=== PATIENT | female | born 1955 | race Caucasian/White ===

== ENCOUNTER 2022-12-28 11:30 | Outpatient (OUT) | payer MEDICARE, SELFPAY ==
[2022-12-28 12:00] LABS: Estimated GFR (African America 57 (>=60); Estimated GFR (Non-African Ame 47 (>=60)
--- NOTE | 2022-12-28 12:45 | MR_ITS ---
The [place] [id number] Patient Name: DIAN HILL MRN: [id number] date: 1955 Sex: F Assigned Patient Location: LAB Current Patient Location: LAB Accession/Order Number: [id number] Exam Date: 12/28/2022 12:45 Report Date: 12/28/2022 22:08 At the request of: RAJIV [place] APLCORNELL Procedure: MR hip RT wo/w con EXAM: MR hip RT wo/w con HISTORY: Right hip pain COMPARISON: None. TECHNIQUE: Multiplanar, multi sequential MRI sequences were performed with and without the administration of intravenous contrast. FINDINGS: No fracture, dislocation, subluxation or osseous lesion. The pubic symphysis and sacroiliac joints are normal for patient's age. No visualized discrete pelvic abnormality. No visualized hip joint effusions. The bilateral acetabular labrum and bilateral femoral head and acetabular cartilage exhibit no visualized irregularity Thickening and interstitial edema of the origin of the right common hamstring complex (coronal small [id number] 18 and axial 32). Questionable mild thickening and interstitial edema of the bilateral gluteus medius tendons with no tear. The remainder of the visualized tendons exhibit no discrete additional thickening, tear or edema. No abnormal bursal fluid collections. No muscle edema, hematoma, atrophy or fatty infiltration. The subcutaneous soft tissues are free of edema, hematoma, mass or cyst. Postcontrast sequences exhibit no abnormal enhancement. IMPRESSION: Moderate right common hamstring origin tendinopathy. Questionable mild bilateral gluteus medius tendinopathy. Electronically authenticated by: LUCINA BERTRAND Date: 12/28/2022 22:08
== END 2022-12-28 11:31 | disposition home or self-care (01) ==
LOC: LAB 11:55
PROVIDERS: PCP Family Medicine; Visit Provider Nurse Practitioner Family
DX: M25.451 Effusion, right hip (principal); M79.89 Other specified soft tissue disorders; M67.853 Other specified disorders of tendon, right hip
CPT/HCPCS: 36415; 73723; 82565; A9575

== ENCOUNTER 2023-02-14 10:55 | Emergency (ER) | payer MEDICARE, SELFPAY ==
[2023-02-14 11:01] VITALS: BP 135/103; PULSE 105; RESP 24; TEMP 36.9; O2SAT 99; BMI 25.8
--- NOTE | 2023-02-14 11:22 | ECG_ITS ---
The [facility] Test Date: 2023-02-14 Pat Name: DIAN HILL Department: Room: - Gender: Female Prescription Clerk Lenses: : 1955 Requested By: SHALINI HARGROVE Order Number: [id number] Reading MD: CHERYL COLORADO Measurements Intervals [place] Rate: 77 P: 81 VT: 118 QRS: 63 QRSD: 68 T: 82 QT: 384 QTc: 415 Interpretive Statements 1100 Sinus rhythm 2210 Short VT interval 9150 abnormal ECG Compared to ECG 02/14/2023 11:07:40 Short VT interval now present Electronically Signed On 02-15-2023 6:59:58 EDT by CHERYL COLORADO
--- NOTE | 2023-02-14 11:24 | ECG_ITS ---
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
--- NOTE | 2023-02-14 11:25 | XR_ITS ---
[address] [address] Patient Name: DIAN HILL MRN: [id number] date: 1955 Sex: F Assigned Patient Location: ER Current Patient Location: ER Accession/Order Number: [id number] Exam Date: 02/14/2023 11:00 Report Date: 02/14/2023 12:25 At the request of: KENNY KATZ Procedure: XR chest 1V XR chest 1V 02/14/2023 11:00 AM EDT INDICATION: Dyspnea COMPARISON: Radiograph of the chest 07/15/2022 FINDINGS: Cardiomediastinal silhouette within normal limits. No focal consolidation or pleural effusion. No pneumothorax. No acute fracture or dislocation. XR/XR chest 1V IMPRESSION: No acute cardiopulmonary process. Electronically authenticated by: PRASANNA PRITCHETT Date: 02/14/2023 12:25
[2023-02-14 11:51] LABS: Basophils Percent Auto 0.7 % (0.2-2.0); Eosinophils Absolute Auto 0.1 10^3/uL (0.0-0.7); Eosinophils Percent Auto 1.3 % (0.9-7.0); Hematocrit 42.6 % (36.0-48.0); Hemoglobin 14.6 g/dL (12.0-16.0); Immature Granulocytes Abs Auto 0.01 10^3/uL (0.00-0.03); Immature Granulocytes Pct Auto 0.2 % (0.0-0.5); Lymphocytes Absolute Auto 1.5 10^3/uL (1.2-3.8); Lymphocytes Percent Auto 32.4 % (20.5-60.0); Mean Corpuscular HGB Conc 34.3 g/dL (29.9-35.2); Mean Corpuscular Hemoglobin 31.4 pg (26.7-34.0); Mean Corpuscular Volume 91.6 fL (81.0-99.0); Mean Platelet Volume 9.8 fL (9.5-13.5); Monocytes Absolute Auto 0.3 10^3/uL (0.3-0.8); Monocytes Percent Auto 7.4 % (1.7-12.0); Neutrophils Absolute Auto 2.6 10^3/uL (1.4-6.5); Platelet Count 304 10^3/uL (150-450); Red Blood Count 4.65 10^6/uL (4.20-5.40); Red Cell Distribution Width 13.5 % (11.0-15.0); White Blood Count 4.5 10^3/uL (4.0-11.0)
[2023-02-14] MEDS: 0.9 % SODIUM CHLORIDE 1,000 ML 1000 ML IV (11:51)
[2023-02-14] MEDS: PROMETHAZINE HCL 25 MG/ML VIAL 12.5 MG IV (11:52)
[2023-02-14] MEDS: MORPHINE SULFATE 2 MG/ML SYRINGE IV (11:53)
[2023-02-14] MEDS: KETOROLAC TROMETHAMINE 30 MG/ML VIAL 15 MG IVP (11:54)
[2023-02-14 12:03] LABS: Anion Gap 17.8; BUN Creatinine Ratio 10.7; Calcium 9.8 mg/dL (8.5-10.1); Carbon Dioxide 22.9 mmol/L (21.0-32.0); Chloride 105 mmol/L (98-107); Estimated GFR (African America 53 (>=60); Estimated GFR (Non-African Ame 44 (>=60); Glucose 110 mg/dL (74-106); Potassium 4.7 mmol/L (3.5-5.1); Sodium 141 mmol/L (136-145)
[2023-02-14 12:11] LABS: Troponin I High Sensitivity 5.7 pg/mL (4.0-51.3)
--- NOTE | 2023-02-14 13:31 | ED_ITS ---
HPI - General Adult General Chief complaint: Back Pain/Injury Stated complaint: SPINAL STENOSIS/PAIN Time Seen by Provider: 02/14/23 11:18 Source: patient Mode of arrival: Wheelchair Limitations: no limitations History of Present Illness HPI narrative: 67-year-old female to the emergency department with multiple medical complaints. Patient reports that for the last year she has had back pain, nausea. She reports been seen by multiple doctors at multiple hospitals and multiple Emergency Rooms for this complaint: Patellar was wrong. She reports that she had an MRI which showed spinal stenosis. She was referred by her PCP pain management however they would not see her she was discharged from the previous pain management clinic. Patient has no new complaints today. She reports she is just tired of living like this . She reports it hurts to walk, hurts to lay down, hurts to move around. She reports that she has had constant nausea every single day for several months. She reports she takes Zofran around the clock for this. She reports that she hasn't been eating or drinking well because of this. She denies any recent falls or injuries. She denies any chest pain. She denies any fever, sweats, chills. She denies any numbness, focal weakness, tingling. Related Data Home Medications Medication Instructions Recorded Confirmed duloxetine 60 mg capsule,delayed 60 mg PO DAILY 02/14/23 02/14/23 release levothyroxine 75 mcg tablet 75 mcg PO DAILY 02/14/23 02/14/23 ondansetron 4 mg disintegrating 4 mg translingual Q8H PRN nausea 02/14/23 02/14/23 tablet and vomiting Previous Rx's Medication Instructions Recorded promethazine 25 mg tablet 25 mg PO TID PRN nausea and 02/14/23 vomiting #20 tabs Allergies Allergy/AdvReac Type Severity Reaction Status Date / Time No Known Drug Allergies Allergy Verified 02/14/23 11:00 Review of Systems ROS Status of ROS 10 or more systems reviewed and unremarkable except as noted in history and below [facility] Social History Smoking status: Never smoker Exam Narrative Exam Narrative: VITALS: I have reviewed the triage vital signs. GENERAL: Adult female in the position in no apparent distress. Son-in-law at the bedside. NEURO: Alert and oriented. Moves all extremities. Face is symmetric and expressive. EYES: PERRL. No scleral icterus or conjunctival injection. No discharge. HENT: Normocephalic, atraumatic. Hearing is grossly intact. Nares grossly patent and without discharge. Mucous membranes moist. NECK: No JVD. Patient moves neck without restriction. CARDIO: Rhythm regular. Normal rate. No murmur, rub, or gallop. Pulses equal bilaterally in the upper and lower extremity. No lower extremity edema. PULM: Lungs clear to auscultation in all baker. No wheezes, rales, or rhonchi. No conversational dyspnea. No splinting, stridor, or accessory muscle use. GI/: Abdomen is soft and non-tender. Normoactive bowel sounds. EXTREMITIES: Symmetric muscle bulk. No joint swelling. No clubbing, cyanosis, or deformity. SKIN: Warm and dry. Normal turgor. No rash or lesions appreciated. PSYCH: Strange affect Constitutional Vital Signs, click to edit/add: Last Vital Signs Temp 98.4 F 02/14/23 11:01 Pulse 105 H 02/14/23 11:01 Resp 24 02/14/23 11:01 BP 135/103 H 02/14/23 11:01 Pulse Ox 99 02/14/23 11:01 O2 Del Method Room Air 02/14/23 11:01 Course Vital Signs Vital signs: Vital Signs Temperature 98.4 F 02/14/23 11:01 Pulse Rate 105 H 02/14/23 11:01 Respiratory Rate 24 02/14/23 11:01 Blood Pressure 135/103 H 02/14/23 11:01 Pulse Oximetry 99 02/14/23 11:01 Oxygen Delivery Method Room Air 02/14/23 11:01 Temperature 98.4 F 02/14/23 11:01 Pulse Rate 105 H 02/14/23 11:01 Respiratory Rate 24 02/14/23 11:01 Blood Pressure 135/103 H 02/14/23 11:01 Pulse Oximetry 99 02/14/23 11:01 Oxygen Delivery Method Room Air 02/14/23 11:01 Medical Decision Making MDM Narrative Medical decision making narrative: 67-year-old female to the emergency department with chief complaint of Chronic back pain and chronic nausea. Vital stable, patient is afebrile. Symptoms have been ongoing for several months, she reports she has been evaluated for this several times and no answers. When asked what her goal for this Emergency Department visit was she said it would be nice to be able to eat and to walk . There are no new complaints today. Patient reports that when she sees her PCP she gets nowhere . Patient reports when she seen specialists for this she gets nowhere . Basic labs ordered. Toradol, morphine, Phenergan for symptoms. Lab work reviewed and noted. She has some renal insufficiency which appears chronic in nature. Patient reports nausea but she has not had any vomiting during her Emergency Department stay. No major electrolyte abnormalities. She is able to ambulate. I discussed with patient that she really needs to follow up with her PCP and specialist for her chronic issues. I do not believe there is any other treatment I can offer her in the acute setting that would be of value to her at this point. She has conversation with her daughter on the phone who tells her to leave this Emergency Room or go to the [facility] where she can get some answers. She would like to be discharged home so she may go to the [facility]. Phenergan prescription was given for the patient initially this helped her nausea. Return precautions discussed. All questions were answered. Patient was discharged home. Lab Data Lab results reviewed: Yes I reviewed the patient's lab results Labs: Lab Results 02/14/23 Range/Units 11:38 WBC 4.5 (4.0-11.0) 10^3/uL RBC 4.65 (4.20-5.40) 10^6/uL Hgb 14.6 (12.0-16.0) g/dL Hct 42.6 (36.0-48.0) % MCV 91.6 (81.0-99.0) fL MCH 31.4 (26.7-34.0) pg MCHC 34.3 (29.9-35.2) g/dL RDW 13.5 (11.0-15.0) % Plt Count 304 (150-450) 10^3/uL MPV 9.8 (9.5-13.5) fL Neut % (Auto) 58.0 (43.0-75.0) % Lymph % (Auto) 32.4 (20.5-60.0) % [place] % (Auto) 7.4 (1.7-12.0) % Eos % (Auto) 1.3 (0.9-7.0) % Baso % (Auto) 0.7 (0.2-2.0) % Neut # (Auto) 2.6 (1.4-6.5) 10^3/uL Lymph # (Auto) 1.5 (1.2-3.8) 10^3/uL [place] # (Auto) 0.3 (0.3-0.8) 10^3/uL Eos # (Auto) 0.1 (0.0-0.7) 10^3/uL Baso # (Auto) 0.0 (0.0-0.1) 10^3/uL Abs Immat Gran (auto) 0.01 (0.00-0.03) 10^3/uL Imm/Tot Granulo (auto) 0.2 (0.0-0.5) % Sodium 141 (136-145) mmol/L Potassium 4.7 (3.5-5.1) mmol/L Chloride 105 (98-107) mmol/L Carbon Dioxide 22.9 (21.0-32.0) mmol/L Anion Gap 17.8 BUN 13.0 (7.0-18.0) mg/dL Creatinine 1.21 H (0.55-1.02) mg/dL Est GFR ( Amer) 53 L (>=60) Est GFR (Non-Af Amer) 44 L (>=60) BUN/Creatinine Ratio 10.7 Glucose 110 H (74-106) mg/dL Calcium 9.8 (8.5-10.1) mg/dL Troponin I High Sens 5.7 (4.0-51.3) pg/mL ECG Data Attestation: I personally reviewed and interpreted this ECG as follows: (NSR @77. Normal QTc. No STEMI. ) Discharge Plan Discharge Chief Complaint: Back Pain/Injury Clinical Impression: Chronic nausea, Chronic pain Patient Disposition: Home, Self-Care Time of Disposition Decision: 13:24 Prescriptions / Home Meds: New promethazine 25 mg tablet 25 mg PO TID PRN (Reason: nausea and vomiting) Qty: 20 0RF No Action levothyroxine 75 mcg tablet 75 mcg PO DAILY ondansetron 4 mg tablet,disintegrating 4 mg translingual Q8H PRN (Reason: nausea and vomiting) duloxetine 60 mg capsule,delayed release(DR/EC) 60 mg PO DAILY Print Language: Korean Instructions: Chronic Pain (ED), Acute Nausea and Vomiting (ED) Stand Alone Forms: Portal Instructions Referrals: ABDI RUBIO [Physician] - 1 week (Call to establish care for chronic nausea) Yesi Rajput MD [Primary Care Provider] - 1 week
== END 2023-02-14 13:42 | disposition home or self-care (01) ==
PROVIDERS: Emergency Provider Student in an Organized Health Care Education/Training Program; PCP Family Medicine
DX: R11.0 Nausea (principal); G89.29 Other chronic pain; M54.9 Dorsalgia, unspecified; Z79.899 Other long term (current) drug therapy; Z79.890 Hormone replacement therapy
CPT/HCPCS: 36415; 71045; 80048; 81003; 84484; 85025; 93005; 96374; 96375; 99285

== ENCOUNTER 2023-03-29 10:31 | Outpatient (RCR) | payer MEDICARE, SELFPAY | END 2023-03-30 13:44 | disposition home or self-care (01) | LOC: PT 10:31 | PROVIDERS: PCP Family Medicine | DX: M48.062 Spinal stenosis, lumbar region with neurogenic claudication (principal); M54.16 Radiculopathy, lumbar region; M54.50 Low back pain, unspecified; R29.3 Abnormal posture; R26.9 Unspecified abnormalities of gait and mobility; R26.89 Other abnormalities of gait and mobility | CPT/HCPCS: 97110; 97116; 97161 ==

== ENCOUNTER 2023-04-21 09:22 | Outpatient (OUT) | payer MEDICARE, SELFPAY ==
--- NOTE | 2023-04-21 09:26 | US_ITS ---
The [address] [address] Patient Name: DIAN HILL MRN: [id number] date: 1955 Sex: F Assigned Patient Location: US Current Patient Location: Accession/Order Number: [id number] Exam Date: 04/21/2023 09:30 Report Date: 04/21/2023 10:19 At the request of: NON-STAFF PHYSICIAN Procedure: US right upper quadrant EXAM: US right upper quadrant HISTORY: Epigastric Pain R10.13 COMPARISON: None. TECHNIQUE: Grayscale, color and Doppler FINDINGS: The visualized pancreas is normal The liver is normal in size and contour measuring 14.9 cm in length. Identified in the right hepatic lobe is a 3.7 cm area of anechoic echogenicity. Identified in the left hepatic lobe is a 2.6 cm area of anechoic echogenicity. Both lesions demonstrate increased through transmission and likely represent simple cysts. Hepatopedal flow in the main portal vein with velocity 24 cm/s The gallbladder is normal in size and contour. The wall measures 2 mm, normal. The common bile duct measures 5.4 mm, normal. The right kidney is normal measuring 8.5 x 4.9 x 5.3 cm. The cortex measures 1.2 cm thick. US/US right upper quadrant IMPRESSION: Hepatic cysts measuring up to 3.7 cm Electronically authenticated by: LUCINA ALVARADO Date: 04/21/2023 10:19
== END 2023-04-21 09:23 | disposition home or self-care (01) ==
LOC: US 09:22
PROVIDERS: PCP Family Medicine
DX: R10.13 Epigastric pain (principal); K76.89 Other specified diseases of liver
CPT/HCPCS: 76705

== ENCOUNTER 2023-10-23 10:01 | Outpatient (OUT) | payer MEDICARE, SELFPAY ==
--- NOTE | 2023-10-23 10:04 | US_ITS ---
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 Multiple areas of anechoic echogenicity measuring up to 4 cm in the right hepatic lobe, simple cysts are favored. No focal solid mass. Hepatopedal flow in the main portal vein velocity of 20 cm/s. The gallbladder is normal in size. The wall measures 2.3 mm, normal. Negative sonographic Fernandez sign. The common bile duct measures 4.5 mm. No cholelithiasis. The visualized pancreas demonstrates a. 5 mm area of anechoic echogenicity in the pancreatic tail, a cyst/pseudocyst is favored. The right kidney measures 11.3 x 4.2 x 4.8 cm. No solid mass or hydronephrosis. 2 cm area of anechoic echogenicity lower pole, simple cortical cyst is favored No ascites US/US right upper quadrant IMPRESSION: Multiple hepatic cysts 5 mm pancreatic cyst 2 cm right renal cortical cyst Electronically authenticated by: LUCINA ALVARADO Date: 10/23/2023 11:05
--- NOTE | 2023-10-23 10:49 | XR_ITS ---
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 PLEURA: No pneumothorax, effusion, or pleural thickening. MEDIASTINUM: No visible mass or adenopathy. CARDIAC: No cardiomegaly or cardiac silhouette abnormality. RIBS: Callus formation along the right lateral eighth and ninth ribs seen best on image 4 OTHER: Negative. XR/XR ribs RT min 3V w CXR1V IMPRESSION: Clear lungs Subacute/chronic fractures right lateral eighth and ninth ribs Electronically authenticated by: LUCINA ALVARADO Date: 10/23/2023 14:18
[2023-10-23 12:04] LABS: Alanine Aminotransferase 14 U/L (14-59); Albumin Globulin Ratio 1.1; Albumin Level 3.6 g/dL (3.4-5.0); Alkaline Phosphatase 82 U/L (46-116); Anion Gap 14.2; Aspartate Amino Transferase 13 U/L (15-37); BUN Creatinine Ratio 14.6; Bilirubin Total 0.4 mg/dL (0.2-1.0); Calcium 9.1 mg/dL (8.5-10.1); Carbon Dioxide 30.2 mmol/L (21.0-32.0); Chloride 105 mmol/L (98-107); Estimated GFR (African America >60 (>=60); Estimated GFR (Non-African Ame >60 (>=60); Free T3 2.32 pg/mL (2.18-3.98); Globulin 3.4 g/dL; Glucose 96 mg/dL (74-106); Potassium 4.4 mmol/L (3.5-5.1); Sodium 145 mmol/L (136-145); Thyroid Stimulating Hormone 0.782 uIU/mL (0.358-3.740)
[2023-10-23 12:09] LABS: Free T4 0.96 ng/dL (0.76-1.46)
== END 2023-10-23 10:02 | disposition home or self-care (01) ==
LOC: US 10:01
PROVIDERS: PCP Family Medicine; Visit Provider Family Medicine
DX: E89.0 Postprocedural hypothyroidism (principal); R10.11 Right upper quadrant pain; K76.89 Other specified diseases of liver; K86.2 Cyst of pancreas; N28.1 Cyst of kidney, acquired; S22.41XS Multiple fractures of ribs, right side, sequela
CPT/HCPCS: 36415; 71101; 76705; 80053; 84439; 84443; 84481

== ENCOUNTER 2024-02-05 13:01 | Outpatient (OUT) | payer MEDICARE, SELFPAY ==
--- NOTE | 2024-02-05 13:05 | VEIN_ITS ---
The [address] [address] Patient Name: DIAN HILL MRN: [id number] date: 1955 Sex: F Assigned Patient Location: Current Patient Location: Accession/Order Number: [id number] Exam Date: 02/05/2024 13:06 Report Date: 02/05/2024 19:30 At the request of: CODY MILLAN Procedure: VC SEGMENTAL PRESSURES EXAM: VC SEGMENTAL PRESSURES HISTORY: I73.9 Right leg pain. COMPARISON: None. TECHNIQUE: Resting ABIs and segmental limb pressures. FINDINGS: Right resting TERENCE normal at 1.17. Left resting TERENCE normal at 1.2. No pressure gradients were noted. Waveforms are multiphasic. Toe brachial indices were normal. VEIN/VC SEGMENTAL PRESSURES IMPRESSION: Normal resting ABIs. No pressure gradients noted. Multiphasic waveforms. Normal toe brachial indices. Electronically authenticated by: Freddy REYEZ Date: 02/05/2024 19:30
--- NOTE | 2024-02-05 13:05 | VEIN_ITS ---
Patient Name: DIAN HILL MR#: [id number] : 1955 Exam Date: 02/05/2024 Ordering Doctor: CODY MILLAN M.D. RADIOLOGY REPORT PROCEDURE: VC EXT VENOUS REFLUX CHAIM LMTD COMPARISON: None. INDICATIONS: Varicose veins of right lower extremity with complications I83.891 TECHNIQUE: Duplex imaging of the lower extremity to assess the deep and superficial venous system for the presence of deep or superficial venous incompetence and to document the location and severity of disease. The study includes evaluation of the great saphenous vein (GSV), anterior accessory saphenous vein (AASV) and small saphenous vein (SSV). Patient scanned in reverse Trendelenburg and standing. FINDINGS: RIGHT LOWER EXTREMITY: Saphenofemoral Junction Reflux: Yes 10.9mm 3.8 sec GSV: Diam (mm) Reflux/ Time (sec) Proximal Thigh 7.8 Yes 4.3 Mid Thigh 6.9 Yes 4.2 Distal Thigh 3.7 Yes 4.7 Prox Calf 6.6 Yes 4.2 Mid Calf 3.0 Yes 4.0 Saphenopopliteal Junction Reflux: 1.6mm No SSV: Proximal Calf 1.2 Yes 0.3 Mid Calf 3.3 Yes 0.3 AASV: Proximal Thigh 3.2 Yes 0.7 Mid Thigh 1.5 Yes 0.3 Distal Thigh Thrombi: No acute or chronic thrombus. Compressibility: Normal. Flow: Moderate deep venous reflux. Preforator: Distal medial lower leg 4.1 mm with 0.6s reflux. Proximal medial lower leg 4.8 mm with 1.7s reflux. Tech Note: Fluid collection medial right popliteal fossa measures 5.3 x 3.4 x 2.6 cm. Thigh extension of SSV. Incompetent varicose vein mid medial thigh that decompresses GSV measures 12.1 mm with 2.9s reflux. Varicose vein distal medial lower leg measures 8.1 mm with 1.9s reflux. Variocse vein anterior knee measures 4.3 mm with 1.8s reflux. LEFT LOWER EXTREMITY: Saphenofemoral Junction Reflux: Yes 11.4 mm 2.0 sec GSV: Diam (mm) Reflux/Time (sec) Proximal Thigh 7.7 Yes 1.4 Mid Thigh 4.3 Yes 1.6 Distal Thigh 5.1 Yes 3.8 Prox Calf 6.5 Yes 1.5 Mid Calf 2.9 Yes 4.3 Saphenopopliteal Junction Relux: 3.6 mm Yes 0.3 SSV: Proximal Calf 2.9 Yes 0.3 Mid Calf 2.8 Yes 0.4 AASV: Proximal Thigh 3.7 Yes 0.5 Mid Thigh 3.4 Yes 1.7 Distal Thigh Thrombi: No acute or chronic thrombus. Compressibility: Normal. Flow: Severe deep venous reflux in popliteal vein. Submersible Pilot: Distal medial lower leg measures 3.3 mm with 2.1s reflux. Tech Note: Incompetent varicose vein proximal medial lower leg measures 4.8s reflux. CONCLUSION: 1. Severe bilateral great saphenous vein venous insufficiency with saphenofemoral junction reflux and dilatation 2. Mild right and moderate left anterior accessory saphenous vein venous insufficiency without dilatation 3. Moderate right and severe left leg deep vein rib reflex 4. Bilateral incompetent varicose veins Dictated by: Ty Miranda MD on 02/08/2024 at 10:22 Approved by: Ty Miranda MD on 02/08/2024 at 11:35
--- OUTSIDE RECORDS SUMMARY | 2024-02-05 13:25 | XMS_ITS | CCD ---
Author Organization [facility] Care Team Providers Care Internet Researcher Name Role Phone NO FAMILY, PHYSICIAN Primary Care Provider Unava MD Lenny Judd Attending Provider Shalini Hargrove Unavailable BEENA, DR SHALINI Osborne Primary Care Unavailable HARGROVE, DR SHALINI Osborne Admitting Unavailable HARGROVE, DR SHALINI Osborne Attending Unavailable HARGROVE, DR SHALINI Osborne Consulting Unavailable BEENA, DR SHALINI Osborne Primary Care Unavailable HALADASaima, DR TOMLIN Admitting Unavailable KYLEADASaima, DR TOMLIN Attending Unavailable HARGROVE, DR SHALINI Osborne Consulting Unavailable HARGROVE, DR SHALINI Osborne Primary Care Unavailable HARGROVE, DR SHALINI Osborne Admitting Unavailable HARGROVE, DR SHALINI Osborne Attending Unavailable HARGROVE, DR SHALINI Osborne Primary Care Unavailable ZIEBAD, DR DANIELITO Day Consulting Unavailable HARGROVE, DR SHALINI Osborne Admitting Unavailable HARGROVE, DR SHALINI Osborne Attending Unavailable HARGROVE, DR SHALINI Osborne Consulting Unavailable HARGROVE, DR SHALINI Osborne Consulting Unavailable HARGROVE, DR SHALINI Osborne Primary Care Unavailable HARGROVE, DR SHALINI Osborne Admitting Unavailable HARGROVE, DR SHALINI Osborne Attending Unavailable Niko Talley MD Unavailable Puzio DO, Mary Primary Care Provider [phone] Puzio DO, Mary Primary Care Provider [phone] KAI NASCIMENTO Attending Unavailable FLORINDA GLOVER Referring Unavailable PUZIO, MARY Primary Care Unavailable FLORINDA GLOVER Referring Unavailable PUZIO, MARY Primary Care Unavailable SELF Referring Unavailable FLORINDA GLOVER Attending Unavailable PUZIO, MARY Primary Care Unavailable NIKO TALLEY Attending Unavailable JAVON VELÁSQUEZ Referring Unavailable NIKO TALLEY Attending Unavailable FLORINDA GLOVER Referring Unavailable FLORINDA GLOVER Attending Unavailable PUO, MARY Primary Care Unavailable MARISELA CLAUDIO Attending Unavailable KAI NASCIMENTO Referring Unavailable RODY JUAREZ Referring Unavailable PUZIO, MARY Primary Care Unavailable GILBERT LITTLE Attending Jeniffer CHARLA Valdivia Admitting Unavailable PUZIO, MARY Primary Care Unavailable KAI NASCIMENTO Referring Unavailable Allergies Allergy Classification Reported Allergen(s) Allergy Type Date of Onset Reaction(s) Facility (20 sources) Non-steroidal anti-inflammato ry agent Drug allergy 4 GI Upset [facility] (12 sources) Allergies Reconciled Propensity to adverse reactions Unknown [employer] Other (1 source) NSAIDs; Translations: [NSAIDS (NON-STEROIDAL ANTI-INFLAMMATO RY DRUG)] Propensity to adverse reactions to drug (disorder) 4 [facility] Repository Medications Current Medications Medication Drug Class(es) Dates Sig (Normalized) Sig (Original) acetaminophen 500 mg oral tablet (4 sources) Start: 05-21-2023 End: 06-20-2023 take 2 tablets enteral route every six hours acetaminophen (TYLENOL) 500 mg tablet 2 tablets by ORAL/FEEDING TUBE route every 6 hours. 240 tablet 0 05/21/2023 06/20/2023 Active Start: 05-19-2023 End: 08-17-2023 take 1 tablet by mouth every six hours as needed acetaminophen (TYLENOL EXTRA STRENGTH) 500 mg tablet Take 1 tablet by mouth every 6 hours as needed for pain. 120 tablet 2 05/19/2023 05/21/2023 Discontinued Comment on above: Take 1 tablet by harvey every 6 hours as needed for pain. 2 tablets by ORAL/FE EDING TUBE route every 6 hours. DULoxetine 60 mg delayed release oral capsule (20 sources) Serotonin and Norepinephrine Reuptake Inhibitor Start: 023 take 1 capsule by mouth once DULoxetine (CYMBALTA) 60 mg capsule Take 1 capsule by mouth every afternoon. 0 01/31/2023 Active Comment on above: Take 1 capsule by mo ut every afternoon. ergocalciferol 1.25 mg oral capsule (15 sources) Provitamin D2 Compound Start: take 1 capsule by mouth every week ergocalciferol 50,000 unit capsule (VITAMIN D2, DRISDOL) Indications: Vitamin D deficiency Take 1 capsule by mouth one time a week. 12 capsule 0 04/23/2023 Active Comment on above: Take 1 capsule by mo ut one time a week. gabapentin 300 mg oral capsule (13 sources) Anti-epileptic Agent Start: End: take 1 capsule by mouth three times daily gabapentin (NEURONTIN) 300 mg capsule Take 1 capsule by mouth three times a day for 320 days. 240 capsule 3 06/16/2023 05/01/2024 Active Comment on above: Take 1 capsule by mo uth three times a day for 30 days. Take 1 capsule by mo uth three times a day for 320 days. hydrOXYzine hydrochloride 25 mg oral tablet (20 sources) Antihistamine hydrOXYzine HCl (ATARAX) 25 mg tablet Take by mouth. 0 Active Comment on above: Take by mouth. iv contrast (will be provided with radiology test) (3 sources) Start: End: iv contrast (will be provided with radiology test) MRI PANC/CHAIM Inject, intravenously, once for 1 dose. No IV access, insert saline lock prior to the beginning of sedation, infusion, injection of imaging exam. Discontinue saline lock post exam. If Pt. has a central line or IVAD, may access for administration according to line specific nursing protocol. Once exam is complete flush line and de-access according to line specific nursing protocol in the MR contrast administration guidelines link. 1 Each 0 10/12/2023 10/13/2023 Active Start: 09-14-2023 End: 09-15-2023 inject 1 dose intravenously once iv contrast (will be provided with radiology test) MRI Brain Inject, intravenously, once for 1 dose.No IV access, insert saline lock prior to beginning of sedation, infusion, injection of imaging exam.Discontinue saline lock post exam. If Pt. has a central line or IVAD, may access for administration according to line specific nursing protocol.Once exam is complete flush line and de-access according to line specific nursing protocol in the MR contrast administration guidelines link 1 Each 0 09/14/2023 09/15/2023 Active Start: 08-29-2023 End: 08-30-2023 iv contrast (will be provide d with radiology test) MRI PANC/CHAIM Inject, intravenously, once for 1 dose. No IV access, insert saline lock prior to the beginning of sedation, infusion, injection of imaging exam. Discontinue saline lock post exam. If Pt. has a central line or IVAD, may access for administration according to line specific nursing protocol. Once exam is complete flush line and de-access according to line specific nursing protocol in the MR contrast administration guidelines link. 1 Each 0 08/29/2023 08/30/2023 Comment on above: MRI PANC/CHAIM Inject, intravenously, once for 1 dose. No IV access, insert saline lock prior to the beginning of sedation, infusion, injection of imaging exam. Discontinue saline lock post exam. If Pt. has a central line or IVAD, may access for administration according to line specific nursing protocol. Once exam is complete flush line and de-access according to line specific nursing protocol in the MR contrast administration guidelines link. MRI Brain Inject, in travenously, once for 1 dose.No IV access, insert saline lock prior to beginning of sedation, infusion, injection of imaging exam.Discontinue saline lock post exam. If Pt. has a central line or IVAD, may access for administration according to line specific nursing protocol.Once exam is complete flush line and de-access according to line specific nursing protocol in the MR contrast administration guidelines link levothyroxine sodium 0.075 mg oral tablet (20 sources) l-Thyroxine Start: 12-07-19 23 take 1 tablet by mouth once daily in the morning levothyroxine (SYNTHROID) 75 mcg tablet Take 75 mcg by mouth every morning. Take on an empty stomach. 0 12/06/2022 Active Start: 01-07-2003 SYNTHROID 100M CG TABLET Take one(1) tablet daily. 0 01/07/2003 Active Levothyroxine So dium 75 MCG 1 tablet every morning on an empty stomach Orally Once a day for 30 days Active Comment on above: Take one(1) tablet d aily. Take 75 mcg by mouth every morning. Take on an empty stomach. medical supply, miscellaneous (COMPRESSION STOCKINGS MISC) (5 sources) Start: 07-23-19 15 medical supply, miscellaneous (COMPRESSION STOCKINGS MISC) ondansetron 4 mg disintegrating oral tablet (18 sources) Serotonin-3 Receptor Antagonist take 1 tablet by mouth three times daily as needed Ondansetron 4 MG 1 tablet on the tongue and allow to dissolve Orally tid prn for 10 days Active take 1 tablet by harvey th every twenty-four hours Ondansetron 4 MG 1 tablet on the tongue and allow to dissolve Orally Once a day Active predniSONE 10 mg oral tablet (16 sources) Start: 10-27-2022 predniSONE 10 MG 4 tabs po daily x 2 days, 3 tabs daily x 2 days, 2 tabs daily x 2 days, 1 tab daily x 2 days Orally Once a day for Oct, Active promethazine hydrochloride 25 mg oral tablet (20 sources) Phenothiazine Start: 02-14-2023 take 1 tablet by mouth every eight hours as needed promethazine (PHENERGAN) 25 mg tablet Take 25 mg by mouth every 8 hours as needed for nausea/vomiting. 0 02/14/2023 Active Start: 02-14-2023 promethazine ( PHENERGAN) 25 mg tablet Comment on above: Take 25 mg by mouth every 8 hours as needed for nausea/vomiting. Completed/Discontinued Medications Medication Drug Class(es) Dates Sig (Normalized) Sig (Original) acetaminophen 750 mg / HYDROcodone bitartrate 7.5 mg oral tablet (7 sources) Opioid Agonist Start: 09-18-2003 End: 05-19-2023 VICODIN ES TABLET as necessary 0 09/18/2003 05/19/2023 Discontinued (Course of therapy completed) Comment on above: as necessary acetaminophen 325 mg / oxyCODONE hydrochloride 5 mg oral tablet (7 sources) Opioid Agonist Start: 07-05-2004 End: 05-19-2023 PERCOCET 5/325 MG TABLET Take one(1) tablet four(4) times daily as needed for pain. 120 0 07/05/2004 05/19/2023 Discontinued (Course of therapy completed) Comment on above: Take one(1) tablet f our(4) times daily as needed for pain. sertraline 100 mg oral tablet (7 sources) Serotonin Reuptake Inhibitor Start: 01-07-2003 End: 05-19-2023 ZOLOFT 100MG TABLET Take one(1) tablet daily. 0 01/07/2003 05/19/2023 Discontinued (Course of therapy completed) Comment on above: Take one(1) tablet d aily. sulfamethoxazole 800 mg / trimethoprim 160 mg oral tablet (18 sources) Dihydrofolate Reductase Inhibitor Antibacterial, Sulfonamide Antimicrobial take 1 tablet by mouth every twelve hours Sulfamethoxazole- Trimethoprim 800-160 MG 1 tablet Orally Twice a day Not-Taking/PRN Problems Active Problems Problem Classification Problem Date Documented Date Episodic/Chronic Essential hypertension (20 sources) Hypertensive disorder; Translations: [Essential (primary) hypertension] Onset: 02-11-2022 Chronic Fever of unknown origin (12 sources) Fever; Translations: [Fever, unspecified] Episodic Genitourinary symptoms and ill-defined conditions (1 source) Mixed urinary incontinence; Translations: [Mixed incontinence] 05-24-2023 Chronic Genitourinary symptoms and ill-defined conditions (12 sources) Genitourinary symptoms; Translations: [Unspecified symptoms and signs involving the genitourinary system] Episodic Malaise and fatigue (17 sources) Fatigue; Translations: [Chronic fatigue, unspecified] Chronic Nutritional deficiencies (1 source) Vitamin D deficiency; Translations: [Vitamin D deficiency, unspecified] 04-23-2023 Chronic Osteoarthritis (20 sources) Arthritis; Translations: [Unspecified osteoarthritis, unspecified site] Chronic Other circulatory disease (2 sources) Isolated angiitis of central nervous system; 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, unspecified] 09-14-2023 Chronic Other connective tissue disease (1 source) Fibromyalgia Episodic Other connective tissue disease (1 source) Muscle pain; Translations: [Myalgia, unspecified site] 11-08-2023 Episodic Other hereditary and degenerative nervous system conditions (1 source) Impaired cognition; Translations: [Mild cognitive impairment, so stated] 11-08-2023 Chronic Other inflammatory condition of skin (18 sources) Pruritus of skin; Translations: [Pruritus, unspecified] Episodic Other inflammatory condition of skin (1 source) Prurigo nodularis Episodic Other inflammatory condition of skin (11 sources) Itching of skin; Translations: [Pruritus, unspecified] Episodic Other inflammatory condition of skin (1 source) Pruritus, unspecified; Translations: [Pruritus, unspecified] Episodic Other lower respiratory disease (3 sources) Other forms of dyspnea; Translations: [OTHER FORMS OF DYSPNEA] Onset: 07-22-2022 Episodic Other lower respiratory disease (2 sources) Dyspnea on exertion; Translations: [Other forms of dyspnea] 09-14-2023 Episodic Other nervous system disorders (16 sources) Chronic pain; Translations: [Other chronic pain] Chronic Other nervous system disorders (1 source) Other chronic pain Chronic Other nervous system disorders (14 sources) Chronic pain syndrome; Translations: [Chronic pain syndrome] Onset: 05-19-2023 05-19-2023 Chronic Other non-traumatic joint disorders (5 sources) Pain in right hip; Translations: [PAIN IN RIGHT HIP] Onset: 11-02-2022 Episodic Other non-traumatic joint disorders (1 source) Pain in right knee Episodic Other non-traumatic joint disorders (1 source) Pain in left knee Episodic Other non-traumatic joint disorders (1 source) Pain in right hip joint; Translations: [Pain in right hip] 11-08-2023 Episodic Other nutritional; endocrine; and metabolic disorders (18 sources) History of Graves' disease; Translations: [Personal history of other endocrine, nutritional and metabolic disease] Episodic Other nutritional; endocrine; and metabolic disorders (2 sources) Personal history of other endocrine, nutritional and metabolic disease; Translations: [Personal history of other endocrine, nutritional and metabolic disease] Episodic Other nutritional; endocrine; and metabolic disorders (11 sources) H/O: endocrine disorder; Translations: [Personal history of other endocrine, nutritional and metabolic disease] Episodic Other nutritional; endocrine; and metabolic disorders (20 sources) Body mass index 25-29 - overweight; Translations: [Body mass index (BMI) 25.0-25.9, adult] Episodic Other nutritional; endocrine; and metabolic disorders (1 source) Body mass index (BMI) 25.0-25.9, adult; Translations: [Body mass index (BMI) 25.0-25.9, adult] Episodic Other nutritional; endocrine; and metabolic disorders (1 source) Body mass index (BMI) 28.0-28.9, adult; Translations: [Body mass index (BMI) 28.0-28.9, adult] Episodic Other screening for suspected conditions (not mental disorders or infectious disease) (2 sources) Imaging result abnormal; Translations: [Abnormal findings on diagnostic imaging of other specified body structures] 08-18-2023 Chronic Other screening for suspected conditions (not mental disorders or infectious disease) (13 sources) Abnormal findings on diagnostic imaging of breast; Translations: [Other abnormal and inconclusive findings on diagnostic imaging of breast] 05-31-2023 Episodic Other skin disorders (2 sources) Generalized hyperhidrosis; Translations: [GENERALIZED HYPERHIDROSIS] Onset: 11-09-2022 Episodic Pancreatic disorders (not diabetes) (4 sources) Cyst of pancreas; Translations: [Cyst of pancreas] Onset: 10-05-2023 08-29-2023 Episodic Spondylosis; intervertebral disc disorders; other back problems (3 sources) Degeneration of thoracic intervertebral disc; Translations: [Other intervertebral disc degeneration, thoracic region] Onset: 09-07-2023 08-29-2023 Chronic Spondylosis; intervertebral disc disorders; other back problems (20 sources) Lumbosacral stenosis; Translations: [Spinal stenosis, lumbosacral region] Onset: 05-19-2023 Resolved: 05-21-2023 02-16-2023 Episodic Systemic lupus erythematosus and connective tissue disorders (1 source) Thrombotic thrombocytopenic purpura; Translations: [TTP (thrombotic thrombocytopenic purpura) (HCC)] Onset: 05-19-2023 Chronic Thyroid disorders (20 sources) Hypothyroidism; Translations: [Hypothyroidism, unspecified] Onset: 02-09-2022 Chronic Past or Other Problems Problem Classification Problem Date Documented Date Episodic/Chronic Abdominal pain (16 sources) Unspecified abdominal pain; Translations: [Abdominal pain] Onset: 02-11-2022 04-11-2023 Episodic Malaise and fatigue (3 sources) Fatigue; Translations: [Other fatigue] Onset: 04-11-2023 02-16-2023 Episodic Nausea and vomiting (19 sources) Nausea with vomiting, unspecified; Translations: [Nausea] Onset: 11-09-2022 Episodic Other connective tissue disease (20 sources) Fibromyalgia; Translations: [Fibromyalgia] Onset: 05-19-2023 05-19-2023 Episodic Other nervous system disorders (2 sources) Abnormal gait; Translations: [Unspecified abnormalities of gait and mobility] Onset: 05-19-2023 Resolved: 05-21-2023 05-19-2023 Episodic Other nervous system disorders (1 source) Unspecified abnormalities of gait and mobility; Translations: [Gait difficulty] Onset: 05-19-2023 Episodic Results Test Name Value Interpretation Reference Range Facility [facility] 11-08-2023 CNOV Office Visit ([facility] ) DIAN HILL ([id number]) 1955 F Date Time Provider Department 11/08/23 12:00 PM MARISELA CLAUDIOCC During your visit today, we recorded the following information about you: Pulse Blood pressure Weight Height 86/minute 144/94 76.3 kg 1.651 m Marisela Claudio APRN.[employer] 11/08/2023 12:30 PM Signed Get blood work (crp, sed rate) We also need results of thyroid If you are fracturing we need a bone density scan ask your pcp so we can see how thin your bones are Recommend getting xray of your right hip Also recommend seeing neurologist for mild cognitive impairment Marisela Claudio APRN.[employer] 11/09/2023 8:58 AM Signed SUBJECTIVE: The patient presents to [facility] Pain Management Department for a follow-up appointment for pain in the right hip Her right hip pain has been persistent. She is also having multiple joint pain. She completed thyroid blood work at outside hospital (will send us results). MRI brain was ordered at last visit as well. She is having memory difficulty. She has not seen neurology. She wants to know what is causing hip pain. She feels it is swollen. Current pain intensity is 8 on a scale of 0 -10. Pain character: aching and severe Exacerbating factors: unable to pinpoint exacerbating factors/positions Alleviating factors: unable to pinpoint positions/factors that are mitigating Medications For Pain: - Opioids: n/a - NSAIDs: allergic - Anti-Depressants: cymbalta 60 mg daily - Anti-Convulsants: gabapentin 300 mg tid - Others: n/a Opioid agreement: No OARRS report reviewed by the physician --- Is the patient receiving analgesia/pain relief from the current medications? (YES) Has the current medication improved activities such as walking or standing? (YES) Have the current medications been associated with any adverse events? (NO) Illicit drug use? (NO) --- Physical Therapy in the last 6 months?: No FH: patient denies any family history of the chief complaint for this visit SH: denies illicit drug use Last took opioid medication (DATE, TIME): n/a Questionnaires: Patient Entered Questionnaires PROMIS Score Percentiles Percentiles provide an indication of how the patient's score ranks in relation to the general population. Higher percentile rankings indicate better function/quality of life. 50th percentile is the average of the general population and indicates half of respondents had a worse score. > 31st percentile is within normal limits or better * < 31st percentile is at least ? SD worse than population, which may be clinically relevant < 16th percentile is at least 1 SD worse than population and warrants attention Depression Screening: PHQ-9 Self-Harm (Item 9) response options: 0 Not at all 1 Several days 2 More than half the days 3 Nearly every day PHQ-9 Levels: 0-4 Minimal depression 5-9 Mild depression 10-14 Moderate depression 15-19 Moderately severe depression 20-27 Severe depression No data to display (0-4) minimal depression, (5-9) mild depression, (10-14) moderate depression, (15-19) moderately severe depression, (20-27) severe depression No data to display No data to display REVIEW OF SYSTEMS: GENERAL: (-) weight loss, (+)malaise, (-)fevers. HEENT:(-)headaches. NECK: (-) for lumps, goiter, (-)pain and (-)significant neck swelling. RESPIRATORY: (-) for cough, wheezing or shortness of breath. CARDIOVASCULAR: (-) for chest pain, leg swelling or palpitations. GI: (-) abdominal discomfort, (-)blood in stools or black stools or change in bowel habits. MUSCULOSKELETAL: (+)joint pain , (-)swelling, (+)back pain, (+)muscle pain. SKIN: (-) for lesions, rash, and itching. PSYCH: (-)sleep disturbance, (-)mood disorder, (-)recent psychosocial stressors. HEMATOLOGY/LYMPHOLOGY: (-) for prolonged bleeding, bruising easily or swollen nodes. NEURO: (-)syncope, paralysis, seizures or tremors.(+) memory issues All other reviewed and negative other than HPI. OBJECTIVE: BP 144/94 Pulse 86 Ht 165.1 cm (5' 5 ) Wt 76.3 kg (168 lb 3.4 oz) BMI 27.99 kg/m? GENERAL: Well appearing. No acute distress PSYCH: Mood and affect is appropriate. Awake, alert, and oriented x 3 SKIN: Skin color, texture, turgor normal, no rashes or lesions Otolaryng/HEENT: Normocephalic, atraumatic. EOM intact RESP: Respirations are unlabored CARD: Regular rate. Cap refill <2s. Extremities pink and well perfused at nailbed. MSK: Bilateral upper and lower extremity strength is normal and symmetric. No atrophy or tone abnormalities are noted. Tenderness to right greater trochanter. Right knee swelling. Lumbar: (more content not included)... Normal [facility] MRI 3D POST PROCESSINGon MRI 3D POST PROCESSING * * *Final Report* * * DATE OF EXAM: Oct 05 2023 11:43AM [facility] [id number] - MRI 3D POST PROCESSING / PROCEDURE REASON: Pancreatic cyst * * * * Physician Interpretation * * * * MRI ABDOMEN WITHOUT AND WITH IV CONTRAST , 3D REFORMATTED IMAGES CLINICAL HISTORY: Incidental pancreatic cystic lesion previously found on CT abdomen/pelvis, further characterization. TECHNIQUE: Magnet: Siemens Espree 1.5T scanner. Multiplanar MRI of the abdomen with multiple sequences, including both pre- and post-contrast imaging. Additional MR cholangiopancreatography sequences were performed. Image post-processing {Maximum intensity Projection (MIP)} images were created at an off-line workstation by the interpreting physician or with concurrent physician supervision, with images created, reviewed and archived. Contrast: Intravenous: 15 ml of Dotarem COMPARISON: CT abdomen/pelvis 09/16/2022. RESULT: Liver: Normal morphology. No hepatic steatosis. Innumerable T2 hyperintense nonenhancing bilobar hepatic lesions, compatible with cysts. No suspicious enhancing mass. Biliary: Minimal central intrahepatic biliary duct dilation. No biliary filling defect. Gallbladder is normal. Spleen: No mass. No splenomegaly. Pancreas: Non-enhancing T2 hyperintense cystic pancreatic body lesion measuring 0.6 cm with apparent communication to the main pancreatic duct, compatible with side branch IPMN. No main pancreatic duct dilation. Adrenals: No mass. Kidneys: Benign cysts. No solid mass. No hydronephrosis. GI: No dilated bowel or wall thickening along imaged segments. Lymph nodes: No abdominal lymphadenopathy. Mesentery / Peritoneum / Retroperitoneum: No ascites or mass. Vasculature: The celiac axis and SMA are patent. The portal vein and branches, splenic vein, SMV, and hepatic veins are patent. No aortic artery aneurysm. Bones/Soft Tissues: Degenerative changes. Lower chest: Unremarkable. IMPRESSION: 0.6 cm cystic pancreatic body lesion, likely side branch IPMN. No worrisome features or main duct dilation. [employer]: CHAD Transcribe Date/Time: Oct 05 2023 12:41P Dictated by : MARIELA ROBLERO DO This examination was interpreted and the report reviewed and electronically signed by: RICK WHITEHEAD MD on Oct 05 2023 1:25PM EST [id number] Normal [facility] [place] MRI BRAIN WO/W IVCONon 10-04 MRI BRAIN WO/W IVCON * * *Final Report* * * DATE OF EXAM: Oct 05 2023 11:43AM [facility] [id number] - MRI BRAIN WO/W IVCON / PROCEDURE REASON: Vasculitis, TAX SERVICES INTERN (HCC) * * * * Physician Interpretation * * * * EXAMINATION: MRI BRAIN WO/W IVCON CLINICAL HISTORY: Concern for possible vasculitis versus sequela of prior demyelination discussed on an outside MRI brain report from 2016. TECHNIQUE: Routine brain MRI protocol without and with contrast including diffusion images. MQ: [id number]_2 Contrast: 15 mL Dotarem IV COMPARISON: Report from outside exam reviewed. RESULT: Acute Change: There is no restricted diffusion on this examination to suggest focal acute ischemia or pathologic brain parenchymal cellularity. Hemorrhage: No evidence of prior parenchymal hemorrhage on the susceptibility weighted images. Mass Lesion/ Mass Effect: No evidence of an intracranial mass or extra-axial fluid collection. No abnormal parenchymal or leptomeningeal enhancement is noted following contrast administration. No significant mass effect. There are fairly numerous perivascular spaces throughout the brain parenchyma including the subcortical and deep white matter. No surrounding gliosis and no abnormal enhancement. This is a nonspecific finding. Chronic Change: There are a few punctate scattered foci of increased T2 and FLAIR signal in the white matter of both hemispheres, nonspecific, but likely minimal background chronic microvascular change. This is well within expected limits for the patient's age. Parenchyma: No significant volume loss for age. No other specific structural abnormalities. Ventricles: Normal caliber and morphology. Skull Base: Hypothalamic and pituitary region normal. Craniovertebral junction normal. No evidence for a marrow replacement process at the skull base or upper cervical spine. Cerebellar tonsils are normally positioned relative to the foramen magnum. Vasculature: Major intracranial arterial structures, and dural venous sinuses show typical flow void, suggesting patency by spin echo criteria. Other: The visualized paranasal sinuses and mastoid air cells are clear. The orbits and extracranial soft tissues are unremarkable. IMPRESSION: No acute brain findings. Negligible background chronic microvascular change. There is no evidence for sequela of prior demyelination or vasculitis on this exam. There are numerous benign-appearing perivascular spaces in the subcortical and deep white matter of both hemispheres. No corresponding enhancement or other concerning findings. Based on the axial T2 flow void pattern, proximal intracranial arterial vasculature, major cortical draining veins, and dural venous sinuses are patent. Concordant appearance after gadolinium. COMMUNICATION: Communicated with Physician: KAI NASCIMENTO on 10/05/2023 via verbal communication. Medical [employer] Officer: PSCBurt Transcribe Date/Time: Oct 05 2023 12:46P Dictated by : MARYANN NAPIER MD This examination was interpreted and the report reviewed and electronically signed by: MARYANN NAPIER MD on Oct 05 2023 1:41PM EST [id number] Normal [facility] MRI PANC/CHAIM WO/W IVCONon MRI PANC/CHAIM WO/W IVCON * * *Final Report* * * DATE OF EXAM: Oct 05 2023 11:43AM M 0730 - MRI PANC/CHAIM WO/W IVCON / PROCEDURE REASON: Pancreatic cyst * * * * Physician Interpretation * * * * MRI ABDOMEN WITHOUT AND WITH IV CONTRAST , 3D REFORMATTED IMAGES CLINICAL HISTORY: Incidental pancreatic cystic lesion previously found on CT abdomen/pelvis, further characterization. TECHNIQUE: Magnet: Siemens Espree 1.5T scanner. Multiplanar MRI of the abdomen with multiple sequences, including both pre- and post-contrast imaging. Additional MR cholangiopancreatography sequences were performed. Image post-processing {Maximum intensity Projection (MIP)} images were created at an off-line workstation by the interpreting physician or with concurrent physician supervision, with images created, reviewed and archived. Contrast: Intravenous: 15 ml of Dotarem COMPARISON: CT abdomen/pelvis 09/16/2022. RESULT: Liver: Normal morphology. No hepatic steatosis. Innumerable T2 hyperintense nonenhancing bilobar hepatic lesions, compatible with cysts. No suspicious enhancing mass. Biliary: Minimal central intrahepatic biliary duct dilation. No biliary filling defect. Gallbladder is normal. Spleen: No mass. No splenomegaly. Pancreas: Non-enhancing T2 hyperintense cystic pancreatic body lesion measuring 0.6 cm with apparent communication to the main pancreatic duct, compatible with side branch IPMN. No main pancreatic duct dilation. Adrenals: No mass. Kidneys: Benign cysts. No solid mass. No hydronephrosis. GI: No dilated bowel or wall thickening along imaged segments. Lymph nodes: No abdominal lymphadenopathy. Mesentery / Peritoneum / Retroperitoneum: No ascites or mass. Vasculature: The celiac axis and SMA are patent. The portal vein and branches, splenic vein, SMV, and hepatic veins are patent. No aortic artery aneurysm. Bones/Soft Tissues: Degenerative changes. Lower chest: Unremarkable. IMPRESSION: 0.6 cm cystic pancreatic body lesion, likely side branch IPMN. No worrisome features or main duct dilation. Medical [employer] Officer: CHAD Transcribe Date/Time: Oct 05 2023 12:41P Dictated by : MARIELA ROBLERO, DO This examination was interpreted and the report reviewed and electronically signed by: RICK WHITEHEAD MD on Oct 05 2023 1:25PM EST [id number] Normal [facility] No Panel Informationon 10-04 [facility] CNOVon 09-14-2023 CNOV Office Visit (PAINCC ) DIAN HILL ([id number]) 1955 F Date Time Provider Department 09/14/23 3:00 PM KAI NASCIMENTO PAINCC During your visit today, we recorded the following information about you: Pulse Weight 85/minute 77.5 kg Kai Nascimento MD 09/14/2023 3:43 PM Signed Referring Or Consulting Physician: Florinda Glover [address] [facility] [id number] CHIEF COMPLAINT: pain in my low back HPI: This is a 67 year old female here for evaluation of pain that began 6 months ago following a bump on her right hip traveling to right buttocks. At this point, the pain is located in the areas detailed above (see cc). The patient describes the pain as dull and cramping and is a 5/10 in severity. It is constant. The pain is exacerbated by sitting and standing. The pain is mitigated by lying down. The patient is currently taking the following medications for pain: gabapentin and duloxetine. The patient previously has taken the following medications for pain: nothing Symptoms interfere with walking, sitting, cooking, and household cleaning. The patient denies trauma, major or minor In the last 6 months, Physical Therapy/Home Exercise Completed?: No Relevant [place] records were reviewed. Opioid Agreement: No Receiving Disability Income: No Last Date/Time Patient had Opioid Medication: NA Previous Xrays?: YES 01/10/23 lumbar Imaging Studies: IMPRESSION: New (since the MRI lumbar spine dated 01/24/2023) right paracentral disc extrusion at L1-L2 causes mild canal stenosis. Small central protrusion at T7-T8 causing mild canal stenosis. Normal appearance of the thoracic cord. Anatomic Thoracic/Lumbar Variant: None. L4-5 is considered the level of the iliac crest and assume there are 5 lumbar-type vertebrae. Medical [employer] Officer: CHAD Transcribe Date/Time: Sep 07 2023 4:05P Dictated by : RAMESH DAVIS MD This examination was interpreted and the report reviewed and electronically signed by: RAMESH DAVIS MD on Sep 07 2023 4:15PM EST Results-Findings * * *Final Report* * * DATE OF EXAM: Sep 07 2023 3:50PM [facility] 0325 - MRI THORACIC SPINE WO IVCON / PROCEDURE REASON: DDD (degenerative disc disease), thoracic * * * * Physician Interpretation * * * * EXAMINATION: MRI THORACIC SPINE WO IVCON CLINICAL HISTORY: DDD (degenerative disc disease), thoracic TECHNIQUE: Routine thoracic spine MR protocol. MQ: MTSWO_3 COMPARISON: Outside MRI lumbar spine dated 01/24/2023. RESULT: Counting reference: Craniocervical and lumbosacral junctions. For the purposes of this report, Assume the first normal thoracic rib is at the T1 level. Localizer images: Extensive cystic changes throughout the liver and kidneys bilaterally. Alignment: There is accentuation of normal thoracic kyphosis. Cord: The visualized cord is within normal limits of signal intensity and morphology. Bone marrow signal/fracture: No evidence of pathologic marrow infiltration. Small Schmorl's nodes associated with the superior endplates of T11 and T7. Thoracic paraspinal soft tissues: There are multiple perineural cyst in the neural foramina of the thoracic spine. These are more prominent in the been upper thoracic spine in the lower thoracic spine. The paraspinal soft tissues are within normal limits. Canal and foramina: Small central protrusion at T7-T8 (series 8 image 18) causes mild canal stenosis. Canal and foramina are otherwise patent in the thoracic spine. There is a right paracentral disc extrusion at L1-L2 (series 4 image 8) causing mild canal stenosis.. MRI LUMBAR SPINE WO IVCON Order: [id number] Impression 1. Moderate left neuroforaminal narrowing at L2-3 and L3-4. 2. Mild spinal canal narrowing at L3-4 and L4-5. 3. No abnormality of the visualized sacroiliac joints. 4. Incidental hepatic and bilateral renal cysts. ELECTRONICALLY SIGNED BY: Jose Kwok MD Narrative EXAM: MR LUMBAR SPINE WO CONTRAST [id number] CLINICAL INDICATION: Low back pain and right SI pain. COMPARISON: Lumbar radiographs 01/10/2023 TECHNIQUE: At 1.5 Anna, these lumbar spine sequences were obtained: 1. Sagittal T1, T2 and STIR. 2. Axial PD and T2. FINDINGS: There are multiple simple appearing cysts in the liver and both kidneys. There is a mild lumbar levocurvature. There is no acute fracture or malalignment. Vertebral body heights are maintained. The bone marrow is normal except for a few scattered small hemangiomas. The terminal spinal cord is normal in caliber and signal intensity; the tip of the conus medullaris is at the L1 level. The discs all show evidence of desiccation, and there is mild narrowing at L2-3, L3-4, and L4-5. There are small perineural/Tarlov cysts at S2 and S3. Visualized portions of the sacroiliac joints are normal. T12/L1: No significant disc bulge. No significant spinal c (more content not included)... Normal [facility] CNPNon 09-11-2023 CNPN Telephone (SPNMMN) DIAN HILL ([id number]) 1955 F Date Time Provider Department 09/11/23 FLORINDA GLOVER [facility] During your visit today, we recorded the following information about you: Florinda Glover MD 09/11/2023 1:10 PM Signed Please call patient with results as does not check my chart. Please advise thoracic MRI reviewed-has degenerative changes as expected, some mild stenosis (narrowing) as expected. There is a new disc herniation to the R L1-2 that may be contributing to symptoms. Recommend maintain pain management consult. MD Zander Simons Jessica, JACINTO 09/11/2023 2:38 PM Signed Neuro SPINE CARE COORDINATION QUICK NOTE Spoke with patient to discuss thoracic MRI results. Recommended she maintain her pain management appointment on 09/13. She verbalized understanding and will reach out with questions. Allergies As of Date: 09/11/2023 Noted Allergy Reaction NSAIDS (NON-STEROIDAL ANTI-INFLAM*02/24/2014 8 - GI Upset Comments: Kidney failure Date Reviewed: 08/29/2023 Reviewed by: Mini Ambrocio OCCA - Fully Assessed Reason for Visit: Results [95] Prescriptions as of 09/11/2023 - gabapentin (NEURONTIN) 300 mg capsule Take 1 capsule by mouth three times a day for 320 days. - ergocalciferol 50,000 unit capsule (VITAMIN D2, DRISDOL) Take 1 capsule by mouth one time a week. - DULoxetine (CYMBALTA) 60 mg capsule Take 1 capsule by mouth every afternoon. - promethazine (PHENERGAN) 25 mg tablet - levothyroxine (SYNTHROID) 75 mcg tablet Take 75 mcg by mouth every morning. Take on an empty stomach. - SYNTHROID 100MCG TABLET Take one(1) tablet daily. Problem List As Of Date 09/11/2023 Noted Resolved Chronic bilateral low back pain with bilateral *05/19/2023 05/21/2023 Acute exacerbation of chronic low back pain [M5*05/19/2023 05/21/2023 Gait abnormality [R26.9] 05/19/2023 05/21/2023 Fibromyalgia [M79.7] 05/19/2023 Chronic pain disorder [G89.4] 05/19/2023 Acute left-sided low back pain with sciatica [M*05/24/2023 Spinal stenosis of lumbar region without neurog*05/24/2023 Unspecified hypothyroidism [E03.9] 05/24/2023 Encounter Status:Closed by FLORINDA GLOVER on 09/11/23 Normal [facility] MR Thoracic spine WO contras ton 09-07-2023 [facility] MRI THORACIC SPINE WO IVCONo n 09-07-2023 MRI THORACIC SPINE WO IVCON * * *Final Report* * * DATE OF EXAM: Sep 07 2023 3:50PM [facility] 0325 - MRI THORACIC SPINE WO IVCON / PROCEDURE REASON: DDD (degenerative disc disease), thoracic * * * * Physician Interpretation * * * * EXAMINATION: MRI THORACIC SPINE WO IVCON CLINICAL HISTORY: DDD (degenerative disc disease), thoracic TECHNIQUE: Routine thoracic spine MR protocol. MQ: MTSWO_3 COMPARISON: Outside MRI lumbar spine dated 01/24/2023. RESULT: Counting reference: Craniocervical and lumbosacral junctions. For the purposes of this report, Assume the first normal thoracic rib is at the T1 level. Localizer images: Extensive cystic changes throughout the liver and kidneys bilaterally. Alignment: There is accentuation of normal thoracic kyphosis. Cord: The visualized cord is within normal limits of signal intensity and morphology. Bone marrow signal/fracture: No evidence of pathologic marrow infiltration. Small Schmorl's nodes associated with the superior endplates of T11 and T7. Thoracic paraspinal soft tissues: There are multiple perineural cyst in the neural foramina of the thoracic spine. These are more prominent in the been upper thoracic spine in the lower thoracic spine. The paraspinal soft tissues are within normal limits. Canal and foramina: Small central protrusion at T7-T8 (series 8 image 18) causes mild canal stenosis. Canal and foramina are otherwise patent in the thoracic spine. There is a right paracentral disc extrusion at L1-L2 (series 4 image 8) causing mild canal stenosis.. IMPRESSION: New (since the MRI lumbar spine dated 01/24/2023) right paracentral disc extrusion at L1-L2 causes mild canal stenosis. Small central protrusion at T7-T8 causing mild canal stenosis. Normal appearance of the thoracic cord. Anatomic Thoracic/Lumbar Variant: None. L4-5 is considered the level of the iliac crest and assume there are 5 lumbar-type vertebrae. Medical Corps Officer: [facility] Transcribe Date/Time: Sep 07 2023 4:05P Dictated by : RAMESH DAVIS MD This examination was interpreted and the report reviewed and electronically signed by: RAMESH DAVIS MD on Sep 07 2023 4:15PM EST [id number] Normal [facility] CNOVon 08-29-2023 CNOV Office Visit (SPNMMN ) DIAN HILL ([id number]) 1955 F Date Time Provider Department 08/29/23 10:40 AM FLORINDA GLOVER SPNMMN During your visit today, we recorded the following information about you: Pulse Blood pressure Weight Height 104/minute 132/98 74.1 kg 1.651 m Florinda Glover MD 08/29/2023 11:11 AM Signed [facility] Established Visit Last Seen:02/16/2023 CC: low back pain and lower extremity pain. Mid back pain HPI: Ms. Hill is a pleasant 67 year old female seen in follow-up. Patient was last seen on 02/16/2023. Please refer to that note for additional details. Many unrelated symptoms-ongoing epigastric pain, sweating whole body, nausea. Denies weight loss. Seen internal medicine and admitted 05/19. EPIC reviewed. Notes did not see GI as was told not needed by the inpatient team per patient. Patient did not review the recently my chart message 08/18/2023 from the diagnostic radiology team--the message was shared and a copy was provided. Dian Hill My name is Rody Juarez APRN.MALATHI, and I am a provider at the [facility]. As you are likely aware, you had a CT Abdomen done on 05/19/23 showing a possible abnormality. 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 Follow-up elective MRI is suggested for further characterization. On further review, I don't see this has been followed up on but I can follow-up with you regarding this if you'd like. I am available and can see you virtually to discuss and/or order testing. (MRI Pancreas/Biliary) You are always able to decline follow-up if you'd rather not discuss. However, if you're following up with somebody else in/outside the [facility], let us know. I look forward to hearing from you. Rody Juarez APRN.CNP Actionable Findings Diagnostic [place] . Patient notes the epigastric pain is the most bothersome. Notes the last 10 days had some mid back pain and pain under the R breast/flank, some improvement. Denies trauma Ongoing chronic low back pain LE pain and tingling. LE pain is Buttock and Lateral thigh to the mid calf Worse with activity. Tried PT and only went once. Notes could not tolerate due to overall health issues and fatigue. Given a HEP. Today is a good day. Taking gabapentin and cymbalta. Does not feel helping. Feels depression is good . Denies SI/plan. Denies bowel/bladder issues Was having some bladder issues. Allergies: ALLERGIES Allergen Reactions Nsaids (Non-Steroid* GI Upset Kidney failure Current Outpatient Medications Medication Sig gabapentin (NEURONTIN) 300 mg capsule Take 1 capsule by mouth three times a day for 320 days. ergocalciferol 50,000 unit capsule (VITAMIN D2, DRISDOL) Take 1 capsule by mouth one time a week. DULoxetine (CYMBALTA) 60 mg capsule Take 1 capsule by mouth every afternoon. promethazine (PHENERGAN) 25 mg tablet levothyroxine (SYNTHROID) 75 mcg tablet Take 75 mcg by mouth every morning. Take on an empty stomach. SYNTHROID 100MCG TABLET Take one(1) tablet daily. No current facility-administered medications for this visit. Physical Examination: BP 132/98 Pulse 104 Ht 5' 5 (1.65m) Wt 163 lb 5.8 oz (74.1kg) BMI 27.18 kg/(m2). General: NAD, pleasant Lungs: Symmetric chest expansion Gait: normal at times and at times is slow Palpation: some tenderness over the R breast. No focal thoracic midline tenderness Strength: Bilateral upper and LE strength is normal Reflexes: Bilateral upper and LE reflexes are 1+ Neuro: Plantar response is downgoing. Hoffmans is negative Peripheral Vascular: Pedal pulses are intact. No obvious extremity swelling in all 4 extremities. Appearance of Skin: Skin inspection of the trunk, bilateral upper and lower extremities is unremarkable. Unremarkable hip ROM w/o pain Radiological Review: Spine portions CT abd-05/2023-report and images-degenerative changes, T1- schmorl noted, slight anterolisthesis L4/5 Bones/Soft Tissues: Multilevel degenerative changes. No destructive bone lesion. Lumbar MRI 12/2022-images reviewed with patient as well as finding-no high grade central stenosis 1. Moderate left neuroforaminal narrowing at L2-3 and L3-4. 2. Mild spinal canal narrowing at L3-4 and L4-5. 3. No abnormality of the visualized sacroiliac joints. 4. Incidental hepatic and bilateral renal cysts. Thoracic portions CXR 05/19/2023-no fracture Bones and soft tissues: No acute osseous abnormality is identified Impression/Plan: #1. Main complaint is nausea, epigastric pain with generalized fatigue that is chronic. GI consult continues to be recommended to better determine potential etiology. Will assist. Also reviewed the [employer] message with patient from the diagnostic radiology team, eliz (more content not included)... Normal [facility] CNPNon 08-29-2023 CNPN Telephone (ANGMNQ) DIAN HILL ([id number]) 1955 F Date Time Provider Department 08/29/23 RODY JUAREZ ANGKYSlick During your visit today, we recorded the following information about you: Allergies As of Date: 08/29/2023 Noted Allergy Reaction NSAIDS (NON-STEROIDAL ANTI-INFLAM*02/24/2014 8 - GI Upset Comments: Kidney failure Date Reviewed: 08/29/2023 Reviewed by: Mini Ambrocio OCCA - Fully Assessed Reason for Visit: Radiology Review [4972] Primary Visit Diagnosis:Pancreatic cyst [K86.2] Order(s):MRI PANC/CHAIM WO/W IVCON [[id number]] Order #: [id number] FUTURE MRI 3D POST PROCESSING [[id number]] Order #: [id number] FUTURE iv contrast (will be provided with radiology test)MRI PANC/CHAIM Inject, intravenously, once for 1 dose. No IV access, insert saline lock prior to the beginning of sedation, infusion, injection of imaging exam. Discontinue saline lock post exam. If Pt. has a central line or IVAD, may access for administration according to line specific nursing protocol. Once exam is complete flush line and de-access according to line specific nursing protocol in the MR contrast administration guidelines link.Disp: 1 EachRfl: 0 Prescriptions as of 08/30/2023 - iv contrast (will be provided with radiology test) MRI PANC/CHAIM Inject, intravenously, once for 1 dose. No IV access, insert saline lock prior to the beginning of sedation, infusion, injection of imaging exam. Discontinue saline lock post exam. If Pt. has a central line or IVAD, may access for administration according to line specific nursing protocol. Once exam is complete flush line and de-access according to line specific nursing protocol in the MR contrast administration guidelines link. - gabapentin (NEURONTIN) 300 mg capsule Take 1 capsule by mouth three times a day for 320 days. - ergocalciferol 50,000 unit capsule (VITAMIN D2, DRISDOL) Take 1 capsule by mouth one time a week. - DULoxetine (CYMBALTA) 60 mg capsule Take 1 capsule by mouth every afternoon. - promethazine (PHENERGAN) 25 mg tablet - levothyroxine (SYNTHROID) 75 mcg tablet Take 75 mcg by mouth every morning. Take on an empty stomach. - SYNTHROID 100MCG TABLET Take one(1) tablet daily. Problem List As Of Date 08/29/2023 Noted Resolved Chronic bilateral low back pain with bilateral *05/19/2023 05/21/2023 Acute exacerbation of chronic low back pain [M5*05/19/2023 05/21/2023 Gait abnormality [R26.9] 05/19/2023 05/21/2023 Fibromyalgia [M79.7] 05/19/2023 Chronic pain disorder [G89.4] 05/19/2023 Acute left-sided low back pain with sciatica [M*05/24/2023 Spinal stenosis of lumbar region without neurog*05/24/2023 Unspecified hypothyroidism [E03.9] 05/24/2023 Prescriptions ordered this encounter Disp Refills Start End IV CONTRAST (RADIOLOGY PROCEDURE) 1 Ea* 0 08/29/2023 08/30/2023 Class: In Office Sig: MRI PANC/CHAIM Inject, intravenously, once for 1 dose. No IV access, insert saline lock prior to the beginning of sedation, infusion, injection of imaging exam. Discontinue saline lock post exam. If Pt. has a central line or IVAD, may access for administration according to line specific nursing protocol. Once exam is complete flush line and de-access according to line specific nursing protocol in the MR contrast administration guidelines link. Encounter Status:Closed by GEOVANY SHAIKH on 08/30/23 Normal [facility] Basic metabolic 2000 panelon 05-21-2023 Anion gap [Moles/Vol] 11 mmol/L Normal 9-18 [facility] Comment on above: Order Comment: Speci men Type: BLOOD SPECIMENOrdering Facility: [facility] Address: [address] [place] [address] Performed By: #### 2 4321-2 ####[facility] LABCLIA [id number] [place] [address] [place] Calcium [Mass/Vol] 8.8 mg/dL Normal 8.5-10.2 [facility] Comment on above: Order Comment: Speci men Type: BLOOD SPECIMENOrdering Facility: [facility] Address: [address] [place] [address] Performed By: #### 2 4321-2 ####[facility] LABCLIA [id number] [place] [address] [place] Chloride [Moles/Vol] 106 mmol/L High 97-105 [facility] Comment on above: Order Comment: Speci men Type: BLOOD SPECIMENOrdering Facility: [facility] Address: [address] [place] [address] Performed By: #### 2 4321-2 ####[facility] LABCLIA [id number] [place] [address] [place] CO2 [Moles/Vol] 24 mmol/L Normal 22-30 [facility] Comment on above: Order Comment: Speci men Type: BLOOD SPECIMENOrdering Facility: [facility] Address: [address] [place] [address] Performed By: #### 2 4321-2 ####[facility] LABCLIA [id number] [place] [address] [place] Creatinine [Mass/Vol] 0.89 mg/dL Normal 0.58-0.96 [facility] Comment on above: Order Comment: Eddy fowler Type: BLOOD SPECIMENOrdering Facility: [facility] Address: [address] [place] [address] Performed By: #### 2 4321-2 ####[facility] LABIA [id number] [place] [address] [place] Creatinine and Glomerular filtration rate.predicted panel (S/P/Bld) 70 mL/min/1.73m??? Normal >=60 [facility] Comment on above: Order Comment: Eddy fowler Type: BLOOD SPECIMENOrdering Facility: [facility] Address: [address] [place] [address] Result Comment: Patrica mated Glomerular Filtration Rate (eGFR) is calculated using the 2020 CKD-EPI creatinine equation. This equation utilizes serum creatinine, sex, and age as parameters. The creatinine assay has traceable calibration to isotope dilution-mass spectrometry. Refer to KDIGO guidelines for clinical interpretation. In patients with unstable renal function, e.g. those with acute kidney injury, the eGFR may not accurately reflect actual GFR. Performed By: #### 2 4321-2 ####[facility] LABIA [id number] [place] [address] [place] Glucose [Mass/Vol] 84 mg/dL Normal 74-99 [facility] Comment on above: Order Comment: Eddy fowler Type: BLOOD SPECIMENOrdering Facility: [facility] Address: [address] [place] [address] Result Comment: The [place] [employer] (ADA) provides guidance for cutoff values for fasting glucose and random glucose. The ADA defines fasting as no caloric intake for at least 8 hours. Fasting plasma glucose results between 100 to 125 mg/dL indicate increased risk for diabetes (prediabetes). Fasting plasma glucose results greater than or equal to 126 mg/dL meet the criteria for diagnosis of diabetes. In the absence of unequivocal hyperglycemia, results should be confirmed by repeat testing. In a patient with classic symptoms of hyperglycemia or hyperglycemic crisis, random plasma glucose results greater than or equal to 200 mg/dL meet the criteria for diagnosis of diabetes. Reference: Standards of Medical Care in Diabetes 2016, [place] [employer]. Diabetes Care. 2016.39(Suppl 1). Performed By: #### 2 4321-2 ####[facility] LABCLIA [id number] [place] [address] [place] Potassium [Moles/Vol] 4.5 mmol/L Normal 3.7-5.1 [facility] [place] Comment on above: Order Comment: Speci men Type: BLOOD SPECIMENOrdering Facility: [facility] Address: [address] [place] [address] Performed By: #### 2 4321-2 ####[facility] LABCLIA [id number] [place] [address] [place] Sodium [Moles/Vol] 141 mmol/L Normal 136-144 [facility] Comment on above: Order Comment: Speci men Type: BLOOD SPECIMENOrdering Facility: [facility] Address: [address] [place] [address] Performed By: #### 2 4321-2 ####[facility] LABIA [id number] [place] [address] [place] Urea nitrogen [Mass/Vol] 17 mg/dL Normal 7-21 [facility] Comment on above: Order Comment: Speci men Type: BLOOD SPECIMENOrdering Facility: [facility] Address: [address] [place] [address] Performed By: #### 2 4321-2 ####[facility] LABIA [id number] [place] [address] [place] CBC panel Auto (Bld)on 05-21 Erythrocyte distribution width (RBC) [Ratio] 13.3 % Normal 11.5-15.0 [facility] Comment on above: Order Comment: Speci men Type: BLOOD SPECIMENOrdering Facility: [facility] Address: [address] [place] [address] Performed By: #### 5 8410-2 ####[facility] LABIA [id number] [place] [address] [place] Hematocrit (Bld) [Volume fraction] 39.4 % Normal 36.0-46.0 [facility] Comment on above: Order Comment: Speci men Type: BLOOD SPECIMENOrdering Facility: [facility] Address: [address] [place] [address] Performed By: #### 5 8410-2 ####[facility] LABCLIA [id number] [place] [address] [place] Hemoglobin (Bld) [Mass/Vol] 13.0 g/dL Normal 11.5-15.5 [facility] [place] Comment on above: Order Comment: Speci men Type: BLOOD SPECIMENOrdering Facility: [facility] Address: [address] [place] [address] Performed By: #### 5 8410-2 ####[facility] LABCLIA [id number] [place] [address] [place] MCH (RBC) [Entitic mass] 31.3 pg Normal 26.0-34.0 [facility] [place] Comment on above: Order Comment: Speci men Type: BLOOD SPECIMENOrdering Facility: [facility] Address: [address] [place] [address] Performed By: #### 5 8410-2 ####[facility] LABIA [id number] [place] [address] [place] MCHC (RBC) [Mass/Vol] 33.0 g/dL Normal 30.5-36.0 [facility] Comment on above: Order Comment: Speci men Type: BLOOD SPECIMENOrdering Facility: [facility] Address: [address] [place] [address] Performed By: #### 5 8410-2 ####[facility] LABCLIA [id number] [place] [address] [place] MCV (RBC) [Entitic vol] 94.7 fL Normal 80.0-100.0 [facility] Comment on above: Order Comment: Speci men Type: BLOOD SPECIMENOrdering Facility: [facility] Address: [address] [place] [address] Performed By: #### 5 8410-2 ####[facility] LABCLIA [id number] [place] [address] [place] Nucleated RBC (Bld) [#/Vol] 10*3/uL Normal <0.01 [facility] Comment on above: Order Comment: Speci men Type: BLOOD SPECIMENOrdering Facility: [facility] Address: [address] [place] [address] Performed By: #### 5 8410-2 ####[facility] LABCLIA [id number] [place] [address] [place] Platelet mean volume (Bld) [Entitic vol] 10.3 fL Normal 9.0-12.7 [facility] Comment on above: Order Comment: Speci men Type: BLOOD SPECIMENOrdering Facility: [facility] Address: [address] [place] [address] Performed By: #### 5 8410-2 ####[facility] LABCLIA [id number] [place] [address] [place] Platelets (Bld) [#/Vol] 237 10*3/uL Normal 150-400 [facility] Comment on above: Order Comment: Speci men Type: BLOOD SPECIMENOrdering Facility: [facility] Address: [address] [place] [address] Performed By: #### 5 8410-2 ####[facility] LABCLIA [id number] [place] [address] [place] RBC (Bld) [#/Vol] 4.16 10*6/uL Normal 3.90-5.20 [facility] Comment on above: Order Comment: Speci men Type: BLOOD SPECIMENOrdering Facility: [facility] Address: [address] [place] [address] Performed By: #### 5 8410-2 ####[facility] LABCLIA [id number] [place] [id number] [place] WBC (Bld) [#/Vol] 4.79 10*3/uL Normal 3.70-11.00 [facility] Comment on above: Order Comment: Speci men Type: BLOOD SPECIMENOrdering Facility: [facility] Address: [address] [place] [address] Performed By: #### 5 8410-2 ####[facility] LABCLIA [id number] [place] [id number] [place] CNDSon 05-21-2023 CNDS HNO ID: [id number] Author: Gilbert Little MD Service: Hospital Medicine Author Type: Physician Type: Discharge Summary Filed: 05/26/2023 5:57 AM Note Text: DISCHARGE SUMMARY PATIENT NAME: Dian Hill ADMISSION DATE: 05/19/2023 DISCHARGE DATE: 05/21/2023 ATTENDING PHYSICIAN: Gilbert Little MD Code Status: Prior Highest Readmission Risk Score: 10 The 30 day readmissions risk score is derived from an internally validated risk model which evaluates patient level characteristics, utilization history, medication orders and lab results up until the day of discharge. Patients with a score of 40 or above are considered highest risk for readmission. Specific patient level drivers will be listed at the bottom of the summary. CONSULTING TEAMS DURING HOSPITALIZATION: None Treatment Team: Primary Service: 4, Gi REASON FOR HOSPITALIZATION: acute left flank pain acute on chronic abdominal/back pain DIAGNOSIS: Principal Problem: Chronic pain disorder (POA: Yes) Active Problems: Fibromyalgia (POA: Yes) Acute left-sided low back pain with sciatica (POA: Unknown) Spinal stenosis of lumbar region without neurogenic claudication (POA: Unknown) Unspecified hypothyroidism (POA: Unknown) Resolved Problems: Chronic bilateral low back pain with bilateral sciatica (POA: Yes) Acute exacerbation of chronic low back pain (POA: Yes) Gait abnormality (POA: Yes) OPERATIONS DURING HOSPITALIZATION: None PROCEDURES DURING HOSPITALIZATION: ct abdomen(05/19): IMPRESSION: No urinary tract calculus. No hydronephrosis. No acute process in the abdomen or pelvis. 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 Follow-up elective MRI is suggested for further characterization in 1 year. mri lumbar spine(01/24/23): 1. Moderate left neuroforaminal narrowing at L2-3 and L3-4. 2. Mild spinal canal narrowing at L3-4 and L4-5. 3. No abnormality of the visualized sacroiliac joints. 4. Incidental hepatic and bilateral renal cysts. HOSPITAL COURSE: You were admitted with acute left-sided flank pain and epigastric pain on top of your chronic lower back/abdominal pain from the internal medicine clinic. In the ED you were vitally stable and laboratory testing was unremarkable including EKGs and blood test for heart attack. A CT of the abdomen was unremarkable without any suggestion of pancreatitis or any other abdominal process which can cause pain, including the blood supply to the abdominal organs. There was an incidental finding of a possible mass of the sidebranch of the pancreas (called ipmn). Incidentally the lumbar spine MRI done on 01/24/2023 indicated that significant left-sided vertebral foraminal narrowing at L2-3 and L3-4 levels without involvement of the spinal cord. You were started on pain medication including Tylenol and gabapentin with improvement in your pain; it appears that the pain could be related to the pinching of the nerves as seen in the MRI pictures done in December 2022. Will be discharged when doing better with an advised to follow-up with your primary care physician in 1 to 2 weeks time and also with the medical spine team here in [facility] in 2 to 4 weeks time and gi doctor also in 2-4 weeks re: incidental finding in the ct abdomen. As mentioned above, you are advised to take Tylenol 1 g up to 4 times a day as a first-line of medication. You can use gabapentin which is prescribed 300 mg up to 3 times a day for optimization of the pain control. In case of persisting pain or inadequate control of pain medications like Flexeril/Robaxin could be considered after discussion with your primary care physician. of note: there was an incidental finding in the ct abdomen which would need you to see a GI doctor and /or get an MRI again in 1 year time --in case of any recurrence of pain /recurrence of abdominal /flank symptoms, you are asked to contact your pcp or if unable to tolerate, you are advised to go to nearest ED for further advice Transitions of Care Critical Issues: =advised to follow-up with pcp in 1 to 2 weeks time and also with the medical spine team here in [facility]/gi doctor also in 2-4 weeks re: incidental finding in the ct abdomen. =advised to take Tylenol 1 g up to 4 times a day as a first-line of medication. =gabapentin 300 mg up to 3 times a day for optimization of the pain control. In case of persisting pain or inadequate control of pain medications like Flexeril/Robaxin could be considered after discussion with your primary care physician. of note: there was an incidental finding in the ct abdomen which would need you to see a GI doctor and /or get an MRI again in 1 year time --in case of any recurrence of pain /recurrence of abdominal /flank symptoms, you are asked to contact your pcp or if unable to tolerate, you are advised to go to nearest E (more content not included)... Normal [facility] THERAPY NTon 05-21-2023 THERAPY NT HNO ID: [id number] Author: Estella Garrett, OT/L Service: Occupational Therapy Author Type: Occupational Therapist Type: Therapy (PT/OT/Speech/Resp) Filed: 05/21/2023 10:56 AM Note Text: Occupational Therapy Evaluation SERVICE DATE: 05/21/2023 SERVICE TIME: 1024 to 1048 ROOM: [place] [address] Recommended Discharge Disposition: Home Recommended Discharge Disposition Comments: With PRN assistance for IADLs Anticipated Discharge Needs: Physical Assist at Home Physical Assist at Home for: Shopping, Transportation, Laundry, Cleaning, Meals Recommended Discharge Equipment: Wheeled Walker OT 6 Clicks Score: 22 Precautions/Activity Restrictions: None Current Hospital Course: Admitted for further management Reason for Hospital Admission: Chronic pain syndrome, fibromyalgia Relevant Past Medical History: Fibromyalgia, lumbar spinal stenosis, hypothyroidism, TTP Response to Therapy Interventions: Good Participation in Activities Assessment Comments: Pt seen for OT evaluation. Pt currently presenting near functional baseline with mobility and ADL completion. Provided education and handouts on energy conservation, arthritis, and chronic pain management. Pt appreciative. Anticipate pt will be safe to return home with no further therapy needs. No further acute OT needs, OT will sign off. Please re-consult if new needs arise. Continued Skilled Needs Due to: (No skilled needs) Occupational Therapy Problem List: Pain, Decreased Activity Tolerance Cognition/Communication Deficits Responsiveness: Alert, Awake Follows Commands: 2-step Commands Cognitive Clinical Tests and Screens: 4AT Screening, Cog 6 Cog 6 Cog 6 Start of Session Arousal: 4 Cog 6 Start of Session Behavior: 4 Cog 6 Start of Session Orientation: 4 Cog 6 Start of Session Attention to Activity: 4 Cog 6 Start of Session Command Followin Cog 6 Start of Session Functional/Automatic Task Participation: 4 Cog 6 Start of Session Total Points (Max Score = 24): 24 Cog 6 End of Session Arousal: 4 Cog 6 End of Session Behavior: 4 Cog 6 End of Session Orientation: 4 Cog 6 End of Session Attention to Activity: 4 Cog 6 End of Session Command Followin Cog 6 End of Session Functional/Automatic Task Participation: 4 Cog 6 End of Session Total Points (Max Score = 24): 24 4AT Screening Assess Alertness: Your observation to asses for excessive drowsiness or agitation. If asleep, attempt to wake with speech or gentle touch on shoulder. You may ask the patient to state their name and address to assist rating.: Normal (fully alert, but not agitated, throughout assessment) Assess orientation: Ask patient age, date of , current year, and current location: No mistakes Asess Attention: Ask patient to tell me the months of the year backwards order, starting with June : Able to state 7+ months correctly Evidence of acute changes or fluctuating mental status (changes in memory, alertness) or behavior (paranoia, hallucinations) in last 2 weeks: No 4AT Score: 0 Delirium Positive/Negative: Negative Treatment Interventions: Education, Self Care/Home Management, Energy Conservation Training, Pain Management Home Environment Patient Lives With: Self/Alone Assistance Available: PRN Entry To Home: Elevator Number Of Stairs To Bed/Bath: 0 Tub/Shower Type: tub shower Laundry: completes herself Equipment Owned: Grab Bars- Shower, Elevated Toilet Seat Prior Functional Level: Within Functional Limits Prior Functional Level Comments: Pt reports being indep with functional mobility, ADLs/IADLs without the use of an AD. Pt denies any falls. Dtr lives closeby. 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 Life Roles: Retired, Family Member, Friend, Parent Identified Strengths: Good Support System, Involvement in Hobbies/Leisure Activities, Access to Healthcare Identified Barriers: Managing Pain Subjective: I've found ways to manage CURRENT FUNCTIONAL STATUS: Most recent performance Current Activities of Daily Living Assist Level Additional Information Feeding Independent Grooming Independent Bathing Upper Body Stand By Assistance Bathing Lower Body Contact Guard Assistance Dressing Upper Body Stand By Assistance Dressing Lower Body Contact Guard Assistance Toileting Supervision Instrumental Activities of Daily Living Assist Level Additional Information Meal/Beverage Prep Cleaning Laundry Medication Management with Strategies Functional Mobility Assist Level Additional Information Rolling Supine to Sit Sit to Supine Scooting Sit to Stand Stand to Sit Bed to Chair Toilet/Commode Shower Functional Mobility Blank baker indicate activity not attempted Learning/Educational Needs: Discharge Plan, Functional Activities/Mobility Goals for Plan of Care: Patient/ (more content not included)... Normal [facility] Basic metabolic 2000 panelon 05-20-2023 Anion gap [Moles/Vol] 11 mmol/L Normal - [facility] Comment on above: Order Comment: Speci men Type: BLOOD SPECIMENOrdering Facility: [facility] Address: [address] [place] [address] Performed By: #### 2 4321-2 ####[facility] LABIA [id number] [place] [address] [place] Calcium [Mass/Vol] 9.0 mg/dL Normal 8.5-10.2 [facility] Comment on above: Order Comment: Speci men Type: BLOOD SPECIMENOrdering Facility: [facility] Address: [address] [place] [address] Performed By: #### 2 4321-2 ####[facility] LABCLIA [id number] [place] [address] [place] Chloride [Moles/Vol] 107 mmol/L High 97-105 [facility] Comment on above: Order Comment: Speci men Type: BLOOD SPECIMENOrdering Facility: [facility] Address: [address] [place] [address] Performed By: #### 2 4321-2 ####[facility] LABCLIA [id number] [place] [address] [place] CO2 [Moles/Vol] 23 mmol/L Normal 22-30 [facility] Comment on above: Order Comment: Speci men Type: BLOOD SPECIMENOrdering Facility: [facility] Address: [address] [place] [address] Performed By: #### 2 4321-2 ####[facility] LABCLIA [id number] [place] [address] [place] Creatinine [Mass/Vol] 0.97 mg/dL High 0.58-0.96 [facility] Comment on above: Order Comment: Speci men Type: BLOOD SPECIMENOrdering Facility: [facility] Address: [address] [place] [address] Performed By: #### 2 4321-2 ####[facility] LABCLIA [id number] [place] [address] [place] [facility] Creatinine and Glomerular filtration rate.predicted panel (S/P/Bld) 63 mL/min/1.73m??? Normal >=60 [facility] Comment on above: Order Comment: Speci men Type: BLOOD SPECIMENOrdering Facility: [facility] Address: [address] [place] [address] Result Comment: Patrica mated Glomerular Filtration Rate (eGFR) is calculated using the 2020 CKD-EPI creatinine equation. This equation utilizes serum creatinine, sex, and age as parameters. The creatinine assay has traceable calibration to isotope dilution-mass spectrometry. Refer to KDIGO guidelines for clinical interpretation. In patients with unstable renal function, e.g. those with acute kidney injury, the eGFR may not accurately reflect actual GFR. Performed By: #### 2 4321-2 ####[facility] LABCLIA [id number] [place] [address] [place] Glucose [Mass/Vol] 80 mg/dL Normal 74-99 [facility] Comment on above: Order Comment: Speci men Type: BLOOD SPECIMENOrdering Facility: [facility] Address: [address] [place] [address] Result Comment: The [place] [employer] (ADA) provides guidance for cutoff values for fasting glucose and random glucose. The ADA defines fasting as no caloric intake for at least 8 hours. Fasting plasma glucose results between 100 to 125 mg/dL indicate increased risk for diabetes (prediabetes). Fasting plasma glucose results greater than or equal to 126 mg/dL meet the criteria for diagnosis of diabetes. In the absence of unequivocal hyperglycemia, results should be confirmed by repeat testing. In a patient with classic symptoms of hyperglycemia or hyperglycemic crisis, random plasma glucose results greater than or equal to 200 mg/dL meet the criteria for diagnosis of diabetes. Reference: Standards of Medical Care in Diabetes 2016, [place] [employer]. Diabetes Care. 2016.39(Suppl 1). Performed By: #### 2 4321-2 ####[facility] LABCLIA [id number] [place] [address] [place] Potassium [Moles/Vol] 4.3 mmol/L Normal 3.7-5.1 [facility] Comment on above: Order Comment: Speci men Type: BLOOD SPECIMENOrdering Facility: [facility] Address: [address] [place] [address] Performed By: #### 2 4321-2 ####[facility] LABCLIA [id number] [place] [address] [place] Sodium [Moles/Vol] 141 mmol/L Normal 136-144 [facility] Comment on above: Order Comment: Speci men Type: BLOOD SPECIMENOrdering Facility: [facility] Address: [address] [place] [address] Performed By: #### 2 1-2 ####[facility] LABCLIA [id number] [place] [address] [place] Urea nitrogen [Mass/Vol] 11 mg/dL Normal 7-21 [facility] Comment on above: Order Comment: Speci men Type: BLOOD SPECIMENOrdering Facility: [facility] Address: [address] [place] [address] Performed By: #### 2 4321-2 ####[facility] LABCLIA [id number] [place] [address] [place] CBC panel Auto (Bld)on 05-20 Erythrocyte distribution width (RBC) [Ratio] 13.4 % Normal 11.5-15.0 [facility] Comment on above: Order Comment: Speci men Type: BLOOD SPECIMENOrdering Facility: [facility] Address: [address] [place] [address] Performed By: #### 5 8410-2 ####[facility] LABIA [id number] [place] [address] [place] Hematocrit (Bld) [Volume fraction] 38.2 % Normal 36.0-46.0 [facility] Comment on above: Order Comment: Speci men Type: BLOOD SPECIMENOrdering Facility: [facility] Address: [address] [place] [address] Performed By: #### 5 8410-2 ####[facility] LABCLIA [id number] [address] [place] Hemoglobin (Bld) [Mass/Vol] 12.8 g/dL Normal 11.5-15.5 [facility] Comment on above: Order Comment: Speci men Type: BLOOD SPECIMENOrdering Facility: [facility] Address: [address] [place] [address] Performed By: #### 5 8410-2 ####[facility] LABIA [id number] [place] [address] [place] MCH (RBC) [Entitic mass] 31.1 pg Normal 26.0-34.0 [facility] Comment on above: Order Comment: Speci men Type: BLOOD SPECIMENOrdering Facility: [facility] [facility] Address: [address] [place] [address] Performed By: #### 5 8410-2 ####[facility] LABCLIA [id number] [place] [address] [place] MCHC (RBC) [Mass/Vol] 33.5 g/dL Normal 30.5-36.0 [facility] Comment on above: Order Comment: Speci men Type: BLOOD SPECIMENOrdering Facility: [facility] Address: [address] [place] [address] Performed By: #### 5 8410-2 ####[facility] LABIA [id number] [place] [address] [place] MCV (RBC) [Entitic vol] 92.9 fL Normal 80.0-100.0 [facility] Comment on above: Order Comment: Speci men Type: BLOOD SPECIMENOrdering Facility: [facility] Address: [address] [place] [address] Performed By: #### 5 8410-2 ####[facility] LABIA [id number] [place] [address] [place] Nucleated RBC (Bld) [#/Vol] 10*3/uL Normal <0.01 [facility] Comment on above: Order Comment: Speci men Type: BLOOD SPECIMENOrdering Facility: [facility] Address: [address] [place] [address] Performed By: #### 5 8410-2 ####[facility] LABIA [id number] [place] [address] [place] Platelet mean volume (Bld) [Entitic vol] 9.9 fL Normal 9.0-12.7 [facility] Comment on above: Order Comment: Speci men Type: BLOOD SPECIMENOrdering Facility: [facility] Address: [address] [place] [address] Performed By: #### 5 8410-2 ####[facility] LABIA [id number] [place] [address] [place] Platelets (Bld) [#/Vol] 249 10*3/uL Normal 150-400 [facility] Comment on above: Order Comment: Speci men Type: BLOOD SPECIMENOrdering Facility: [facility] Address: [address] [place] [address] Performed By: #### 5 8410-2 ####[facility] LABCLIA [id number] [place] [id number] [place] RBC (Bld) [#/Vol] 4.11 10*6/uL Normal 3.90-5.20 [facility] Comment on above: Order Comment: Speci men Type: BLOOD SPECIMENOrdering Facility: [facility] Address: [address] [place] [address] Performed By: #### 5 8410-2 ####[facility] LABCLIA [id number] [place] [id number] [place] WBC (Bld) [#/Vol] 3.96 10*3/uL Normal 3.70-11.00 [facility] Comment on above: Order Comment: Speci men Type: BLOOD SPECIMENOrdering Facility: [facility] Address: [address] [place] [address] Performed By: #### 5 8410-2 ####[facility] LABCLIA [id number] [place] [id number] [place] THERAPY NTon 05-20-2023 THERAPY NT HNO ID: [id number] Author: Tr Zelaya, PT Service: ? Author Type: Physical Therapist Type: Therapy (PT/OT/Speech/Resp) Filed: 05/20/2023 12:32 PM Note Text: Physical Therapy Evaluation SERVICE DATE: 05/20/2023 SERVICE TIME: 1047 to 1127 ROOM: [place] [address] Recommended Discharge Disposition: Home Anticipated Discharge Needs: Physical Assist at Home Physical Assist at Home for: Shopping, Transportation, Cleaning, Meals, Laundry Recommended Discharge Equipment: Wheeled Walker PT 6 Clicks Score: 20 Current Hospital Course: Admitted for further management Reason for Hospital Admission: Chronic pain syndrome, fibromyalgia Relevant Past Medical History: Fibromyalgia, lumbar spinal stenosis, hypothyroidism, TTP Response to Therapy Interventions: Good Participation in Activities, Pain, Low Activity Tolerance Continued Skilled Needs Due to: Continued Monitoring of Vital Signs During Mobility Required, Functional Mobility/Skill Impairments, Safety Concerns Physical Therapy Problem List: Pain, Impaired Self Care, Safety Deficits, Decreased Activity Tolerance, Decreased Range Of Motion, Decreased Strength, Functional Mobility Impairment, Balance Impaired Treatment Interventions: Education, Self Care / Home Management, Energy Conservation Training, Joint Mobility, Strengthening, Functional Mobility Training, Balance Training, Neuromuscular Re-education Plan for Next Visit: Gait Training, Exercise Instruction/Handout, Standing Balance, Standing Tolerance Home Environment Patient Lives With: Self/Alone Assistance Available: PRN Entry To Home: Elevator Number Of Stairs To Bed/Bath: 0 Tub/Shower Type: tub shower Laundry: completes herself Equipment Owned: (none) Prior Functional Level: Within Functional Limits Prior Functional Level Comments: Pt reports being indep with functional mobility, ADLs/IADLs without the use of an AD. Pt denies any falls. Dtr lives closeby. Subjective: Pt agreeable to PT CURRENT FUNCTIONAL STATUS: Most recent performance Current Functional Mobility Assist Level Additional Information Rolling Supervision Supine to Sit Supervision Sit to Supine Supervision Scooting Stand By Assistance Sit to Stand Stand By Assistance Stand to Sit Stand By Assistance Bed to Chair Toilet/Commode Gait Contact Guard Assistance Gait Device: Wheeled Walker Gait Distance (feet): 35' Stairs Curb Step Car Transfer Blank baker indicate activity not attempted General Deviations/Observations: Zulma decreased, Step length decreased, Narrow Base of Support Balance: Static Sitting, Dynamic Sitting, Dynamic Standing, Static Standing Static Sitting Balance: Normal Patient able to maintain steady balance without handhold support Dynamic Sitting Balance: Normal Patient accepts maximal challenge and can shift weight easily within full range in all directions Static Standing Balance: Good Patient able to maintain balance without handhold support, limited postural sway Dynamic Standing Balance: Fair Patient accepts minimal challenge, able to maintain balance while turning head/trunk JH-HLM: 7: Walk 25 feet or more Learning/Educational Needs: Discharge Plan, Functional Activities/Mobility, Pain Management, Changes in Plan of Care, Rehabilitation Techniques and Procedures, Safety Goals for Plan of Care: Patient/Caregiver Goals: Go Home Goals: Patient will demonstrate progress with functional mobility to allow safe discharge to home with available support and/or physical assistance. Rehab Potential: Good Patient will be discontinued from Physical Therapy when no further skilled needs are identified in this setting. PLAN: PT Frequency: 3 Times Per Week (1) Plan of Care developed with: Patient TREATMENT INTERVENTIONS: Therapy Diagnosis: Reduced mobility-other, Muscle Weakness (generalized) Interventions Provided: Evaluation, Therapeutic Activity (58354), Gait Training (51113) $ Evaluation-Low (27618) Billed Units: 1 unit Therapeutic Activity (96839) Treatment Minutes: 12 $ Therapeutic Activity (38605) Billed Units: 1 unit Gait Training (78964) Treatment Minutes: 13 $ Gait Training (04525) Billed Units: 1 unit Training AND Education Provided in: Assistive Device Use, Bed Mobility, Benefits of In-Hospital Mobility, Discharge Planning, Disease Specific Education, Energy Conservation, Exercise Program, Expected Functional Level, Falls Prevention, Gait Pattern, Reduction of Deviations, Home Safety, Home Set-up/Modifications, Pain Neuroscience, Patient Exercise/Therapy Program Support Needs, Positioning, Role of Physical Therapy, Sitting Balance, Standing Balance, Transfers, Treatment Protocol The Following Therapeutic Skills Were Used: Activity Dosing, Assessment of Tolerance Including Vitals Response to Activity, Cues for Sequencing/Proper Technique for Activity, Cuing Tactile, Cuing Verbal, Cuing Visual Timed Code Treatment (minut (more content not included)... Normal [facility] CBC W Auto Differential pane l (Bld)on 05-19-2023 Basophils (Bld) [#/Vol] 0.04 10*3/uL Normal <0.11 [facility] Comment on above: Order Comment: Speci men Type: BLOOD SPECIMENOrdering Facility: [facility] Address: [address] [place] [address] Performed By: #### 5 7021-8 ####[facility] LABCLIA [id number] [place] [address] [place] Basophils/100 WBC (Bld) 0.7 % Normal [facility] Comment on above: Order Comment: Speci men Type: BLOOD SPECIMENOrdering Facility: [facility] Address: [address] [place] [address] Performed By: #### 5 7021-8 ####[facility] LABCLIA [id number] [place] [address] [place] Differential cell count method Nom (Bld) Auto Normal [facility] Comment on above: Order Comment: Speci men Type: BLOOD SPECIMENOrdering Facility: [facility] Address: [address] [place] [address] Performed By: #### 5 7021-8 ####[facility] LABCLIA [id number] [place] [address] [place] Eosinophils (Bld) [#/Vol] 0.06 10*3/uL Normal <0.46 [facility] Comment on above: Order Comment: Speci men Type: BLOOD SPECIMENOrdering Facility: [facility] Address: [address] [place] [address] Performed By: #### 5 7021-8 ####[facility] LABCLIA [id number] [place] [address] [place] Eosinophils/100 WBC (Bld) 1.0 % Normal [facility] Comment on above: Order Comment: Speci men Type: BLOOD SPECIMENOrdering Facility: [facility] Address: [address] [place] [address] Performed By: #### 5 7021-8 ####[facility] LABCLIA [id number] [place] [address] [place] Erythrocyte distribution width (RBC) [Ratio] 13.3 % Normal 11.5-15.0 [facility] Comment on above: Order Comment: Speci men Type: BLOOD SPECIMENOrdering Facility: [facility] Address: [address] [place] [address] Performed By: #### 5 7021-8 ####[facility] LABCLIA [id number] [place] [address] [place] Hematocrit (Bld) [Volume fraction] 40.8 % Normal 36.0-46.0 [facility] Comment on above: Order Comment: Speci men Type: BLOOD SPECIMENOrdering Facility: [facility] Address: [address] [place] [address] Performed By: #### 5 7021-8 ####[facility] LABCLIA [id number] [place] [address] [place] Hemoglobin (Bld) [Mass/Vol] 13.8 g/dL Normal 11.5-15.5 [facility] Comment on above: Order Comment: Speci men Type: BLOOD SPECIMENOrdering Facility: [facility] Address: [address] [place] [address] Performed By: #### 5 7021-8 ####[facility] LABCLIA [id number] [place] [address] [place] Immature granulocytes (Bld) [#/Vol] 10*3/uL Normal <0.10 [facility] Comment on above: Order Comment: Speci men Type: BLOOD SPECIMENOrdering Facility: [facility] Address: [address] [place] [address] Performed By: #### 5 7021-8 ####[facility] LABCLIA [id number] [place] [address] [place] Immature granulocytes/100 WBC (Bld) 0.2 % Normal [facility] Comment on above: Order Comment: Speci men Type: BLOOD SPECIMENOrdering Facility: [facility] Address: [address] [place] [address] Performed By: #### 5 7021-8 ####[facility] LABCLIA [id number] [place] [address] [place] Lymphocytes (Bld) [#/Vol] 1.77 10*3/uL Normal 1.00-4.00 [facility] Comment on above: Order Comment: Speci men Type: BLOOD SPECIMENOrdering Facility: [facility] Address: [address] [place] [address] Performed By: #### 5 7021-8 ####[facility] LABCLIA [id number] [place] [address] [place] Lymphocytes/100 WBC (Bld) 30.1 % Normal [facility] Comment on above: Order Comment: Speci men Type: BLOOD SPECIMENOrdering Facility: [facility] Address: [address] [place] [address] Performed By: #### 5 7021-8 ####[facility] LABIA [id number] [place] [address] [place] MCH (RBC) [Entitic mass] 31.1 pg Normal 26.0-34.0 [facility] Comment on above: Order Comment: Speci men Type: BLOOD SPECIMENOrdering Facility: [facility] Address: [address] [place] [address] Performed By: #### 5 7021-8 ####[facility] LABIA [id number] [place] [address] [place] MCHC (RBC) [Mass/Vol] 33.8 g/dL Normal 30.5-36.0 [facility] Comment on above: Order Comment: Speci men Type: BLOOD SPECIMENOrdering Facility: [facility] Address: [address] [place] [address] Performed By: #### 5 7021-8 ####[facility] LABIA [id number] [place] [address] [place] MCV (RBC) [Entitic vol] 91.9 fL Normal 80.0-100.0 [facility] Comment on above: Order Comment: Speci men Type: BLOOD SPECIMENOrdering Facility: [facility] Address: [address] [place] [address] Performed By: #### 5 7021-8 ####[facility] LABIA [id number] [place] [address] [place] Monocytes (Bld) [#/Vol] 0.44 10*3/uL Normal <0.87 [facility] Comment on above: Order Comment: Speci men Type: BLOOD SPECIMENOrdering Facility: [facility] Address: [address] [place] [address] Performed By: #### 5 7021-8 ####[facility] LABIA [id number] [place] [address] [place] Monocytes/100 WBC (Bld) 7.5 % Normal [facility] Comment on above: Order Comment: Speci men Type: BLOOD SPECIMENOrdering Facility: [facility] Address: [address] [place] [address] Performed By: #### 5 7021-8 ####[facility] LABCLIA [id number] [place] [address] [place] Neutrophils (Bld) [#/Vol] 3.57 10*3/uL Normal 1.45-7.50 [facility] Comment on above: Order Comment: Speci men Type: BLOOD SPECIMENOrdering Facility: [facility] Address: [address] [place] [address] Performed By: #### 5 7021-8 ####[facility] LABCLIA [id number] [place] [address] [place] Neutrophils/100 WBC (Bld) 60.5 % Normal [facility] Comment on above: Order Comment: Speci men Type: BLOOD SPECIMENOrdering Facility: [facility] Address: [address] [place] [address] Performed By: #### 5 7021-8 ####[facility] LABCLIA [id number] [place] [address] [place] Nucleated RBC (Bld) [#/Vol] 10*3/uL Normal <0.01 [facility] Comment on above: Order Comment: Speci men Type: BLOOD SPECIMENOrdering Facility: [facility] Address: [address] [place] [address] Performed By: #### 5 7021-8 ####[facility] LABCLIA [id number] [place] [address] [place] Nucleated RBC/100 WBC (Bld) [Ratio] 0.0 /100 WBC Normal [facility] Comment on above: Order Comment: Speci men Type: BLOOD SPECIMENOrdering Facility: [facility] Address: [address] [place] [address] Performed By: #### 5 7021-8 ####[facility] LABCLIA [id number] [place] [id number] [place] Platelet mean volume (Bld) [Entitic vol] 9.7 fL Normal 9.0-12.7 [facility] Comment on above: Order Comment: Speci men Type: BLOOD SPECIMENOrdering Facility: [facility] Address: [address] [place] [address] Performed By: #### 5 7021-8 ####[facility] LABCLIA [id number] [place] [address] [place] Platelets (Bld) [#/Vol] 269 10*3/uL Normal 150-400 [facility] Comment on above: Order Comment: Speci men Type: BLOOD SPECIMENOrdering Facility: [facility] Address: [address] [place] [address] Performed By: #### 5 7021-8 ####[facility] LABCLIA [id number] [place] [address] [place] RBC (Bld) [#/Vol] 4.44 10*6/uL Normal 3.90-5.20 [facility] Comment on above: Order Comment: Speci men Type: BLOOD SPECIMENOrdering Facility: [facility] Address: [address] [place] [address] Performed By: #### 5 7021-8 ####[facility] LABCLIA [id number] [place] [id number] [place] WBC (Bld) [#/Vol] 5.89 10*3/uL Normal 3.70-11.00 [facility] Comment on above: Order Comment: Speci men Type: BLOOD SPECIMENOrdering Facility: [facility] Address: [address] [place] [address] Performed By: #### 5 7021-8 ####[facility] LABCLIA [id number] [address] [address] [place] CNOVon 05-19-2023 CNOV Office Visit (INTMMN ) DIAN HILL ([id number]) 1955 F Date Time Provider Department 05/19/23 9:15 AM NIKO TALLEY During your visit today, we recorded the following information about you: Pulse Blood pressure Weight 93/minute 127/87 75 kg Conchita Glass Ma 05/19/2023 9:40 AM Signed Limited rooming intake due to patient late arrival. Mary Hall Ma, DO 05/24/2023 12:22 PM Signed Internal Medicine Outpatient Visit May 19, 2023 Preceptor: Dr. Appiah HPI: 67 year old female patient here today for nausea and epigastric pain PMH: - Fibromyalgia - Pancreatitis - LSS - TTP in 2002 requiring plasmapheresis - Prurigo nodularis Since January patient has been having severe episodes of epigastric abdominal pain, cramping in nature, 8/10, without any radiation, unrelated to eating, accompanied by nausea and loss of appetite (without vomiting, diarrhea or constipation). She says when she gets them she start sweating and having increased salivation. Episodes last 2hours. Pain becomes so severe that patient has to get to bed until the pain goes away. Also reports increased belching. No unintentional weight loss. Does not report heartburn, no regurgitation. Normal ECG. No history of NSAIDs use. No alcohol use disorder. No recent EGD. Patient mentions she had a colonoscopy around 6 years ago which was normal. TRAY we ordered a RUQ US and EGD. Patient says she did the RUQ ultrasound however we do not have the report on file. Asked patient to send it. Patient says the pain is relieved with phenergan. Today the patient also reports left flank pain and chills 10 days ago. Patient says she is urinating normally, no LUTS. Patient endorses urinary incontinence that started in January (says she cannot hold it in). In the past year, patient has been having lower back pain that radiates to the legs, underwent imaging for LSS with orthopedics, and was diagnosed with LSS. Prescribed PT, but patient has not been doing it because the pain is very severe. Incidental finding of hepatic and bilateral renal cysts were seen, and she was referred to see a PCP. She has a PCP in [place], however came to [facility] for a second opinion. Allergies: ALLERGIES Allergen Reactions Nsaids (Non-Steroid* GI Upset Kidney failure Active Medications: ergocalciferol 50,000 unit capsule (VITAMIN D2, DRISDOL), Take 1 capsule by mouth one time a week., Disp: 12 capsule, Rfl: 0 DULoxetine (CYMBALTA) 60 mg capsule, Take 1 capsule by mouth every afternoon., Disp: , Rfl: promethazine (PHENERGAN) 25 mg tablet, , Disp: , Rfl: levothyroxine (SYNTHROID) 75 mcg tablet, Take 75 mcg by mouth every morning. Take on an empty stomach., Disp: , Rfl: Past Medical History: PAST MEDICAL HISTORY Diagnosis Date Acute pancreatitis Thrombocytopenia, unspecified (HCC) Social History: Social History Tobacco Use Smoking status: Never Passive exposure: Never Smokeless tobacco: Never Substance Use Topics Alcohol use: No Drug use: Never Vitals: BP: 127/87 Pulse: 93 Physical Exam: Physical Exam Constitutional: Appearance: Normal appearance. She is normal weight. Cardiovascular: Rate and Rhythm: Normal rate and regular rhythm. Pulses: Normal pulses. Heart sounds: Normal heart sounds. Pulmonary: Effort: Pulmonary effort is normal. Breath sounds: Normal breath sounds. Abdominal: General: Abdomen is flat. Bowel sounds are normal. Palpations: Abdomen is soft. Tenderness: There is abdominal tenderness. Skin: General: Skin is warm. Neurological: General: No focal deficit present. Mental Status: She is alert and oriented to person, place, and time. Mental status is at baseline. Psychiatric: Thought Content: Thought content normal. Judgment: Judgment normal. RUQ abdominal tenderness. Left CVA tenderness. Labs: Reviewed the following: Hemoglobin (g/dL) Date Value 04/11/2023 14.5 09/18/2003 12.7 Hematocrit (%) Date Value 04/11/2023 43.8 09/18/2003 37.1 WBC (k/uL) Date Value 04/11/2023 6.36 09/18/2003 5.16 Glucose (mg/dL) Date Value 04/11/2023 93 09/18/2003 74 Potassium (mmol/L) Date Value 04/11/2023 4.6 09/18/2003 4.3 Sodium (mmol/L) Date Value 04/11/2023 140 09/18/2003 138 Chloride (mmol/L) Date Value 04/11/2023 104 09/18/2003 102 CO2 (mmol/L) Date Value 04/11/2023 24 09/18/2003 26 Creatinine (mg/dL) Date Value 04/11/2023 0.90 09/18/2003 0.8 BUN (mg/dL) Date Value 04/11/2023 10 09/18/2003 13 Anion Gap (mmol/L) Date Value 04/11/2023 12 09/18/2003 10 Calcium (mg/dL) Date Value 09/18/2003 9.1 Calcium, Total (mg/dL) Date Value 04/11/2023 9.4 Protein, Total (g/dL) Date Value 04/11/2023 6.8 09/18/2003 6.9 Albumin (g/dL) Date Value 04/11/2023 4.4 09/18/2003 4.4 Bilirubin, Total (mg/d (more content not included)... Normal [facility] ([id number]) 1955 F Date Time Provider Department 05/19/23 YISEL BLEDSOE INTFRANCISCO During your visit today, we recorded the following information about you: Mellisa Jean 05/19/2023 1:49 PM Addendum Paged Consult to Dr. Bledsoe and Chadwick for [place] Bed # E15-07 Allergies As of Date: 05/19/2023 Noted Allergy Reaction NSAIDS (NON-STEROIDAL ANTI-INFLAM*02/24/2014 8 - GI Upset Comments: Kidney failure Date Reviewed: 05/19/2023 Reviewed by: Francine Carlos RN - Fully Assessed Reason for Visit: Consult [502] Cmt: Best Practice Prescriptions as of 05/19/2023 - acetaminophen (TYLENOL EXTRA STRENGTH) 500 mg tablet Take 1 tablet by mouth every 6 hours as needed for pain. - ergocalciferol 50,000 unit capsule (VITAMIN D2, DRISDOL) Take 1 capsule by mouth one time a week. - DULoxetine (CYMBALTA) 60 mg capsule Take 1 capsule by mouth every afternoon. - promethazine (PHENERGAN) 25 mg tablet - levothyroxine (SYNTHROID) 75 mcg tablet Take 75 mcg by mouth every morning. Take on an empty stomach. - PERCOCET 5/325 MG TABLET Take one(1) tablet four(4) times daily as needed for pain. - VICODIN ES TABLET as necessary - ZOLOFT 100MG TABLET Take one(1) tablet daily. - SYNTHROID 100MCG TABLET Take one(1) tablet daily. Facility-Administered Medications as of 05/19/2023 - iv contrast (radiology procedure) - NaCl 0.9% 1,000 mL iv bolus Problem List As Of Date: 05/19/2023 (None) Encounter Status:Closed by MELLISA JEAN on 05/19/23 Normal [facility] CONSULTon 05-19-2023 CONSULT HNO ID: [id number] Author: Yisel Bledsoe MD Service: Geriatrics Author Type: Physician Type: Consults Filed: 05/19/2023 5:20 PM Note Text: Geriatric Medicine Service: Emergency Department Evaluation Consultation requested by the Emergency Department, who will receive Geriatric Medicine recommendations by way of the electronic medical record HISTORY OF PRESENT ILLNESS - 67 yo female with PMHx significant for fibromyalgia on duloxetine 60mg, lumbar spinal stenosis w/neurogenic claudication, hypothyroidism. Patient initially presented to the ED after visiting internal medicine clinic for CC of 710 acute lower back / R flank pain and abdominal pain. Pt states that the pain has been ongoing for the past several weeks to months, however it has worsened today when she went to visit her PCP. States that she has a known diagnosis of fibromyalgia, but her Cymbalta has not been helping her. She does not take anything over the counter for further pain control. ED course includes fluids, pain control and pt is awaiting further imaging (CT abd/pelvis) to evaluate for nephrolithiasis. UA and labs unremarkable. Pt states that she lives in a senior citizen apartment, does not have regular assistance. Also mentions that her appetite has been reduced and she often foes not feel like eating. Does not have help at home but states her daughter lives close by. Social History/ Social Support: What is your living situation?: Senior citizen apartment Insurance/ACO - Insurance: Payor: [employer] MEDICARE / Plan: [employer] MEDICARE PPO / Product Type: PPO / Previous Admissions: Any admissions or ED visits in the last six months?: No Number of admissions or ED visits in the last six months: 0 Mobility: Number of falls in the past 12 months: 0 Amount of physical activity: none, is not able to ambulate due to the severe pain in her lower back Medications: Number of medications: less than 5 medications Patient is compliant with medications?: Yes Functional Evaluation: (I= independent, A= assistance, D= dependent) ? B-ADLs: Bathing: A Dressing: A, Toileting: I, Transferring: A Continence: I, Feeding: I I-ADLs: Ability to use phone: I, Shopping: D Cooking:D Housekeeping: I, Laundry: A Transportation: I, Medications: I, Handle Finances: D Cognitive Status: Patient is able to state date, month, and year?: Yes Depression: No flowsheet data found. GDS- 0/15 Weight Loss: Weight loss is present?: No Current appetite: Fair The patient's allergies, current medications, past medical history, past surgical history, social history, and family history have been reviewed with the patient and have been updated as appropriate. Please see the relevant sections in Epic EHR for appropriate details. ALLERGIES Allergen Reactions Nsaids (Non-Steroid* GI Upset Kidney failure Current Facility-Administered Medications Medication Dose Route Frequency iv contrast (radiology procedure) INTRAVENOUS DIRECTED PRN NaCl 0.9% 1,000 mL iv bolus 1,000 mL INTRAVENOUS ONCE Current Outpatient Medications Medication Sig acetaminophen (TYLENOL EXTRA STRENGTH) 500 mg tablet Take 1 tablet by mouth every 6 hours as needed for pain. ergocalciferol 50,000 unit capsule (VITAMIN D2, DRISDOL) Take 1 capsule by mouth one time a week. DULoxetine (CYMBALTA) 60 mg capsule Take 1 capsule by mouth every afternoon. promethazine (PHENERGAN) 25 mg tablet levothyroxine (SYNTHROID) 75 mcg tablet Take 75 mcg by mouth every morning. Take on an empty stomach. SYNTHROID 100MCG TABLET Take one(1) tablet daily. PAST MEDICAL HISTORY Diagnosis Date Acute pancreatitis Thrombocytopenia, unspecified (HCC) In addition please see HPI No past surgical history on file. In addition please see HPI Social History Tobacco Use Smoking status: Never Passive exposure: Never Smokeless tobacco: Never Substance Use Topics Alcohol use: No Drug use: Never Smoking - Denies Alcohol - Denies FAMILY HISTORY Problem Relation Age of Onset Hypertension Father Dementia - Denies Review of Systems: Constipation, diarrhea, or change in bowel habits: Denies Incontinence: Denies Sleep difficulties: Denies Dizziness/ headache: Denies Weakness: Reports Vision difficulties: Denies Hearing difficulties: Denies Chewing or swallowing difficulties: Denies Dyspnea: Denies Edema: Denies Chest pain: Denies Abdominal pain: Denies Back pain: Reports The remainder of the review of systems as above is negative. Diagnostic Evaluation: Glucose (mg/dL) Date Value 05/19/2023 97 09/18/2003 74 Potassium (mmol/L) Date Value 05/19/2023 4.1 09/18/2003 4.3 Sodium (mmol/L) Date Value 05/19/2023 140 09/18/2003 138 Chloride (mmol/L) Date Value 05/19/2023 106 09/18/2003 102 CO2 (mmol/L) Date Value 05/19/2023 22 09/18/2003 26 Creatinine (mg/dL) Date Value 05/19/2023 0.87 09/18/2003 0.8 BUN (m (more content not included)... Normal [facility] CT ABD/PEL W IVCONon 023 CT ABD/PEL W IVCON * * *Final Report* * * DATE OF EXAM: May 19 2023 3:47PM [facility] 0530 - CT ABD/PEL W IVCON / PROCEDURE REASON: Abdominal abscess/infection suspected * * * * Physician Interpretation * * * * EXAMINATION: CT ABDOMEN AND PELVIS WITH IV CONTRAST CLINICAL HISTORY: Left flank pain TECHNIQUE: CT of the abdomen and pelvis was performed using standard technique, scanning from just above the dome of the diaphragm to the symphysis pubis. MQ: CTAP_3 Contrast: IV: 100 ml of Omnipaque 350 CT Radiation dose: Integrated Dose-length product (DLP) for this visit = 591 mGy*cm. CT Dose Reduction Employed: Automated exposure control (AEC) COMPARISON: Outside MRI lumbar spine 01/24/2023 RESULT: Liver: Bilobar hepatic cysts including a 3.7 cm cyst in segment VIII (3:31) and a 2.4 cm cyst in segment III (3:40). No suspicious hepatic mass. Biliary: No bile duct dilation. Gallbladder is unremarkable. Spleen: No mass. No splenomegaly. Pancreas: 0.5 cm cystic lesion within the distal pancreatic body (3:48). No solid mass. No ductal dilation. Adrenals: No mass. Kidneys: No calculus or hydronephrosis. Bilateral renal cortical scarring/atrophy, greater on the left. Bilateral renal cysts including a partially exophytic 1.7 cm right lower pole cyst (3:61). GI tract: No dilation or wall thickening. Normal appendix. Minimal colonic diverticulosis. Lymph nodes: No abdominal or pelvic lymphadenopathy. Mesentery/Peritoneum: No ascites or mass. Retroperitoneum: No mass. Vasculature: - Abdominal aorta and iliac arteries: No aneurysm. - Celiac and SMA: Patent without stenosis. - Portal venous system (SMV, splenic vein, portal vein and branches): Patent. - Hepatic veins: Patent. Pelvis: No mass, ascites or fluid collection. Bones/Soft Tissues: Multilevel degenerative changes. No destructive bone lesion. Lower thorax: No focal consolidation. Bibasilar atelectasis/scarring. Personal Care Attendant (topogram) images: No additional findings. IMPRESSION: No urinary tract calculus. No hydronephrosis. No acute process in the abdomen or pelvis. 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 Follow-up elective MRI is suggested for further characterization. ACTIONABLE RESULT: FOLLOW-UP Acuity: Actionable Findings: Pancreas/Biliary Routing Code: PB_1 Recommendation: MRI PANCREAS/BILIARY WO/W IV CONTRAST Time Frame: In one year. COMMUNICATION: Results will be communicated with the ordering provider via [employer] staff message or phone message by [facility] within 2 business days of report finalization. --END OF FINDING-- Medical [employer] Officer: CHAD Transcribe Date/Time: May 19 2023 3:52P Dictated by : HARRY BARTH MD This examination was interpreted and the report reviewed and electronically signed by: BRSYON HERNANDEZ MD on May 19 2023 4:15PM EST [id number] ACTIONABLE Invalid Interpretation Code [facility] Comprehensive metabolic 2000 panelon 05-19-2023 Albumin [Mass/Vol] 4.3 g/dL Normal 3.9-4.9 [facility] Comment on above: Order Comment: Speci men Type: BLOOD SPECIMENOrdering Facility: [facility] Address: [address] [place] [address] Performed By: #### L [id number], 3040-3, 30688-0 ####[facility] LABCLIA [id number] [place] [address] [place] ALP [Catalytic activity/Vol] 75 U/L Normal 34-123 [facility] [place] Comment on above: Order Comment: Speci men Type: BLOOD SPECIMENOrdering Facility: [facility] Address: [address] [place] [address] Performed By: #### L [id number], 3040-3, 98987-0 ####[facility] LABCLIA [id number] [place] [address] [place] ALT [Catalytic activity/Vol] 12 U/L Normal 7-38 [facility] Comment on above: Order Comment: Speci men Type: BLOOD SPECIMENOrdering Facility: [facility] Address: [address] [place] [address] Performed By: #### L [id number], 3040-3, 54686-8 ####[facility] LABCLIA [id number] [place] [address] [place] Anion gap [Moles/Vol] 12 mmol/L Normal 9-18 [facility] Comment on above: Order Comment: Speci men Type: BLOOD SPECIMENOrdering Facility: [facility] Address: [address] [place] [address] Performed By: #### L [id number], 3, ####[facility] LABCLIA [id number] [place] [address] [place] AST [Catalytic activity/Vol] 14 U/L Normal 13-35 [facility] [place] Comment on above: Order Comment: Speci men Type: BLOOD SPECIMENOrdering Facility: [facility] Address: [address] [place] [address] Performed By: #### L [id number], 3039-09, ####[facility] LABCLIA [id number] [place] [address] [place] Bilirubin [Mass/Vol] 0.3 mg/dL Normal 0.2-1.3 [facility] Comment on above: Order Comment: Speci men Type: BLOOD SPECIMENOrdering Facility: [facility] Address: [address] [place] [address] Performed By: #### L [id number], 3039-09, ####[facility] LABCLIA [id number] [place] [address] [place] Calcium [Mass/Vol] 9.3 mg/dL Normal 8.5-10.2 [facility] Comment on above: Order Comment: Speci men Type: BLOOD SPECIMENOrdering Facility: [facility] Address: [address] [place] [address] Performed By: #### L [id number], 3, ####[facility] LABCLIA [id number] [place] [address] [place] Chloride [Moles/Vol] 106 mmol/L High 97-105 [facility] [place] Comment on above: Order Comment: Speci men Type: BLOOD SPECIMENOrdering Facility: [facility] Address: [address] [place] [address] Performed By: #### L [id number], 3040-3, 70338-3 ####[facility] LABCLIA [id number] [place] [address] [place] CO2 [Moles/Vol] 22 mmol/L Normal 22-30 [facility] Comment on above: Order Comment: Speci men Type: BLOOD SPECIMENOrdering Facility: [facility] Address: [address] [place] [address] Performed By: #### L [id number], 3040-3, 30120-7 ####[facility] LABCLIA [id number] [place] [address] [place] Creatinine [Mass/Vol] 0.87 mg/dL Normal 0.58-0.96 [facility] Comment on above: Order Comment: Speci men Type: BLOOD SPECIMENOrdering Facility: [facility] Address: [address] [place] [address] Performed By: #### L [id number], 0-3, 14982-4 ####[facility] LABCLIA [id number] [address] [facility] Creatinine and Glomerular filtration rate.predicted panel (S/P/Bld) 72 mL/min/1.73m??? Normal >=60 [facility] Comment on above: Order Comment: Speci men Type: BLOOD SPECIMENOrdering Facility: [facility] Address: [address] [place] [address] Result Comment: Patrica mated Glomerular Filtration Rate (eGFR) is calculated using the 2020 CKD-EPI creatinine equation. This equation utilizes serum creatinine, sex, and age as parameters. The creatinine assay has traceable calibration to isotope dilution-mass spectrometry. Refer to KDIGO guidelines for clinical interpretation. In patients with unstable renal function, e.g. those with acute kidney injury, the eGFR may not accurately reflect actual GFR. Performed By: #### L [id number], 3040-3, 12863-3 ####[facility] LABCLIA [id number] [place] [address] [place] Glucose [Mass/Vol] 97 mg/dL Normal 74-99 [facility] Comment on above: Order Comment: Speci men Type: BLOOD SPECIMENOrdering Facility: [facility] Address: [address] [place] [address] Result Comment: The [place] [employer] (ADA) provides guidance for cutoff values for fasting glucose and random glucose. The ADA defines fasting as no caloric intake for at least 8 hours. Fasting plasma glucose results between 100 to 125 mg/dL indicate increased risk for diabetes (prediabetes). Fasting plasma glucose results greater than or equal to 126 mg/dL meet the criteria for diagnosis of diabetes. In the absence of unequivocal hyperglycemia, results should be confirmed by repeat testing. In a patient with classic symptoms of hyperglycemia or hyperglycemic crisis, random plasma glucose results greater than or equal to 200 mg/dL meet the criteria for diagnosis of diabetes. Reference: Standards of Medical Care in Diabetes 2016, [place] [employer]. Diabetes Care. 2016.39(Suppl 1). Performed By: #### L [id number], 3040-3, 92596-3 ####[facility] LABCLIA [id number] [place] [address] [place] Potassium [Moles/Vol] 4.1 mmol/L Normal 3.7-5.1 [facility] Comment on above: Order Comment: Speci men Type: BLOOD SPECIMENOrdering Facility: [facility] Address: [address] [place] [address] Performed By: #### L [id number], 3040-3, 67565-3 ####[facility] LABCLIA [id number] [place] [id number] [place] Protein [Mass/Vol] 6.4 g/dL Normal 6.3-8.0 [facility] Comment on above: Order Comment: Speci men Type: BLOOD SPECIMENOrdering Facility: [facility] Address: [address] [place] [address] Performed By: #### L [id number], 3040-3, 21555-7 ####[facility] LABCLIA [id number] [place] [address] [place] Sodium [Moles/Vol] 140 mmol/L Normal 136-144 [facility] Comment on above: Order Comment: Speci men Type: BLOOD SPECIMENOrdering Facility: [facility] Address: [address] [place] [address] Performed By: #### L [id number], 3040-3, 92181-3 ####[facility] LABIA [id number] [place] [address] [place] Urea nitrogen [Mass/Vol] 12 mg/dL Normal 7-21 [facility] Comment on above: Order Comment: Speci men Type: BLOOD SPECIMENOrdering Facility: [facility] Address: [address] [place] [address] Performed By: #### L [id number], 3040-3, 36309-1 ####[facility] LABIA [id number] [address] [place] ED NOTEon 05-19-2023 ED NOTE HNO ID: [id number] Author: Lynda Daly RN Service: Emergency Medicine Author Type: Registered Nurse Type: ED Notes Filed: 05/19/2023 8:35 PM Note Text: Patient transferred to . Report given to JACINTO Ramirez. [id number] Patient left in stable condition. VS stable WNL of patient baseline. Patient allergies and hx reviewed. No current needs at this time. Normal [facility] ED NOTE HNO ID: [id number] Author: Lynda Daly RN Service: Emergency Medicine Author Type: Registered Nurse Type: ED Notes Filed: 05/19/2023 7:50 PM Note Text: Attempted to give report x1, nurse will call ed back. 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 The patient states that she normally has chronic arthritis and pains in her right side of her lower back that radiated down towards her right leg. She has had intermittent pain for the past year. She does not take anything for pain. However last night she developed severe left flank and left lower back pain radiating towards her left leg which is new for her. Pain is sharp, coming and going with associated episodes of some diaphoresis and nausea. She denies vomiting or abdominal pain. Denies acute chest pain or shortness of breath. She was being seen by her primary care provider today but referred to the ED due to the different pain than usual. She has chronic numbness to her bilateral lower extremities that is unchanged. Pain is somewhat worse ambulation and it is more difficult for her to ambulate. Denies any falls or trauma. PAST MEDICAL HISTORY Diagnosis Date Acute pancreatitis Thrombocytopenia, unspecified (HCC) PSH: thyroidectomy, hernia repair FAMILY HISTORY Problem Relation Age of Onset Hypertension Father Social History Tobacco Use Smoking status: Never Passive exposure: Never Smokeless tobacco: Never Substance and Sexual Activity Alcohol use: No Drug use: Never Sexual activity: Not on file ALLERGIES Allergen Reactions Nsaids (Non-Steroid* GI Upset Kidney failure Review of Systems Constitutional: Positive for diaphoresis. Negative for fever. HENT: Negative for congestion and sore throat. Eyes: Negative for visual disturbance. Respiratory: Negative for cough and shortness of breath. Cardiovascular: Negative for chest pain. Gastrointestinal: Positive for nausea. Negative for abdominal pain, diarrhea and vomiting. Genitourinary: Negative for dysuria. Musculoskeletal: Positive for back pain and gait problem. Negative for myalgias and neck pain. Skin: Negative for rash. Neurological: Positive for weakness (to both legs due to pain) and numbness (to legs, chronic). Negative for headaches. Psychiatric/Behavioral: Negative for agitation and confusion. Physical Exam Vitals [05/19/23 1126] BP Pulse Temp Temp src Resp SpO2 Weight Height 120/86 83 36.6 ?C (97.9 ?F) -- 16 97 % -- -- Physical Exam Vitals and nursing note reviewed. Constitutional: General: She is not in acute distress. Appearance: She is well-developed. She is not diaphoretic. HENT: Head: Normocephalic and atraumatic. Eyes: General: No scleral icterus. Right eye: No discharge. Left eye: No discharge. Conjunctiva/sclera: Conjunctivae normal. Pupils: Pupils are equal, round, and reactive to light. Neck: Trachea: No tracheal deviation. Cardiovascular: Rate and Rhythm: Normal rate and regular rhythm. Heart sounds: Normal heart sounds. No murmur heard. No friction rub. No gallop. Pulmonary: Effort: Pulmonary effort is normal. No respiratory distress. Breath sounds: Normal breath sounds. Abdominal: General: There is no distension. Palpations: Abdomen is soft. Tenderness: There is abdominal tenderness (mild LLQ). There is left CVA tenderness. There is no guarding or rebound. Musculoskeletal: Cervical back: Normal range of motion. Comments: Tender to palpation of left lower paraspinous area greater than midline spine, mild tenderness in right lower paraspinal area. Patient is able to move both extremities at the knees, ankles and hips but lifting at the hips causes pain in both sides of her lower back. Skin: General: Skin is warm and dry. Neurological: Mental Status: She is alert and oriented to person, place, and time. Comments: Chronic bilateral leg numbness from the shins down. Normal strength of foot plantar dorsiflexion, knee flexion extension and limited strength bilaterally with hip flexion. Normal strength with squeeze of her hands and elbow flexion tension to bilateral upper extremities. Psychiatric: Mood and Affect: Mood normal. Behavior: Behavior normal. Diagnostic Testing ED Labs Ordered and Reviewed URINALYSIS, WITH MICROSCOPIC - Abnormal; Notable for the following components: Result Value Ref Range Clarity Cloudy (*) Clear Ketones, Urine Trace (*) Negative Protein, Urine Trace (*) Negative All other components within normal limits Narrative: This test was developed and its performance characteristics determined by [facility] (more content not included)... Normal [facility] HIGH SENSITIVITY TROPONIN T (INITIAL)on 05-19-2023 Troponin T.cardiac High sensitivity method [Mass/Vol] 13 ng/L High <12 [facility] Comment on above: Order Comment: Eddy fowler Type: BLOOD SPECIMENOrdering Facility: [facility] Address: [address] [place] [address] Result Comment: When assessing risk for acute coronary syndromes: In patients undergoing blood draw greater than or equal to 2 hours from symptom onset, with history of very low to moderate risk and non-ischemic ECG, an initial hs-Troponin T less than 12 ng/L AND a 1 hour delta hs-Troponin T less than 3 ng/L should be considered very low risk for 30 day MACE. Performed By: #### L [id number], 3040-3, 86868-8 ####[facility] LABCLIA [id number] [place] [address] [place] HIGH SENSITIVITY TROPONIN T (SECOND)on 05-19-2023 Troponin T.cardiac High sensitivity method [Mass/Vol] 13 ng/L High <12 [facility] Comment on above: Order Comment: Eddy fowler Type: BLOOD SPECIMENOrdering Facility: [facility] Address: [address] [place] [address] Result Comment: When assessing risk for acute coronary syndromes: In patients undergoing blood draw greater than or equal to 2 hours from symptom onset, with history of very low to moderate risk and non-ischemic ECG, an initial hs-Troponin T less than 12 ng/L AND a 1 hour delta hs-Troponin T less than 3 ng/L should be considered very low risk for 30 day MACE. Performed By: #### L [id number] ####[facility] LABCLIA [id number] [place] [address] [place] HIGH SENSITIVITY TROPONIN T (THIRD) 3 HRS AFTER INITIALon 05-19-2023 Troponin T.cardiac High sensitivity method [Mass/Vol] 15 ng/L High <12 [facility] Comment on above: Order Comment: Eddy fowler Type: BLOOD SPECIMENOrdering Facility: [facility] Address: [address] [place] [address] Result Comment: When assessing risk for acute coronary syndromes: In patients undergoing blood draw greater than or equal to 2 hours from symptom onset, with history of very low to moderate risk and non-ischemic ECG, an initial hs-Troponin T less than 12 ng/L AND a 1 hour delta hs-Troponin T less than 3 ng/L should be considered very low risk for 30 day MACE. Performed By: #### 3 016-3, [id number] ####[facility] LABCLIA [id number] [place] [address] [place] Lipase SerPl-cCncon 05-19-20 Lipase [Catalytic activity/Vol] 32 U/L Normal 16-61 [facility] Comment on above: Order Comment: Eddy janeth Type: BLOOD SPECIMENOrdering Facility: [facility] Address: [address] [place] [address] Performed By: #### L [id number], 3040-3, 30078-2 ####[facility] LABCLIA [id number] [address] [place] PT panel Coag (PPP)on 2022 INR Coag (PPP) [Relative time] 0.9 {INR} Normal 0.9-1.3 [facility] Comment on above: Order Comment: Eddy fowler Type: BLOOD SPECIMENOrdering Facility: [facility] Address: [address] [place] [address] Result Comment: Jenny min K Antagonist (VKA) Therapeutic Range: INR 2 to 3 (Target INR of 2.5) Note: For patients treated with VKA drugs, such as warfarin, the [place] [employer] 2012 Guideline recommends a therapeutic INR range of 2 to 3 (target INR of 2.5). This recommendation includes high-risk patients with antiphospholipid syndrome with previous arterial or venous thromboembolism, current-generation mechanical or bioprosthetic aortic heart valve replacement. Note: Patients with mechanical aortic valve replacement and additional risk factors for thromboembolic events (atrial fibrillation, previous thromboembolism, LV dysfunction, hypercoagulable conditions) or an older generation mechanical AVR (i.e., ball in-Cage) or any mechanical MVR should have a INR therapeutic range of 2.5 to 3.5 (target INR of 3). Mike GH, et al. Chest 2012, 141:7S-47S Tyra RA, et al. JACC 2017, 70: 252-289 Performed By: #### 3 4528-0, 72619-7 ####[facility] LABCLIA [id number] [place] [address] [place] PT Coag (PPP) [Time] 10.1 s Normal 9.7-13.0 [facility] Comment on above: Order Comment: Speci men Type: BLOOD SPECIMENOrdering Facility: [facility] [facility] Address: [address] [place] [address] Performed By: #### 3 4528-0, 74440-4 ####[facility] LABCLIA [id number] [place] [address] [place] TSH SerPl-aCncon 05-19-2023 TSH Qn 5.400 m[IU]/L High 0.270-4.200 [facility] Comment on above: Order Comment: Speci men Type: BLOOD SPECIMENOrdering Facility: [facility] Address: [address] [place] [address] Performed By: #### 3 016-3, [id number] ####[facility] LABIA [id number] [place] [address] [place] Urinalysis complete panel (U )on 05-19-2023 Bacteria LM.HPF (Urine sed) [#/Area] Negative Normal Negative [facility] Comment on above: Order Comment: Speci men Type: URINE SPECIMENOrdering Facility: [facility] Address: [address] [place] [address] Performed By: #### 2 4356-8 ####[facility] LABCLIA [id number] [place] [address] [place] Bilirubin Ql (U) Negative Normal Negative [facility] Comment on above: Order Comment: Speci men Type: URINE SPECIMENOrdering Facility: [facility] Address: [address] [place] [address] Performed By: #### 2 4356-8 ####[facility] LABCLIA [id number] [place] [address] [place] Clarity (Unsp spec) Cloudy Abnormal Clear [facility] Comment on above: Order Comment: Speci men Type: URINE SPECIMENOrdering Facility: [facility] Address: [address] [place] [address] Performed By: #### 2 4356-8 ####[facility] LABCLIA [id number] [place] [address] [place] Color (U) Yellow Normal Yellow [facility] Comment on above: Order Comment: Speci men Type: URINE SPECIMENOrdering Facility: [facility] Address: [address] [place] [address] Performed By: #### 2 4356-8 ####[facility] LABIA [id number] [place] [address] [place] Epithelial cells LM.HPF (Urine sed) [#/Area] Few Normal [facility] Comment on above: Order Comment: Speci men Type: URINE SPECIMENOrdering Facility: [facility] Address: [address] [place] [address] Performed By: #### 2 4356-8 ####[facility] LABIA [id number] [place] [address] [place] Glucose Test strip (U) [Mass/Vol] Negative Normal Negative [facility] Comment on above: Order Comment: Speci men Type: URINE SPECIMENOrdering Facility: [facility] Address: [address] [place] [address] Performed By: #### 2 4356-8 ####[facility] LABIA [id number] [place] [address] [place] Hemoglobin Ql (U) Negative Normal Negative [facility] Comment on above: Order Comment: Speci men Type: URINE SPECIMENOrdering Facility: [facility] Address: [address] [place] [address] Performed By: #### 2 4356-8 ####[facility] LABCLIA [id number] [place] [address] [place] Hyaline casts (Urine sed) [#/Area] 0 /[LPF] Normal 0 /LPF [facility] Comment on above: Order Comment: Speci men Type: URINE SPECIMENOrdering Facility: [facility] Address: [address] [place] [address] Performed By: #### 2 4356-8 ####[facility] LABCLIA [id number] [place] [address] [place] Ketones Ql (U) Trace Abnormal Negative [facility] Comment on above: Order Comment: Speci men Type: URINE SPECIMENOrdering Facility: [facility] Address: [address] [place] [address] Performed By: #### 2 4356-8 ####[facility] LABCLIA [id number] [place] [address] [place] Leukocyte esterase Test strip Ql (U) Negative Normal Negative [facility] Comment on above: Order Comment: Speci men Type: URINE SPECIMENOrdering Facility: [facility] Address: [address] [place] [address] Performed By: #### 2 4356-8 ####[facility] LABCLIA [id number] [place] [address] [place] Nitrite Ql (U) Negative Normal Negative [facility] Comment on above: Order Comment: Speci men Type: URINE SPECIMENOrdering Facility: [facility] Address: [address] [place] [address] Performed By: #### 2 4356-8 ####[facility] LABCLIA [id number] [place] [address] [place] pH (U) 8.0 [pH] Normal <8.5 [facility] Comment on above: Order Comment: Speci men Type: URINE SPECIMENOrdering Facility: [facility] Address: [address] [place] [address] Performed By: #### 2 4356-8 ####[facility] LABIA [id number] [place] [address] [place] Protein (U) [Mass/Vol] Trace Abnormal Negative [facility] Comment on above: Order Comment: Speci men Type: URINE SPECIMENOrdering Facility: [facility] Address: [address] [place] [address] Performed By: #### 2 4356-8 ####[facility] LABIA [id number] [place] [address] [place] RBC LM.HPF (Urine sed) [#/Area] 0-2 /HPF Normal 0-2 /HPF [facility] Comment on above: Order Comment: Speci men Type: URINE SPECIMENOrdering Facility: [facility] Address: [address] [place] [address] Performed By: #### 2 4356-8 ####[facility] LABIA [id number] [place] [address] [place] Specific gravity (U) [Rel density] 1.018 Normal 1.005-1.030 [facility] Comment on above: Order Comment: Speci men Type: URINE SPECIMENOrdering Facility: [facility] Address: [address] [place] [address] Performed By: #### 2 4356-8 ####[facility] LABIA [id number] [place] [address] [place] Urobilinogen Ql (U) 1.0 EU/dL Normal 0.2-1.0 EU/dL [facility] Comment on above: Order Comment: Speci men Type: URINE SPECIMENOrdering Facility: [facility] Address: [address] [place] [address] Performed By: #### 2 4356-8 ####[facility] LABIA [id number] [place] [address] [place] WBC LM.HPF (Urine sed) [#/Area] 0-5 /HPF Normal 0-5 /HPF [facility] Comment on above: Order Comment: Speci men Type: URINE SPECIMENOrdering Facility: [facility] Address: [address] [place] [address] Performed By: #### 2 4356-8 ####[facility] LABCLIA [id number] [place] [address] [place] XR CHEST 2V FRONTAL/LATon XR CHEST 2V FRONTAL/LAT * * *Final Report* * * DATE OF EXAM: May 19 2023 12:58PM EGX [id number] - XR CHEST 2V FRONTAL/LAT / PROCEDURE REASON: Chest Pain * * * * Physician Interpretation * * * * EXAMINATION: CHEST RADIOGRAPH (2 VIEW FRONTAL and LATERAL) CLINICAL HISTORY: Chest Pain MQ: [id number]_6 EXAM DATE/TIME: 05/19/2023 12:58 PM COMPARISON: None. RESULT: Lines, tubes, and devices: None. Lungs and pleura: There is no focal consolidation, pleural effusion, or pneumothorax. Cardiomediastinal silhouette: Within normal limits. Bones and soft tissues: No acute osseous abnormality is identified. The imaged upper abdomen is within normal limits. IMPRESSION: No acute cardiopulmonary process. Medical [employer] Officer: CHAD Transcribe Date/Time: May 19 2023 1:05P Dictated by : JOSSE VEGA MD This examination was interpreted and the report reviewed and electronically signed by: JOSSE VEGA MD on May 19 2023 1:05PM EST [id number] Normal [facility] aPTT PPPon 05-19-2023 aPTT Coag (PPP) [Time] 25.1 s Normal 23.0-32.4 [facility] Comment on above: Order Comment: Speci men Type: BLOOD SPECIMENOrdering Facility: [facility] Address: [address] [place] [address] Performed By: #### 3 4528-0, 20287-0 ####[facility] LABIA [id number] [place] [address] [place] 25(OH)D3 [facility] 25-hydroxyvitamin D3 [Mass/Vol] 20.9 ng/mL Low 31.0-80.0 [facility] Comment on above: Order Comment: Speci men Type: BLOOD SPECIMENOrdering Facility: [facility] Address: [address] [place] [address] Result Comment: Clas sification of 25 [place] Vitamin D status: Deficiency/Insufficiency: < or = 30 ng/ml. Sufficiency/Optimal Levels: 31-80 ng/mL Toxicity: > 100 ng/mL. Test performed by chemiluminescent immunoassay. Performed By: #### 1 989-3 ####[facility] LABCLIA [id number] [place] [address] [place] AMYLASE BLDon 04-11-2023 Amylase [Catalytic activity/Vol] 74 U/L 30 - 104 U/L [facility]23 Amylase [Catalytic activity/Vol] 74 U/L Normal 30-104 [facility] Comment on above: Order Comment: Speci men Type: BLOOD SPECIMENOrdering Facility: [facility] Address: [address] [place] [address] Performed By: #### 3 016-3, 56357-9, 1798-8, 3040-3 ####[facility] LABCLIA [id number] [place] [address] [place] CBC panel Auto (Bld)on 04-11 Erythrocyte distribution width (RBC) [Ratio] 13.9 % Normal 11.5-15.0 [facility] Comment on above: Order Comment: Speci men Type: BLOOD SPECIMENOrdering Facility: [facility] Address: [address] [place] [address] Performed By: #### 5 8410-2, 4537-7 ####[facility] LABCLIA [id number] [place] [address] [place] Hematocrit (Bld) [Volume fraction] 43.8 % Normal 36.0-46.0 [facility] Comment on above: Order Comment: Speci men Type: BLOOD SPECIMENOrdering Facility: [facility] Address: [address] [place] [address] Performed By: #### 5 8410-2, 4537-7 ####[facility] LABCLIA [id number] [place] [address] [place] Hemoglobin (Bld) [Mass/Vol] 14.5 g/dL Normal 11.5-15.5 [facility] Comment on above: Order Comment: Speci men Type: BLOOD SPECIMENOrdering Facility: [facility] Address: [address] [place] [address] Performed By: #### 5 8410-2, 4537-7 ####[facility] LABCLIA [id number] [place] [address] [place] MCH (RBC) [Entitic mass] 31.3 pg Normal 26.0-34.0 [facility] Comment on above: Order Comment: Speci men Type: BLOOD SPECIMENOrdering Facility: [facility] Address: [address] [place] [address] Performed By: #### 5 8410-2, 4536-7 ####[facility] LABIA [id number] [place] [address] [place] MCHC (RBC) [Mass/Vol] 33.1 g/dL Normal 30.5-36.0 [facility] Comment on above: Order Comment: Speci men Type: BLOOD SPECIMENOrdering Facility: [facility] Address: [address] [place] [address] Performed By: #### 5 8410-2, 4537-7 ####[facility] LABCLIA [id number] [place] [address] [place] MCV (RBC) [Entitic vol] 94.4 fL Normal 80.0-100.0 [facility] Comment on above: Order Comment: Speci men Type: BLOOD SPECIMENOrdering Facility: [facility] Address: [address] [place] [address] Performed By: #### 5 8410-2, 4536-7 ####[facility] LABCLIA [id number] [place] [address] [place] Nucleated RBC (Bld) [#/Vol] 10*3/uL Normal <0.01 [facility] Comment on above: Order Comment: Speci men Type: BLOOD SPECIMENOrdering Facility: [facility] Address: [address] [place] [address] Performed By: #### 5 8410-2, 4536-7 ####[facility] LABIA [id number] [place] [address] [place] Platelet mean volume (Bld) [Entitic vol] 9.8 fL Normal 9.0-12.7 [facility] Comment on above: Order Comment: Speci men Type: BLOOD SPECIMENOrdering Facility: [facility] Address: [address] [place] [address] Performed By: #### 5 8410-2, 4536-7 ####[facility] LABIA [id number] [place] [address] [place] Platelets (Bld) [#/Vol] 337 10*3/uL Normal 150-400 [facility] Comment on above: Order Comment: Speci men Type: BLOOD SPECIMENOrdering Facility: [facility] Address: [address] [place] [address] Performed By: #### 5 8410-2, 4536-7 ####[facility] LABIA [id number] [place] [address] [place] RBC (Bld) [#/Vol] 4.64 10*6/uL Normal 3.90-5.20 [facility] Comment on above: Order Comment: Speci men Type: BLOOD SPECIMENOrdering Facility: [facility] Address: [address] [place] [address] Performed By: #### 5 8410-2, 4537-7 ####[facility] LABCLIA [id number] [address] [place] WBC (Bld) [#/Vol] 6.36 10*3/uL Normal 3.70-11.00 [facility] Comment on above: Order Comment: Speci men Type: BLOOD SPECIMENOrdering Facility: [facility] Address: [address] [place] [address] Performed By: #### 5 8410-2, 4537-7 ####[facility] LABCLIA [id number] [address] [place] Erythrocyte distribution width (RBC) [Ratio] 13.9 % 11.5 - 15.0 % [facility] Hematocrit (Bld) [Volume fraction] 43.8 % 36.0 - 46.0 % [facility] Hemoglobin (Bld) [Mass/Vol] 14.5 g/dL 11.5 - 15.5 g/dL [facility] MCH (RBC) [Entitic mass] 31.3 pg 26.0 - 34.0 pg [facility] MCHC (RBC) [Mass/Vol] 33.1 g/dL 30.5 - 36.0 g/dL [facility] MCV (RBC) [Entitic vol] 94.4 fL 80.0 - 100.0 fL [facility] Nucleated RBC (Bld) [#/Vol] <0.01 k/uL [facility] Platelet mean volume (Bld) [Entitic vol] 9.8 fL 9.0 - 12.7 fL [facility] Platelets (Bld) [#/Vol] 337 10*3/uL 150 - 400 k/uL [facility] RBC (Bld) [#/Vol] 4.64 10*6/uL 3.90 - 5.2 0 m/uL [facility] WBC (Bld) [#/Vol] 6.36 10*3/uL 3.70 - 11. 00 k/uL [facility] CNOVon 04-11-2023 CNOV Office Visit (INTMMN ) DIAN HILL ([id number]) 1955 F Date Time Provider Department 04/11/23 8:00 AM NIKO TALLEY During your visit today, we recorded the following information about you: Pulse Blood pressure Weight 76/minute 125/87 74 kg Javon Velásquez MD 04/11/2023 10:23 AM Signed Internal Medicine Preceptor: Dr. Velásquez CC: Intermittent abdominal pain HPI: 67 year old female patient here today for nausea and epigastric pain PMH: - Fibromyalgia - Pancreatitis - LSS - TTP in 2002 requiring plasmapheresis - Prurigo nodularis Since January patient has had 6 episodes of severe epigastric abdominal pain, cramping in nature, 02/09, without any radiation, unrelated to eating, accompanied by nausea and loss of appetite (without vomiting, diarrhea or vomiting). No unintentional weight loss. Does not report heartburn, no regurgitation. Normal ECG. No history of NSAIDs use. No alcohol use disorder. No recent EGD. Patient mentions she had a colonoscopy around 6 years ago which was normal. Patient says the pain is relieved with phenergan. In the past year, patient has been having lower back pain that radiates to the legs, underwent imaging for LSS with orthopedics, and was diagnosed with LSS. Incidental finding of hepatic and bilateral renal cysts were seen, and she was referred to see a PCP. She has a PCP in [place], however came to [facility] for a second opinion. Review of Systems Constitutional: Positive for chills. HENT: Negative. Eyes: Negative. Respiratory: Negative. Cardiovascular: Negative. Gastrointestinal: Positive for abdominal pain and nausea. Genitourinary: Negative. Skin: Negative. Neurological: Negative. Endo/Heme/Allergies: Negative. Psychiatric/Behavioral: Negative. Health maintenance: Mammogram Screening Never done Colorectal Cancer Screening Never done Diabetes Screening due on 09/17/2006 Lipid Screening due on 09/17/2008 Bone Density Screening Never done Advance Directive Discussion Never done Depression Assessment Never done Allergies: ALLERGIES Allergen Reactions - Nsaids (Non-Steroid* GI Upset Kidney failure Active Medications: DULoxetine (CYMBALTA) 60 mg capsule, Take 1 capsule by mouth every afternoon., Disp: , Rfl: promethazine (PHENERGAN) 25 mg tablet, , Disp: , Rfl: levothyroxine (SYNTHROID) 75 mcg tablet, Take 75 mcg by mouth every morning. Take on an empty stomach., Disp: , Rfl: Past Medical History: PAST MEDICAL HISTORY Diagnosis Date - Acute pancreatitis - Thrombocytopenia, unspecified (HCC) Past Surgical History: No past surgical history on file. Family History: Family History Problem Relation Age of Onset - Hypertension Father Social History: Social History Tobacco Use - Smoking status: Never Passive exposure: Never - Smokeless tobacco: Never Substance Use Topics - Alcohol use: No - Drug use: Never Vitals: Last 3 Encounter BP Readings: Date: BP: 04/11/2023 125/87[ashley bp[ 02/16/2023 129/90 07/05/2004 96/52 Physical Exam Constitutional: Appearance: Normal appearance. She is normal weight. Cardiovascular: Rate and Rhythm: Normal rate and regular rhythm. Pulses: Normal pulses. Heart sounds: Normal heart sounds. Pulmonary: Effort: Pulmonary effort is normal. Breath sounds: Normal breath sounds. Abdominal: General: Abdomen is flat. Bowel sounds are normal. Tenderness: There is abdominal tenderness. Musculoskeletal: General: Tenderness present. Skin: General: Skin is warm. Neurological: General: No focal deficit present. Mental Status: She is alert and oriented to person, place, and time. Mental status is at baseline. Psychiatric: Mood and Affect: Mood normal. Behavior: Behavior normal. Thought Content: Thought content normal. Judgment: Judgment normal. Fernandez sign negative. Imaging Reviewed the following: Lumbar MRI-01/24/2023 1. Moderate left neuroforaminal narrowing at L2-3 and L3-4. 2. Mild spinal canal narrowing at L3-4 and L4-5. 3. No abnormality of the visualized sacroiliac joints. 4. Incidental hepatic and bilateral renal cysts. Assessment/Plan: Ms. Dian Hill is a 67 year old coming in with intermittent abdominal pain. Differential diagnosis includes gastric ulcer, gallbladder stones, pancreatic disease. #Epigastric pain and Nausea Plan: - ECG COMPLETE - CBC - COMP METABOLIC PANEL - LIPASE BLD - AMYLASE BLD - EGD DIAGNOSTIC - H PYLORI AG BY EIA,STOOL - US ABD RIGHT UPPER QUADRANT #Fatigue Plan: - CBC - COMP METABOLIC PANEL - VITAMIN D 25 HYDROXY - TSH BLD Is there an advance care directive on file? Y/N: No Follow Up Plan: Discussed with patient the importance of continuity of care. I encouraged patient to schedule next appointment within [facility] Time: 5 weeks with MD. Eliz Silva (more content not included)... Normal [facility] Comprehensive metabolic 2000 panelon 04-11-2023 Albumin [Mass/Vol] 4.4 g/dL 3.9 - 4.9 g/dL [facility] ALP [Catalytic activity/Vol] 70 U/L 34 - 123 U/L [facility] ALT [Catalytic activity/Vol] 13 U/L 7 - 38 U/L [facility] Anion gap [Moles/Vol] 12 mmol/L 9 - 18 mmol/L [facility] AST [Catalytic activity/Vol] 18 U/L 13 - 35 U/L [facility] Bilirubin [Mass/Vol] 0.3 mg/dL 0.2 - 1.3 mg/dL [facility] Calcium [Mass/Vol] 9.4 mg/dL 8.5 - 10.2 mg/dL [facility] Chloride [Moles/Vol] 104 mmol/L 97 - 105 mmol/L [facility] CO2 [Moles/Vol] 24 mmol/L 22 - 30 mmol/L [facility] Creatinine [Mass/Vol] 0.90 mg/dL 0.58 - 0.96 mg/dL [facility] Estimated Glomerular Filtration Rate 69 mL/min/1.73m >=60 mL/min/1.73m [facility] Glucose [Mass/Vol] 93 mg/dL 74 - 99 mg/dL [facility] Potassium [Moles/Vol] 4.6 mmol/L 3.7 - 5.1 mmol/L [facility] Protein [Mass/Vol] 6.8 g/dL 6.3 - 8.0 g/dL [facility] Sodium [Moles/Vol] 140 mmol/L 136 - 144 mmol/L [facility] Urea nitrogen [Mass/Vol] 10 mg/dL 7 - 21 mg/dL [facility] Albumin [Mass/Vol] 4.4 g/dL Normal 3.9-4.9 [facility] Comment on above: Order Comment: Speci men Type: BLOOD SPECIMENOrdering Facility: [facility] Address: [address] [place] [address] Performed By: #### 3 016-3, 98896-8, 1798-01, 3 ####[facility] LABCLIA [id number] [place] [address] [place] ALP [Catalytic activity/Vol] 70 U/L Normal 34-123 [facility] Comment on above: Order Comment: Speci men Type: BLOOD SPECIMENOrdering Facility: [facility] Address: [address] [place] [address] Performed By: #### 3 016-3, 85462-4, 1798-01, 3039-09 ####[facility] LABCLIA [id number] [place] [address] [place] ALT [Catalytic activity/Vol] 13 U/L Normal 7-38 [facility] Comment on above: Order Comment: Speci men Type: BLOOD SPECIMENOrdering Facility: [facility] Address: [address] [place] [address] Performed By: #### 3 016-3, 21123-7, 1798-01, 3039-09 ####[facility] LABCLIA [id number] [place] [address] [place] Anion gap [Moles/Vol] 12 mmol/L Normal 9-18 [facility] Comment on above: Order Comment: Speci men Type: BLOOD SPECIMENOrdering Facility: [facility] Address: [address] [place] [address] Performed By: #### 3 016-3, 91769-9, 1798-01, 3039-09 ####[facility] LABCLIA [id number] [place] [address] [place] AST [Catalytic activity/Vol] 18 U/L Normal 13-35 [facility] Comment on above: Order Comment: Speci men Type: BLOOD SPECIMENOrdering Facility: [facility] Address: [address] [place] [address] Performed By: #### 3 016-3, 67206-6, 8, 3039-3 ####[facility] LABCLIA [id number] [place] [address] [place] Bilirubin [Mass/Vol] 0.3 mg/dL Normal 0.2-1.3 [facility] Comment on above: Order Comment: Speci men Type: BLOOD SPECIMENOrdering Facility: [facility] Address: [address] [place] [address] Performed By: #### 3 016-3, 09854-2, 8, 3039-3 ####[facility] LABCLIA [id number] [place] [address] [place] Calcium [Mass/Vol] 9.4 mg/dL Normal 8.5-10.2 [facility] Comment on above: Order Comment: Speci men Type: BLOOD SPECIMENOrdering Facility: [facility] Address: [address] [place] [address] Performed By: #### 3 016-3, 15057-1, 1798-01, 3 ####[facility] LABCLIA [id number] [place] [address] [place] Chloride [Moles/Vol] 104 mmol/L Normal 97-105 [facility] Comment on above: Order Comment: Speci men Type: BLOOD SPECIMENOrdering Facility: [facility] Address: [address] [place] [address] Performed By: #### 3 016-3, 83987-4, 8, 3039-3 ####[facility] LABCLIA [id number] [place] [address] [place] CO2 [Moles/Vol] 24 mmol/L Normal 22-30 [facility] Comment on above: Order Comment: Speci men Type: BLOOD SPECIMENOrdering Facility: [facility] Address: [address] [id number] Performed By: #### 3 016-3, 71719-1, 1797-8, 0-3 ####[facility] LABIA [id number] [place] [address] [place] Creatinine [Mass/Vol] 0.90 mg/dL Normal 0.58-0.96 [facility] Comment on above: Order Comment: Eddy men Type: BLOOD SPECIMENOrdering Facility: [facility] Address: [address] [place] [address] Performed By: #### 3 016-3, 74152-2, 1797-8, 0-3 ####[facility] [id number] [place] [address] [place] Creatinine and Glomerular filtration rate.predicted panel (S/P/Bld) 69 mL/min/1.73m??? Normal >=60 [facility] Comment on above: Order Comment: Eddy fowler Type: BLOOD SPECIMENOrdering Facility: [facility] Address: [address] [place] [address] Result Comment: Patrica mated Glomerular Filtration Rate (eGFR) is calculated using the 2020 CKD-EPI creatinine equation. This equation utilizes serum creatinine, sex, and age as parameters. The creatinine assay has traceable calibration to isotope dilution-mass spectrometry. Refer to KDIGO guidelines for clinical interpretation. In patients with unstable renal function, e.g. those with acute kidney injury, the eGFR may not accurately reflect actual GFR. Performed By: #### 3 016-3, 24488-8, 1797-8, 3039-3 ####[facility] LABIA [id number] [address] [place] [id number] [place] Glucose [Mass/Vol] 93 mg/dL Normal 74-99 [facility] Comment on above: Order Comment: Eddy men Type: BLOOD SPECIMENOrdering Facility: [facility] Address: [address] [place] [address] Result Comment: The [place] Diabetes Association (ADA) provides guidance for cutoff values for fasting glucose and random glucose. The ADA defines fasting as no caloric intake for at least 8 hours. Fasting plasma glucose results between 100 to 125 mg/dL indicate increased risk for diabetes (prediabetes). Fasting plasma glucose results greater than or equal to 126 mg/dL meet the criteria for diagnosis of diabetes. In the absence of unequivocal hyperglycemia, results should be confirmed by repeat testing. In a patient with classic symptoms of hyperglycemia or hyperglycemic crisis, random plasma glucose results greater than or equal to 200 mg/dL meet the criteria for diagnosis of diabetes. Reference: Standards of Medical Care in Diabetes 2016, [place] [employer]. Diabetes Care. 2016.39(Suppl 1). Performed By: #### 3 016-3, 16034-1, 1797-8, 0-3 ####[facility] LABCLIA [id number] [place] [address] [place] Potassium [Moles/Vol] 4.6 mmol/L Normal 3.7-5.1 [facility] Comment on above: Order Comment: Speci men Type: BLOOD SPECIMENOrdering Facility: [facility] Address: [address] [place] [address] Performed By: #### 3 016-3, 14519-3, 8, 0-3 ####[facility] LABIA [id number] [place] [address] [place] Protein [Mass/Vol] 6.8 g/dL Normal 6.3-8.0 [facility] Comment on above: Order Comment: Speci men Type: BLOOD SPECIMENOrdering Facility: [facility] Address: [address] [place] [address] Performed By: #### 3 016-3, 98083-3, 1798, 0-3 ####[facility] LABIA [id number] [place] [address] [place] Sodium [Moles/Vol] 140 mmol/L Normal 136-144 [facility] Comment on above: Order Comment: Speci men Type: BLOOD SPECIMENOrdering Facility: [facility] Address: [address] [place] [address] Performed By: #### 3 016-3, 10444-3, 1798-8, 3040-3 ####[facility] [id number] [address] [address] [place] Urea nitrogen [Mass/Vol] 10 mg/dL Normal 7-21 [facility] Comment on above: Order Comment: Speci men Type: BLOOD SPECIMENOrdering Facility: [facility] Address: [address] [place] [address] Performed By: #### 3 016-3, 47225-9, 1798-8, 3040-3 ####[facility] [id number] [address] [address] [place] [id number] 04-11-2023 ECG01 Ventricular Rate : 6 7 BPM Atrial Rate : 67 BPM P-R Interval : 116 ms QRS Duration : 68 ms Q-T Interval : 422 ms QTC Calculation(Bazett) : 445 ms Calculated P [place] : 63 degrees Calculated R [place] : 0 degrees Calculated T [place] : 55 degrees NORMAL SINUS RHYTHM NORMAL ECG Confirmed by GRAY OBRIEN MD ([id number]) on 04/13/2023 7:04:50 AM NAME : DIAN HILL PID : [id number] : 1955 Gender : Female Race : ORD : Procedure Date : Apr 11 2023 12:24:05 Edit Date : Apr 13 2023 07:04:51 Diagnosis: NORMAL SINUS RHYTHM NORMAL ECG Confirmed by GRAY OBRIEN MD ([id number]) on 04/13/2023 7:04:50 AM Test Reason : Location : 210 : 0 Overread By : GRAY OBRIEN MD Edited By : GRAY OBRIEN MD Referred By : FLORINDA GLOVER Acquired by : LB, Normal [facility] ESR Westergren method (Bld) [Velocity]on 04-11-2023 ESR (Bld) [Velocity] 11 mm/h Normal 0-20 [facility] Comment on above: Order Comment: Speci men Type: BLOOD SPECIMENOrdering Facility: [facility] Address: [address] [place], [place] [id number] Performed By: #### 5 8410-2, 4537-7 ####[facility] LABIA [id number] [place] [address] [place] ESR (Bld) [Velocity] 11 mm/h 0 - 20 mm/hr [facility] LIPASE BLDon 04-11-2023 Lipase [Catalytic activity/Vol] 46 U/L 16 - 61 U/L [facility] Lipase SerPl-cCncon 04-11-20 23 Lipase [Catalytic activity/Vol] 46 U/L Normal 16-61 [facility] Comment on above: Order Comment: Speci men Type: BLOOD SPECIMENOrdering Facility: [facility] Address: [address] [place] [address] Performed By: #### 3 016-3, 58109-8, 1797-8, 3039-3 ####[facility] LABIA [id number] [place] [address] [place] TSH BLDon 04-11-2023 TSH Qn 3.340 m[IU]/L 0.270 - 4.200 mIU/L [facility] TSH SerPl-aCncon 04-11-2023 TSH Qn 3.340 m[IU]/L Normal 0.270-4.200 [facility] Comment on above: Order Comment: Speci men Type: BLOOD SPECIMENOrdering Facility: [facility] Address: [address] [place] [address] Performed By: #### 3 016-3, 71221-6, 1797-8, 3039-3 ####[facility] LABIA [id number] [place] [address] [place] VITAMIN D 25 HYDROXYon 04-11 25-hydroxyvitamin D3 [Mass/Vol] 20.9 ng/mL Low 31.0 - 80.0 ng/mL [facility] CNPKassi 03-29-2023 KATRINA Telephone (NI) LIZDIAN Willow ([id number]) 1955 F Date Time Provider Department 03/29/23 FLORINDA GLOVER During your visit today, we recorded the following information about you: Sujata Moralez 03/29/2023 1:04 PM Signed Received the following record(s) via fax. -PT Notes Date 03/29/23 Record(s) scanned into pt's chart. Lindsey Barillas, RN 03/30/2023 4:20 PM Signed Spoke to patient states it took everything to get herself to that PT appointment. She had the assessment. She can only do one thing per day (ie like taking a shower) so the therapist thought it would be to hard for her to keep continuing to come. She gave her HEP. She was in bed when I called. Having problems with her stomach and nausea. Had to take Phenergan. This the 4 th episode this month. She just does not have the energy, having the pain in abdomen and was sweating. She is seeing Internal Medicine on 04/11 (new consult) and GI 08/2023. Florinda Glover MD 03/31/2023 8:12 AM Signed May want to consider sooner GI consult if possible. MD Flory Simons Tracy, RN 03/31/2023 11:48 AM Signed Spoke to [facility] [place] and that is the soonest they have as of now Allergies As of Date: 03/29/2023 Noted Allergy Reaction NSAIDS (NON-STEROIDAL ANTI-INFLAM*02/24/2014 8 - GI Upset Comments: Kidney failure Date Reviewed: 02/16/2023 Reviewed by: Yessenia Doyle OCCA - Fully Assessed Reason for Visit: Received Outside Medical Records [3576] Primary Visit Diagnosis:Vitamin D deficiency [E55.9] Order(s):ergocalciferol 50,000 unit capsule (VITAMIN D2, DRISDOL)Take 1 capsule by mouth one time a week.Disp: 12 capsuleRfl: 0 Prescriptions as of 04/23/2023 - ergocalciferol 50,000 unit capsule (VITAMIN D2, DRISDOL) Take 1 capsule by mouth one time a week. - DULoxetine (CYMBALTA) 60 mg capsule Take 1 capsule by mouth every afternoon. - promethazine (PHENERGAN) 25 mg tablet - levothyroxine (SYNTHROID) 75 mcg tablet Take 75 mcg by mouth every morning. Take on an empty stomach. - PERCOCET 5/325 MG TABLET Take one(1) tablet four(4) times daily as needed for pain. - VICODIN ES TABLET as necessary - ZOLOFT 100MG TABLET Take one(1) tablet daily. - SYNTHROID 100MCG TABLET Take one(1) tablet daily. Problem List As Of Date: 03/29/2023 (None) Prescriptions ordered this encounter Disp Refills Start End ERGOCALCIFEROL (VITAMIN D2) 1,250 MC* 12 c* 0 04/23/2023 Route: ORAL Sig: Take 1 capsule by mouth one time a week. Encounter Status:Closed by NIKO TALLEY on 04/23/23 [facility] 03-13-2023 [facility] Telephone (NIQ) DIAN HILL ([id number]) 1955 F Date Time Provider Department 03/13/23 FLORINDA GLOVER During your visit today, we recorded the following information about you: Sujata Moralez 03/13/2023 11:18 AM Signed Patient is calling In stating patient uploaded images through the link Ph. [phone] Lindsey Ruth RN 03/15/2023 8:54 AM Signed In looking in [facility] no images yet. Lindsey Ruth RN 03/16/2023 10:09 AM Signed Imaging in [facility]. Per note on 02/16. Advised to forward images for review. Florinda Glover MD 03/16/2023 1:57 PM Signed Reviewed lumbar MRI-multilevel degenerative (wear and tear) changes with multilevel stenosis-likely contributing to the low back and R LE pain. Does have alignment changes-recommend lumbar flexion/extension [id number] placed-not completed prior-can get locally and mail images for review. PT trial spine specific ordered as tolerated. Recommend F/U 8-10 weeks after PT, sooner with worsening or changes. MD Flory Simons Tracy, RN 03/16/2023 3:49 PM Signed Notified patient of results and MD's instructions. She verbalized understanding. Patient is going to call me back (phone was dying). Will call back with locations/fax number where I can send information too. Teresa Daniel 03/17/2023 1:32 PM Signed Send PT and Xray orders to [facility] fax no [phone]. Lindsey Mckinley, JACINTO 03/17/2023 4:25 PM Signed Faxed to [facility] . Allergies As of Date: 03/13/2023 Noted Allergy Reaction NSAIDS (NON-STEROIDAL ANTI-INFLAM*02/24/2014 8 - GI Upset Comments: Kidney failure Date Reviewed: 02/16/2023 Reviewed by: Yessenia Doyle OCCA - Fully Assessed Reason for Visit: Information [1328] Primary Visit Diagnosis:Spinal stenosis, lumbar region with neurogenic claudication [M48.062] Order(s):XR LUMBAR LIMITED 2V FLEX/EXT [[id number]] Order #: [id number] FUTURE CONSULT TO PHYSICAL THERAPY [9032] Order #: [id number]: 1 FUTURE Prescriptions as of 03/17/2023 - DULoxetine (CYMBALTA) 60 mg capsule Take 1 capsule by mouth every afternoon. - promethazine (PHENERGAN) 25 mg tablet - levothyroxine (SYNTHROID) 75 mcg tablet Take 75 mcg by mouth every morning. Take on an empty stomach. - PERCOCET 5/325 MG TABLET Take one(1) tablet four(4) times daily as needed for pain. - VICODIN ES TABLET as necessary - ZOLOFT 100MG TABLET Take one(1) tablet daily. - SYNTHROID 100MCG TABLET Take one(1) tablet daily. Problem List As Of Date: 03/13/2023 (None) Encounter Status:Closed by LINDSEY RUTH on 03/17/23 [facility] CNOVon 02-16-2023 CNOV Office Visit (SPNMMN ) DIAN HILL ([id number]) 1955 F Date Time Provider Department 02/16/23 8:40 AM [facility] During your visit today, we recorded the following information about you: Pulse Respiration Blood pressure Weight 81/minute 16/minute 129/90 75.9 kg Height 1.676 m Florinda Glover MD 02/16/2023 9:22 AM Signed [facility] Low Back Pain - Chronic (> 12 weeks) Initial Exam SUBJECTIVE HISTORY OF PRESENT ILLNESS: Dian Hill is a 67 year old female who presents with a chief complaint of low back and leg pain and is seen at her request. Locally felt was getting passed around Decided to schedule here. Future son in law present. H/o fibromyalgia, pancreatitis. Notes a year ago noted a lump of the R thigh. Had work-up saw ortho and as part of the work-up underwent a lumbar MRI and told has LSS. Pain across the low back that is more constant than not, better with lying down, standing>walking. Notes cannot walk as much due to generalized body fatigue-not as much due to LE pain/heaviness. Not much LE pain-may be some of the R lateral thigh-denies into the groin and denies below the knees. Some R LE tinging-lateral and into the scales. Most bothered by the fatigue of body. Also has nausea. Notes this is chronic for the last year. PAIN EVALUATION 02/16/2023 0836 Pain Level: 4 Pain Location: Back-Lower Description: Dull;Aching Duration Amount of Time: 1 Duration Units: Years Frequency: Continuous Intervention/Comfort measure: Medication Injection Prior Therapy: Told has stenosis and referred to pain management. Denies PT and injections. Off of vicodin Cymbalta for fibromyalgia There is no problem list on file for this patient. PAST MEDICAL HISTORY Diagnosis Date Acute pancreatitis Thrombocytopenia, unspecified (HCC) No past surgical history on file. Social History Tobacco Use Smoking status: Never Passive exposure: Never Smokeless tobacco: Never Substance Use Topics Alcohol use: No Drug use: Never FAMILY HISTORY Problem Relation Age of Onset Hypertension Father ALLERGIES Allergen Reactions Nsaids (Non-Steroid* GI Upset Kidney failure CURRENT MEDICATIONS: DULoxetine (CYMBALTA) 60 mg capsule Take 1 capsule by mouth every afternoon. promethazine (PHENERGAN) 25 mg tablet levothyroxine (SYNTHROID) 75 mcg tablet Take 75 mcg by mouth every morning. Take on an empty stomach. PERCOCET 5/325 MG TABLET Take one(1) tablet four(4) times daily as needed for pain. VICODIN ES TABLET as necessary ZOLOFT 100MG TABLET Take one(1) tablet daily. SYNTHROID 100MCG TABLET Take one(1) tablet daily. REVIEW OF SYSTEMS: See above Fatigue and nausea Body sweats Denies unintentional weight loss, (notes weight gain). Denies fevers, cancer, and bowel/bladder incontinence. A month ago had loss of bladder twice and non since. OBJECTIVE: PHYSICAL EXAM BP 129/90 Pulse 81 Resp 16 Ht 167.6 cm (5' 6 ) Wt 75.9 kg (167 lb 4.8 oz) SpO2 98% BMI 27.00 kg/m? General: Pleasant individual in NAD Mental Status: Oriented to person place and time. Displays appropriate mood and affect. GAIT: Gait is forward and slow Gross Motor: Toe walking, heel walking not attempted given gait. Strength Testing: Bilateral upper and lower extremity strength appears normal and symmetric there is some giveway. Neuro: Bilateral upper and lower extremity coordination and muscle stretch reflexes are physiologic and symmetric. Plantar response are downgoing. Negative johnson's Spine Range of Motion:improved with flexion, limited extension Peripheral Joint ROM: hip ROM w/o pain and intact bilaterally Provocative Maneuvers: hip, sacroiliac provocative maneuvers are negative. Straight Leg Raising: Straight leg raising in the sitting and supine positions is negative to radicular pain. Palpation: Inspection and palpatory examination of the spine upper/lower extremities is unremarkable. Peripheral Vascular: No obvious extremity swelling in all 4 extremities. Appearance of Skin: Skin inspection of the trunk, bilateral upper and lower extremities is unremarkable. Data Review: Lumbar MRI-01/24/2023 1. Moderate left neuroforaminal narrowing at L2-3 and L3-4. 2. Mild spinal canal narrowing at L3-4 and L4-5. 3. No abnormality of the visualized sacroiliac joints. 4. Incidental hepatic and bilateral renal cysts. ASSESSMENT/PLAN LSS-may be contributing to the low back and R LE symptoms. Management options were reviewed. Education provided. Advised to forward images for review. Pending review consider PT trial spine specific. Also on cymbalta. Would like to avoid injections at this time. Multiple other complaints noted unrelated to the lumbar spine-recommend GI and primary care consults to best address. Also f/u with PCP recommended re inciden (more content not included)... Normal [facility] DI[facility] ([id number]) 1955 F Date Time Provider Department 02/15/23 FLORINDA GLOVER NIQ During your visit today, we recorded the following information about you: Sujata Moralez 02/15/2023 11:27 AM Signed Received the following record(s) via fxa. -REFERRAL Date Record(s) scanned into pt's chart. Sujata Moralez Allergies As of Date: 02/15/2023 (Not on File) Date Reviewed: 01/07/2003 Reviewed by: Reason for Visit: Received Outside Medical Records [[id number]] Prescriptions as of 02/17/2023 - DULoxetine (CYMBALTA) 60 mg capsule Take 1 capsule by mouth every afternoon. - promethazine (PHENERGAN) 25 mg tablet - levothyroxine (SYNTHROID) 75 mcg tablet Take 75 mcg by mouth every morning. Take on an empty stomach. - PERCOCET 5/325 MG TABLET Take one(1) tablet four(4) times daily as needed for pain. - VICODIN ES TABLET as necessary - ZOLOFT 100MG TABLET Take one(1) tablet daily. - SYNTHROID 100MCG TABLET Take one(1) tablet daily. Problem List As Of Date: 02/15/2023 (None) Encounter Status:Closed by LINDSEY RUTH on 02/17/23 Normal [facility] CBC AUTO DIFFon 11-02-2022 BASO # 0.0 103/ul Normal 0.0-0.1 [facility] Comment on above: Performed By: #### C BC #### [facility] [address] [place] [address] Dr. Gladys Larsen Basophils/100 WBC (Bld) 0.5 % Normal 0.2-2.0 [facility] Comment on above: Performed By: #### C BC #### [facility] [address] [place] [address] Dr. Gladys Larsen EO # 0.1 103/ul Normal 0.0-0.7 [facility] Comment on above: Performed By: #### C BC #### [facility] [address] [place] [address] Dr. Gladys Larsen Eosinophils/100 WBC (Bld) 1.5 % Normal 0.9-7.0 [facility] Comment on above: Performed By: #### C BC #### [facility] [address] [place] [address] Dr. Gladys Larsen Erythrocyte distribution width (RBC) [Ratio] 13.0 % Normal 11.0-15.0 [facility] Comment on above: Performed By: #### C BC #### [facility] [address] [place] [address] Dr. Gladys Larsen Hematocrit (Bld) [Volume fraction] 45.7 % Normal 36.0-48.0 [facility] Comment on above: Performed By: #### C BC #### [facility] [address] [place] [address] Dr. Gladys Larsen Hemoglobin (Bld) [Mass/Vol] 15.3 g/dL Normal 12.0-16.0 [facility] Comment on above: Performed By: #### C BC #### [facility] [address] [place] [address] Dr. Gladys Larsen IG # 0.02 10e3/ul Normal 0.00-0.03 [facility] Comment on above: Performed By: #### C BC #### [facility] [address] [place] [address] Dr. Gladys Larsen IG % 0.3 % Normal 0.0-0.5 [facility] Comment on above: Performed By: #### C BC #### [facility] [address] [place] [address] Dr. Gladys Larsen LYMPH # 1.9 103/ul Normal 1.2-3.8 [facility] Comment on above: Performed By: #### C BC #### [facility] [address] [place] [address] Dr. Gladys Larsen Lymphocytes/100 WBC (Bld) 28.9 % Normal 20.5-60.0 [facility] Comment on above: Performed By: #### C BC #### [facility] [address] [place] [address] Dr. Gladys Larsen MANUAL DIFF REQ NO Normal [facility] Comment on above: Performed By: #### C BC #### [facility] [address] [place] [address] Dr. Gladys Larsen MCH (RBC) [Entitic mass] 30.9 pg Normal 26.7-34.0 [facility] Comment on above: Performed By: #### C BC #### [facility] [address] [place] [address] Dr. Gladys Larsen MCHC (RBC) [Mass/Vol] 33.5 g/dL Normal 29.9-35.2 [facility] Comment on above: Performed By: #### C BC #### [facility] [address] [place] [address] Dr. Gladys Larsen MCV (RBC) [Entitic vol] 92.3 fL Normal 81.0-99.0 [facility] Comment on above: Performed By: #### C BC #### [facility] [address] [address] [address] Gladys Larsen MONO # 0.5 103/ul Normal 0.3-0.8 [facility] Comment on above: Performed By: #### C BC #### [facility] [address] [address] [address] Gladys Larsen Monocytes/100 WBC (Bld) 8.0 % Normal 1.7-12.0 [facility] Comment on above: Performed By: #### C BC #### [facility] [address] [address] [address] Gladys Larsen NEUT # 3.9 103/ul Normal 1.4-6.5 [facility] Comment on above: Performed By: #### C BC #### [facility] [address] [address] [address] Gladys Larsen Neutrophils/100 WBC (Bld) 60.8 % Normal 43.0-75.0 [facility] Comment on above: Performed By: #### C BC #### [facility] [address] [address] [address] Gladys Larsen Platelet mean volume (Bld) [Entitic vol] 9.3 fL Critically low 9.5-13.5 [facility] Comment on above: Performed By: #### C BC #### [facility] [address] [address] [address] Gladys Larsen PLT 321 103/ul Normal 150-450 [facility] Comment on above: Performed By: #### C BC #### [facility] [address] [address] [address] Gladys Larsen RBC 4.95 106/ul Normal 4.20-5.40 [facility] Comment on above: Performed By: #### C BC #### [facility] [address] [address] [address] Gladys Larsen WBC 6.5 103/ul Normal 4.0-11.0 [facility] Comment on above: Performed By: #### C BC #### [facility] [address] [place] [address] Dr. Gladys Larsen FREE T4on 11-02-2022 Free T4 [Mass/Vol] 1.01 ng/dL Normal 0.76-1.46 [facility] Comment on above: Performed By: #### C BC #### [facility] [address] [place] [address] Dr. Gladys Larsen PROF 14(COMP METB)on 023 Albumin [Mass/Vol] 4.1 g/dL Normal 3.4-5.0 [facility] Comment on above: Performed By: #### C MP, TSH #### [facility] [address] [place] [address] Dr. Gladys Larsen Albumin/Globulin [Mass ratio] 1.1 {ratio} Normal [facility] Comment on above: Performed By: #### C MP, TSH #### [facility] [address] [place] [address] Dr. Gladys Larsen ALP [Catalytic activity/Vol] 62 U/L Normal 46-116 [facility] Comment on above: Performed By: #### C MP, TSH #### [facility] [address] [place] [address] Dr. Gladys Larsen ALT [Catalytic activity/Vol] 30 U/L Normal 14-59 [facility] Comment on above: Performed By: #### C MP, TSH #### [facility] [address] [place] [address] Dr. Gladys Larsen Anion gap [Moles/Vol] 12.0 mmol/L Normal [facility] Comment on above: Performed By: #### C MP, TSH #### [facility] [address] [place] [address] Dr. Gladys Larsen AST [Catalytic activity/Vol] 18 U/L Normal 15-37 [facility] Comment on above: Performed By: #### C MP, TSH #### [facility] [address] [place] [address] Dr. Gladys Larsen Bilirubin [Mass/Vol] 0.4 mg/dL Normal 0.2-1.0 [facility] Comment on above: Performed By: #### C MP, TSH #### [facility] [address] [address] [address] Gladys Larsen Calcium [Mass/Vol] 8.9 mg/dL Normal 8.5-10.1 [facility] Comment on above: Performed By: #### C MP, TSH #### [facility] [address] [address] [address] Gladys Larsen Chloride [Moles/Vol] 97 mmol/L Critically low 98-107 [facility] Comment on above: Performed By: #### C MP, TSH #### [facility] [address] [address] [address] Gladys Larsen CO2 [Moles/Vol] 30.5 mmol/L Normal 21.0-32.0 [facility] Comment on above: Performed By: #### C MP, TSH #### [facility] [address] [address] [address] Gladys Larsen Creatinine [Mass/Vol] 1.01 mg/dL Normal 0.55-1.02 [facility] Comment on above: Performed By: #### C MP, TSH #### [facility] [address] [address] [address] Gladys Larsen EGFR-AF [place] >60 Normal >=60 [facility] Comment on above: Performed By: #### C MP, TSH #### [facility] [address] [address] [address] Gladys Larsen EGFR-NON AF [place] 54 mL/min/1.73m2 Critically low >=60 [facility] Comment on above: Performed By: #### C MP, TSH #### [facility] [address] [address] [address] Gladys Larsen Globulin (S) [Mass/Vol] 3.8 g/dL Normal [facility] Comment on above: Performed By: #### C MP, TSH #### [facility] [address] [address] [address] Gladys Larsen Glucose [Mass/Vol] 106 mg/dL Normal 74-106 [facility] Comment on above: Performed By: #### C MP, TSH #### [facility] [address] [address] [address] Gladys Larsen Potassium [Moles/Vol] 4.5 mmol/L Normal 3.5-5.1 [facility] Comment on above: Performed By: #### C MP, TSH #### [facility] [address] [place] [address] Dr. Gladys Larsen Protein [Mass/Vol] 7.9 g/dL Normal 6.4-8.2 [facility] Comment on above: Performed By: #### C MP, TSH #### [facility] [address] [place] [address] Dr. Gladys Larsen Sodium [Moles/Vol] 135 mmol/L Critically low 136-145 [facility] Comment on above: Performed By: #### C MP, TSH #### [facility] [address] [place] [address] Dr. Gladys Larsen Urea nitrogen [Mass/Vol] 17.0 mg/dL Normal 7.0-18.0 [facility] Comment on above: Performed By: #### C MP, TSH #### [facility] [address] [place] [address] Dr. Gladys Larsen Urea nitrogen/Creatini ne [Mass ratio] 16.8 mg/mg Normal [facility] Comment on above: Performed By: #### C MP, TSH #### [facility] [address] [place] [address] Dr. Gladys Larsen TSHon 11-02-2022 TSH 0.954 uIU/mL Normal 0.358-3.740 [facility] Comment on above: Performed By: #### C MP, TSH #### [facility] [address] [place] [address] Dr. Gladys Larsen UA RANDOMon 11-02-2022 Bilirubin Ql (U) Negative Normal NEGATIVE [facility] Comment on above: Performed By: #### U A #### [facility] [address] [place] [address] Dr. Gladys Larsen Clarity (U) CLEAR Normal CLEAR [facility] Comment on above: Performed By: #### U A #### [facility] [address] [place] [address] Dr. Gladys Larsen Color (U) YELLOW Normal YELLOW [facility] Comment on above: Performed By: #### U A #### [facility] [address] [place] [address] Dr. Gladys Larsen Glucose Ql (U) Negative Normal NEGATIVE [facility] Comment on above: Performed By: #### U A #### [facility] [address] [place] [address] Dr. Gladys Larsen Hemoglobin Ql (U) Negative Normal NEGATIVE [facility] Comment on above: Performed By: #### U A #### [facility] [address] [place] [address] Dr. Gladys Larsen Ketones Ql (U) Negative Normal NEGATIVE [facility] Comment on above: Performed By: #### U A #### [facility] [address] [place] [address] Dr. Gladys Larsen LEUKOCYTES Negative Normal NEGATIVE [facility] Comment on above: Performed By: #### U A #### [facility] [address] [place] [address] Dr. Gladys Larsen Nitrite Ql (U) Negative Normal NEGATIVE [facility] Comment on above: Performed By: #### U A #### [facility] [address] [place] [address] Dr. Gladys Larsen pH (U) 7.5 [pH] Normal 5-9 [facility] Comment on above: Performed By: #### U A #### [facility] [address] [place] [address] Dr. Gladys Larsen SPEC GRAVITY 1.010 Normal 1.005-<=1.02 5 [facility] Comment on above: Performed By: #### U A #### [facility] [address] [place] [address] Dr. Gladys Larsen UA PROTEIN Negative Normal NEGATIVE/ TRACE [facility] Comment on above: Performed By: #### U A #### [facility] [address] [place] [address] Dr. Gladys Larsen Urobilinogen Qn (U) 0.2 {Chel'U}/dL Normal 0.2 - 1.0 [facility] Comment on above: Performed By: #### U A #### [facility] [address] [address] [address] Gladys Larsen ECHOCARDIO M/2D COMPLETEon 0 07-15-2022 ECHOCARDIO M/2D COMPLETE Patient: DIAN HILL Exam Date: 07/15/2022 : 1955 Gender:F Ordering : DR SHALINI HARGROVE M.D. Admission #: [id number] Family : Order #: [id number] CLICK HERE TO VIEW EXAM ECHOCARDIOGRAM REPORT PROCEDURE: CARDIO PULMONARY ECHOCARDIO M/2D COMP INDICATIONS: Dyspnea on exertion COMPARISON: None. DESCRIPTION: COMPLETE ECHOCARDIOGRAM Real-time transthoracic echocardiography with 2D, M-mode, spectral and color flow Doppler performed. QUALITY: Technical quality was adequate. 66 160# BP 118/70 LEFT VENTRICLE: Normal chamber size. Normal left ventricular wall thickness. LV EF: Global left ventricular systolic function is difficult to assess but appears preserved; visually estimated ejection fraction is 60 to 65%. Cannot comment on regional wall motion abnormalities. DIASTOLIC: Normal diastolic function. ATRIAL SEPTUM: Visually appears intact. LEFT ATRIUM: Normal chamber size. RIGHT ATRIUM: Normal chamber size. RIGHT VENTRICLE: Normal chamber size. Normal systolic function. TRICUSPID VALVE: Normal mobility and thickness. No regurgitation. Unable to assess right-sided pressures due to lack of measurable tricuspid regurgitation. MITRAL VALVE: Normal mobility and thickness. No evidence of mitral valve stenosis. There is no mitral annular calcification. No mitral regurgitation. AORTIC VALVE: Normal trileaflet appearance. No visible sclerosis. Normal leaflet mobility. No evidence of aortic valve stenosis. No aortic regurgitation. AORTIC ROOT: Normal diameter and appearance. PULMONIC VALVE: Not well visualized. No stenosis. No regurgitation. PERICARDIUM: Anterior free space; trivial effusion versus fat pad. IVC: Collapses with inspirations. IVC is normal in size. CONCLUSION: Global left ventricular systolic function appears preserved; visually estimated ejection fraction is 60 to 65%. Normal diastolic function. Right ventricle is normal in size and systolic function. No significant valvular abnormalities. Anterior free space; trivial effusion versus fat pad. Adult Echocardiography Procedure Report Left Ventricle LVEDD (3.7 - 5.6 cm): 4.12 cm LVESD (2.2 - 4.0 cm): 2.77 cm LVIVS thickness (0.6 - 1.2 cm): 0.89 cm LVPW thickness (0.5 - 1.0 cm): 0.99 cm e': 0.11 m/s E - e': 3.92 LVOT Max Gradient: 1.94 mm[Hg] Peak Velocity (LVOT): 0.70 m/s LVOT Diameter 2.33 cm Left Ventricular Ejection Fraction: 61.56 %, 61.56 % Left Atrium LA Volume Index (2D A2C): 33.83 ml, 33.83 ml Left Atrium Systolic Dimension: 3.42 cm Mitral Valve MV E to A Ratio: 0.91 Mitral Valve A-Wave Peak Velocity: 0.46 m/s Mitral Valve E-Wave Peak Velocity: 0.42 m/s Right Ventricle Aorta AO Root Diam: 3.38 cm Aortic Valve AoV Area (Peak Caesar): 3.35 cm2, 3.35 cm2 Peak Velocity(Antegrade Flow): 0.89 m/s Peak Gradient(Antegrade Flow): 3.14 mm[Hg] Tricuspid Valve Peak Velocity: 0.28 m/s Pulmonic Valve Peak Velocity: 0.62 m/s, 0.55 m/s Peak Gradient: 1.52 mm[Hg], 1.19 mm[Hg] Right Atrium Right Atrium Systolic Pressure: 34.53 ml, 34.53 ml Dictated by: Vern Estes M.D. on 07/15/2022 at 14:18 Approved by: Vern Estes M.D. on 07/15/2022 at 14:21 Normal [facility] XR CHEST 2 Von 07-15-2022 XR CHEST 2 V EXAMINATION: XR CHES T 2 V HISTORY: Essential hypertension , shortness of breath COMPARISON: No relevant comparison available. FINDINGS: LUNGS: No significant pulmonary parenchymal abnormalities. VASCULATURE: No increased pulmonary vasculature. PLEURA: No pneumothorax, effusion, or pleural thickening. CARDIAC: No cardiomegaly or cardiac silhouette abnormality. MEDIASTINUM: No visible mass or adenopathy. BONES: No fracture or visible bone lesion. OTHER: Negative. IMPRESSION: 1. No acute cardiopulmonary process or significant chronic changes. Electronically authenticated by: DANIELITO IRAHETAER Date: 2022-07-15 08:41 Normal [facility] CBC AUTO DIFFon 02-09-2022 BASO # 0.0 103/ul Normal 0.0-0.1 [facility] Comment on above: Performed By: #### C BC #### [facility] [address] [place] [address] Dr. Gladys Larsen Basophils/100 WBC (Bld) 0.6 % Normal 0.2-2.0 [facility] Comment on above: Performed By: #### C BC #### [facility] [address] [place] [address] Dr. Gladys Larsen EO # 0.1 103/ul Normal 0.0-0.7 [facility] Comment on above: Performed By: #### C BC #### [facility] [address] [place] [address] Dr. Gladys Larsen Eosinophils/100 WBC (Bld) 0.9 % Normal 0.9-7.0 [facility] Comment on above: Performed By: #### C BC #### [facility] [address] [place] [address] Dr. Gladys Larsen Erythrocyte distribution width (RBC) [Ratio] 13.1 % Normal 11.0-15.0 [facility] Comment on above: Performed By: #### C BC #### [facility] [address] [place] [address] Dr. Gladys Larsen Hematocrit (Bld) [Volume fraction] 37.1 % Normal 36.0-48.0 [facility] Comment on above: Performed By: #### C BC #### [facility] [address] [place] [address] Dr. Gladys Larsen Hemoglobin (Bld) [Mass/Vol] 12.4 g/dL Normal 12.0-16.0 [facility] Comment on above: Performed By: #### C BC #### [facility] [address] [place] [address] Dr. Gladys Larsen IG # 0.01 10e3/ul Normal 0.00-0.03 [facility] Comment on above: Performed By: #### C BC #### [facility] [address] [place] [address] Dr. Gladys Larsen IG % 0.2 % Normal 0.0-0.5 [facility] Comment on above: Performed By: #### C BC #### [facility] [address] [place] [address] Dr. Gladys Larsen LYMPH # 1.6 103/ul Normal 1.2-3.8 [facility] Comment on above: Performed By: #### C BC #### [facility] [address] [place] [address] Dr. Gladys Larsen Lymphocytes/100 WBC (Bld) 30.1 % Normal 20.5-60.0 [facility] Comment on above: Performed By: #### C BC #### [facility] [address] [place] [address] Dr. Gladys Larsen MANUAL DIFF REQ NO Normal [facility] Comment on above: Performed By: #### C BC #### [facility] [address] [place] [address] Dr. Gladys Larsen MCH (RBC) [Entitic mass] 30.1 pg Normal 26.7-34.0 [facility] Comment on above: Performed By: #### C BC #### [facility] [address] [place] [address] Dr. Gladys Larsen MCHC (RBC) [Mass/Vol] 33.4 g/dL Normal 29.9-35.2 [facility] Comment on above: Performed By: #### C BC #### [facility] [address] [place] [address] Dr. Gladys Larsen MCV (RBC) [Entitic vol] 90.0 fL Normal 81.0-99.0 [facility] Comment on above: Performed By: #### C BC #### [facility] [address] [place] [address] Dr. Gladys Larsen MONO # 0.4 103/ul Normal 0.3-0.8 [facility] Comment on above: Performed By: #### C BC #### [facility] [address] [place] [address] Dr. Gladys Larsen Monocytes/100 WBC (Bld) 7.5 % Normal 1.7-12.0 [facility] Comment on above: Performed By: #### C BC #### [facility] [address] [place] [address] Dr. Gladys Larsen NEUT # 3.3 103/ul Normal 1.4-6.5 [facility] Comment on above: Performed By: #### C BC #### [facility] [address] [place] [address] Dr. Gladys Larsen Neutrophils/100 WBC (Bld) 60.7 % Normal 43.0-75.0 [facility] Comment on above: Performed By: #### C BC #### [facility] [address] [place] [address] Dr. Gladys Larsen Platelet mean volume (Bld) [Entitic vol] 9.8 fL Normal 9.5-13.5 [facility] Comment on above: Performed By: #### C BC #### [facility] [address] [place] [address] Dr. Gladys Larsen PLT 269 103/ul Normal 150-450 [facility] Comment on above: Performed By: #### C BC #### [facility] [address] [place] [address] Dr. Gladys Larsen RBC 4.12 106/ul Critically low 4.20-5.40 [facility] Comment on above: Performed By: #### C BC #### [facility] [address] [place] [address] Dr. Gladys Larsen WBC 5.4 103/ul Normal 4.0-11.0 [facility] Comment on above: Performed By: #### C BC #### [facility] [address] [place] [address] Dr. Gladys Larsen FREE T4on 02-09-2022 Free T4 [Mass/Vol] 1.31 ng/dL Normal 0.76-1.46 [facility] Comment on above: Performed By: #### F T4 #### [facility] [address] [place] [address] Dr. Gladys Larsen LIPASEon 02-09-2022 Lipase [Catalytic activity/Vol] 118.0 U/L Normal 73.0-393.0 [facility] Comment on above: Performed By: #### C BC #### [facility] [address] [place] [address] Dr. Gladys Larsen PROF 14(COMP METB)on 022 Albumin [Mass/Vol] 3.8 g/dL Normal 3.4-5.0 [facility] Comment on above: Performed By: #### C BC #### [facility] [address] [place] [address] Dr. Gladys Larsen Albumin/Globulin [Mass ratio] 1.2 {ratio} Normal [facility] Comment on above: Performed By: #### C BC #### [facility] [address] [place] [address] Dr. Gladys Larsen ALP [Catalytic activity/Vol] 51 U/L Normal 46-116 [facility] Comment on above: Performed By: #### C BC #### [facility] [address] [place] [address] Dr. Gladys Larsen ALT [Catalytic activity/Vol] 13 U/L Critically low 14-59 [facility] Comment on above: Performed By: #### C BC #### [facility] [address] [place] [address] Dr. Gladys Larsen Anion gap [Moles/Vol] 12.2 mmol/L Normal [facility] Comment on above: Performed By: #### C BC #### [facility] [address] [place] [address] Dr. Gladys Larsen AST [Catalytic activity/Vol] 15 U/L Normal 15-37 [facility] Comment on above: Performed By: #### C BC #### [facility] [address] [place] [address] Dr. Gladys Larsen Bilirubin [Mass/Vol] 0.6 mg/dL Normal 0.2-1.0 [facility] Comment on above: Performed By: #### C BC #### [facility] [address] [place] [address] Dr. Gladys Larsen Calcium [Mass/Vol] 8.5 mg/dL Normal 8.5-10.1 [facility] Comment on above: Performed By: #### C BC #### [facility] [address] [place] [address] Dr. Gladys Larsen Chloride [Moles/Vol] 105 mmol/L Normal 98-107 [facility] Comment on above: Performed By: #### C BC #### [facility] [address] [place] [address] Dr. Gladys Larsen CO2 [Moles/Vol] 27.1 mmol/L Normal 21.0-32.0 [facility] Comment on above: Performed By: #### C BC #### [facility] [address] [place] [address] Dr. Gladys Larsen Creatinine [Mass/Vol] 0.95 mg/dL Normal 0.55-1.02 [facility] Comment on above: Performed By: #### C BC #### [facility] [address] [place] [address] Dr. Gladys Larsen EGFR-AF [place] >60 Normal >=60 [facility] Comment on above: Performed By: #### C BC #### [facility] [address] [place] [address] Dr. Gladys Larsen EGFR-NON AF [place] 58 mL/min/1.73m2 Critically low >=60 [facility] Comment on above: Performed By: #### C BC #### [facility] [address] [place] [address] Dr. Gladys Larsen Globulin (S) [Mass/Vol] 3.1 g/dL Normal [facility] Comment on above: Performed By: #### C BC #### [facility] [address] [place] [address] Dr. Gladys Larsen Glucose [Mass/Vol] 108 mg/dL Critically high 74-106 [facility] Comment on above: Performed By: #### C BC #### [facility] [address] [place] [address] Dr. Gladys Larsen Potassium [Moles/Vol] 3.3 mmol/L Critically low 3.5-5.1 [facility] Comment on above: Performed By: #### C BC #### [facility] [address] [place] [address] Dr. Gladys Larsen Protein [Mass/Vol] 6.9 g/dL Normal 6.4-8.2 [facility] Comment on above: Performed By: #### C BC #### [facility] [address] [place] [address] Dr. Gladys Larsen Sodium [Moles/Vol] 141 mmol/L Normal 136-145 [facility] Comment on above: Performed By: #### C BC #### [facility] [address] [place] [address] Dr. Gladys Larsen Urea nitrogen [Mass/Vol] 15.0 mg/dL Normal 7.0-18.0 [facility] Comment on above: Performed By: #### C BC #### [facility] [address] [place] [address] Dr. Gladys Larsen Urea nitrogen/Creatini ne [Mass ratio] 15.8 mg/mg Normal [facility] Comment on above: Performed By: #### C BC #### [facility] [address] [place] [address] Dr. Gladys Larsen TSHon 02-09-2022 TSH 1.344 uIU/mL Normal 0.358-3.740 [facility] Comment on above: Performed By: #### C BC #### [facility] [address] [place] [address] Dr. Gladys Larsen CBC AUTO DIFFon 12-29-2021 BASO # 0.0 103/ul Normal 0.0-0.1 [facility] Comment on above: Performed By: #### C BC #### [facility] [address] [place] [address] Dr. Gladys Larsen Basophils/100 WBC (Bld) 0.7 % Normal 0.2-2.0 [facility] Comment on above: Performed By: #### C BC #### [facility] [address] [place] [address] Dr. Gladys Larsen EO # 0.1 103/ul Normal 0.0-0.7 [facility] Comment on above: Performed By: #### C BC #### [facility] [address] [place] [address] Dr. Gladys Larsen Eosinophils/100 WBC (Bld) 1.8 % Normal 0.9-7.0 [facility] Comment on above: Performed By: #### C BC #### [facility] [address] [place] [address] Dr. Galdys Larsen Erythrocyte distribution width (RBC) [Ratio] 13.2 % Normal 11.0-15.0 [facility] Comment on above: Performed By: #### C BC #### [facility] [address] [place] [address] Dr. Gladys Larsen Hematocrit (Bld) [Volume fraction] 41.8 % Normal 36.0-48.0 [facility] Comment on above: Performed By: #### C BC #### [facility] [address] [place] [address] Dr. Gladys Larsen Hemoglobin (Bld) [Mass/Vol] 13.9 g/dL Normal 12.0-16.0 [facility] Comment on above: Performed By: #### C BC #### [facility] [address] [place] [address] Dr. Gladys Larsen IG # 0.01 10e3/ul Normal 0.00-0.03 [facility] Comment on above: Performed By: #### C BC #### [facility] [address] [place] [address] Dr. Gladys Larsen IG % 0.2 % Normal 0.0-0.5 [facility] Comment on above: Performed By: #### C BC #### [facility] [address] [place] [address] Dr. Gladys Larsen LYMPH # 1.6 103/ul Normal 1.2-3.8 [facility] Comment on above: Performed By: #### C BC #### [facility] [address] [place] [address] Dr. Gladys Larsen Lymphocytes/100 WBC (Bld) 28.8 % Normal 20.5-60.0 [facility] Comment on above: Performed By: #### C BC #### [facility] [address] [place] [address] Dr. Gladys Larsen MANUAL DIFF REQ NO Normal [facility] Comment on above: Performed By: #### C BC #### [facility] [address] [place] [address] Dr. Gladys Larsen MCH (RBC) [Entitic mass] 30.4 pg Normal 26.7-34.0 [facility] Comment on above: Performed By: #### C BC #### [facility] [address] [place] [address] Dr. Gladys Larsen MCHC (RBC) [Mass/Vol] 33.3 g/dL Normal 29.9-35.2 [facility] Comment on above: Performed By: #### C BC #### [facility] [address] [place] [address] Dr. Gladys Larsen MCV (RBC) [Entitic vol] 91.5 fL Normal 81.0-99.0 [facility] Comment on above: Performed By: #### C BC #### [facility] [address] [place] [address] Dr. Gladys Larsen MONO # 0.5 103/ul Normal 0.3-0.8 [facility] Comment on above: Performed By: #### C BC #### [facility] [address] [place] [address] Dr. Gladys Larsen Monocytes/100 WBC (Bld) 8.5 % Normal 1.7-12.0 [facility] Comment on above: Performed By: #### C BC #### [facility] [address] [place] [address] Dr. Gladys Larsen NEUT # 3.3 103/ul Normal 1.4-6.5 [facility] Comment on above: Performed By: #### C BC #### [facility] [address] [place] [address] Dr. Gladys Larsen Neutrophils/100 WBC (Bld) 60.0 % Normal 43.0-75.0 [facility] Comment on above: Performed By: #### C BC #### [facility] [address] [place] [address] Dr. Gladys Larsen Platelet mean volume (Bld) [Entitic vol] 9.6 fL Normal 9.5-13.5 [facility] Comment on above: Performed By: #### C BC #### [facility] [address] [place] [address] Dr. Gladys Larsen PLT 234 103/ul Normal 150-450 [facility] Comment on above: Performed By: #### C BC #### [facility] [address] [place] [address] Dr. Gladys Larsen RBC 4.57 106/ul Normal 4.20-5.40 [facility] Comment on above: Performed By: #### C BC #### [facility] [address] [place] [address] Dr. Gladys Larsen WBC 5.4 103/ul Normal 4.0-11.0 [facility] Comment on above: Performed By: #### C BC #### [facility] [address] [place] [address] Dr. Gladys Larsen FREE T4on 12-29-2021 Free T4 [Mass/Vol] 1.29 ng/dL Normal 0.76-1.46 [facility] Comment on above: Performed By: #### F T4 #### [facility] [address] [place] [address] Dr. Gladys Larsen LIPASEon 12-29-2021 Lipase [Catalytic activity/Vol] 119.0 U/L Normal 73.0-393.0 [facility] Comment on above: Performed By: #### C BC #### [facility] [address] [place] [address] Dr. Gladys Larsen PROF 14(COMP METB)on 022 Albumin [Mass/Vol] 4.2 g/dL Normal 3.4-5.0 [facility] Comment on above: Performed By: #### C BC #### [facility] [address] [place] [address] Dr. Gladys Larsen Albumin/Globulin [Mass ratio] 1.4 {ratio} Normal [facility] Comment on above: Performed By: #### C BC #### [facility] [address] [place] [address] Dr. Gladys Larsen ALP [Catalytic activity/Vol] 49 U/L Normal 46-116 [facility] Comment on above: Performed By: #### C BC #### [facility] [address] [place] [address] Dr. Gladys Larsen ALT [Catalytic activity/Vol] 23 U/L Normal 14-59 [facility] Comment on above: Performed By: #### C BC #### [facility] [address] [place] [address] Dr. Gladys Larsen Anion gap [Moles/Vol] 11.5 mmol/L Normal [facility] Comment on above: Performed By: #### C BC #### [facility] [address] [place] [address] Dr. Gladys Larsen AST [Catalytic activity/Vol] 16 U/L Normal 15-37 [facility] Comment on above: Performed By: #### C BC #### [facility] [address] [place] [address] Dr. Gladys Larsen Bilirubin [Mass/Vol] 0.6 mg/dL Normal 0.2-1.0 [facility] Comment on above: Performed By: #### C BC #### [facility] [address] [place] [address] Dr. Gladys Larsen Calcium [Mass/Vol] 8.8 mg/dL Normal 8.5-10.1 [facility] Comment on above: Performed By: #### C BC #### [facility] [address] [place] [address] Dr. Gladys Larsen Chloride [Moles/Vol] 106 mmol/L Normal 98-107 [facility] Comment on above: Performed By: #### C BC #### [facility] [address] [place] [address] Dr. Gladys Larsen CO2 [Moles/Vol] 24.4 mmol/L Normal 21.0-32.0 [facility] Comment on above: Performed By: #### C BC #### [facility] [address] [address] [address] Gladys Larsen Creatinine [Mass/Vol] 0.95 mg/dL Normal 0.55-1.02 [facility] Comment on above: Performed By: #### C BC #### [facility] [address] [address] [address] Gladys Larsen EGFR-AF [place]ORE[place] >60 Normal >=60 [facility] Comment on above: Performed By: #### C BC #### [facility] [address] [address] [address] Gladys Larsen EGFR-NON AF [place] 58 mL/min/1.73m2 Critically low >=60 [facility] Comment on above: Performed By: #### C BC #### [facility] [address] [place] [address] Dr. Gladys Larsen Globulin (S) [Mass/Vol] 3.1 g/dL Normal [facility] Comment on above: Performed By: #### C BC #### [facility] [address] [address] [address] Gladys Larsen Glucose [Mass/Vol] 108 mg/dL Critically high 74-106 [facility] Comment on above: Performed By: #### C BC #### [facility] [address] [place] [address] Dr. Gladys Larsen Potassium [Moles/Vol] 3.9 mmol/L Normal 3.5-5.1 [facility] Comment on above: Performed By: #### C BC #### [facility] [address] [address] [address] Gladys Larsen Protein [Mass/Vol] 7.3 g/dL Normal 6.4-8.2 [facility] Comment on above: Performed By: #### C BC #### [facility] [address] [address] [address] Gladys Larsen Sodium [Moles/Vol] 138 mmol/L Normal 136-145 [facility] Comment on above: Performed By: #### C BC #### [facility] [address] [place], [place] [address] Dr. Gladys Larsen Urea nitrogen [Mass/Vol] 14.0 mg/dL Normal 7.0-18.0 [facility] Comment on above: Performed By: #### C BC #### [facility] [address] [address] [address] Gladys Larsen Urea nitrogen/Creatini ne [Mass ratio] 14.7 mg/mg Normal [facility] Comment on above: Performed By: #### C BC #### [facility] [address] [address] [address] Gladys Larsen TSHon 12-29-2021 TSH 3.238 uIU/mL Normal 0.358-3.740 [facility] Comment on above: Performed By: #### C BC #### [facility] [address] [address] [address] Gladys Larsen MATI Antinuclear Antibodieson 12-21-2021 Antinuclear Abs, IFA Negative Normal . [facility] Comment on above: Result Comment: Nega tive <1:80 Borderline 1:80 Positive >1:80 ICAP nomenclature: AC-0 For more information about Hep-2 cell patterns use ANApatterns.org, the official website for the International Consensus on Antinuclear Antibody (MATI) Patterns (ICAP). Performed at: - [facility] [id number] [employer]r: Dayday Christina PhD, Phone: [phone] PERFORMED BY: [place] [address] PATHOLOGIST CASTING FINISHER NAY FRENCH M.D. Performed By: #### A NA #### [facility] , #### ESR, CRP #### [place] [address] [place] C-Reactive Proteinon 022 C-Reactive Protein 0.6 mg/dL Normal 0.0-1.0 [facility] Comment on above: Result Comment: PERF ORMED BY: [place] [address] PATHOLOGIST CASTING FINISHER NYA FRENCH M.D. Performed By: #### A NA #### [facility] , #### ESR, CRP #### [place] [id number] [facility] Erythrocyte Sedimentation Ra yobani 12-21-2021 ESR (Bld) [Velocity] 6 mm/h Normal 0-29 [facility] Comment on above: Result Comment: PERF ORMED BY: [place] [address] PATHOLOGIST CASTING FINISHER NAY FRENCH M.D. Performed By: #### A NA #### [facility] , #### ESR, CRP #### [address] Erythrocyte sedimentation ra te by Photometric methodOrdered By: Lenny Zhao on 12-21-2021 ESR Photometric method (Bld) [Velocity] 6 mm/hr 0-29 [facility] Serum or plasma C reactive p rotein measurement (mass/volume)Ordered By: Lenny Zhao on 12-21-2021 CRP [Mass/Vol] 0.6 mg/dL 0.0-1.0 [facility] XR knee BI 2Von 12-21-2021 XR knee BI 2V [facility] [place] [address] XRay Report Signed Patient: Dian Hill MR#: [id number] 2 : 1955 Acct:[id number] Age/Sex: 66 / F ADM Date: 12/21/21 Loc: ICXD Room: Type: [facility] Attending Dr: Lenny Zhao MD Copies to: Lenny Zhao MD Ordering Provider: Lenny Zhao MD Date of Service: 12/21/21 XR/XR knee BI 2V: KNEE PAIN 2 views both knee plain film COMPARISON:None HISTORY:Bilateral knee pain Bone on bone contact of the medial compartments of both knees identified. Moderate patellofemoral and lateral compartment degeneration present. No significant joint effusion. Degenerative subluxation of both knees.Small bilateral joint effusions. No acute bony findings. XR/XR knee BI 2V IMPRESSION:Extensive bilateral knee degeneration. Impression dictated by: Oskar Evans M.D.12/21/2021 2:30 PM Dictation Location: [place] [address] Transcribed By: [facility] 12/21/21 1430 Dictated By: Oskar Evans DO 12/21/21 1425 Signed By: 12/21/21 1430 [facility] Vital Signs Date Time Vital Sign Value Performing Clinician Facility 11-08-2023 11:57-0400 Body height 165.1 cm Marisela Shanon MERCHANDISE SUPERVISOR.SUPERVISOR ELECTRONICS [employer]SEMBLY Work Phone: [facility] 11-08-2023 11:57-0400 Body mass index (BMI) [Ratio] 27.99 kg/m2 Marisela Shanon MERCHANDISE SUPERVISOR.SUPERVISOR [employer]LECT[employer]BLY Work Phone: [facility] 11-08-2023 11:57-0400 Body weight 76.3 kg Marisela Shanon MERCHANDISE SUPERVISOR.SUPERVISOR [employer]LECT[employer]BLY Work Phone: [facility] 11-08-2023 11:57-0400 Diastolic blood pressure 94 mm[Hg] Marisela Shanon MERCHANDISE SUPERVISOR.SUPERVISOR [employer]LECTRON[employer]SEMBLY Work Phone: [facility] 11-08-2023 11:57-0400 Heart rate 86 /min Marisela Shanon MERCHANDISE SUPERVISOR.SUPERVISOR [employer]LECT[employer]SEMBLY Work Phone: [facility] 11-08-2023 11:57-0400 Systolic blood pressure 144 mm[Hg] Marisela Shanon MERCHANDISE SUPERVISOR.SUPERVISOR [employer]LECTRON[employer]SEMBLY Work Phone: [facility] 09-20-2023 14:00-0400 Body height 166.4 cm Bela Frost Work Phone: [facility] 09-20-2023 14:00-0400 Body weight 75.5 kg Pulm Vicky Work Phone: [facility] 09-14-2023 14:45-0400 Body weight 77.5 kg Kai Nascimento MD Work Phone: [facility] 09-14-2023 14:45-0400 Heart rate 85 /min Kai Nascimento MD Work Phone: [facility] 09-14-2023 14:45-0400 SaO2% (BldA) [Mass fraction] 95 % Kai Nascimento MD Work Phone: [facility] 08-29-2023 10:16-0500 Body height 165.1 cm Florinda Glover MD Work Phone: [facility] 08-29-2023 10:16-0500 Body weight 74.1 kg Florinda Glover MD Work Phone: [facility] 08-29-2023 10:16-0500 Diastolic blood pressure 98 mm[Hg] Florinda Glover MD Work Phone: [facility] 08-29-2023 10:16-0500 Heart rate 104 /min Florinda Glover MD Work Phone: [facility] 08-29-2023 10:16-0500 Systolic blood pressure 132 mm[Hg] Florinda Glover MD Work Phone: [facility] 05-19-2023 09:38-0500 Body weight 74.98 kg Niko Talley MD Work Phone: [facility] 05-19-2023 09:38-0500 Diastolic blood pressure 87 mm[Hg] Niko Talley MD Work Phone: [facility] 05-19-2023 09:38-0500 Heart rate 93 /min Niko Talley MD Work Phone: [facility] 05-19-2023 09:38-0500 Systolic blood pressure 127 mm[Hg] Niko Talley MD Work Phone: [facility] 04-11-2023 08:09-0400 Diastolic blood pressure 87 mm[Hg] Niko Talley MD Work Phone: [facility] 04-11-2023 08:09-0400 Heart rate 76 /min Niko Talley MD Work Phone: [facility] 04-11-2023 08:09-0400 Systolic blood pressure 125 mm[Hg] Niko Talley MD Work Phone: [facility] 04-11-2023 08:05-0400 Body weight 74.03 kg Niko Talley MD Work Phone: [facility] 02-16-2023 08:38-0400 Body height 167.6 cm Florinda Glover MD Work Phone: [facility] 02-16-2023 08:38-0400 Body weight 75.89 kg Florinda Glover MD Work Phone: [facility] 02-16-2023 08:38-0400 Diastolic blood pressure 90 mm[Hg] Florinda Glover MD Work Phone: [facility] 02-16-2023 08:38-0400 Heart rate 81 /min Florinda Glover MD Work Phone: [facility] 02-16-2023 08:38-0400 Respiratory rate 16 /min Florinda Glover MD Work Phone: [facility] 02-16-2023 08:38-0400 SaO2% (BldA) [Mass fraction] 98 % Florinda Glover MD Work Phone: [facility] 02-16-2023 08:38-0400 Systolic blood pressure 129 mm[Hg] Florinda Glover MD Work Phone: [facility] 10-27-2022 14:30-0400 Body height 167.64 cm Shalini Hargrove Other [employer] Other 10-27-2022 14:30-0400 Body mass index (BMI) [Ratio] 26.79 kg/m2 Shalini Hargrove Other [employer] Other 10-27-2022 14:30-0400 Body weight 75.3 kg Shalini Hargrove Other [employer] Other 10-27-2022 14:30-0400 Diastolic blood pressure 72 mm[Hg] Shalini Hargrove Other [employer] Other 10-27-2022 14:30-0400 SaO2% (BldA) [Mass fraction] 97 % Shalini Hargrove Other [employer] Other 10-27-2022 14:30-0400 Systolic blood pressure 108 mm[Hg] Shalini Hargrove Other [employer] Other 07-05-2022 11:30-0500 Body height 167.64 cm Shalini Hargrove Other [employer] Other 07-05-2022 11:30-0500 Body mass index (BMI) [Ratio] 26.79 kg/m2 Shalini Hargrove Other [employer] Other 07-05-2022 11:30-0500 Body weight 75.3 kg Shalini Hargrove Other [employer] Other 07-05-2022 11:30-0500 Diastolic blood pressure 60 mm[Hg] Shalini Hargrove Other [employer] Other 07-05-2022 11:30-0500 SaO2% (BldA) [Mass fraction] 97 % Shalini Hargrove Other [employer] Other 07-05-2022 11:30-0500 Systolic blood pressure 100 mm[Hg] Shalini Hargrove Other [employer] Other Encounters Encounter Date Encounter Type Care Provider Facility Start: 11-08-2023 End: 11-08-2023 ambulatory [facility] Facility:[facility] Start: 11-08-2023 End: 11-08-2023 Patient encounter procedure Marisela Claudio MERCHANDISE SUPERVISOR.SUPERVISOR [employer]SEMBLY Work Phone: Pain Management Comment on above: Pain in right hip (P rimary Dx); Myalgia; Mild cognitive impairment Start: 10-12-2023 End: 10-12-2023 Follow-up encounter [facility] Work Phone: Radiology Comment on above: [facility] Follow Up Start: 10-12-2023 End: 10-12-2023 Patient encounter procedure [facility] Work Phone: [facility] Start: 10-05-2023 End: 10-05-2023 ambulatory RODY JUAREZ Facility:[facility] Start: 10-05-2023 End: 10-05-2023 Subsequent hospital visit by physician Mri [facility] (Lg Bore/1.5t) Radiology MRI Comment on above: Pancreatic cyst [K86 .2] Start: 09-20-2023 End: 09-20-2023 ambulatory MARY PUZIO Facility:[facility] Start: 09-20-2023 End: 09-20-2023 ambulatory Pulm Brooke Work Phone: Pulmonary Lab Comment on above: Spirometry Start: 09-20-2023 End: 09-20-2023 Patient encounter procedure Pulm Lab Brooke Work Phone: [facility] Start: 09-14-2023 End: 09-14-2023 ambulatory KAI NASCIMENTO Facility:[facility] Start: 09-14-2023 End: 09-14-2023 Patient encounter procedure Kai Nascimento MD Work Phone: Pain Management Comment on above: NORTH (dyspnea on exer tion) (Primary Dx); Lumbosacral stenosis; Vasculitis, [employer] INTERN (HCC) Start: 09-11-2023 Telephone encounter Florinda Glover MD Work Phone: [facility] [place] Comment on above: Results Start: 09-07-2023 End: 09-07-2023 ambulatory FLORINDA GLOVER Facility:[facility] Start: 09-07-2023 End: 09-07-2023 Subsequent hospital visit by physician Mri [facility] (Lg Bore/1.5t) Radiology MRI Comment on above: DDD (degenerative di sc disease), thoracic [M51.34] Start: 08-29-2023 Telephone encounter Rody Juarez APRN.CNP Work Phone: Radiology Comment on above: Radiology Review Start: 08-29-2023 End: 08-29-2023 ambulatory SELF Facility:[facility] Start: 08-29-2023 End: 08-29-2023 Patient encounter procedure Florinda Glover MD Work Phone: [facility] [place] Comment on above: Lumbosacral stenosis (Primary Dx); DDD (degenerative disc disease), thoracic Start: 08-18-2023 E-mail encounter lee platt caregiver Rody Juarez APRN.CNP Work Phone: [facility] Start: 08-18-2023 Follow-up encounter Rody Juarez APRN.CNP Work Phone: Radiology Comment on above: Actionable Finding F ollow up Start: 08-02-2023 End: 08-02-2023 ambulatory Shalini Hargrove Other [employer] Other Start: 08-02-2023 Telephone encounter Shalini Hargrove [facility] Start: 06-16-2023 Refill Niko osborne MD Work Phone: Internal [facility] Comment on above: Refill Request Start: 06-12-2023 End: 06-12-2023 ambulatory Shalini Hargrove Other [employer] Other Start: 06-12-2023 Telephone encounter Shalini Hargrove [facility] Start: 05-31-2023 ambulatory Mary Doll Work Phone: Internal [facility] [place] Start: 05-19-2023 Telephone encounter Yisel talbert MD Work Phone: Internal [facility] Comment on above: Consult (Best Practi ce) Start: 05-19-2023 End: 05-21-2023 Evaluation and management of inpatient GILBERT LITTLE Facility:[facility] Start: 05-19-2023 End: 05-19-2023 ambulatory NIKO TALLEY Facility:[facility] Start: 05-19-2023 End: 05-19-2023 Patient encounter procedure Niko Talley MD Work Phone: Internal Medicine [facility] [place] Comment on above: Acute left flank susan n (Primary Dx); Intractable back pain; Urinary incontinence, mixed; Spinal stenosis of lumbar region without neurogenic claudication Start: 04-11-2023 End: 04-12-2023 ambulatory JAVON FAJARDOJOANNADYLLAN Facility:[facility] Start: 04-11-2023 End: 04-11-2023 Patient encounter procedure Niko Talley MD Work Phone: Internal Medicine [facility] [place] Comment on above: Epigastric pain (Estefani mariela Dx); Nausea; Other fatigue Start: 03-29-2023 Telephone encounter Florinda Glover MD Work Phone: Neurology Comment on above: Received Outside Med [facility] Records Start: 03-24-2023 End: 03-24-2023 ambulatory Shalini Hargrove Other [employer] Other Start: 03-24-2023 Telephone encounter Shalini Hargrove [facility] Start: 03-13-2023 Telephone encounter Florinda Glover MD Work Phone: Neurology Comment on above: Information Start: 02-27-2023 End: 02-27-2023 ambulatory Shalini Hargrove Other [employer] Other Start: 02-27-2023 Telephone encounter Shalini Hargrove [facility] Start: 02-16-2023 End: 02-17-2023 ambulatory FLORINDA GLOVER Facility:[facility] Start: 02-16-2023 End: 02-16-2023 Patient encounter procedure Florinda Glover MD Work Phone: [facility] [place] Comment on above: Lumbosacral stenosis (Primary Dx); Nausea; Other fatigue Start: 02-15-2023 End: 02-15-2023 ambulatory Shalini Hargrove Other [employer] Other Start: 02-15-2023 Telephone encounter Shalini Beena [facility] Comment on above: Received Outside Med ical Records Start: 02-03-2023 End: 02-03-2023 ambulatory Shalini Beena Other [employer] Other Start: 02-03-2023 Telephone encounter Shalini Beena [facility] Start: 01-30-2023 End: 01-30-2023 ambulatory Shalini Hargrove Other [employer] Other Start: 01-30-2023 Telephone encounter Shalini Beena [facility] Start: 01-12-2023 End: 01-12-2023 ambulatory Shalini Hargrove Other [employer] Other Start: 01-12-2023 Telephone encounter Shalini Hargrove [facility] Start: 11-08-2022 End: 11-08-2022 ambulatory Shalini Hargrove Other [employer] Other Start: 11-08-2022 Telephone encounter Shalini Beena [facility] Start: 11-04-2022 End: 11-04-2022 ambulatory Shalini Hargrove Other [employer] Other Start: 11-04-2022 Telephone encounter Shalini Hargrove [facility] Start: 11-02-2022 End: 11-03-[address] SHALINI HARGROVE Facility: Start: 10-27-2022 End: 10-27-2022 ambulatory Shalini Hargrove Other [employer] Other Start: 10-27-2022 Office outpatient vi sit 25 minutes Shalini Hargrove [facility] Start: 09-07-2022 End: 09-07-2022 ambulatory Shalini Hargrove Other [employer] Other Start: 09-07-2022 Telephone encounter Shalini Hargrove [facility] Start: 07-15-2022 End: 07-16-[address] SHALINI HARGROVE Facility:[facility] Start: 07-05-2022 End: 07-05-2022 ambulatory Shalini Hargrove Other [employer] Other Start: 07-05-2022 Office outpatient vi sit 25 minutes Shalini Hargrove [facility] Start: 03-14-2022 Adult health examination Shalini Hargrove Other [employer] Other Start: 03-14-2022 Encounter for genera l adult medical examination without abnormal findings Shalini Hargrove Other [employer] Other Start: 02-09-2022 End: 02-10-[address] SHALINI HARGROVE Facility:[facility] Start: 12-29-2021 End: 12-30-[address] SHALINI HARGROVE Facility:[facility] Start: 12-28-[address] SHALINI HARGROVE Facil ity:[facility] Start: 12-21-2021 End: 12-21-2021 Patient encounter procedure PHYSICIAN NO FAMILY [facility] [address] Procedures Date Procedure Procedure Detail Performing Clinician Start: 10-05-2023 3d rendering w/interp&postproc diff work station Rody Juarez APRN.CNP Work Phone: Start: 10-05-2023 Mri abdomen w/o & w/contrast material Rody Juarez APRN.SUPERVISOR [employer] Work Phone: Start: 09-20-2023 Pulmonary stress testing Kai Nascimento MD Work Phone: Start: 09-07-2023 Mri spinal canal tho racic w/o contrast ermelindal Florinda Glover MD Work Phone: Start: 04-11-2023 Ecg routine ecg w/le ast 12 lds i&r only [facility] Provider Start: 12-21-2021 X-ray of both knees PHY SICIAN NO FAMILY Start: 09-18-2003 Lipid 1996 panel - S beto or Plasma Florinda Glover MD Work Phone: Plan of Treatment Date Care Activity Detail Author Start: 05-21-2026 Diabetes Screening Diabetes Screenin g [facility] Start: 05-19-2026 Diabetes Screening Diabetes Screenin g [facility] Start: 04-11-2026 Diabetes Screening Diabetes Screenin g [facility] Start: 10-07-2024 End: 10-07-2024 Patient encounter procedure 10/07/2024 1:00 PM EDT [facility] [address] [address] [facility] Radiology Comment on above: [facility] Start: 09-30-2024 End: 09-30-2024 Patient encounter procedure 09/30/2024 1:20 PM EDT Appointment Radiology MRI [address] [place], [place] [id number] ACTIONABLE CLINIC - FOLLOW UP Radiology MRI Comment on above: ACTIONABLE CLINIC - FOLLOW UP Start: 06-02-2024 Screening for malign ant neoplasm of colon [facility] Start: 05-19-2024 Annual PCP Team Pmp cady Disease Visit Annual PCP Team Chronic Disease Visit [facility] Start: 04-11-2024 Covid-19 Vaccine (#1) Covid-19 Vacci ne (#1) [facility] Comment on above: Postponed from 04/04 (Declined at this time) Start: 04-11-2024 Covid-19 Vaccine () Covid-19 Vaccine () [facility] Comment on above: Postponed from 03/03 (Declined at this time) Start: 04-11-2024 Pneumococcal Vaccine : 65+ (2 - PCV) Pneumococcal Vaccine: 65+ (2 - PCV) [facility] Comment on above: Postponed from 10/03 (Declined at this time) Start: 04-11-2024 Pneumococcal Vaccine : 65+ (2 of 2 - PCV) Pneumococcal Vaccine: 65+ (2 of 2 - PCV) [facility] Comment on above: Postponed from 10/03 (Declined at this time) Start: 04-11-2024 Shingrix Vaccine (1 of 2) Scales grix Vaccine (1 of 2) [facility] Comment on above: Postponed from 10/03 (Declined at this time) Start: 04-11-2024 Urine microalbumin profile DTa P,Tdap,Td Vaccine (1 - Tdap) [facility] Comment on above: Postponed from 10/03 (Declined at this time) Start: 03-03-2024 Influenza vaccination Influenz a Vaccine (Season Ended) [facility] Start: 12-31-2023 Influenza vaccination Influenza Vacc ine (#1) [facility] Comment on above: Postponed from 03/03 (Declined at this time) Start: 11-08-2023 End: 02-07-2024 C reactive protein [Mass/volume] in Serum or Plasma C-REACTIVE PROTEIN Lab Routine Myalgia Expected: 11/08/2023, Expires: 02/07/2024 [facility] Comment on above: Expected: 11/08/2023 , Expires: 02/07/2024 Start: 11-08-2023 End: 02-07-2024 Erythrocyte sedimentation rate SEDIMENTATION RATE, WESTERGREN Lab Routine Myalgia Expected: 11/08/2023, Expires: 02/07/2024 [facility] Comment on above: Expected: 11/08/2023 , Expires: 02/07/2024 Start: 11-08-2023 End: 02-07-2024 Urate [Mass/volume] in Serum or Plasma URIC ACID Lab Routine Myalgia Expected: 11/08/2023, Expires: 02/07/2024 [facility] Comment on above: Expected: 11/08/2023 , Expires: 02/07/2024 Start: 09-14-2023 End: 12-14-2023 Thyrotropin [Units/volume] in Serum or Plasma TSH BLD Lab Routine Lumbosacral stenosis NORTH (dyspnea on exertion) Vasculitis, TAX SERVICES INTERN (HCC) Expected: 09/14/2023, Expires: 12/14/2023 [facility] Work Phone: Comment on above: Expected: 09/14/2023 , Expires: 12/14/2023 Start: 09-14-2023 End: 12-14-2023 Thyroxine (T4) free [Mass/volume] in Serum or Plasma T4 FREE/FREE THYROX Lab Routine Lumbosacral stenosis NORTH (dyspnea on exertion) Vasculitis, TAX SERVICES INTERN (HCC) Expected: 09/14/2023, Expires: 12/14/2023 [facility] Work Phone: Comment on above: Expected: 09/14/2023 , Expires: 12/14/2023 Start: 09-14-2023 End: 12-14-2023 Triiodothyronine (T3) Free [Mass/volume] in Serum or Plasma T3 FREE BLD Lab Routine Lumbosacral stenosis NORTH (dyspnea on exertion) Vasculitis, TAX SERVICES INTERN (HCC) Expected: 09/14/2023, Expires: 12/14/2023 [facility] Work Phone: Comment on above: Expected: 09/14/2023 , Expires: 12/14/2023 Start: 07-03-2023 Advance Directive Discussion Advance Directive Discussion [facility] Start: 07-03-2023 Behavioral Health Screening Behavioral Health Screening [facility] Start: 07-03-2023 Depression Assessment Depression Ass [facility] Start: 05-19-2023 End: 08-18-2023 Urinalysis complete panel - Urine URINALYSIS WITH MICROSCOPIC, REFLEX CULTURE Lab Routine Acute left flank pain Expected: 05/19/2023, Expires: 08/18/2023 [facility] Work Phone: Comment on above: Expected: 05/19/2023 , Expires: 08/18/2023 Start: 04-11-2023 End: 06-11-2023 Helicobacter pylori Ag [Presence] in Stool by Immunoassay H PYLORI AG BY EIA,STOOL Microbiology Routine Epigastric pain Expected: 04/11/2023, Expires: 06/11/2023 [facility] Work Phone: Comment on above: Expected: 04/11/2023 , Expires: 06/11/2023 Start: 03-03-2023 Influenza vaccination [facility] Start: 07-03-2022 ADVANCE DIRECTIVE DISCUSSION ADVANCE DIRECTIVE DISCUSSION [facility] Start: 07-03-2022 DEPRESSION ASSESSMENT DEPRESSION ASS ESSMENT [facility] Start: 2018 BONE DENSITY BONE DENSITY [facility] Start: 2018 Bone Density Screening Bone Density Screening [facility] Start: 2018 Pneumococcal Vaccine : 65+ (1 - PCV) Pneumococcal Vaccine: 65+ (1 - PCV) [facility] Start: 2018 PNEUMOCOCCAL: 65+ (1 - PCV) PNEUMOCOCCAL: 65+ (1 - PCV) [facility] Start: 2018 Screening for osteoporosis Bone Dens ity Screening [facility] Start: 2013 RSV Vaccine (1 - 1-d ose 60+ series) RSV Vaccine (1 - 1-dose 60+ series) [facility] Start: 09-17-2008 Lipid 1996 panel - S beto or Plasma Lipid Screening [facility] Start: 09-17-2008 Lipid panel Lipid Screening [facility] Start: 09-17-2008 LIPID SCREEN LIPID SCREEN [facility] Start: 09-17-2006 DIABETES SCREEN DIABETES SCREEN [facility] Start: 09-17-2006 Diabetes Screening Diabetes Screenin g [facility] Start: 10-04-2003 SHINGRIX VACCINE (1 of 2) SCALES GRIX VACCINE (1 of 2) [facility] Start: 1998 COLOGUARD (FIT-DNA) COLOGUARD (FIT-D NA) [facility] Start: 1998 Colonoscopy COLONOSCOPY [facility] Start: 1998 COLORECTAL CANCER SCREENING COLORECTAL CANCER SCREENING [facility] Start: [address] COLONOGRAPHY [facility] Start: 1998 FECAL OCCULT BLOOD FECAL OCCULT BLOO D [facility] Start: 1998 Screening for malign ant neoplasm of colon [facility] Start: 1998 SIGMOIDOSCOPY SIGMOIDOSCOPY [facility] Start: 1993 Mammography [facility] Start: 1993 Screening for malign ant neoplasm of breast Mammogram Screening [facility] Start: 1972 Urine microalbumin profile [facility] Start: 04-04-1956 COVID-19 VACCINE (#1) COVID-19 VACCI NE (#1) [facility] End: 06-17-2024 Ct abdomen & pelvis w/o contrast material CT ABD/PEL WO IVCON Radiology Routine Acute left flank pain 1 Occurrences starting 05/19/2023 until 06/17/2024 [facility] Work Phone: Comment on above: 1 Occurrences starti ng 05/19/2023 until 06/17/2024 End: 04-11-2024 ECG COMPLETE ECG COMPLETE ECG Routine Epigastric pain 1 Occurrences starting 04/11/2023 until 04/11/2024 [facility] Work Phone: Comment on above: 1 Occurrences starti ng 04/11/2023 until 04/11/2024 ECG COMPLETE ECG COMPLETE ECG 04/11/2023 12:24 PM EDT [facility] End: 04-11-2024 EGD DIAGNOSTIC EGD DIAGNOSTIC Endoscopy Routine Epigastric pain 1 Occurrences starting 04/11/2023 until 04/11/2024 [facility] Work Phone: Comment on above: 1 Occurrences starti ng 04/11/2023 until 04/11/2024 Homogenous nuclear A b pattern [Titer] in [facility] Work Phone: End: 06-29-2024 PRINCESS SCREENING PRINCESS SCREENING Radiology Routine Encounter for screening mammogram for breast cancer 1 Occurrences starting 05/31/2023 until 06/29/2024 [facility] Work Phone: Comment on above: 1 Occurrences starti ng 05/31/2023 until 06/29/2024 End: 09-27-2024 MR Biliary ducts and Pancreatic duct WO and W contrast IV MRI PANC/CHAIM WO/W IVCON Radiology Routine Pancreatic cyst 1 Occurrences starting 08/29/2023 until 09/27/2024 [facility] Work Phone: Comment on above: 1 Occurrences starti ng 08/29/2023 until 09/27/2024 End: 11-10-2024 MR Biliary ducts and Pancreatic duct WO and W contrast IV MRI PANC/CHAIM WO/W IVCON Radiology Routine Abnormal findings on imaging test Pancreas cyst 1 Occurrences starting 10/12/2023 until 11/10/2024 [facility] Work Phone: Comment on above: 1 Occurrences starti ng 10/12/2023 until 11/10/2024 End: 10-13-2024 MR Brain WO and W contrast IV MRI BRAIN WO/W IVCON Radiology Routine Vasculitis, TAX SERVICES INTERN (HCC) 1 Occurrences starting 09/14/2023 until 10/13/2024 [facility] Work Phone: Comment on above: 1 Occurrences starti ng 09/14/2023 until 10/13/2024 End: 09-27-2024 MR Thoracic spine WO contrast MRI THORACIC SPINE WO IVCON Radiology Routine DDD (degenerative disc disease), thoracic 1 Occurrences starting 08/29/2023 until 09/27/2024 [facility] Work Phone: Comment on above: 1 Occurrences starti ng 08/29/2023 until 09/27/2024 End: 09-27-2024 MR Unspecified body region 3D post processing MRI 3D POST PROCESSING Radiology Routine Pancreatic cyst 1 Occurrences starting 08/29/2023 until 09/27/2024 [facility] Work Phone: Comment on above: 1 Occurrences starti ng 08/29/2023 until 09/27/2024 End: 11-10-2024 MR Unspecified body region 3D post processing MRI 3D POST PROCESSING Radiology Routine Abnormal findings on imaging test Pancreas cyst 1 Occurrences starting 10/12/2023 until 11/10/2024 [facility] Work Phone: Comment on above: 1 Occurrences starti ng 10/12/2023 until 11/10/2024 Nuclear Ab [Titer] i n [facility] Work Phone: End: 04-14-2024 Radex spine lumbosacral 2/3 views XR LUMBAR LIMITED 2V FLEX/EXT Radiology Routine Spinal stenosis, lumbar region with neurogenic claudication 1 Occurrences starting 03/16/2023 until 04/14/2024 [facility] Work Phone: Comment on above: 1 Occurrences starti ng 03/16/2023 until 04/14/2024 End: 10-13-2024 SIX MINUTE WALK SIX MINUTE WALK PFT Routine Lumbosacral stenosis NORTH (dyspnea on exertion) 1 Occurrences starting 09/14/2023 until 10/13/2024 [facility] Work Phone: Comment on above: 1 Occurrences starti ng 09/14/2023 until 10/13/2024 SIX MINUTE WALK SIX MINUTE WALK PFT Routine Lumbosacral stenosis NORTH (dyspnea on exertion) 09/20/2023 3:17 PM EDT [facility] Work Phone: End: 05-10-2024 US ABD RIGHT UPPER QUADRANT US ABD RIGHT UPPER QUADRANT Radiology Routine Epigastric pain 1 Occurrences starting 04/11/2023 until 05/10/2024 [facility] Work Phone: Comment on above: 1 Occurrences starti ng 04/11/2023 until 05/10/2024 End: 12-07-2024 XR Pelvis and Hip - right AP and Lateral frog XR HIP GENERAL 3V PELV/AP/LAT RIGHT Radiology Routine Pain in right hip 1 Occurrences starting 11/08/2023 until 12/07/2024 [facility] Work Phone: Comment on above: 1 Occurrences starti ng 11/08/2023 until 12/07/2024 [facility] Immunizations Immunization Date Immunization Notes Care Provider [facility] 06-01-2017 seasonal influenza, intradermal, preservative free Niko Talley MD Work Phone: [facility] 06-01-2017 influenza virus vacc ine, unspecified formulation Florinda Glover MD Work Phone: [facility] 08-22-2015 influenza, seasonal, injectable Niko Talley MD Work Phone: [facility] 08-22-2015 pneumococcal polysaccharide vaccine, 23 valent Niko Talley MD Work Phone: [facility] Payers Date Payer Category Payer Medicare [employer] MEDICARE A ETNA MEDICARE PPO [id number] 2021-Present [phone] [address] [place] [address] PPO [id number] 1961 Medicare [id number] 1955 Unknown [id number] 1955 Unknown [id number] 1955 Unknown [id number] 1955 Unknown [id number] 1955 Unknown [id number] Medicaid [facility] [id number] Self-pay Self Pay [id number] Social History Date Type Detail Facility Tobacco smoking status UTIS Unknown if ever smoked [facility] Work Phone: Start: 1955 Sex Assigned At Female [facility] Start: 02-16-2023 End: 05-19-2023 Sex Assigned At [facility] Work Phone: Start: 02-16-2023 Tobacco smoking status UTIS Never smoked tobacco [facility] Start: 02-16-2023 Tobacco use and exposure Smokeless tobacco non-user [facility] Start: 02-16-2023 End: 11-08-2023 Alcohol intake Current non-drinker of alcohol (finding) [facility] Start: 02-16-2023 End: 05-19-2023 History of Social function [facility] Work Phone: Start: 1955 Sex Assigned At Not on file [facility] National Score (1-100), lower number is lower risk 61 [facility] Work Phone: How hard is it for you to pay for the very basics like food, housing, medical care, and heating Not very hard [facility] Work Phone: (I/We) worried whether (my/our) food would run out before (I/we) got money to buy more. Never true [facility] Work Phone: In the past 12 months, was there a time when you were not able to pay the mortgage or rent on time? No [facility] Work Phone: NEGATED: Highlighted rowStart: NINF History of tobacco use Passive smoker [facility] Clinical Notes 07-05-2022 to 11-09-2023 Marisela Claudio APRN.[employer] - 11/09/2023 8:47 AM EDTPatient InstructionsPatient InstructionsDaphne Gonsalez PA-C - 10/12/2023 10:00 AM Mariela Randle RN - 10/05/2023 10:00 AM EDT Note Date & Type Note Facility 11-09-2023 Note HNO ID: [id number] Author: MARISELA CLAUDIO APRN.[employer] Service: ? Author Type: Nurse Practitioner Type: Progress Notes Filed: 11/09/2023 08:58 Note Text: SUBJECTIVE: The patient presents to The [facility] Pain Management Department for a follow-up appointment for pain in the right hip Her right hip pain has been persistent. She is also having multiple joint pain. She completed thyroid blood work at outside hospital (will send us results). MRI brain was ordered at last visit as well. She is having memory difficulty. She has not seen neurology. She wants to know what is causing hip pain. She feels it is swollen. Current pain intensity is 8 on a scale of 0 -10. Pain character: aching and severe Exacerbating factors: unable to pinpoint exacerbating factors/positions Alleviating factors: unable to pinpoint positions/factors that are mitigating Medications For Pain: - Opioids: n/a - NSAIDs: allergic - Anti-Depressants: cymbalta 60 mg daily - Anti-Convulsants: gabapentin 300 mg tid - Others: n/a Opioid agreement: No OARRS report reviewed by the physician Is the patient receiving analgesia/pain relief from the current medications? (YES) Has the current medication improved activities such as walking or standing? (YES) Have the current medications been associated with any adverse events? (NO) Illicit drug use? (NO) Physical Therapy in the last 6 months?: No FH: patient denies any family history of the chief complaint for this visit SH: denies illicit drug use Last took opioid medication (DATE, TIME): n/a Questionnaires: Patient Entered Questionnaires PROMIS Score Percentiles Percentiles provide an indication of how the patient's score ranks in relation to the general population. Higher percentile rankings indicate better function/quality of life. 50th percentile is the average of the general population and indicates half of respondents had a worse score. > 31st percentile is within normal limits or better * < 31st percentile is at least ? SD worse than population, which may be clinically relevant < 16th percentile is at least 1 SD worse than population and warrants attention Depression Screening: PHQ-9 Self-Harm (Item 9) response options: 0 Not at all 1 Several days 2 More than half the days 3 Nearly every day PHQ-9 Levels: 0-4 Minimal depression 5-9 Mild depression 10-14 Moderate depression 15-19 Moderately severe depression 20-27 Severe depression No data to display (0-4) minimal depression, (5-9) mild depression, (10-14) moderate depression, (15-19) moderately severe depression, (20-27) severe depression No data to display No data to display REVIEW OF SYSTEMS: GENERAL: (-) weight loss, (+)malaise, (-)fevers. HEENT:(-)headaches. NECK: (-) for lumps, goiter, (-)pain and (-)significant neck swelling. RESPIRATORY: (-) for cough, wheezing or shortness of breath. CARDIOVASCULAR: (-) for chest pain, leg swelling or palpitations. GI: (-) abdominal discomfort, (-)blood in stools or black stools or change in bowel habits. MUSCULOSKELETAL: (+)joint pain , (-)swelling, (+)back pain, (+)muscle pain. SKIN: (-) for lesions, rash, and itching. PSYCH: (-)sleep disturbance, (-)mood disorder, (-)recent psychosocial stressors. HEMATOLOGY/LYMPHOLOGY: (-) for prolonged bleeding, bruising easily or swollen nodes. NEURO: (-)syncope, paralysis, seizures or tremors.(+) memory issues All other reviewed and negative other than HPI. OBJECTIVE: BP 144/94 Pulse 86 Ht 165.1 cm (5' 5 ) Wt 76.3 kg (168 lb 3.4 oz) BMI 27.99 kg/m? GENERAL: Well appearing. No acute distress PSYCH: Mood and affect is appropriate. Awake, alert, and oriented x 3 SKIN: Skin color, texture, turgor normal, no rashes or lesions Otolaryng/HEENT: Normocephalic, atraumatic. EOM intact RESP: Respirations are unlabored CARD: Regular rate. Cap refill <2s. Extremities pink and well perfused at nailbed. MSK: Bilateral upper and lower extremity strength is normal and symmetric. No atrophy or tone abnormalities are noted. Tenderness to right greater trochanter. Right knee swelling. Lumbar: Straight leg raising is negative. (+) pain to palpation lumbar paraspinal muscles. Gait: Gait is antalgic NEURO: Bilateral upper and lower extremity coordination are intact. Muscle stretch reflexes are physiologic and symmetric. No loss of sensation ASSESSMENT AND MEDICAL DECISION MAKING: The patient is a 68 year old female with right hip and multiple joint pain. Will get xray right hip. She will start physical therapy. On exam very tender to right bursa. Also ordered blood work (crp, sed rate) due to multiple joint pain. She has hx of gout and had similar (more content not included)... [facility] 11-09-2023 History of Presen t illness Narrative Images from the original note were not included. SUBJECTIVE: The patient presents to [facility] Pain Management Department for a follow-up appointment for pain in the right hip Her right hip pain has been persistent. She is also having multiple joint pain. She completed thyroid blood work at outside hospital (will send us results). MRI brain was ordered at last visit as well. She is having memory difficulty. She has not seen neurology. She wants to know what is causing hip pain. She feels it is swollen. Current pain intensity is 8 on a scale of 0 -10. Pain character: aching and severe Exacerbating factors: unable to pinpoint exacerbating factors/positions Alleviating factors: unable to pinpoint positions/factors that are mitigating Medications For Pain: - Opioids: n/a - NSAIDs: allergic - Anti-Depressants: cymbalta 60 mg daily - Anti-Convulsants: gabapentin 300 mg tid - Others: n/a Opioid agreement: No OARRS report reviewed by the physician Is the patient receiving analgesia/pain relief from the current medications? (YES) Has the current medication improved activities such as walking or standing? (YES) Have the current medications been associated with any adverse events? (NO) Illicit drug use? (NO) Physical Therapy in the last 6 months?: No FH: patient denies any family history of the chief complaint for this visit SH: denies illicit drug use Last took opioid medication (DATE, TIME): n/a Questionnaires: Patient Entered Questionnaires PROMIS Score Percentiles Percentiles provide an indication of how the patient's score ranks in relation to the general population. Higher percentile rankings indicate better function/quality of life. 50th percentile is the average of the general population and indicates half of respondents had a worse score. > 31st percentile is within normal limits or better * < 31st percentile is at least SD worse than population, which may be clinically relevant < 16th percentile is at least 1 SD worse than population and warrants attention Depression Screening: PHQ-9 Self-Harm (Item 9) response options: 0 Not at all 1 Several days 2 More than half the days 3 Nearly every day PHQ-9 Levels: 0-4 Minimal depression 5-9 Mild depression 10-14 Moderate depression 15-19 Moderately severe depression 20-27 Severe depression No data to display (0-4) minimal depression, (5-9) mild depression, (10-14) moderate depression, (15-19) moderately severe depression, (20-27) severe depression No data to display No data to display REVIEW OF SYSTEMS: GENERAL: (-) weight loss, (+)malaise, (-)fevers. HEENT:(-)headaches. NECK: (-) for lumps, goiter, (-)pain and (-)significant neck swelling. RESPIRATORY: (-) for cough, wheezing or shortness of breath. CARDIOVASCULAR: (-) for chest pain, leg swelling or palpitations. GI: (-) abdominal discomfort, (-)blood in stools or black stools or change in bowel habits. MUSCULOSKELETAL: (+)joint pain , (-)swelling, (+)back pain, (+)muscle pain. SKIN: (-) for lesions, rash, and itching. PSYCH: (-)sleep disturbance, (-)mood disorder, (-)recent psychosocial stressors. HEMATOLOGY/LYMPHOLOGY: (-) for prolonged bleeding, bruising easily or swollen nodes. NEURO: (-)syncope, paralysis, seizures or tremors.(+) memory issues All other reviewed and negative other than HPI. OBJECTIVE: BP 144/94 Pulse 86 Ht 165.1 cm (5' 5 ) Wt 76.3 kg (168 lb 3.4 oz) BMI 27.99 kg/m GENERAL: Well appearing. No acute distress PSYCH: Mood and affect is appropriate. Awake, alert, and oriented x 3 SKIN: Skin color, texture, turgor normal, no rashes or lesions Otolaryng/HEENT: Normocephalic, atraumatic. EOM intact RESP: Respirations are unlabored CARD: Regular rate. Cap refill <2s. Extremities pink and well perfused at nailbed. MSK: Bilateral upper and lower extremity strength is normal and symmetric. No atrophy or tone abnormalities are noted. Tenderness to right greater trochanter. Right knee swelling. Lumbar: Straight leg raising is negative. (+) pain to palpation lumbar paraspinal muscles. Gait: Gait is antalgic NEURO: Bilateral upper and lower extremity coordination are intact. Muscle stretch reflexes are physiologic and symmetric. No loss of sensation ASSESSMENT AND MEDICAL DECISION MAKING: The patient is a 68 year old female with right hip and multiple joint pain. Will get xray right hip. She will start physical therapy. On exam very tender to right bursa. Also ordered blood work (crp, sed rate) due to multiple joint pain. She has hx of gout and had similar symptoms will also check uric acid level. She will fax us thyroid results which was already completed. Consult for neurology due MRI brain and mild cognitive impairment. Dx: Pain in right hip (primary encounter diagnosis) Myalgia Mild cognitive impairment PLAN: 1) Xr right hip 2) Blood work (crp, sed rate, uric acid) 3) Consult neurology 4) Start physical therapy 5) Return to clinic (in-person office visit or virtual visit/telemedicine) after all above completed fully. I spent a total of 30 minutes on the date of the service which included: *preparing to see the patient *[id number] patient care *completing clinical documentation *obtaining and/or reviewing separately obtained history *performing a medically appropriate examination *counseling and educating the patient/family/caregiver *ordering medications, tests, or procedures *communicating with other HCPs (not separately reported) *independently interpreting results (not separately reported) *communicating results to the patient/family/caregiver *care coordination (not separately reported). Of this, greater than 50% of this was spent in the presence of the patient for purposes of education and counseling regarding the diagnosis and treatment of pain. Patient is aware that any diagnostic testing is best discussed in person to fully explain the significance and resulting treatment plan. Patient is aware that they will need a follow up office visit/virtual visit for proper care. Patient agrees with above. Marisela Claudio APRN.MALATHI November 09, 2023 documented in this encounter [facility] 11-08-2023 Instructions Marisela Claudio APRN.CNP - 11/08/2023 12:30 PM EDT Get blood work (crp, sed rate) We also need results of thyroid If you are fracturing we need a bone density scan ask your pcp so we can see how thin your bones are Recommend getting xray of your right hip Also recommend seeing neurologist for mild cognitive impairment documented in this encounter [facility] 10-12-2023 Note HNO ID: [id number] Author: DAPHNE GONSALEZ PA-C Service: ? 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 Follow-up elective MRI is suggested for further characterization. Repeat MRI Lanza/Bili done 4/4 0.6 cm cystic pancreatic body lesion, likely side branch IPMN. No worrisome features or main duct dilation. (History leading up to and surrounding the actionable finding) Pt presented to the ED 05/19 co of left sided flank pain and epigastric pain which lead to current findings Subjectively, the patient reports some fatigue, nausea and early satiety follow by PCP. Had appt with her last week . No weight loss but reports weight gain despite limited appetite Nausea is unrelated to meals. States she was told that her symptoms were secondary to her ongoing back pain . Currently no abdominal pain , GERD , or vomiting ,no jaundice,fever , chills or night or sweats . No rectal bleeding or melena . No changes in bladder or bowel habits Had pancreatitis in 2002 no other episodes No hx of gallstones . Last colonoscopy was years ago . FM of colon ca . Did have a follow up appt with gi 08/25but cancelled it PAST MEDICAL HISTORY Diagnosis Date Acute pancreatitis Thrombocytopenia, unspecified (HCC) No past surgical history on file. FAMILY HISTORY Problem Relation Age of Onset Hypertension Father Social History Tobacco Use Smoking status: Never Passive exposure: Never Smokeless tobacco: Never Substance Use Topics Alcohol use: No Drug use: Never Current Outpatient Medications Medication Sig medical supply, miscellaneous (COMPRESSION STOCKINGS MISC) hydrOXYzine HCl (ATARAX) 25 mg tablet Take by mouth. gabapentin (NEURONTIN) 300 mg capsule Take 1 capsule by mouth three times a day for 320 days. ergocalciferol 50,000 unit capsule (VITAMIN D2, DRISDOL) Take 1 capsule by mouth one time a week. (Patient not taking: Reported on 09/14/2023) DULoxetine (CYMBALTA) 60 mg capsule Take 1 capsule by mouth every afternoon. promethazine (PHENERGAN) 25 mg tablet Take 25 mg by mouth every 8 hours as needed for nausea/vomiting. levothyroxine (SYNTHROID) 75 mcg tablet Take 75 mcg by mouth every morning. Take on an empty stomach. SYNTHROID 100MCG TABLET Take one(1) tablet daily. (Patient not taking: Reported on 09/14/2023) No current facility-administered medications for this visit. Review of patient's allergies indicates: ALLERGIES Allergen Reactions Nsaids (Non-Steroid* GI Upset Kidney failure OBJECTIVE: GENERAL: alert and appropriate, speaks in full sentences ASSESSMENT: This is a 68 year old female with abnormal MRI 0.6 cm cystic pancreatic body lesion, likely side branch IPMN PLAN: 1) Treatment as directed including repeat MRI lanza/ bili in one year 2) Follow-up to entail consult to GI . Stressed importance of follow up . Encourage pt to get colonoscopy 3) Follow-up appointment with this team to be scheduled 3-5 days after the recommended exam 4) follow up with your PCP , pain management and spine team for ongoing symptoms 5) Er warnings given - All questions answered Imaging: None Daphne Gonsalez PA-C October 09, 2023 8:33 AM I spent a total of 30 minutes on the date of the service which included preparing to see the patient, completing clinical documentation, obtaining and/or reviewing separately obtained history, counseling and educating the patient/family/caregiver, ordering medications, tests, or procedures, communicating results to the patient/family/caregiver, and care coordination (not separately reported). Has appointment been recommended and forwarded to be made several days after the imaging? Yes Future Appointments Date Time Provider Department Center 10/12/2023 10:00 AM [facility] 11/08/2023 12:00 PM Marisela Claudio APRN.SUPERVISOR [employer] [facility] Follow-up Plan Additional exams needed for this actionable finding? Yes If Yes, MRI of lanza /bili in one year Imaging: None Consults requested: Yes; Service: GI If No, patient referred back to PCP's care? Does patient have a PCP? Yes If Yes, PCP copied and referred back? Outside of [facility] If no, patient assisted in setting up care with primary care? N/A If no, patient declined? N/A [facility] 10-12-2023 Instructions Daphne Gonsalez PA-C - 10/12/2023 10:44 AM EDT Dian, Thank you for following up with me today. I appreciate your confidence in choosing the [facility] at the [facility] for your medical needs. I have placed an order for Imaging: MRI of you pancrease to be done 10/2024 and follow-up with the [facility]. Please call [phone] to schedule your imaging and follow-up appointment with a provider on our team. I have placed an order for Consult to Gastroenterology . You can call the [facility] [place] appointment line at [phone] to schedule at your convenience. If you have any additional questions or concerns, please do not hesitate to send a MyChart message and someone from our team will get back to you as soon as possible. Daphne Gonsalez PA-C [facility] [place] documented in this encounter [facility] 10-12-2023 History of Presen t illness Narrative [facility] PATIENT NAME: Dian Hill PRIMARY CARE PHYSICIAN: Mary Appiah DO CHIEF COMPLAINT: Abnormal finding of diagnostic imaging INITIAL VISIT: Yes Telephone visit Location of patient: [place] HPI: This is a 68 year old female who presents for further management of a possible abnormal CT of abd done 05/19/2023 showing Punctate pancreatic cystic lesion, as described, likely represents a sidebranch IPMN. Follow-up elective MRI is suggested for further characterization. Repeat MRI Lanza/Bili done 10/04 0.6 cm cystic pancreatic body lesion, likely side branch IPMN. No worrisome features or main duct dilation. (History leading up to and surrounding the actionable finding) Pt presented to the ED 05/19 co of left sided flank pain and epigastric pain which lead to current findings Subjectively, the patient reports some fatigue, nausea and early satiety follow by PCP. Had appt with her last week . No weight loss but reports weight gain despite limited appetite Nausea is unrelated to meals. States she was told that her symptoms were secondary to her ongoing back pain . Currently no abdominal pain , GERD , or vomiting ,no jaundice,fever , chills or night or sweats . No rectal bleeding or melena . No changes in bladder or bowel habits Had pancreatitis in 2002 no other episodes No hx of gallstones . Last colonoscopy was years ago . [facility] of colon ca . Did have a follow up appt with gi 08/25but cancelled it PAST MEDICAL HISTORY Diagnosis Date Acute pancreatitis Thrombocytopenia, unspecified (HCC) No past surgical history on file. FAMILY HISTORY Problem Relation Age of Onset Hypertension Father Social History Tobacco Use Smoking status: Never Passive exposure: Never Smokeless tobacco: Never Substance Use Topics Alcohol use: No Drug use: Never Current Outpatient Medications Medication Sig medical supply, miscellaneous (COMPRESSION STOCKINGS MISC) hydrOXYzine HCl (ATARAX) 25 mg tablet Take by mouth. gabapentin (NEURONTIN) 300 mg capsule Take 1 capsule by mouth three times a day for 320 days. ergocalciferol 50,000 unit capsule (VITAMIN D2, DRISDOL) Take 1 capsule by mouth one time a week. (Patient not taking: Reported on 09/14/2023) DULoxetine (CYMBALTA) 60 mg capsule Take 1 capsule by mouth every afternoon. promethazine (PHENERGAN) 25 mg tablet Take 25 mg by mouth every 8 hours as needed for nausea/vomiting. levothyroxine (SYNTHROID) 75 mcg tablet Take 75 mcg by mouth every morning. Take on an empty stomach. SYNTHROID 100MCG TABLET Take one(1) tablet daily. (Patient not taking: Reported on 09/14/2023) No current facility-administered medications for this visit. Review of patient's allergies indicates: ALLERGIES Allergen Reactions Nsaids (Non-Steroid* GI Upset Kidney failure OBJECTIVE: GENERAL: alert and appropriate, speaks in full sentences ASSESSMENT: This is a 68 year old female with abnormal MRI 0.6 cm cystic pancreatic body lesion, likely side branch IPMN PLAN: 1) Treatment as directed including repeat MRI lanza/ bili in one year 2) Follow-up to entail consult to GI . Stressed importance of follow up . Encourage pt to get colonoscopy 3) Follow-up appointment with this team to be scheduled 3-5 days after the recommended exam 4) follow up with your PCP , pain management and spine team for ongoing symptoms 5) Er warnings given - All questions answered Imaging: None Daphne Gonsalez PA-C October 09, 2023 8:33 AM I spent a total of 30 minutes on the date of the service which included preparing to see the patient, completing clinical documentation, obtaining and/or reviewing separately obtained history, counseling and educating the patient/family/caregiver, ordering medications, tests, or procedures, communicating results to the patient/family/caregiver, and care coordination (not separately reported). Has appointment been recommended and forwarded to be made several days after the imaging? Yes Future Appointments Date Time Provider Department Center 10/12/2023 10:00 AM [facility] Mn Q Bldg 11/08/2023 12:00 PM Maris[facility] Claudio APRN.CNP [facility] Follow-up Plan Additional exams needed for this actionable finding? Yes If Yes, MRI of lanza /bili in one year Imaging: None Consults requested: Yes; Service: GI If No, patient referred back to PCP's care? Does patient have a PCP? Yes If Yes, PCP copied and referred back? Outside of [facility] If no, patient assisted in setting up care with primary care? N/A If no, patient declined? N/A documented in this encounter [facility] 10-05-2023 Note HNO ID: [id number] Author: JUAN SANCHEZ RT(R) Service: Radiology Author Type: Technologist Type: Progress Notes Filed: 10/05/2023 11:07 Note Text: Radiology Service Progress Note PATIENT NAME: Dian Hill DATE OF SERVICE: October 05, 2023 TIME: 11:07 AM PATIENT IDENTITY VERIFICATION COMPLETED USING TWO (2) IDENTIFIERS: Name and Date of confirmed by patient verbally and Name and Date of confirmed by identification band FALL SCREENING: Has the patient had 2 falls in the last year or 1 fall with injury or currently using an Ambulatory Assistive Device (Walker, Cane, Wheelchair, Crutches, etc.)? No PATIENT GENDER DATA: Female. status: : No status: N/A PATIENT RELEVANT IMPLANT DATA REVIEWED: Yes PATIENT PRESENTS WITH AN IMPLANTABLE OR ATTACHED PLANT WORKER: No RADIOLOGY DEPARTMENT: MR; Exam(s) Completed: Body: Pancreas/Biliary Head: Routine Brain PERIPHERAL IV DATA: Site assessment: Clean,Dry and Intact, Site disposition Discontinued SIGNED BY: RT Ez(R) October 05, 2023 11:07 AM [facility] 10-05-2023 Note HNO ID: [id number] Author: MARIELA WILKINSON RN Service: Nursing Author Type: Registered Nurse Type: Progress Notes Filed: 10/05/2023 10:14 Note Text: Radiology Service Progress Note DATE OF SERVICE: October 05, 2023 TIME: 10:01 AM PATIENT WEIGHT: 166 LBS PATIENT IDENTITY VERIFICATION COMPLETED USING TWO (2) STANDARD IDENTIFIERS: Name and Date of confirmed by patient verbally. FALL SCREENING: Has the patient had 2 falls in the last year or 1 fall with injury or currently using an Ambulatory Assistive Device (Walker, Cane, Wheelchair, Crutches, etc.)? No PATIENT GENDER DATA: Female. status: : No status: NO. ALLERGIES: Reviewed and unchanged CONTRAST ALLERGY: No EXAM: MRI - CONTRAST TYPE: GROUP II IV SITE: Ambulatory: A peripheral IV was started in the Right antecubital site with a Angio cath: 22 gauge. and A Saline lock was inserted per protocol IV SITE APPEARANCE: Clean,Dry and Intact SIGNATURE: Mariela Wilkinson RN PATIENT NAME: Dian Hill DATE: October 05, 2023 TIME: 10:01 AM [facility] 10-05-2023 History of Presen t illness Narrative Radiology Service Progress Note DATE OF SERVICE: October 05, 2023 TIME: 10:01 AM PATIENT WEIGHT: 166 LBS PATIENT IDENTITY VERIFICATION COMPLETED USING TWO (2) STANDARD IDENTIFIERS: Name and Date of confirmed by patient verbally. FALL SCREENING: Has the patient had 2 falls in the last year or 1 fall with injury or currently using an Ambulatory Assistive Device (Walker, Cane, Wheelchair, Crutches, etc.)? No PATIENT GENDER DATA: Female. status: : No status: NO. ALLERGIES: Reviewed and unchanged CONTRAST ALLERGY: No EXAM: MRI - CONTRAST TYPE: GROUP II IV SITE: Ambulatory: A peripheral IV was started in the Right antecubital site with a Angio cath: 22 gauge. and A Saline lock was inserted per protocol IV SITE APPEARANCE: Clean,Dry and Intact SIGNATURE: Mariela Wilkinson RN PATIENT NAME: Dian Hill DATE: October 05, 2023 TIME: 10:01 AM Radiology Service Progress Note PATIENT NAME: Dian Hill DATE OF SERVICE: October 05, 2023 TIME: 11:07 AM PATIENT IDENTITY VERIFICATION COMPLETED USING TWO (2) IDENTIFIERS: Name and Date of confirmed by patient verbally and Name and Date of confirmed by identification band FALL SCREENING: Has the patient had 2 falls in the last year or 1 fall with injury or currently using an Ambulatory Assistive Device (Walker, Cane, Wheelchair, Crutches, etc.)? No PATIENT GENDER DATA: Female. status: : No status: N/A PATIENT RELEVANT IMPLANT DATA REVIEWED: Yes PATIENT PRESENTS WITH AN IMPLANTABLE OR ATTACHED PLANT WORKER: No RADIOLOGY DEPARTMENT: MR; Exam(s) Completed: Body: Pancreas/Biliary Head: Routine Brain PERIPHERAL IV DATA: Site assessment: Clean,Dry and Intact, Site disposition Discontinued SIGNED BY: RT Ez(R) October 05, 2023 11:07 AM documented in this encounter [facility] 09-20-2023 Note HNO ID: [id number] Author: BARBIE ENCARNACION RRT Service: ? Author Type: Registered Resp Therapist Type: Progress Notes Filed: 09/20/2023 15:18 Note Text: PULM FUNCTION SMARTBLOCK: Provider: Kai Nascimento MD 6 MW: 1 [facility] 09-20-2023 Note HNO ID: [id number] Author: ANDREW BURTON MD Service: ? Author Type: Registered Resp Therapist Type: Procedures Filed: 09/22/2023 09:00 Note Text: RESPIRATORY THERAPY SIX MINUTE WALK TEST OXIMETRY REPORT Six Minute Walk Test for This Encounter Oxygen Device Liters FIO2 SpO2% HR Activity Feet Speed (MPH) Flag R/A 98 95 Resting R/A 97 121 Six Minute Walk 715 1.4 R/A 98 106 Recovery 1 minute post R/A 99 96 Recovery 2 minute post R/A 97 91 Recovery 3 minute post General Information Height Weight Pulse Oximetry Site Oximeter Pre Blood Pressure Post Blood Pressure Total Time Spent (min) 166.4 cm (5' 5.5 ) 75.5 kg (166 lb 7.2 oz) Forehead Masimo 123/88 132/86 30 _ Distance Walked (meters) Distance Walked (feet) Female Predicted Walk Distance (feet) Female Lower Limit of Normal (feet) Female % Predicted Total Duration Of The Stops (seconds) 217.93 715 1464.24 1008.24 48.8 -- _ Lowest SpO2 During 6 Minute Walk Pre-Joni Dyspnea Rating Pre-Joni Fatigue Rating Post Joni Dyspnea Rating Post Joni Fatigue Rating 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 . The patient required Room Air to complete the test. The distance the patient walked in six minutes is extremely reduced. This is the first time patient takes the six minute walk test. The patient perceived their dyspnea during the six minute walk test to be 3-Moderate on the modified Joni scale. The patient perceived their fatigue during the six minute walk test to be 5-Severe on the modified Joni scale. I have reviewed the findings and made appropriate revisions as needed. SIGNATURE: Andrew Burton MD PATIENT NAME: Dian Hill DATE: September 22, 2023 TIME: 9:00 AM SIGNATURE: Barbie Encarnacion RRT PATIENT NAME: Dian Hill DATE: September 20, 2023 TIME: 3:17 PM [facility] 09-20-2023 History of Presen t illness Narrative PULM FUNCTION SMARTBLOCK: Provider: Kai Nascimento MD 6 MW: 1 documented in this encounter [facility] 09-14-2023 Note HNO ID: [id number] Author: KAI NASCIMENTO MD Service: ? Author Type: Anesthesiologist Type: Progress Notes Filed: 09/14/2023 15:43 Note Text: Referring Or Consulting Physician: Florinda Glover [address] [facility] [id number] CHIEF COMPLAINT: pain in my low back HPI: This is a 67 year old female here for evaluation of pain that began 6 months ago following a bump on her right hip traveling to right buttocks. At this point, the pain is located in the areas detailed above (see cc). The patient describes the pain as dull and cramping and is a 5/10 in severity. It is constant. The pain is exacerbated by sitting and standing. The pain is mitigated by lying down. The patient is currently taking the following medications for pain: gabapentin and duloxetine. The patient previously has taken the following medications for pain: nothing Symptoms interfere with walking, sitting, cooking, and household cleaning. The patient denies trauma, major or minor In the last 6 months, Physical Therapy/Home Exercise Completed?: No Relevant [place] records were reviewed. Opioid Agreement: No Receiving Disability Income: No Last Date/Time Patient had Opioid Medication: NA Previous Xrays?: YES 01/10/23 lumbar Imaging Studies: IMPRESSION: New (since the MRI lumbar spine dated 01/24/2023) right paracentral disc extrusion at L1-L2 causes mild canal stenosis. Small central protrusion at T7-T8 causing mild canal stenosis. Normal appearance of the thoracic cord. Anatomic Thoracic/Lumbar Variant: None. L4-5 is considered the level of the iliac crest and assume there are 5 lumbar-type vertebrae. Medical [employer] Officer: CHAD Transcribe Date/Time: Sep 07 2023 4:05P Dictated by : RAMESH DAVIS MD This examination was interpreted and the report reviewed and electronically signed by: RAMESH DAVIS MD on Sep 07 2023 4:15PM EST Results-Findings * * *Final Report* * * DATE OF EXAM: Sep 07 2023 3:50PM [facility] [id number] - MRI THORACIC SPINE WO IVCON / PROCEDURE REASON: DDD (degenerative disc disease), thoracic * * * * Physician Interpretation * * * * EXAMINATION: MRI THORACIC SPINE WO IVCON CLINICAL HISTORY: DDD (degenerative disc disease), thoracic TECHNIQUE: Routine thoracic spine MR protocol. MQ: [id number] COMPARISON: Outside MRI lumbar spine dated 01/24/2023. RESULT: Counting reference: Craniocervical and lumbosacral junctions. For the purposes of this report, Assume the first normal thoracic rib is at the T1 level. Localizer images: Extensive cystic changes throughout the liver and kidneys bilaterally. Alignment: There is accentuation of normal thoracic kyphosis. Cord: The visualized cord is within normal limits of signal intensity and morphology. Bone marrow signal/fracture: No evidence of pathologic marrow infiltration. Small Schmorl's nodes associated with the superior endplates of T11 and T7. Thoracic paraspinal soft tissues: There are multiple perineural cyst in the neural foramina of the thoracic spine. These are more prominent in the been upper thoracic spine in the lower thoracic spine. The paraspinal soft tissues are within normal limits. Canal and foramina: Small central protrusion at T7-T8 (series 8 image 18) causes mild canal stenosis. Canal and foramina are otherwise patent in the thoracic spine. There is a right paracentral disc extrusion at L1-L2 (series 4 image 8) causing mild canal stenosis.. MRI LUMBAR SPINE WO IVCON Order: [id number] Impression 1. Moderate left neuroforaminal narrowing at L2-3 and L3-4. 2. Mild spinal canal narrowing at L3-4 and L4-5. 3. No abnormality of the visualized sacroiliac joints. 4. Incidental hepatic and bilateral renal cysts. ELECTRONICALLY SIGNED BY: Jose Kwok MD Narrative EXAM: MR LUMBAR SPINE WO CONTRAST [id number] CLINICAL INDICATION: Low back pain and right SI pain. COMPARISON: Lumbar radiographs 01/10/2023 TECHNIQUE: At 1.5 Anna, these lumbar spine sequences were obtained: 1. Sagittal T1, T2 and STIR. 2. Axial PD and T2. FINDINGS: There are multiple simple appearing cysts in the liver and both kidneys. There is a mild lumbar levocurvature. There is no acute fracture or malalignment. Vertebral body heights are maintained. The bone marrow is normal except for a few scattered small hemangiomas. The terminal spinal cord is normal in caliber and signal intensity; the tip of the conus medullaris is at the L1 level. The discs all show evidence of desiccation, and there is mild narrowing at L2-3, L3-4, and L4-5. There are small perineural/Tarlov cysts at S2 and S3. Visualized portions of the sacroiliac joints are normal. T12/L1: No significant disc bulge. No significant spinal canal or neuroforaminal narrowing. Facet joints within normal limits. L1/L2: No significant disc bulge. No significant spinal canal or neuroforaminal narrowing. Facet joints within normal limits. L2/L3: Mild disc b (more content not included)... [facility] 09-14-2023 History of Presen t illness Narrative Images from the original note were not included. Referring Or Consulting Physician: Florinda Glover [address] [facility] [id number] CHIEF COMPLAINT: pain in my low back HPI: This is a 67 year old female here for evaluation of pain that began 6 months ago following a bump on her right hip traveling to right buttocks. At this point, the pain is located in the areas detailed above (see cc). The patient describes the pain as dull and cramping and is a 5/10 in severity. It is constant. The pain is exacerbated by sitting and standing. The pain is mitigated by lying down. The patient is currently taking the following medications for pain: gabapentin and duloxetine. The patient previously has taken the following medications for pain: nothing Symptoms interfere with walking, sitting, cooking, and household cleaning. The patient denies trauma, major or minor In the last 6 months, Physical Therapy/Home Exercise Completed?: No Relevant [place]AR[place] records were reviewed. Opioid Agreement: No Receiving Disability Income: No Last Date/Time Patient had Opioid Medication: NA Previous Xrays?: YES 01/10/23 lumbar Imaging Studies: IMPRESSION: New (since the MRI lumbar spine dated 01/24/2023) right paracentral disc extrusion at L1-L2 causes mild canal stenosis. Small central protrusion at T7-T8 causing mild canal stenosis. Normal appearance of the thoracic cord. Anatomic Thoracic/Lumbar Variant: None. L4-5 is considered the level of the iliac crest and assume there are 5 lumbar-type vertebrae. Medical Corps Officer: [facility] Transcribe Date/Time: Sep 07 2023 4:05P Dictated by : RAMESH DAVIS MD This examination was interpreted and the report reviewed and electronically signed by: RAMESH DAVIS MD on Sep 07 2023 4:15PM EST Results-Findings * * *Final Report* * * DATE OF EXAM: Sep 07 2023 3:50PM [facility] [id number] - MRI THORACIC SPINE WO IVCON / PROCEDURE REASON: DDD (degenerative disc disease), thoracic * * * * Physician Interpretation * * * * EXAMINATION: MRI THORACIC SPINE WO GERRY CLINICAL HISTORY: DDD (degenerative disc disease), thoracic TECHNIQUE: Routine thoracic spine MR protocol. MQ: [id number] COMPARISON: Outside MRI lumbar spine dated 01/24/2023. RESULT: Counting reference: Craniocervical and lumbosacral junctions. For the purposes of this report, Assume the first normal thoracic rib is at the T1 level. Localizer images: Extensive cystic changes throughout the liver and kidneys bilaterally. Alignment: There is accentuation of normal thoracic kyphosis. Cord: The visualized cord is within normal limits of signal intensity and morphology. Bone marrow signal/fracture: No evidence of pathologic marrow infiltration. Small Schmorl's nodes associated with the superior endplates of T11 and T7. Thoracic paraspinal soft tissues: There are multiple perineural cyst in the neural foramina of the thoracic spine. These are more prominent in the been upper thoracic spine in the lower thoracic spine. The paraspinal soft tissues are within normal limits. Canal and foramina: Small central protrusion at T7-T8 (series 8 image 18) causes mild canal stenosis. Canal and foramina are otherwise patent in the thoracic spine. There is a right paracentral disc extrusion at L1-L2 (series 4 image 8) causing mild canal stenosis.. MRI LUMBAR SPINE WO IVCON Order: [id number] Impression 1. Moderate left neuroforaminal narrowing at L2-3 and L3-4. 2. Mild spinal canal narrowing at L3-4 and L4-5. 3. No abnormality of the visualized sacroiliac joints. 4. Incidental hepatic and bilateral renal cysts. ELECTRONICALLY SIGNED BY: Jose Kwok MD Narrative EXAM: MR LUMBAR SPINE WO CONTRAST [id number] CLINICAL INDICATION: Low back pain and right SI pain. COMPARISON: Lumbar radiographs 01/10/2023 TECHNIQUE: At 1.5 Anna, these lumbar spine sequences were obtained: 1. Sagittal T1, T2 and STIR. 2. Axial PD and T2. FINDINGS: There are multiple simple appearing cysts in the liver and both kidneys. There is a mild lumbar levocurvature. There is no acute fracture or malalignment. Vertebral body heights are maintained. The bone marrow is normal except for a few scattered small hemangiomas. The terminal spinal cord is normal in caliber and signal intensity; the tip of the conus medullaris is at the L1 level. The discs all show evidence of desiccation, and there is mild narrowing at L2-3, L3-4, and L4-5. There are small perineural/Tarlov cysts at S2 and S3. Visualized portions of the sacroiliac joints are normal. T12/L1: No significant disc bulge. No significant spinal canal or neuroforaminal narrowing. Facet joints within normal limits. L1/L2: No significant disc bulge. No significant spinal canal or neuroforaminal narrowing. Facet joints within normal limits. L2/L3: Mild disc bulge. Moderate left neuroforaminal narrowing and facet hypertrophy. L3/L4: Mild disc bulge. Mild spinal canal narrowing from the bulge and bilateral facet and ligamentum flavum hypertrophy. Moderate left and mild right neural foraminal narrowing. L4/L5: Mild disc bulge. Mild spinal canal narrowing from the bulging bilateral facet hypertrophy. L5/S1: Mild bilateral neural foraminal narrowing and facet hypertrophy. Exam End: 01/24/23 11:33 AM Specimen Collected: 01/25/23 11:17 AM Last Resulted: 01/25/23 11:23 AM Received From: [place] I personally reviewed the above imaging findings, and discussed them with the patient in detail. Is the patient receiving analgesia/pain relief from the current medications? (NO) Have the current medications been associated with any adverse events? (NO) Illicit drug use? (NO) Patient denies loss of bowel or bladder control, unintentional weight loss, h/o malignancy, fevers/chills/night sweats. PAST MEDICAL HISTORY Diagnosis Date Acute pancreatitis Thrombocytopenia, unspecified (HCC) No past surgical history on file. Social History Tobacco Use Smoking status: Never Passive exposure: Never Smokeless tobacco: Never Substance Use Topics Alcohol use: No Drug use: Never FH: Patient denies a family history of the current chief complaint. ALLERGIES Allergen Reactions Nsaids (Non-Steroid* GI Upset Kidney failure Current Outpatient Medications Medication Sig gabapentin (NEURONTIN) 300 mg capsule Take 1 capsule by mouth three times a day for 320 days. ergocalciferol 50,000 unit capsule (VITAMIN D2, DRISDOL) Take 1 capsule by mouth one time a week. DULoxetine (CYMBALTA) 60 mg capsule Take 1 capsule by mouth every afternoon. promethazine (PHENERGAN) 25 mg tablet levothyroxine (SYNTHROID) 75 mcg tablet Take 75 mcg by mouth every morning. Take on an empty stomach. SYNTHROID 100MCG TABLET Take one(1) tablet daily. No current facility-administered medications for this visit. Questionnaires: Patient Entered Questionnaires PROMIS Score Percentiles Percentiles provide an indication of how the patient's score ranks in relation to the general population. Higher percentile rankings indicate better function/quality of life. 50th percentile is the average of the general population and indicates half of respondents had a worse score. > 31st percentile is within normal limits or better * < 31st percentile is at least SD worse than population, which may be clinically relevant < 16th percentile is at least 1 SD worse than population and warrants attention Depression Screening: PHQ-9 Self-Harm (Item 9) response options: 0 Not at all 1 Several days 2 More than half the days 3 Nearly every day PHQ-9 Levels: 0-4 Minimal depression 5-9 Mild depression 10-14 Moderate depression 15-19 Moderately severe depression 20-27 Severe depression No data to display (0-4) minimal depression, (5-9) mild depression, (10-14) moderate depression, (15-19) moderately severe depression, (20-27) severe depression No data to display No data to display The following information was personally collected by me, Kai Nascimento MD on September 14, 2023 2:34 PM (electronically signed): REVIEW OF SYSTEMS: GENERAL: weight loss (+), malaise(+), fevers (-) HEENT: thrush(-), epistaxis(-) NECK: Negative for neck swelling. RESPIRATORY: Negative for cough, wheezing or shortness of breath (-). CARDIOVASCULAR: chest pain(-), leg swelling(-) or palpitations(-) GI: abdominal discomfort(-), blood in stools/melena/change in bowel habits(-). MUSCULOSKELETAL: joint pain(-), swelling(-), back pain(-) , muscle pain(-). SKIN: (-) for lesions, rash, and itching. PSYCH: sleep disturbance(-), mood disorder(-), recent psychosocial stressors(-). HEMATOLOGY/LYMPHOLOGY: Negative for prolonged bleeding, easy bruising, or swollen nodes (-) NEURO: headaches(-), syncope(-), paralysis(-), seizures(-), tremors (-) All other reviewed and negative other than HPI. OBJECTIVE: Pulse 85 Wt 77.5 kg (170 lb 13.7 oz) SpO2 95% BMI 28.43 kg/m GENERAL: Well appearing, in no acute distress PSYCH: Mood and affect is appropriate. Awake, alert, and oriented x 3 SKIN: Skin color, texture, turgor normal, no rashes or lesions HEENT: Normocephalic, atraumatic. PERRLA. RESP: Respirations are unlabored CARD: Regular rate. Cap refill <2s. Extremities pink and well perfused at nailbed MSK: Bilateral upper and lower extremity strength is normal and symmetric. No atrophy or tone abnormalities are noted Cervical: (-)pain to palpation over the cervical paraspinal muscles. Spurling is (-). (-)pain with neck flexion, extension or rotation. Rotation is full on right and left. Axial Loading Test negative, Johnson's sign negative. No obvious deformity or signs of trauma. Normal cervical lordotic curve and full flexion and extension of cervical spine. Lumbar: Straight leg raising in the sitting position is (-) for radicular pain. (+)pain to palpation lumbar paraspinal muscles. Facet loading is (+) bilaterally. (-) pain to palpation over the PSIS, sacroiliac joint provocative maneuvers are (-) for pain reproduction bilaterally. Extremities: Peripheral joint ROM is full and pain free without obvious instability or laxity in all four extremities. No deformities, edema, or skin discoloration. Good capillary refill. Gait: Gait is antalgic NEURO: Bilateral upper and lower extremity coordination are intact. Muscle stretch reflexes are physiologic and symmetric. Plantar response are downgoing. No loss of sensation is noted. ASSESSMENT AND MEDICAL DECISION MAKING: This is a 67 year old female with non-dermatomal LE pains, hypersomnolence (14hrs sleep per day) and non-restorative sleep, and memory difficulties. 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 demyelinating disease re: 2016 outside hospital MRI (see care everywhere) T3 FREE BLD T4 FREE/FREE THYROX TSH Blood ADULT - SIX MINUTE WALK Order Specific Question: Should this patient be seen in a Pediatric Lab? Answer: No Consider sleep neurology consult re: hypersomnolence 14hrs/day sleep Consider paroxetine vs. ketamine infusion depending on above Return to clinic (in-person office visit or virtual visit/telemedicine) after all above completed fully. I spent a total of 45 minutes on the date of the service which included: *preparing to see the patient *[id number] patient care *completing clinical documentation *obtaining and/or reviewing separately obtained history *performing a medically appropriate examination *counseling and educating the patient/family/caregiver *ordering medications, tests, or procedures *communicating with other HCPs (not separately reported) *independently interpreting results (not separately reported) *communicating results to the patient/family/caregiver *care coordination (not separately reported). Of this, greater than 50% of this was spent in the presence of the patient for purposes of education and counseling regarding the diagnosis and treatment of pain. Patient is aware that any diagnostic testing is best discussed in person to fully explain the significance and resulting treatment plan. Patient is aware that they will need a follow up office visit/virtual visit for proper care. I answered the patient's questions regarding this. I discussed healthy habits, lifestyle changes and physical activity as well as disease prevention/maintenance, including where applicable the impact of tobacco/illicit drugs on pain and its treatment. It will be communicated with the referring or consulting physician above via electronic record, fax, or mail. Patient agrees with above. Kai Nascimento MD September 14, 2023 documented in this encounter [facility] 09-11-2023 Miscellaneous Notes Neuro SPINE CARE COORDINATION QUICK NOTE Spoke with patient to discuss thoracic MRI results. Recommended she maintain her pain management appointment on 09/13. She verbalized understanding and will reach out with questions. Please call patient with results as does not check my chart. Please advise thoracic MRI reviewed-has degenerative changes as expected, some mild stenosis (narrowing) as expected. There is a new disc herniation to the R L1-2 that may be contributing to symptoms. Recommend maintain pain management consult. Florinda Glover MD documented in this encounter [facility] 09-07-2023 Note HNO ID: [id number] Author: JUAN SANCHEZ RT(R) Service: Radiology Author Type: Technologist Type: Progress Notes Filed: 09/07/2023 15:41 Note Text: Radiology Service Progress Note PATIENT NAME: Dian Hill DATE OF SERVICE: September 07, 2023 TIME: 3:41 PM PATIENT IDENTITY VERIFICATION COMPLETED USING TWO (2) IDENTIFIERS: Name and Date of confirmed by patient verbally and Name and Date of confirmed by identification band FALL SCREENING: Has the patient had 2 falls in the last year or 1 fall with injury or currently using an Ambulatory Assistive Device (Walker, Cane, Wheelchair, Crutches, etc.)? No PATIENT GENDER DATA: Female. status: : No status: N/A PATIENT RELEVANT IMPLANT DATA REVIEWED: Yes PATIENT PRESENTS WITH AN IMPLANTABLE OR ATTACHED PLANT WORKER: No RADIOLOGY DEPARTMENT: MR; Exam(s) Completed: Spine: Thoracic spine PERIPHERAL IV DATA: Not applicable SIGNED BY: RT Ez(R) September 07, 2023 3:41 PM [facility] 09-07-2023 History of Presen t illness Narrative Radiology Service Progress Note PATIENT NAME: Dian Hill DATE OF SERVICE: September 07, 2023 TIME: 3:41 PM PATIENT IDENTITY VERIFICATION COMPLETED USING TWO (2) IDENTIFIERS: Name and Date of confirmed by patient verbally and Name and Date of confirmed by identification band FALL SCREENING: Has the patient had 2 falls in the last year or 1 fall with injury or currently using an Ambulatory Assistive Device (Walker, Cane, Wheelchair, Crutches, etc.)? No PATIENT GENDER DATA: Female. status: : No status: N/A PATIENT RELEVANT IMPLANT DATA REVIEWED: Yes PATIENT PRESENTS WITH AN IMPLANTABLE OR ATTACHED PLANT WORKER: No RADIOLOGY DEPARTMENT: MR; Exam(s) Completed: Spine: Thoracic spine PERIPHERAL IV DATA: Not applicable SIGNED BY: RT Ez(Shay) September 07, 2023 3:41 PM documented in this encounter [facility] 09-05-2023 Note HNO ID: [id number] Author: ?, ?, ? Service: ? Author Type: ? Type: Progress Notes Filed: 09/05/2023 12:05 Note Text: POPULATION HEALTH NAVIGATION OUTREACH Action/FYI Patient scheduled Reason for Outreach Care Gap/HCC or Scheduling Wellness Visits Care Gaps due: Specialty Scheduling Patient Contacted: Spoke to patient/parent/or legal guardian Patient identified by name and : Yes Care Gap/HCC/Scheduling Wellness actions taken: Patient scheduled/pended labs: Specialty Appointment Navigation Signature: Natalia Harman September 05, 2023 12:04 PM [facility] 09-05-2023 Note Patient Outreach (ARLEEN NORRIS) LIZDIAN M ([id number]) 1955 F Date Time Provider Department 09/05/23 NO PCP [facility] During your visit today, we recorded the following information about you: Natalia Harman 09/05/2023 12:05 PM Signed POPULATION HEALTH NAVIGATION OUTREACH Action/FYI Patient scheduled Reason for Outreach Care Gap/HCC or Scheduling Wellness Visits Care Gaps due: Specialty Scheduling Patient Contacted: Spoke to patient/parent/or legal guardian Patient identified by name and : Yes Care Gap/HCC/Scheduling Wellness actions taken: Patient scheduled/pended labs: Specialty Appointment Navigation Signature: Natalia Harman September 05, 2023 12:04 PM Allergies As of Date: 09/05/2023 Noted Allergy Reaction NSAIDS (NON-STEROIDAL ANTI-INFLAM*02/24/2014 8 - GI Upset Comments: Kidney failure Date Reviewed: 08/29/2023 Reviewed by: Mini Ambrocio [facility] - Fully Assessed Prescriptions as of 09/05/2023 - gabapentin (NEURONTIN) 300 mg capsule Take 1 capsule by mouth three times a day for 320 days. - ergocalciferol 50,000 unit capsule (VITAMIN D2, DRISDOL) Take 1 capsule by mouth one time a week. - DULoxetine (CYMBALTA) 60 mg capsule Take 1 capsule by mouth every afternoon. - promethazine (PHENERGAN) 25 mg tablet - levothyroxine (SYNTHROID) 75 mcg tablet Take 75 mcg by mouth every morning. Take on an empty stomach. - SYNTHROID 100MCG TABLET Take one(1) tablet daily. Problem List As Of Date 09/05/2023 Noted Resolved Chronic bilateral low back pain with bilateral *05/19/2023 05/21/2023 Acute exacerbation of chronic low back pain [M5*05/19/2023 05/21/2023 Gait abnormality [R26.9] 05/19/2023 05/21/2023 Fibromyalgia [M79.7] 05/19/2023 Chronic pain disorder [G89.4] 05/19/2023 Acute left-sided low back pain with sciatica [M*05/24/2023 Spinal stenosis of lumbar region without neurog*05/24/2023 Unspecified hypothyroidism [E03.9] 05/24/2023 Encounter Status:Closed by NATALIA HARMAN on 09/05/23 [facility] 08-29-2023 Note HNO ID: [id number] Author: FLORINDA GLOVER MD Service: ? Author Type: Physician Type: Progress Notes Filed: 08/29/2023 11:11 Note Text: [facility] Established Visit Last Seen:02/16/2023 CC: low back pain and lower extremity pain. Mid back pain HPI: Ms. Hill is a pleasant 67 year old female seen in follow-up. Patient was last seen on 02/16/2023. Please refer to that note for additional details. Many unrelated symptoms-ongoing epigastric pain, sweating whole body, nausea. Denies weight loss. Seen internal medicine and admitted 05/19. EPIC reviewed. Notes did not see GI as was told not needed by the inpatient team per patient. Patient did not review the recently my chart message 08/18/2023 from the diagnostic radiology team--the message was shared and a copy was provided. Dian Hill My name is Rody Juarez APRN.MALATHI, and I am a provider at the [facility]. As you are likely aware, you had a CT Abdomen done on 05/19/23 showing a possible abnormality. 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 Follow-up elective MRI is suggested for further characterization. On further review, I don't see this has been followed up on but I can follow-up with you regarding this if you'd like. I am available and can see you virtually to discuss and/or order testing. (MRI Pancreas/Biliary) You are always able to decline follow-up if you'd rather not discuss. However, if you're following up with somebody else in/outside the [facility], let us know. I look forward to hearing from you. Rody Juarez APRN.CNP Actionable Findings Diagnostic [place] . Patient notes the epigastric pain is the most bothersome. Notes the last 10 days had some mid back pain and pain under the R breast/flank, some improvement. Denies trauma Ongoing chronic low back pain LE pain and tingling. LE pain is Buttock and Lateral thigh to the mid calf Worse with activity. Tried PT and only went once. Notes could not tolerate due to overall health issues and fatigue. Given a HEP. Today is a good day. Taking gabapentin and cymbalta. Does not feel helping. Feels depression is good . Denies SI/plan. Denies bowel/bladder issues Was having some bladder issues. Allergies: ALLERGIES Allergen Reactions Nsaids (Non-Steroid* GI Upset Kidney failure Current Outpatient Medications Medication Sig gabapentin (NEURONTIN) 300 mg capsule Take 1 capsule by mouth three times a day for 320 days. ergocalciferol 50,000 unit capsule (VITAMIN D2, DRISDOL) Take 1 capsule by mouth one time a week. DULoxetine (CYMBALTA) 60 mg capsule Take 1 capsule by mouth every afternoon. promethazine (PHENERGAN) 25 mg tablet levothyroxine (SYNTHROID) 75 mcg tablet Take 75 mcg by mouth every morning. Take on an empty stomach. SYNTHROID 100MCG TABLET Take one(1) tablet daily. No current facility-administered medications for this visit. Physical Examination: BP 132/98 Pulse 104 Ht 5' 5 (1.65m) Wt 163 lb 5.8 oz (74.1kg) BMI 27.18 kg/(m2). General: NAD, pleasant Lungs: Symmetric chest expansion Gait: normal at times and at times is slow Palpation: some tenderness over the R breast. No focal thoracic midline tenderness Strength: Bilateral upper and LE strength is normal Reflexes: Bilateral upper and LE reflexes are 1+ Neuro: Plantar response is downgoing. Hoffmans is negative Peripheral Vascular: Pedal pulses are intact. No obvious extremity swelling in all 4 extremities. Appearance of Skin: Skin inspection of the trunk, bilateral upper and lower extremities is unremarkable. Unremarkable hip ROM w/o pain Radiological Review: Spine portions CT abd-05/2023-report and images-degenerative changes, T1- schmorl noted, slight anterolisthesis L4/5 Bones/Soft Tissues: Multilevel degenerative changes. No destructive bone lesion. Lumbar MRI 12/2022-images reviewed with patient as well as finding-no high grade central stenosis 1. Moderate left neuroforaminal narrowing at L2-3 and L3-4. 2. Mild spinal canal narrowing at L3-4 and L4-5. 3. No abnormality of the visualized sacroiliac joints. 4. Incidental hepatic and bilateral renal cysts. Thoracic portions CXR 05/19/2023-no fracture Bones and soft tissues: No acute osseous abnormality is identified Impression/Plan: #1. Main complaint is nausea, epigastric pain with generalized fatigue that is chronic. GI consult continues to be recommended to better determine potential etiology. Will assist. Also reviewed the [employer] message with patient from the diagnostic radiology team, patient had not viewed, a copy of it was provided. Will assist with visit with Ms. Juarez to best address the incidentals and better clarify. Appears MRI pancrease/biliary is being recommended and I will defer to both GI and radiology to best address this, patient is (more content not included)... [facility] 08-29-2023 History of Presen t illness Narrative [facility] Established Visit Last Seen:02/16/2023 CC: low back pain and lower extremity pain. Mid back pain HPI: Ms. Hill is a pleasant 67 year old female seen in follow-up. Patient was last seen on 02/16/2023. Please refer to that note for additional details. Many unrelated symptoms-ongoing epigastric pain, sweating whole body, nausea. Denies weight loss. Seen internal medicine and admitted 05/19. EPIC reviewed. Notes did not see GI as was told not needed by the inpatient team per patient. Patient did not review the recently my chart message 08/18/2023 from the diagnostic radiology team--the message was shared and a copy was provided. Dian Hill My name is Rody Juarez APRN.SUPERVIS[employer], and I am a provider at the [facility]. As you are likely aware, you had a CT Abdomen done on 05/19/23 showing a possible abnormality. 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 Follow-up elective MRI is suggested for further characterization. On further review, I don't see this has been followed up on but I can follow-up with you regarding this if you'd like. I am available and can see you virtually to discuss and/or order testing. (MRI Pancreas/Biliary) You are always able to decline follow-up if you'd rather not discuss. However, if you're following up with somebody else in/outside the [facility], let us know. I look forward to hearing from you. Rody Juarez APRN.[facility] Actionable Findings Diagnostic [place] . Patient notes the epigastric pain is the most bothersome. Notes the last 10 days had some mid back pain and pain under the R breast/flank, some improvement. Denies trauma Ongoing chronic low back pain LE pain and tingling. LE pain is Buttock and Lateral thigh to the mid calf Worse with activity. Tried PT and only went once. Notes could not tolerate due to overall health issues and fatigue. Given a HEP. Today is a good day. Taking gabapentin and cymbalta. Does not feel helping. Feels depression is good . Denies SI/plan. Denies bowel/bladder issues Was having some bladder issues. Allergies: ALLERGIES Allergen Reactions Nsaids (Non-Steroid* GI Upset Kidney failure Current Outpatient Medications Medication Sig gabapentin (NEURONTIN) 300 mg capsule Take 1 capsule by mouth three times a day for 320 days. ergocalciferol 50,000 unit capsule (VITAMIN D2, DRISDOL) Take 1 capsule by mouth one time a week. DULoxetine (CYMBALTA) 60 mg capsule Take 1 capsule by mouth every afternoon. promethazine (PHENERGAN) 25 mg tablet levothyroxine (SYNTHROID) 75 mcg tablet Take 75 mcg by mouth every morning. Take on an empty stomach. SYNTHROID 100MCG TABLET Take one(1) tablet daily. No current facility-administered medications for this visit. Physical Examination: BP 132/98 Pulse 104 Ht 5' 5 (1.65m) Wt 163 lb 5.8 oz (74.1kg) BMI 27.18 kg/(m^2). General: NAD, pleasant Lungs: Symmetric chest expansion Gait: normal at times and at times is slow Palpation: some tenderness over the R breast. No focal thoracic midline tenderness Strength: Bilateral upper and LE strength is normal Reflexes: Bilateral upper and LE reflexes are 1+ Neuro: Plantar response is downgoing. Hoffmans is negative Peripheral Vascular: Pedal pulses are intact. No obvious extremity swelling in all 4 extremities. Appearance of Skin: Skin inspection of the trunk, bilateral upper and lower extremities is unremarkable. Unremarkable hip ROM w/o pain Radiological Review: Spine portions CT abd-05/2023-report and images-degenerative changes, T1- schmorl noted, slight anterolisthesis L4/5 Bones/Soft Tissues: Multilevel degenerative changes. No destructive bone lesion. Lumbar MRI 12/2022-images reviewed with patient as well as finding-no high grade central stenosis 1. Moderate left neuroforaminal narrowing at L2-3 and L3-4. 2. Mild spinal canal narrowing at L3-4 and L4-5. 3. No abnormality of the visualized sacroiliac joints. 4. Incidental hepatic and bilateral renal cysts. Thoracic portions CXR 05/19/2023-no fracture Bones and soft tissues: No acute osseous abnormality is identified Impression/Plan: #1. Main complaint is nausea, epigastric pain with generalized fatigue that is chronic. GI consult continues to be recommended to better determine potential etiology. Will assist. Also reviewed the [employer] message with patient from the diagnostic radiology team, patient had not viewed, a copy of it was provided. Will assist with visit with Ms. Juarez to best address the incidentals and better clarify. Appears MRI pancrease/biliary is being recommended and I will defer to both GI and radiology to best address this, patient is interested in having completed. 2. LSS-appears some neurogenic claudication. Management options reviewed. Limited benefit with PT/HEP and medications. Would like to see pain management 3. Mid back and R radiating pain that is more acute and new since last visit. There may be some component of thoracic neuritis, Thoracic MRI ordered to better clarify. 4. Call for thoracic MRI results, ongoing care with PCP recommended. The patient is instructed to call/seek urgent medical care with worsening pain or change of neurological status. There are no barriers to patient education identified. Management options were discussed in detail. The patient is in agreement with the plan as outlined above and verbalized understanding. Florinda Glover MD documented in this encounter [facility] 06-16-2023 Miscellaneous Notes 05/19/2023 Visit date not found Patient is currently out of medications Patient calls in requesting the following refill(s): Requested Prescriptions Pending Prescriptions Disp Refills gabapentin (NEURONTIN) 300 mg capsule 240 capsule 3 Sig: Take 1 capsule by mouth three times a day for 320 days. documented in this encounter [facility] 05-31-2023 Note Patient Outreach (IN [facility]) DIAN HILL ([id number]) 1955 F Date Time Provider Department 05/31/23 MARY APPIAH During your visit today, we recorded the following information about you: Allergies As of Date: 05/31/2023 Noted Allergy Reaction NSAIDS (NON-STEROIDAL ANTI-INFLAM*02/24/2014 8 - GI Upset Comments: Kidney failure Date Reviewed: 05/21/2023 Reviewed by: Edna Travis RN - Fully Assessed Visit Diagnosis:Encounter for screening mammogram for breast cancer [Z12.31] Order(s):[facility] SCREENING [[id number]] Order #: [id number] FUTURE Prescriptions as of 06/05/2023 - gabapentin (NEURONTIN) 300 mg capsule Take 1 capsule by mouth three times a day for 30 days. - acetaminophen (TYLENOL) 500 mg tablet 2 tablets by ORAL/FEEDING TUBE route every 6 hours. - ergocalciferol 50,000 unit capsule (VITAMIN D2, DRISDOL) Take 1 capsule by mouth one time a week. - DULoxetine (CYMBALTA) 60 mg capsule Take 1 capsule by mouth every afternoon. - promethazine (PHENERGAN) 25 mg tablet - levothyroxine (SYNTHROID) 75 mcg tablet Take 75 mcg by mouth every morning. Take on an empty stomach. - SYNTHROID 100MCG TABLET Take one(1) tablet daily. Problem List As Of Date 05/31/2023 Noted Resolved Chronic bilateral low back pain with bilateral *05/19/2023 05/21/2023 Acute exacerbation of chronic low back pain [M5*05/19/2023 05/21/2023 Gait abnormality [R26.9] 05/19/2023 05/21/2023 Fibromyalgia [M79.7] 05/19/2023 Chronic pain disorder [G89.4] 05/19/2023 Acute left-sided low back pain with sciatica [M*05/24/2023 Spinal stenosis of lumbar region without neurog*05/24/2023 Unspecified hypothyroidism [E03.9] 05/24/2023 Encounter Status:Closed by EPIC, PRODUSER on 06/05/23 [facility] 05-20-2023 Note HNO ID: [id number] Author: Gilbert Little MD Service: Hospital Medicine Author Type: Physician Type: Progress Notes Filed: 05/20/2023 4:54 PM Note Text: HOSPITAL MEDICINE PROGRESS NOTE SERVICE DATE: 05/20/2023 SERVICE TIME: 12:02 PM Hospital Medicine/Primary Attending: Gilbert Little* DAY AND NIGHT/WEEKEND COVERAGE: Between 8AM to 5PM, page [phone] After hours 5PM to 8AM, page [phone] if patient on G80/81 H80/81, page [phone] if on other floors. Subjective INTERVAL HPI: no acute events overnight, no new issues hemodynamically stable, afebrile appears better indicated that the pain could be from the nerve pinching and would optimize the pain meds wish to see for th pinched nerves here willget appt plan: -gabapentin 300 mg q6 -tylenol 1 gm q6 -dc in am -lactulose 20 mg x1 -f/u with neuro spine/pcp HPI: 67 [facility] aaf [facility] of 1) acute L flank pain 2) epigastric pain as well as chronic lower back pain with pmhx of - fibromyalgia on duloxetine 60mg - lumbar spinal stenosis w/neurogenic claudication - hypothyroidism - ttp requiring plasmapheresis (2002) Given her hx of fibromyalgia, her chronic pain level is usually 4-5/10. However, today it is 7-8/10 and is not improving despite taking her Cymbalta. Of note, she is established with her local PCP however has traveled 5 hours to establish with [facility]. She notes that her back pain had worsened after the extended drive. Due to severity of pain and concern for nephrolithiasis, pt transferred to ED for imaging and workup. Pain is not related to food intake, declines radiation or associated heartburn, nausea, vomiting, full ROS below. ED Course: - VSS, normotensive, afebrile normal heart rate, saturating 92-98% on RA - labs: UA unremarkable for UTI, CBC / CMP and lipase within normal limits. - Hs Troponin elevated 13 > 13> 15, likely unrelated to current presentation - CT Abd/Pelvis unremarkable for nephrolithiasis, pancreatitis or other underlying abdominal processes that may be contributing to current symptoms. Incidental finding of punctate pancreatic cystic lesion, as described, likely represents a side branch IPMN states that she continues to be in significant pain, now primarily located in her lower back. States that her flank pain and abdominal pain has improved. In the ED, she received tylenol, flexeril 5mg and lidocaine patch to lumbar spine. Pain continues to be rated as a 6-7/10 without radiation. She has not been seen by pain management regarding her lumbar stenosis, she was diagnosed ~1 year ago. Denies N/V, diarrhea, chest pain, palpation. Full ROS below. Current Facility-Administered Medications Medication Dose Route Frequency iv contrast (radiology procedure) INTRAVENOUS DIRECTED PRN lidocaine patch - REMOVE OTHER ONCE heparin 5,000 Units injection 5,000 Units SUBCUTANEOUS q 12 H NaCl 0.9% iv flush bag 20 mL INTRAVENOUS PRN DULoxetine 60 mg cap(s) (CYMBALTA) 60 mg ORAL DAILY methocarbamol 500 mg tab(s) (ROBAXIN) 500 mg ORAL TID levothyroxine 75 mcg tab(s) (SYNTHROID) 75 mcg ORAL/FEEDING TUBE DAILY (6 AM) acetaminophen 1,000 mg tab(s) (TYLENOL) 1,000 mg ORAL/FEEDING TUBE q 6 H gabapentin 300 mg cap(s) (NEURONTIN) 300 mg ORAL q 6 H Objective PHYSICAL EXAM: BP 117/82 Pulse 63 Temp (Src) 97.7 (Oral) Resp 18 Ht 5' 5.984 (1.68m) Wt 165 lb 5.5 oz (75.0kg) SpO2 97% BMI 26.70 kg/(m2). O2 Therapy: Nasal Cannula, Liters: 2.00 GENERAL: Well appearing, alert, in no acute distress SKIN: Skin color, texture, turgor normal, no suspicious rashes or lesions HEENT: Head normal. Anicteric sclera. Pupils are equally round and reactive to light. NECK: Supple, no adenopathy; no carotid bruits LUNGS: Lungs clear to auscultation. HEART: RRR without murmur, gallop, or rubs. No ectopy ABDOMEN: Abdomen soft, TTP in epigastric area. Bowel sounds normal. No masses, organomegaly EXTREMITIES: No deformities, edema, skin discoloration MUSCULOSKELETAL: Muscular strength intact throughout. No joint swelling, deformity. Tenderness to palpation alone L1-L4 PULSES: Radial 3/4. Posterior tibial 3/4. NEURO: Gait normal. Reflexes normal and symmetric. Sensation grossly intact. Lines, Drains, and Airways Line Duration Peripheral 05/19/23 1239 [facility] Short Right Antecubital 20 Gauge <1 day Reviewed lines and will discuss with nurse to discontinue. DATA: Diagnostic tests reviewed for today's visit: Most recent labs Most recent imaging Most recent EKG DATA/IMAGIN05/19/2023 CT ABD/PEL W IV CON IMPRESSION: No urinary tract calculus. No hydronephrosis. No acute process in the abdomen or pelvis. Punctate pancreatic cystic lesion, as described, likely represents a side branch IPMN. Follow-up elective MRI is suggested within 1 year for further characterization. MR Lumbar spine 01/25/20 (more content not included)... [facility] 05-19-2023 Note HNO ID: [id number] Author: Mary Bush RN Service: Care Management Author Type: Registered Nurse Type: Care Mgt Initial Assessment Filed: 05/19/2023 6:50 PM Note Text: CARE MANAGEMENT: ASSESSMENT AND DISCHARGE PLAN SERVICE DATE: May 19, 2023 SERVICE TIME: 6:46 PM PCP: No primary care provider on file. 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 to Assist with AD Completion: Yes Action: Education Provided Current Living Arrangements and Support Lives with: Alone Type of Residence: Private Residence (Apartment or Condo) Does the patient have to climb stairs at home?: No Support: Family members How do you manage to accomplish the following: Independent: Bathe/Shower;Dress;Meals/Meal Prep;Going to the bathroom;Medication Management Needs Assistance: Ambulation (Uses rolator vs Cane) Dependent: Transportation to appointments/community Current Services/Equipment Current Post-Acute Service(s): None Discharge Planning Patient Goal(s): Better mobility, Increase strength, Independent living, Be able to go home, General wellness, Help at home [place] of Choice Explained: [place] of Choice Given: Yes Level of Care Discussed: Jail Facility Are you interested in bedside delivery of your medications? Yes Discharge Planning Participant(s): Patient Patient/Family Comments: Caregiver Assessment: Caregiver is ready, willing and able to meet the patient's needs as recommended by the inter-professional team: Yes Name of Caregiver: Mely Hill (Daughter) Transport at Discharge: Transportation Arrangements: To Be Determined Needs Prior to Discharge: Needs Prior to Discharge: To Be Determined Post-Acute Discharge Plan: CM reviewed chart and POC. Met with patient at . 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 Mely Hill (Daughter) lives approx 20 minutes away. At baseline, patient is ambulatory with use of Rolator (new for her to use) and is basically homebound d/t increasing pain, fatigue. No financial or transportation barriers. $1500 per month income with $20 food assistance. POC: Discussed SNF. List provided. Discussed being assessed for Passport Waiver. SIGNATURE: Mary Bush RN PATIENT NAME: Dian Hill DATE: May 19, 2023 TIME: 6:45 PM CONTACT #: [phone] [facility] 05-19-2023 Note HNO ID: [id number] Author: Diane Miner, DARYL Service: Respiratory Therapy Author Type: Registered Resp Therapist Type: Progress Notes Filed: 05/19/2023 6:42 PM Note Text: RESPIRATORY THERAPY PROGRESS NOTE SERVICE DATE: 05/19/2023 SERVICE TIME: 1839 Pt noted to have several episodes of SpO2 dropping into the mid to upper 80's while pt sleeping. Pt states she does not have diagnosed sleep apnea. Pt placed on 2 lpm nasal cathy with SpO2 94-96%. Plan to monitor for any additional acute changes and/or orders. SIGNATURE: Diane Miner RRT PATIENT NAME: Dian Hill DATE: May 19, 2023 TIME: 6:39 PM PAGER/CONTACT #: vitor [facility] 05-19-2023 Note HNO ID: [id number] Author: Suman Doyle Jr., CT Service: Radiology Author Type: Fabric Pattern Grader Type: Progress Notes Filed: 05/19/2023 3:48 PM Note Text: Radiology Service Progress Note DATE OF SERVICE: May 19, 2023 TIME: 3:41 PM PATIENT IDENTITY VERIFICATION COMPLETED USING TWO (2) STANDARD IDENTIFIERS: Name and Date of confirmed by patient verbally and Name and Date of confirmed by identification band. FALL SCREENING: Has the patient had 2 falls in the last year or 1 fall with injury or currently using an Ambulatory Assistive Device (Walker, Cane, Wheelchair, Crutches, etc.)? Emergency Room Patient: Screened in ED PATIENT GENDER DATA: Female. status: : No status: NO. PATIENT RELEVANT IMPLANT DATA REVIEWED: Yes ALLERGIES: Reviewed and unchanged CONTRAST ALLERGY: NO. EXAM: CT -CONTRAST INDUCED NEPHROPATHY RISK FACTORS: Patient age > 60 years CREATININE: Creatinine Date Value Ref Range Status 05/19/2023 0.87 0.58 - 0.96 mg/dL Final 04/11/2023 0.90 0.58 - 0.96 mg/dL Final 09/18/2003 0.8 0.7 - 1.4 mg/dL Final Estimated Glomerular Filtration Rate Date Value Ref Range Status 05/19/2023 72 >=60 mL/min/1.73m? Final Comment: Estimated Glomerular Filtration Rate (eGFR) is calculated using the 2020 CKD-EPI creatinine equation. This equation utilizes serum creatinine, sex, and age as parameters. The creatinine assay has traceable calibration to isotope dilution-mass spectrometry. Refer to KDIGO guidelines for clinical interpretation. In patients with unstable renal function, e.g. those with acute kidney injury, the eGFR may not accurately reflect actual GFR. P.O.C.T. RESULTS: POC done: Yes, See Lab Tab May 19, 2023 TREATMENT: N/A PERIPHERAL IV DATA: Inpatient - refer to LDA documentation RADIOLOGY DEPARTMENT: CT; Exam(s) Completed: Abdomen/Pelvis SIGNATURE: Suman Doyle Jr, CT PATIENT NAME: Dian Hill DATE: May 19, 2023 TIME: 3:41 PM [facility] 05-19-2023 History of Past i llness Narrative Problem Noted Date Diagnosed Date Resolved Date Chronic 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 05/19/2023 05/21/2023 Acute exacerbation of chronic low back pain 05/19/2023 05/21/2023 Gait abnormality 05/19/2023 05/21/2023 documented as of this encounter (statuses as of 05/24/2023) [facility]17-2023 History of Past illness Narrative* Problem Noted Date Diagnosed Date Resolved Date Chronic 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 05/19/2023 05/21/2023 Acute exacerbation of chronic low back pain 05/19/2023 05/21/2023 Gait abnormality 05/19/2023 05/21/2023 documented as of this encounter (statuses as of 06/05/2023) [facility] History of Past illness Narrative* Problem Noted Date Diagnosed Date Resolved Date Chronic 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 05/19/2023 05/21/2023 Acute exacerbation of chronic low back pain 05/19/2023 05/21/2023 Gait abnormality 05/19/2023 05/21/2023 documented as of this encounter (statuses as of 06/17/2023) [facility] History of Past illness Narrative* Problem Noted Date Diagnosed Date Resolved Date Chronic 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 05/19/2023 05/21/2023 Acute exacerbation of chronic low back pain 05/19/2023 05/21/2023 Gait abnormality 05/19/2023 05/21/2023 documented as of this encounter (statuses as of 08/18/2023) [facility] History of Past illness Narrative* Problem Noted Date Diagnosed Date Resolved Date Chronic 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 05/19/2023 05/21/2023 Acute exacerbation of chronic low back pain 05/19/2023 05/21/2023 Gait abnormality 05/19/2023 05/21/2023 documented as of this encounter (statuses as of 08/29/2023) [address]17-2023 History of Past illness Narrative* Problem Noted Date Diagnosed Date Resolved Date Chronic 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 05/19/2023 05/21/2023 Acute exacerbation of chronic low back pain 05/19/2023 05/21/2023 Gait abnormality 05/19/2023 05/21/2023 documented as of this encounter (statuses as of 08/31/2023) [address]17-2023 History of Past illness Narrative* Problem Noted Date Diagnosed Date Resolved Date Chronic 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 05/19/2023 05/21/2023 Acute exacerbation of chronic low back pain 05/19/2023 05/21/2023 Gait abnormality 05/19/2023 05/21/2023 documented as of this encounter (statuses as of 09/08/2023) [facility] History of Past illness Narrative* Problem Noted Date Diagnosed Date Resolved Date Chronic 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 05/19/2023 05/21/2023 Acute exacerbation of chronic low back pain 05/19/2023 05/21/2023 Gait abnormality 05/19/2023 05/21/2023 documented as of this encounter (statuses as of 09/11/2023) [facility] History of Past illness Narrative* Problem Noted Date Diagnosed Date Resolved Date Chronic 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 05/19/2023 05/21/2023 Acute exacerbation of chronic low back pain 05/19/2023 05/21/2023 Gait abnormality 05/19/2023 05/21/2023 documented as of this encounter (statuses as of 09/14/2023) [facility] History of Past illness Narrative* Problem Noted Date Diagnosed Date Resolved Date Chronic 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 05/19/2023 05/21/2023 Acute exacerbation of chronic low back pain 05/19/2023 05/21/2023 Gait abnormality 05/19/2023 05/21/2023 documented as of this encounter (statuses as of 09/20/2023) [address]17-2023 History of Past illness Narrative* Problem Noted Date Diagnosed Date Resolved Date Chronic 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 05/19/2023 05/21/2023 Acute exacerbation of chronic low back pain 05/19/2023 05/21/2023 Gait abnormality 05/19/2023 05/21/2023 documented as of this encounter (statuses as of 10/06/2023) [facility] History of Past illness Narrative* Problem Noted Date Diagnosed Date Resolved Date Chronic 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 05/19/2023 05/21/2023 Acute exacerbation of chronic low back pain 05/19/2023 05/21/2023 Gait abnormality 05/19/2023 05/21/2023 documented as of this encounter (statuses as of 10/12/2023) [facility] Miscellaneous Notes* Telephone Encounter - Mellisa Jean - 05/19/2023 1:34 PM EST Paged Consult to Dr. Bledsoe and Chadwick for Dian Hill Bed # E15-07 [facility] NoteHNO ID: [id number] Author: Mary Appiah, DO Service: ? Author Type: Physician Type: Progress Notes Filed: 05/24/2023 12:22 PM Note Text: Internal Medicine Outpatient Visit May 19, 2023 Preceptor: Dr. Appiah HPI: 67 year old female patient here today for nausea and epigastric pain PMH: - Fibromyalgia - Pancreatitis - LSS - TTP in 2002 requiring plasmapheresis - Prurigo nodularis Since January patient has been having severe episodes of epigastric abdominal pain, cramping in nature, 8/10, without any radiation, unrelated to eating, accompanied by nausea and loss of appetite (without vomiting, diarrhea or constipation). She says when she gets them she start sweating and having increased salivation. Episodes last 2hours. Pain becomes so severe that patient has to get to bed until the pain goes away. Also reports increased belching. No unintentional weight loss. Does not report heartburn, no regurgitation. Normal ECG. No history of NSAIDs use. No alcohol use disorder. No recent EGD. Patient mentions she had a colonoscopy around 6 years ago which was normal. TRAY we ordered a RUQ US and EGD. Patient says she did the RUQ ultrasound however we do not have the report on file. Asked patient to send it. Patient says the pain is relieved with phenergan. Today the patient also reports left flank pain and chills 10 days ago. Patient says she is urinating normally, no LUTS. Patient endorses urinary incontinence that started in January (says she cannot hold it in). In the past year, patient has been having lower back pain that radiates to the legs, underwent imaging for LSS with orthopedics, and was diagnosed with LSS. Prescribed PT, but patient has not been doing it because the pain is very severe. Incidental finding of hepatic and bilateral renal cysts were seen, and she was referred to see a PCP. She has a PCP in [place], however came to [facility] for a second opinion. Allergies: ALLERGIES Allergen Reactions Nsaids (Non-Steroid* GI Upset Kidney failure Active Medications: ergocalciferol 50,000 unit capsule (VITAMIN D2, DRISDOL), Take 1 capsule by mouth one time a week., Disp: 12 capsule, Rfl: 0 DULoxetine (CYMBALTA) 60 mg capsule, Take 1 capsule by mouth every afternoon., Disp: , Rfl: promethazine (PHENERGAN) 25 mg tablet, , Disp: , Rfl: levothyroxine (SYNTHROID) 75 mcg tablet, Take 75 mcg by mouth every morning. Take on an empty stomach., Disp: , Rfl: Past Medical History: PAST MEDICAL HISTORY Diagnosis Date Acute pancreatitis Thrombocytopenia, unspecified (HCC) Social History: Social History Tobacco Use Smoking status: Never Passive exposure: Never Smokeless tobacco: Never Substance Use Topics Alcohol use: No Drug use: Never Vitals: BP: 127/87 Pulse: 93 Physical Exam: Physical Exam Constitutional: Appearance: Normal appearance. She is normal weight. Cardiovascular: Rate and Rhythm: Normal rate and regular rhythm. Pulses: Normal pulses. Heart sounds: Normal heart sounds. Pulmonary: Effort: Pulmonary effort is normal. Breath sounds: Normal breath sounds. Abdominal: General: Abdomen is flat. Bowel sounds are normal. Palpations: Abdomen is soft. Tenderness: There is abdominal tenderness. Skin: General: Skin is warm. Neurological: General: No focal deficit present. Mental Status: She is alert and oriented to person, place, and time. Mental status is at baseline. Psychiatric: Thought Content: Thought content normal. Judgment: Judgment normal. RUQ abdominal tenderness. Left CVA tenderness. Labs: Reviewed the following: Hemoglobin (g/dL) Date Value 04/11/2023 14.5 09/18/2003 12.7 Hematocrit (%) Date Value 04/11/2023 43.8 09/18/2003 37.1 WBC (k/uL) Date Value 04/11/2023 6.36 09/18/2003 5.16 Glucose (mg/dL) Date Value 04/11/2023 93 09/18/2003 74 Potassium (mmol/L) Date Value 04/11/2023 4.6 09/18/2003 4.3 Sodium (mmol/L) Date Value 04/11/2023 140 09/18/2003 138 Chloride (mmol/L) Date Value 04/11/2023 104 09/18/2003 102 CO2 (mmol/L) Date Value 04/11/2023 24 09/18/2003 26 Creatinine (mg/dL) Date Value 04/11/2023 0.90 09/18/2003 0.8 BUN (mg/dL) Date Value 04/11/2023 10 09/18/2003 13 Anion Gap (mmol/L) Date Value 04/11/2023 12 09/18/2003 10 Calcium (mg/dL) Date Value 09/18/2003 9.1 Calcium, Total (mg/dL) Date Value 04/11/2023 9.4 Protein, Total (g/dL) Date Value 04/11/2023 6.8 09/18/2003 6.9 Albumin (g/dL) Date Value 04/11/2023 4.4 09/18/2003 4.4 Bilirubin, Total (mg/dL) Date Value 04/11/2023 0.3 09/18/2003 0.3 Alkaline Phosphatase (U/L) Date Value 04/11/2023 70 09/18/2003 49 AST (U/L) Date Value 04/11/2023 18 09/18/2003 22 ALT (U/L) Date Value 04/11/2023 13 09/18/2003 13 Lipase 46 Amylase 74 ESR 11 Vitamin D was low (20), prescribed vitamin D supplementation Imaging: Patient says she (more content not included)...[facility] [place] 05-19-2023 Nurse Note* Adri Burdick, JACINTO - 05/19/2023 11:15 AM EST Patient transported from G10 to Emergency Department (E12/ED Lobby) at 11:15 am by Transport via Wheelchair. Handoff communication given to ED at am.by Dr. Appiah/Dr. Talley. Nursing scorecard completed Adri Burdick, RN * Conchita Glass Ma - 05/19/2023 9:40 AM EST Limited rooming intake due to patient late arrival. Conchita Glass Ma documented in this encounterMer[facility]11-17-[facility]23 Instructions* Patient Instructions* Niko Talley MD - 05/19/2023 10:24 AM EST documented in this encounterMercy [facility]11-17-2023 History of Present illness Narrative* Mary Appiah DO - 05/19/2023 9:43 AM EST Images from the original note were not included. Internal Medicine Outpatient Visit May 19, 2023 Preceptor: Dr. Appiah HPI: 67 year old female patient here today for nausea and epigastric pain PMH: - Fibromyalgia - Pancreatitis - LSS - TTP in 2002 requiring plasmapheresis - Prurigo nodularis Since January patient has been having severe episodes of epigastric abdominal pain, cramping in nature, 8/10, without any radiation, unrelated to eating, accompanied by nausea and loss of appetite (without vomiting, diarrhea or constipation). She says when she gets them she start sweating and having increased salivation. Episodes last 2hours. Pain becomes so severe that patient has to get to bed until the pain goes away. Also reports increased belching. No unintentional weight loss. Does not report heartburn, no regurgitation. Normal ECG. No history of NSAIDs use. No alcohol use disorder. No recent EGD. Patient mentions she had a colonoscopy around 6 years ago which was normal. TRAY we ordered a RUQ US and EGD. Patient says she did theRUQ ultrasound however we do not have the report on file. Asked patient to send it. Patient says the pain is relieved with phenergan. Today the patient also reports left flank pain and chills 10 days ago. Patient says she is urinating normally, no LUTS. Patient endorses urinary incontinence that started in January (says she cannot hold it in). In the past year, patient has been having lower back pain that radiates to the legs, underwent imaging for LSS with orthopedics, and was diagnosed with LSS. Prescribed PT, but patient has not been doing it because the pain is very severe. Incidental finding of hepatic and bilateral renal cysts were seen, and she was referred to see a PCP. She has a PCP in [place], however came to [facility] for a second opinion. Allergies: ALLERGIES Allergen Reactions Nsaids (Non-Steroid* GI Upset Kidney failure Active Medications: ergocalciferol 50,000 unit capsule (VITAMIN D2, DRISDOL), Take 1 capsule by mouth one time a week.,Disp: 12 capsule, Rfl: 0 DULoxetine (CYMBALTA) 60 mg capsule, Take 1 capsule by mouth every afternoon., Disp: , Rfl: promethazine (PHENERGAN) 25 mg tablet, , Disp: , Rfl: levothyroxine (SYNTHROID) 75 mcg tablet, Take 75 mcg by mouth every morning. Take on an empty stomach., Disp: , Rfl: Past Medical History: PAST MEDICAL HISTORY Diagnosis Date Acute pancreatitis Thrombocytopenia, unspecified (HCC) Social History: Social History Tobacco Use Smoking status: Never Passive exposure: Never Smokeless tobacco: Never Substance Use Topics Alcohol use: No Drug use: Never Vitals: BP: 127/87 Pulse: 93 Physical Exam: Physical Exam Constitutional: Appearance: Normal appearance. She is normal weight. Cardiovascular: Rate and Rhythm: Normal rate and regular rhythm. Pulses: Normal pulses. Heart sounds: Normal heart sounds. Pulmonary: Effort: Pulmonary effort is normal. Breath sounds: Normal breath sounds. Abdominal: General: Abdomen is flat. Bowel sounds are normal. Palpations: Abdomen is soft. Tenderness: There is abdominal tenderness. Skin: General: Skin is warm. Neurological: General: No focal deficit present. Mental Status: She is alert and oriented to person, place, and time. Mental status is at baseline. Psychiatric: Thought Content: Thought content normal. Judgment: Judgment normal. RUQ abdominal tenderness. Left CVA tenderness. Labs: Reviewed the following: Hemoglobin (g/dL) Date Value 04/11/2023 14.5 09/18/2003 12.7 Hematocrit (%) Date Value 04/11/2023 43.8 09/18/2003 37.1 WBC (k/uL) Date Value 04/11/2023 6.36 09/18/2003 5.16 Glucose (mg/dL) Date Value 04/11/2023 93 09/18/2003 74 Potassium (mmol/L) Date Value 04/11/2023 4.6 09/18/2003 4.3 Sodium (mmol/L) Date Value 04/11/2023 140 09/18/2003 138 Chloride (mmol/L) Date Value 04/11/2023 104 09/18/2003 102 CO2 (mmol/L) Date Value 04/11/2023 24 09/18/2003 26 Creatinine (mg/dL) Date Value 04/11/2023 0.90 09/18/2003 0.8 BUN (mg/dL) Date Value 04/11/2023 10 09/18/2003 13 Anion Gap (mmol/L) Date Value 04/11/2023 12 09/18/2003 10 Calcium (mg/dL) Date Value 09/18/2003 9.1 Calcium, Total (mg/dL) Date Value 04/11/2023 9.4 Protein, Total (g/dL) Date Value 04/11/2023 6.8 09/18/2003 6.9 Albumin (g/dL) Date Value 04/11/2023 4.4 09/18/2003 4.4 Bilirubin, Total (mg/dL) Date Value 04/11/2023 0.3 09/18/2003 0.3 Alkaline Phosphatase (U/L) Date Value 04/11/2023 70 09/18/2003 49 AST (U/L) Date Value 04/11/2023 18 09/18/2003 22 ALT (U/L) Date Value 04/11/2023 13 09/18/2003 13 Lipase 46 Amylase 74 ESR 11 Vitamin D was low (20), prescribed vitamin D supplementation Imaging: Patient says she did the RUQ ultrasound however we do not have the report on file. Asked patient tosend it. Assessment/Plan: 67 year old female patient here today with plan as follows: 1. Acute left flank pain A kidney stone or infection should be ruled out given new acute pain in the left flank region with chills for the past 10 days. - URINALYSIS WITH MICROSCOPIC, REFLEX CULTURE - CT AP without IV 2. Epigastric pain - Asked patient to release RUQ US results - Asked patient to the EGD that we ordered during TRAY - Asked patient to the H. Pylori stool test that we ordered during TRAY 3. Lumbar stenosis Patient has severe intractable pain, with urinary incontinence. Given patient's intractable back pain, urinary incontinence with history of lumbar spine stenosis, and the need to further investigate epigastric pain and new left flank pain, the decision was made to admit patient to ED for further investigations and management. ASSESSMENT/PLAN: 1. Acute left flank pain - ICD9: 789.09, 338.19, ICD10: R10.9 (primary diagnosis) - URINALYSIS WITH MICROSCOPIC, REFLEX CULTURE - CT ABD/PEL WO IVCON 2. Intractable back pain - ICD9: 724.5, ICD10: M54.9 3. Urinary incontinence, mixed - ICD9: 788.33, ICD10: N39.46 4. Spinal stenosis of lumbar region without neurogenic claudication - ICD9: 724.02, ICD10: M48.061 On my evaluation patient has significant back pain with left CVA tenderness, midline point tenderness at L4-L5 with significant pain. Reflexes 2+, no babinski reflex. Abdomen shows tenderness in the RUQ and epigastric area with some voluntary guarding. Patient is notably tachycardic and tachypnic, likely secondary to pain. She has endorsed new urinary incontinence. Ddx includes kidney stone, worsening mass effect or bleeding from known renal/cysts, worsening lumbar stenosis. Patient lives aloneand is doubled over in pain. Given severity of symptoms, as well as new incontinence, she should betransferred to the ED for CT abdomen and pelvis with consideration of MRI to r/o worsening stenosis. Would also consider UA to r/o pyelonephritis and microscopic RBC's, as well as routine labs. At this time, I do not feel like she would be able to take care of herself safely. Follow Up Plan: Discussed with patient the importance of continuity of care. I encouraged patient to schedule next appointment within Select Time: 5 weeks with Niko Talley MD. Patient prefers to be reached by Select Method: MyChart for results. Other appointments to be scheduled: See patient instructions Niko Talley MD Internal Medicine Resident, PGY-1 [facility] 05/19/2023 9:43 AM Attending Note I fully participated in the history, physical, assessment, and plan of this patient with the resident. We reviewed the history and the medical findings. I agree with the wilson elements of the history, the physical exam, and the assessment/plan. Please see the resident's note for further details. My edits are above in italics. Mary Appiah DO documented in this encounterMer[facility]10-10-2023 NoteHNO ID: [id number] Author: Javon Velásquez MD Service: ? Author Type: Physician Type: Progress Notes Filed: 04/11/2023 10:23 AM Note Text: Internal Medicine Preceptor: Dr. Velásquez CC: Intermittent abdominal pain HPI: 67 year old female patient here today for nausea and epigastric pain PMH: - Fibromyalgia - Pancreatitis - LSS - TTP in 2002 requiring plasmapheresis - Prurigo nodularis Since January patient has had 6 episodes of severe epigastric abdominal pain, cramping in nature, 8/10, without any radiation, unrelated to eating, accompanied by nausea and loss of appetite (without vomiting, diarrhea or vomiting). No unintentional weight loss. Does not report heartburn, no regurgitation. Normal ECG. No history of NSAIDs use. No alcohol use disorder. No recent EGD. Patient mentions she had a colonoscopy around 6 years ago which was normal. Patient says the pain is relieved with phenergan. In the past year, patient has been having lower back pain that radiates to the legs, underwent imaging for LSS with orthopedics, and was diagnosed with LSS. Incidental finding of hepatic and bilateral renal cysts were seen, and she was referred to see a PCP. She has a PCP in [place], however came to [facility] for a second opinion. Review of Systems Constitutional: Positive for chills. HENT: Negative. Eyes: Negative. Respiratory: Negative. Cardiovascular: Negative. Gastrointestinal: Positive for abdominal pain and nausea. Genitourinary: Negative. Skin: Negative. Neurological: Negative. Endo/Heme/Allergies: Negative. Psychiatric/Behavioral: Negative. Health maintenance: Mammogram Screening Never done Colorectal Cancer Screening Never done Diabetes Screening due on 09/17/2006 Lipid Screening due on 09/17/2008 Bone Density Screening Never done Advance Directive Discussion Never done Depression Assessment Never done Allergies: ALLERGIES Allergen Reactions - Nsaids (Non-Steroid* GI Upset Kidney failure Active Medications: DULoxetine (CYMBALTA) 60 mg capsule, Take 1 capsule by mouth every afternoon., Disp: , Rfl: promethazine (PHENERGAN) 25 mg tablet, , Disp: , Rfl: levothyroxine (SYNTHROID) 75 mcg tablet, Take 75 mcg by mouth every morning. Take on an empty stomach., Disp: , Rfl: Past Medical History: PAST MEDICAL HISTORY Diagnosis Date - Acute pancreatitis - Thrombocytopenia, unspecified (HCC) Past Surgical History: No past surgical history on file. Family History: Family History Problem Relation Age of Onset - Hypertension Father Social History: Social History Tobacco Use - Smoking status: Never Passive exposure: Never - Smokeless tobacco: Never Substance Use Topics - Alcohol use: No - Drug use: Never Vitals: Last 3 Encounter BP Readings: Date: BP: 04/11/2023 125/87[ashley bp[ 02/16/2023 129/90 07/05/2004 96/52 Physical Exam Constitutional: Appearance: Normal appearance. She is normal weight. Cardiovascular: Rate and Rhythm: Normal rate and regular rhythm. Pulses: Normal pulses. Heart sounds: Normal heart sounds. Pulmonary: Effort: Pulmonary effort is normal. Breath sounds: Normal breath sounds. Abdominal: General: Abdomen is flat. Bowel sounds are normal. Tenderness: There is abdominal tenderness. Musculoskeletal: General: Tenderness present. Skin: General: Skin is warm. Neurological: General: No focal deficit present. Mental Status: She is alert and oriented to person, place, and time. Mental status is at baseline. Psychiatric: Mood and Affect: Mood normal. Behavior: Behavior normal. Thought Content: Thought content normal. Judgment: Judgment normal. Fernandez sign negative. Imaging Reviewed the following: Lumbar MRI-01/24/2023 1. Moderate left neuroforaminal narrowing at L2-3 and L3-4. 2. Mild spinal canal narrowing at L3-4 and L4-5. 3. No abnormality of the visualized sacroiliac joints. 4. Incidental hepatic and bilateral renal cysts. Assessment/Plan: Ms. Dian Hill is a 67 year old coming in with intermittent abdominal pain. Differential diagnosis includes gastric ulcer, gallbladder stones, pancreatic disease. #Epigastric pain and Nausea Plan: - ECG COMPLETE - CBC - COMP METABOLIC PANEL - LIPASE BLD - AMYLASE BLD - EGD DIAGNOSTIC - H PYLORI AG BY EIA,STOOL - US ABD RIGHT UPPER QUADRANT #Fatigue Plan: - CBC - COMP METABOLIC PANEL - VITAMIN D 25 HYDROXY - TSH BLD Is there an advance care directive on file? Y/N: No Follow Up Plan: Discussed with patient the importance of continuity of care. I encouraged patient to schedule next appointment within Select Time: 5 weeks with Niko Talley MD. Patient prefers to be reached by Select Method: MyChart for results. Other appointments to be scheduled: See patient instructions Niko Talley MD Internal Medicine Resident, PGY-1 [facility] 04/11/2023 8:04 AM Chart reviewed, (more content not included)...[facility] [place] 04-11-2023 Instructions* Patient Instructions* Niko Talley MD - 04/11/2023 9:20 AM EDT - We ordered blood work, a liver ultrasound, stool studies and an EGD (upper endoscopy) - Please schedule a follow-up appointment with me in 5 weeks documented in this encounterMer[facility]10-10-2023 History of Present illness Narrative* Javon Velásquez MD - 04/11/2023 8:03 AM EDT Images from the original note were not included. Internal Medicine Preceptor: Dr. Velásquez CC: Intermittent abdominal pain HPI: 67 year old female patient here today for nausea and epigastric pain PMH: - Fibromyalgia - Pancreatitis - LSS - TTP in 2002 requiring plasmapheresis - Prurigo nodularis Since January patient has had 6 episodes of severe epigastric abdominal pain, cramping in nature, 8/10, without any radiation, unrelated to eating, accompanied by nausea and loss of appetite (without vomiting, diarrhea or vomiting). No unintentional weight loss. Does not report heartburn, no regurgit ation. Normal ECG. No history of NSAIDs use. No alcohol use disorder. No recent EGD. Patient mentions she had a colonoscopy around 6 years ago which was normal. Patient says the pain is relieved with phenergan. In the past year, patient has been having lower back pain that radiates to the legs, underwent imaging for LSS with orthopedics, and was diagnosed with LSS. Incidental finding of hepatic and bilateral renal cysts were seen, and she was referred to see a PCP. She has a PCP in [place], however came to [facility] for a second opinion. Review of Systems Constitutional: Positive for chills. HENT: Negative. Eyes: Negative. Respiratory: Negative. Cardiovascular: Negative. Gastrointestinal: Positive for abdominal pain and nausea. Genitourinary: Negative. Skin: Negative. Neurological: Negative. Endo/Heme/Allergies: Negative. Psychiatric/Behavioral: Negative. Health maintenance: Mammogram Screening Never done Colorectal Cancer Screening Never done Diabetes Screening due on 09/17/2006 Lipid Screening due on 09/17/2008 Bone Density Screening Never done Advance Directive Discussion Never done Depression Assessment Never done Allergies: ALLERGIES Allergen Reactions Nsaids (Non-Steroid* GI Upset Kidney failure Active Medications: DULoxetine (CYMBALTA) 60 mg capsule, Take 1 capsule by mouth every afternoon., Disp: , Rfl: promethazine (PHENERGAN) 25 mg tablet, , Disp: , Rfl: levothyroxine (SYNTHROID) 75 mcg tablet, Take 75 mcg by mouth every morning. Take on an empty stomach., Disp: , Rfl: Past Medical History: PAST MEDICAL HISTORY Diagnosis Date Acute pancreatitis Thrombocytopenia, unspecified (HCC) Past Surgical History: No past surgical history on file. Family History: Family History Problem Relation Age of Onset Hypertension Father Social History: Social History Tobacco Use Smoking status: Never Passive exposure: Never Smokeless tobacco: Never Substance Use Topics Alcohol use: No Drug use: Never Vitals: Last 3 Encounter BP Readings: Date: BP: 04/11/2023 125/87[ashley bp[ 02/16/2023 129/90 07/05/2004 96/52 Physical Exam Constitutional: Appearance: Normal appearance. She is normal weight. Cardiovascular: Rate and Rhythm: Normal rate and regular rhythm. Pulses: Normal pulses. Heart sounds: Normal heart sounds. Pulmonary: Effort: Pulmonary effort is normal. Breath sounds: Normal breath sounds. Abdominal: General: Abdomen is flat. Bowel sounds are normal. Tenderness: There is abdominal tenderness. Musculoskeletal: General: Tenderness present. Skin: General: Skin is warm. Neurological: General: No focal deficit present. Mental Status: She is alert and oriented to person, place, and time. Mental status is at baseline. Psychiatric: Mood and Affect: Mood normal. Behavior: Behavior normal. Thought Content: Thought content normal. Judgment: Judgment normal. Fernandez sign negative. Imaging Reviewed the following: Lumbar MRI-01/24/2023 1. Moderate left neuroforaminal narrowing at L2-3 and L3-4. 2. Mild spinal canal narrowing at L3-4 and L4-5. 3. No abnormality of the visualized sacroiliac joints. 4. Incidental hepatic and bilateral renal cysts. Assessment/Plan: Ms. Dian Hill is a 67 year old coming in with intermittent abdominal pain. Differential diagnosis includes gastric ulcer, gallbladder stones, pancreatic disease. #Epigastric pain and Nausea Plan: - ECG COMPLETE - CBC - COMP METABOLIC PANEL - LIPASE BLD - AMYLASE BLD - EGD DIAGNOSTIC - H PYLORI AG BY EIA,STOOL - US ABD RIGHT UPPER QUADRANT #Fatigue Plan: - CBC - COMP METABOLIC PANEL - VITAMIN D 25 HYDROXY - TSH BLD Is there an advance care directive on file? Y/N: No Follow Up Plan: Discussed with patient the importance of continuity of care. I encouraged patient to schedule next appointment within Select Time: 5 weeks with Niko Talley MD. Patient prefers to be reached by Select Method: MyChart for results. Other appointments to be scheduled: See patient instructions Niko Talley MD Internal Medicine Resident, PGY-1 [facility] 04/11/2023 8:04 AM Chart reviewed, patient examined, and wilson elements of history and physical examination of the patient confirmed. I reviewed the resident's note, examined the patient and agree with the documented findings and plan of care. Javon Velásquez MD Medical Decision Making: Problems: Moderate: New problem with uncertain prognosis Data: Unique source(s) for external note(s) reviewed: 1 Unique test result(s) reviewed: 1 Unique test(s) ordered: 3+ Medical Decision Making Level: 4 - Moderate documented in this encounterMercy Health [facility]09-29-2023 Miscellaneous Notes* Telephone Encounter - Lindsey Ruth RN - 03/31/2023 11:42 AM EDT Spoke to [facility] [place] and that is the soonest they have as of now * Telephone Encounter - Florinda Glover MD - 03/31/2023 8:12 AM EDT May want to consider sooner GI consult if possible. Florinda Glover MD * Telephone Encounter - Lindsey Ruth RN - 03/30/2023 4:14 PM EDT Spoke to patient states it took everything to get herself to that PT appointment. She had the assessment. She can only do one thing per day (ie like taking a shower) so the therapist thought it wouldbe to hard for her to keep continuing to come. She gave her HEP. She was in bed when I called. Having problems with her stomach and nausea. Had to take Phenergan. This the 4 th episode this month. She just does not have the energy, having the pain in abdomen and was sweating. She is seeing [facility] on 04/11 (new consult) and GI 08/2023. * Telephone Encounter - Sujata Moralez - 03/29/2023 1:04 PM EDT Received the following record(s) via fax. -PT Notes Date 03/29/23 Record(s) scanned into pt's chart. Sujata Moralez documented in this encounterMercy Health [facility] Center09-15-2023 Miscellaneous Notes* Telephone Encounter - Lindsey Ruth RN - 03/17/2023 4:25 PM EDT Faxed to [facility] . * Telephone Encounter - Teresa Daniel - 03/17/2023 1:26 PM EDT Send PT and Xray orders to [facility] fax no [phone]. done * Telephone Encounter - Lindsey Ruth RN - 03/16/2023 3:44 PM EDT Notified patient of results and MD's instructions. She verbalized understanding. Patient is going to call me back (phone was dying). Will call back with locations/fax number where I can send information too. * Telephone Encounter - Florinda Glover MD - 03/16/2023 1:53 PM EDT Reviewed lumbar MRI-multilevel degenerative (wear and tear) changes with multilevel stenosis-likelycontributing to the low back and R LE pain. Does have alignment changes-recommend lumbar flexion/extension [id number] placed-not completed prior-can get locally and mail images for review. PT trial spine specific ordered as tolerated. Recommend F/U 8-10 weeks after PT, sooner with worsening or changes. Florinda Glover MD * Telephone Encounter - Lindsey Ruth RN - 03/16/2023 9:53 AM EDT Imaging in Epic. Per note on 02/16. Advised to forward images for review. * Telephone Encounter - Lindsey Ruth RN - 03/15/2023 8:54 AM EDT In looking in Epic no images yet. * Telephone Encounter - Sujata Moralez - 03/13/2023 11:17 AM EDT Patient is calling In stating patient uploaded images through the link . [phone] documented in this encounterMercy Health [facility] Center08-17-2023 NoteHNO ID: [id number] Author: Florinda Glover MD Service: ? Author Type: Physician Type: Progress Notes Filed: 02/16/2023 9:22 AM Note Text: [facility] Low Back Pain - Chronic (> 12 weeks) Initial Exam SUBJECTIVE HISTORY OF PRESENT ILLNESS: Dian Hill is a 67 year old female who presents with a chief complaint of low back and leg pain and is seen at her request. Locally felt was getting passed around Decided to schedule here. Future son in law present. H/o fibromyalgia, pancreatitis. Notes a year ago noted a lump of the R thigh. Had work-up saw ortho and as part of the work-up underwent a lumbar MRI and told has LSS. Pain across the low back that is more constant than not, better with lying down, standing>walking. Notes cannot walk as much due to generalized body fatigue-not as much due to LE pain/heaviness. Not much LE pain-may be some of the R lateral thigh-denies into the groin and denies below the knees. Some R LE tinging-lateral and into the scales. Most bothered by the fatigue of body. Also has nausea. Notes this is chronic for the last year. PAIN EVALUATION 02/16/2023 0836 Pain Level: 4 Pain Location: Back-Lower Description: Dull;Aching Duration Amount of Time: 1 Duration Units: Years Frequency: Continuous Intervention/Comfort measure: Medication Injection Prior Therapy: Told has stenosis and referred to pain management. Denies PT and injections. Off of vicodin Cymbalta for fibromyalgia There is no problem list on file for this patient. PAST MEDICAL HISTORY Diagnosis Date Acute pancreatitis Thrombocytopenia, unspecified (HCC) No past surgical history on file. Social History Tobacco Use Smoking status: Never Passive exposure: Never Smokeless tobacco: Never Substance Use Topics Alcohol use: No Drug use: Never FAMILY HISTORY Problem Relation Age of Onset Hypertension Father ALLERGIES Allergen Reactions Nsaids (Non-Steroid* GI Upset Kidney failure CURRENT MEDICATIONS: DULoxetine (CYMBALTA) 60 mg capsule Take 1 capsule by mouth every afternoon. promethazine (PHENERGAN) 25 mg tablet levothyroxine (SYNTHROID) 75 mcg tablet Take 75 mcg by mouth every morning. Take on an empty stomach. PERCOCET 5/325 MG TABLET Take one(1) tablet four(4) times daily as needed for pain. VICODIN ES TABLET as necessary ZOLOFT 100MG TABLET Take one(1) tablet daily. SYNTHROID 100MCG TABLET Take one(1) tablet daily. REVIEW OF SYSTEMS: See above Fatigue and nausea Body sweats Denies unintentional weight loss, (notes weight gain). Denies fevers, cancer, and bowel/bladder incontinence. A month ago had loss of bladder twice and non since. OBJECTIVE: PHYSICAL EXAM BP 129/90 Pulse 81 Resp 16 Ht 167.6 cm (5' 6 ) Wt 75.9 kg (167 lb 4.8 oz) SpO2 98% BMI 27.00 kg/m? General: Pleasant individual in NAD Mental Status: Oriented to person place and time. Displays appropriate mood and affect. GAIT: Gait is forward and slow Gross Motor: Toe walking, heel walking not attempted given gait. Strength Testing: Bilateral upper and lower extremity strength appears normal and symmetric there is some giveway. Neuro: Bilateral upper and lower extremity coordination and muscle stretch reflexes are physiologic and symmetric. Plantar response are downgoing. Negative johnson's Spine Range of Motion:improved with flexion, limited extension Peripheral Joint ROM: hip ROM w/o pain and intact bilaterally Provocative Maneuvers: hip, sacroiliac provocative maneuvers are negative. Straight Leg Raising: Straight leg raising in the sitting and supine positions is negative to radicular pain. Palpation: Inspection and palpatory examination of the spine upper/lower extremities is unremarkable. Peripheral Vascular: No obvious extremity swelling in all 4 extremities. Appearance of Skin: Skin inspection of the trunk, bilateral upper and lower extremities is unremarkable. Data Review: Lumbar MRI-01/24/2023 1. Moderate left neuroforaminal narrowing at L2-3 and L3-4. 2. Mild spinal canal narrowing at L3-4 and L4-5. 3. No abnormality of the visualized sacroiliac joints. 4. Incidental hepatic and bilateral renal cysts. ASSESSMENT/PLAN LSS-may be contributing to the low back and R LE symptoms. Management options were reviewed. Education provided. Advised to forward images for review. Pending review consider PT trial spine specific. Also on cymbalta. Would like to avoid injections at this time. Multiple other complaints noted unrelated to the lumbar spine-recommend GI and primary care consults to best address. Also f/u with PCP recommended re incidentals noted on the lumbar MRI. Florinda Glover MD The above plan and management options were discussed at length with patient. Patient is in agreement with the above and verbalized understanding. Patient instructed to call/seek urgent medical care with worsening of sympt (more content not included)...[facility]08-17-2023 Instructions* Patient Instructions* Florinda Glover MD - 02/16/2023 9:11 AM EDT Images from the original note were not included. Chronic Lumbar Radiculopathy (Leg Pain) Overview: Symptoms of a pinched nerve in the leg (lumbar radiculopathy) include numbness, tingling and evenweakness. Leg pain is usually worse than back pain. The cause of nerve impingement may include a protruding (herniated) disc, bony or joint overgrowth or both. Lumbar spinal stenosis is a condition which results from narrowing of the spinal canal which contains the lower spinal nerves. This condition typically produces leg symptoms when standing or walking which are relieved by sitting. The prognosis for a full recovery with conservative (non-surgical) treatment is good in most persons. X-rays or scans (MRI or CT) are not required in most patients before starting treatment but may be performed if symptoms aren't improving after about 6 weeks despite medical treatment. Treatment: Pain-relieving anti-inflammatory medications such as ibuprofen or naproxen are recommended. Acetaminophen (Tylenol) is recommended if you cannot take anti- inflammatory medications. Medications effective for nerve pain such as gabapentin (Neurontin), pregabalin (Lyrica) or some antidepressants may be helpful for leg pain. A short course of oral steroids (prednisone or Medrol) may help alleviate severe, acute inflammation. For persistent pain despite oral medications and physical therapy, an epidural corticosteroid injection ( block ) may be recommended if an MRI or CT scan confirms nerve impingement ( pinched nerve ). Remaining as active as possible and resuming normal activities are recommended to speed recovery. Physical therapy is recommended for development of an active exercise program. If weakness is developing in the affected leg or if pain is severe despite medical treatment, a surgical consultation may be recommended if an MRI or CT scan confirms nerve impingement. Follow Up See your health care provider if: The pain doesn't improve or worsens You notice increasing weakness in the leg(s) You experience problems with balance or walking You notice difficulty passing urine or controlling your bowels These are warning signs or red flags that require prompt, urgent medical attention. Once you have the disc, you can upload it to this website: [email or web address] Follow directions to upload. For more detailed step by step instructions go to: [email or web address]/[email or web address] f Please contact office 3-5 days after uploading to ensure receipt and for image findings SIGNATURE: Florinda Glover MD PATIENT NAME: Dian Hill DATE: February 16, 2023 TIME: 9:10 AM [facility] History of Present illness Narrative* Florinda Glover MD - 02/16/2023 8:43 AM EDT Images from the original note were not included. [facility] Low Back Pain - Chronic (> 12 weeks) Initial Exam SUBJECTIVE HISTORY OF PRESENT ILLNESS: Dian Hill is a 67 year old female who presents with a chief complaint of low back and leg pain and is seen at her request. Locally felt was getting passed around Decided to schedule here. Future son in law present. H/o fibromyalgia, pancreatitis. Notes a year ago noted a lump of the R thigh. Had work-up saw ortho and as part of the work-up underwent a lumbar MRI and told has LSS. Pain across the low back that is more constant than not, better with lying down, standing>walking. Notes cannot walk as much due to generalized body fatigue-not as much due to LE pain/heaviness. Not much LE pain-may be some of the R lateral thigh-denies into the groin and denies below the knees.Some R LE tinging- lateral and into the scales. Most bothered by the fatigue of body. Also has nausea. Notes this is chronic for the last year. PAIN EVALUATION 02/16/2023 0836 Pain Level: 4 Pain Location: Back-Lower Description: Dull;Aching Duration Amount of Time: 1 Duration Units: Years Frequency: Continuous Intervention/Comfort measure: Medication Injection Prior Therapy: Told has stenosis and referred to pain management. Denies PT and injections. Off of vicodin Cymbalta for fibromyalgia There is no problem list on file for this patient. PAST MEDICAL HISTORY Diagnosis Date Acute pancreatitis Thrombocytopenia, unspecified (HCC) No past surgical history on file. Social History Tobacco Use Smoking status: Never Passive exposure: Never Smokeless tobacco: Never Substance Use Topics Alcohol use: No Drug use: Never FAMILY HISTORY Problem Relation Age of Onset Hypertension Father ALLERGIES Allergen Reactions Nsaids (Non-Steroid* GI Upset Kidney failure CURRENT MEDICATIONS: DULoxetine (CYMBALTA) 60 mg capsule Take 1 capsule by mouth every afternoon. promethazine (PHENERGAN) 25 mg tablet levothyroxine (SYNTHROID) 75 mcg tablet Take 75 mcg by mouth every morning. Take on an empty stomach. PERCOCET 5/325 MG TABLET Take one(1) tablet four(4) times daily as needed for pain. VICODIN ES TABLET as necessary ZOLOFT 100MG TABLET Take one(1) tablet daily. SYNTHROID 100MCG TABLET Take one(1) tablet daily. REVIEW OF SYSTEMS: See above Fatigue and nausea Body sweats Denies unintentional weight loss, (notes weight gain). Denies fevers, cancer, and bowel/bladder incontinence. A month ago had loss of bladder twice and non since. OBJECTIVE: PHYSICAL EXAM BP 129/90 Pulse 81 Resp 16 Ht 167.6 cm (5' 6 ) Wt 75.9 kg (167 lb 4.8 oz) SpO2 98% BMI 27.00 kg/m General: Pleasant individual in NAD Mental Status: Oriented to person place and time. Displays appropriate mood and affect. GAIT: Gait is forward and slow Gross Motor: Toe walking, heel walking not attempted given gait. Strength Testing: Bilateral upper and lower extremity strength appears normal and symmetric there is some giveway. Neuro: Bilateral upper and lower extremity coordination and muscle stretch reflexes are physiologicand symmetric. Plantar response are downgoing. Negative johnson's Spine Range of Motion:improved with flexion, limited extension Peripheral Joint ROM: hip ROM w/o pain and intact bilaterally Provocative Maneuvers: hip, sacroiliac provocative maneuvers are negative. Straight Leg Raising: Straight leg raising in the sitting and supine positions is negative to radicular pain. Palpation: Inspection and palpatory examination of the spine upper/lower extremities is unremarkable. Peripheral Vascular: No obvious extremity swelling in all 4 extremities. Appearance of Skin: Skin inspection of the trunk, bilateral upper and lower extremities is unremarkable. Data Review: Lumbar MRI-01/24/2023 1. Moderate left neuroforaminal narrowing at L2-3 and L3-4. 2. Mild spinal canal narrowing at L3-4 and L4-5. 3. No abnormality of the visualized sacroiliac joints. 4. Incidental hepatic and bilateral renal cysts. ASSESSMENT/PLAN LSS-may be contributing to the low back and R LE symptoms. Management options were reviewed. Education provided. Advised to forward images for review. Pending review consider PT trial spine specific.Also on cymbalta. Would like to avoid injections at this time. Multiple other complaints noted unrelated to the lumbar spine-recommend GI and primary care consults to best address. Also f/u with PCP recommended re incidentals noted on the lumbar MRI. Florinda Glover MD The above plan and management options were discussed at length with patient. Patient is in agreement with the above and verbalized understanding. Patient instructed to call/seek urgent medical care with worsening of symptoms or change of neurological status. Patient provided with office contact. SIGNATURE: Florinda Glover MD PATIENT NAME: Dian Hill DATE: February 16, 2023 TIME: 8:43 AM [facility] in [facility] Miscellaneous Notes* Telephone Encounter - Sujata Moralez - 02/15/2023 11:26 AM EDT Received the following record(s) via fxa. -REFERRAL Date Record(s) scanned into pt's chart. Sujata [place] documented in [facility] encounter[facility] Evaluation note* Encounter Date Diagnosis Assessment Notes Treatment Notes Treatment Clinical Notes Dec, Nausea and vomiting, unspecified vomiting type (ICD-10 - R11.2) [employer] Other 04-27-2023 Evaluation note* Encounter Date Diagnosis Assessment Notes Treatment Notes Treatment Clinical Notes Oct, Lateral pain of right hip (ICD-10 - M25.551) steroid burst - referral to ortho for hip and knees. Oct, Nausea and vomiting, unspecified vomiting type (ICD-10 - R11.2) requests refill of zofran. Oct, Other chronic pain (ICD-10 - G89.29) Oct, Pain in right knee (ICD-10 - M25.561) ortho referral Oct, Pain in left knee (ICD-10 - M25.562) ortho referral Oct, Sweating increase (ICD-10 - R61) check labs. Oct, Chronic fatigue (ICD-10 - R53.82) eval labs as listed above. [employer] Other 01-03-2023 Evaluation note* Encounter Date Diagnosis Assessment Notes Treatment Notes Treatment Clinical Notes Jul, Hypothyroidism (ICD-10 - E03.9) reassess labs as it could be related to her sweating Jul, HTN (hypertension) (ICD-10 - I10) bp was low today Jul, H/O Graves' disease (ICD-10 - Z86.39) Jul, Fibromyalgia (ICD-10 - M79.7) Reviewed note from January with Dr Zhao - [place] He suggested many of her symptoms related to her fibromyalgia, but also recommends renal labs and an endocrinology w/u for the sweating. 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 [employer] Other Evaluation noteNo assessment information available [facility] Work Phone: Evaluation noteNo InformationNortPottstown Hospital [employer] Other Evaluation note* Diagnosis Lumbosacral stenosis- Primary Spinal stenosis, lumbar region, without neurogenic claudication Nausea Nausea alone Other fatigue [facility]* Diagnosis Spinal stenosis, lumbar region with neurogenic claudication- Primary [facility]* Diagnosis Epigastric pain- Primary Abdominal pain, epigastric Nausea Nausea alone Other fatigue [facility]* Diagnosis Vitamin D deficiency- Primary Unspecified vitamin D deficiency [facility] Diagnosis Acute left flank pain- Primary Abdominal pain, unspecified site Intractable back pain Backache, unspecified Urinary incontinence, mixed Mixed incontinence urge and stress (male)(female) Spinal stenosis of lumbar region without neurogenic claudication Spinal stenosis, lumbar region, without neurogenic claudication [facility] Diagnosis Encounter for screening mammogram for breast cancer [facility]* Diagnosis Abnormal finding of diagnostic imaging- Primary Other nonspecific (abnormal) findings on radiological and other examinations of body structure [facility]* Diagnosis Lumbosacral stenosis- Primary Spinal stenosis, lumbar region, without neurogenic claudication DDD (degenerative disc disease), thoracic Degeneration of thoracic or thoracolumbar intervertebral disc [facility]* Diagnosis Pancreatic cyst- Primary Cyst and pseudocyst of pancreas [facility]* Diagnosis DDD (degenerative disc disease), thoracic Degeneration of thoracic or thoracolumbar intervertebral disc documented [facility] this [facility]* Diagnosis NORTH (dyspnea on exertion)- Primary Other dyspnea and respiratory abnormality Lumbosacral stenosis Spinal stenosis, lumbar region, without neurogenic claudication Vasculitis, [employer] (HCC) Arteritis, unspecified [facility]* Diagnosis Lumbosacral stenosis- Primary Spinal stenosis, lumbar region, without neurogenic claudication NORTH (dyspnea on exertion) Other dyspnea and respiratory abnormality documented in this encounter [facility] note* Diagnosis Pancreatic cyst Cyst and pseudocyst of pancreas Vasculitis, [employer] INTER[employer] (HCC) Arteritis, unspecified documented in this encounter [facility]* Diagnosis Abnormal findings on imaging test- Primary Other nonspecific (abnormal) findings on radiological and other examinations of body structure Nausea Nausea alone Pancreas cyst Cyst and pseudocyst of pancreas documented in this encounter [facility] note* Diagnosis Pain in right hip- Primary Pain in joint, pelvic region and thigh Myalgia Mylagia and myositis, unspecified Mild cognitive impairment Mild cognitive impairment, so stated documented in this encounter [facility] Narrative - Reported* Type Description Date Medical History Fibromyalgia Medical History Chronic pruritus Medical History Arthritis Medical History Hypothyroidism Medical History HTN (hypertension) Medical History H/O Graves' disease Surgical History carpal tunnel 2008 Surgical History subtotal thyroidectomy 1985 [employer] Other Reason for referral (narrative)* Diagnostic Procedure Only (Routine) - Pending Review Specialty Diagnoses / Procedures Referred By Tamar perez Referred To Contact [facility] Diagnoses Epigastric pain Procedures US ABD RIGHT UPPER QUADRANT US ABDOMINAL REAL TIME W/IMAGE LIMITED Javon Velásquez MD [address] [place] [address] [facility] [place] [address] Referral ID Status Reason Start Date Expiration Date Visits Requested Visits Authorized [id number] Pending Review Auto-Generat ed Referral 3 05/10/2024 1 1 * Outpatient Procedure (Routine) - Pending Review Specialty Diagnoses / Procedures Referred By Tamar perez Referred To Contact [facility] Diagnoses Epigastric pain Procedures EGD DIAGNOSTIC ESOPHAGOGASTRODUODENOSC OPY TRANSORAL DIAGNOSTIC Javon Velásquez MD [address] [place] [address] [facility] [place] [address] [place] [address] Referral ID Status Reason Start Date Expiration Date Visits Requested Visits Authorized [id number] Pending Review Auto-Generat ed Referral 3 04/11/2024 1 1 * Outpatient Procedure (Routine) - Pending Review Specialty Diagnoses / Procedures Referred By Tamar t Referred To Contact [facility] Diagnoses Epigastric pain Procedures ECG COMPLETE ECG ROUTINE ECG W/LEAST 12 LDS W/I&R Javon Velásquez MD [address] [place] [address] [address] Referral ID Status Reason Start Date Expiration Date Visits Requested Visits Authorized [id number] Pending Review Auto-Generat ed Referral 3 04/10/2024 1 1 [facility] for referral (narrative)* Diagnostic Procedure Only (Routine) - Pending Review Specialty Diagnoses / Procedures Referred By Tamar t Referred To Contact [facility] Diagnoses Encounter for screening mammogram for breast cancer Procedures PRINCESS SCREENING SCREENING MAMMOGRAPHY BI 2-VIEW BREAST INC Mary Rosario DO [address] [place] [id number] [facility] [address] [place] [id number] Referral ID Status Reason Start Date Expiration Date Visits Requested Visits Authorized [id number] Pending Review Auto-Generat ed Referral 3 06/29/2024 1 1 [facility] for referral (narrative)* Diagnostic Procedure Only (Routine) - Pending Review Specialty Diagnoses / Procedures Referred By Contac t Referred To Contact XR IMAGING Diagnoses Pain in right hip Procedures XR HIP GENERAL 3V PELV/AP/LAT RIGHT RADEX HIP UNILATERAL WITH PELVIS 2-3 VIEWS Marisela Claudio APRN.CNP [id number] [place] [address] [place] [address] Referral ID Status Reason Start Date Expiration Date Visits Requested Visits Authorized [id number] Pending Review Auto-Generat ed Referral 11/08/2023 12/07/2024 1 1 * Consult, Test, Treat (Routine) - Authorized Specialty Diagnoses / Procedures Referred By Contac t Referred To Contact Neurology Diagnoses Mild cognitive impairment Procedures CONSULT TO NEUROLOGY OFFICE/OUTPATIENT [facility] 60 MINUTES Marisela Claudio APRN.CNP [id number] [place] [address] Referral ID Status Reason Start Date Expiration Date Visits Requested Visits Authorized [id number] Authorized PCP Requested Referral 11/08/2023 11/07/2024 1 1 [facility] Summary Purpose Family History No Family History Records FoundNo Family History Records FoundNo Family History Records Found Advance Directives No Advanced Directives Records FoundLatest Code Status on File Code Status Date Activated Date Inactivated Comments Full Code 05/19/2023 6:07 PM Question Answer Comments Full Code Order Discussed With: Patient Latest Code Status on File Code Status Date Activated Date Inactivated Comments Full Code 05/19/2023 6:07 PM 05/21/2023 5:30 PM Question Answer Comments Full Code Order Discussed With: Patient Latest Code Status on File Code Status Date Activated Date Inactivated Comments Full Code 05/19/2023 6:07 PM 05/21/2023 5:30 PM Question Answer Comments Full Code Order Discussed With: Patient Date Activated Date Inactivated Comments 05/19/2023 6:07 PM 05/21/2023 5:30 PM Question Answer Comments Full Code Order Discussed With: Patient Date Activated Date Inactivated Comments 05/19/2023 6:07 PM 05/21/2023 5:30 PM Question Answer Comments Full Code Order Discussed With: Patient Reason for Referral Reason 07/11/22 today's o v - thanks Diagnosis 1 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) Referral Organization [facility] Referring Provider First Name Shalini Referring Provider Last Name Beena Referring Provider Specialty [facility] [employer] Referred Organization D[facility] Referred Provider Ghada Hurst Referred Address [address],[place], [place],[address] Referred Provider Specialty Dermatology Referral Priority Routine Referral Appointment Date 2022-07-11 General Notes Geeta Manzanares 10:45:46 AM >received today, notes locked, form and ins card attached, referral faxed Geeta Manzanares 07/14/2022 10:42:12 AM >faxed first attempt letter Geeta Manzanares 07/14/2022 02:59:50 PM >faxed first request for notes Geeta Manzanares 07/15/2022 01:16:59 PM >received notes and sent to Shalini for review. closing referral at this time. Reason [facility] - ? R trochanteric bursitis and B dodd cysts. Diagnosis 1 Lateral pain of righ t hip (M25.551) Referral Organization [facility] [employer] [facility] Referring Provider First Name Shalini Referring Provider Last Name Beena Referring Provider [facility] Referred Organization [facility] Referred Provider Justin Verdugo Referred Address ,[place], [place],[address] Referred Provider Specialty Orthopedic S urgery Referral Priority Routine General Notes Geeta Manzanares 02:00:42 PM >received today, waiting for ntoes to be locked to fax Specialty Diagnoses / Procedures Referred By Tamar perez Referred To Contact Internal Medicine / INTERNAL MEDICINE Diagnoses Nausea Other fatigue Procedures CONSULT TO INTERNAL MEDICINE OFFICE/OUTPATIENT [facility] 60-74 MINUTES Florinda Glover MD [address] [place] [id number] [address] Referral ID Status Reason Start Date Expiration Date V isits Requested Visits Authorized [id number] Closed PCP Requested Referral 02/16/2023 02/16/2024 1 1 Specialty Diagnoses / Procedures Referred By Contac t Referred To Contact Gastroenterology Diagnoses Nausea Other fatigue Procedures CONSULT TO GASTROENTEROLOGY OFFICE/OUTPATIENT COUNTS INCLUDE 234 BEDS AT THE [facility] MDM 60-74 MINUTES Florinda Glover MD [address] [place] [address] Referral ID Status Reason Start Date Expiration Date Visits Requested Visits Authorized [id number] Pending Review PCP Requested Referral 02/16/2023 02/16/2024 1 1 Specialty Diagnoses / Procedures Referred By Contac t Referred To Contact [facility] Diagnoses Spinal stenosis, lumbar region with neurogenic claudication Procedures CONSULT TO PHYSICAL THERAPY PHYSICAL THERAPY EVALUATION [facility] 45 MINS Florinda Glover MD [address] [place] [address] [facility] [place] [address] Referral ID Status Reason Start Date Expiration Date Visits Requested Visits Authorized [id number] Pending Review Auto-Generat ed Referral 03/16/2023 03/15/2024 1 1 Specialty Diagnoses / Procedures Referred By Contac t Referred To Contact XR IMAGING Diagnoses Spinal stenosis, lumbar region with neurogenic claudication Procedures XR LUMBAR LIMITED 2V FLEX/EXT RADEX SPINE LUMBOSACRAL 2/3 VIEWS Florinda Glover MD [address] [place] [id number] Xr Imaging [place] [address] Referral ID Status Reason Start Date Expiration Date Visits Requested Visits Authorized [id number] Pending Review Auto-Generat ed Referral 03/16/2023 04/14/2024 1 1 Specialty Diagnoses / Procedures Referred By Contac t Referred To Contact CT IMAGING Diagnoses Acute left flank pain Procedures CT ABD/PEL WO IVCON CT ABD & PELVIS W/O CONTRAST Mary Appiah DO [address] [place] [address] [facility] Referral ID Status Reason Start Date Expiration Date Visits Requested Visits Authorized [id number] Pending Review Auto-Generat ed Referral 06/17/2024 1 1 Specialty Diagnoses / Procedures Referred By Contac t Referred To Contact Pain Management Diagnoses Lumbosacral stenosis Procedures CONSULT TO PAIN MGT OFFICE/OUTPATIENT [facility] 60 MINUTES Florinda Glover MD [address] [facility] [place] [phone] Referral ID Status Reason Start Date Expiration Date Visits Requested Visits Authorized [id number] Authorized PCP Requested Referral 08/29/2023 08/28/2024 1 1 Specialty Diagnoses / Procedures Referred By Contac t Referred To Contact MR IMAGING Diagnoses Abnormal findings on diagnostic imaging of other parts of musculoskeletal system DDD (degenerative disc disease), thoracic Procedures MRI THORACIC SPINE WO IVCON MRI SPINAL CANAL THORACIC W/O CONTRAST MATRL Florinda Glover MD [address] [facility] [place] [place] [address] Mr Imaging [place] [address] Referral ID Status Reason Start Date Expiration Date Visits Requested Visits Authorized [id number] Authorized Auto-Generat ed Referral 08/29/2023 09/27/2024 1 1 Specialty Diagnoses / Procedures Referred By Contac t Referred To Contact MR IMAGING Diagnoses Pancreatic cyst Procedures MRI 3D POST PROCESSING 3D RENDERING W/INTERP&POSTPROC DIFF WORK STATION Rody Juarez APRN.[employer] [address] [facility] [place] [address] Mr Imaging [place] [address] Referral ID Status Reason Start Date Expiration Date Visits Requested Visits Authorized [id number] Authorized Auto-Generat ed Referral 08/29/2023 09/27/2024 1 1 Specialty Diagnoses / Procedures Referred By Contac t Referred To Contact MR IMAGING Diagnoses Pancreatic cyst Procedures MRI PANC/CHAIM WO/W IVCON MRI ABDOMEN W/O & W/CONTRAST MATERIAL Rody Juarez APRN.CNP [address] [facility] [place] [phone] Mr Imaging [facility] Referral ID Status Reason Start Date Expiration Date Visits Requested Visits Authorized [id number] Authorized Auto-Generat ed Referral 08/29/2023 09/27/2024 1 1 Referral ID Status Reason Start Date Expiration Date V isits Requested Visits Authorized [id number] Closed Auto-Generate d Referral 08/29/2023 09/27/2024 1 1 Specialty Diagnoses / Procedures Referred By Contac t Referred To Contact MR IMAGING Diagnoses Vasculitis, TAX SERVICES INTERN (HCC) Procedures MRI BRAIN WO/W IVCON MRI BRAIN BRAIN STEM W/O W/CONTRAST MATERIAL Kai Nascimento MD [facility] [place] [address] [place] [address] Referral ID Status Reason Start Date Expiration Date Visits Requested Visits Authorized [id number] Authorized Auto-Generat ed Referral 09/14/2023 10/13/2024 1 1 Specialty Diagnoses / Procedures Referred By Contac t Referred To Contact [facility] Diagnoses Lumbosacral stenosis NORTH (dyspnea on exertion) Procedures SIX MINUTE WALK CARDIOPULMONARY EXERCISE STRESS Kai Nascimento MD [address] [place] [address] Respiratory [place] [address] [place] [address] Referral ID Status Reason Start Date Expiration Date Visits Requested Visits Authorized [id number] Authorized Auto-Generat ed Referral 09/14/2023 10/13/2024 1 1 Referral ID Status Reason Start Date Expiration Date V isits Requested Visits Authorized [id number] Closed Auto-Generate d Referral 09/14/2023 10/13/2024 1 1 Referral ID Status Reason Start Date Expiration Date V isits Requested Visits Authorized [id number] Closed Auto-Generate d Referral 08/29/2023 09/27/2024 1 1 Referral ID Status Reason Start Date Expiration Date V isits Requested Visits Authorized [id number] Closed Auto-Generate d Referral 08/29/2023 09/27/2024 1 1 Specialty Diagnoses / Procedures Referred By Contac t Referred To Contact MR IMAGING Diagnoses Abnormal findings on imaging test Pancreas cyst Procedures MRI 3D POST PROCESSING 3D RENDERING W/INTERP&POSTPROC DIFF WORK STATION Daphne Gonsalez PA-C [address] [facility] [address] [facility] [place] [address] [place] [address] Referral ID Status Reason Start Date Expiration Date Visits Requested Visits Authorized [id number] Pending Review Auto-Generat ed Referral 10/12/2023 11/10/2024 1 1 Specialty Diagnoses / Procedures Referred By Contac t Referred To Contact MR IMAGING Diagnoses Abnormal findings on imaging test Pancreas cyst Procedures MRI PANC/CHAIM WO/W IVCON MRI ABDOMEN W/O & W/CONTRAST MATERIAL Dahpne Gonsalez PA-C [address] [place] [address] [place] [address] Referral ID Status Reason Start Date Expiration Date Visits Requested Visits Authorized [id number] Pending Review Auto-Generat ed Referral 10/12/2023 11/10/2024 1 1 Specialty Diagnoses / Procedures Referred By Contac t Referred To Contact Gastroenterology Diagnoses Abnormal findings on imaging test Nausea Procedures CONSULT TO GASTROENTEROLOGY OFFICE/OUTPATIENT [facility] 60 MINUTES Daphne Gonsalez PA-C [address] [place] [address] Referral ID Status Reason Start Date Expiration Date Visits Requested Visits Authorized [id number] Authorized PCP Requested Referral 10/12/2023 10/11/2024 1 1 Additional Source Comments Care Teams (unrecognized sec tion and content) Team Status: Inactive Member Role Status Dates PHYSICIAN NO FAMILY Primary Care Provider Active Lenny Zhao MD Attending Provider Active Team Status: Active Member Role Status Dates PHYSICIAN NO FAMILY Primary Care Provider Active Internet Researcher Relationship Specialty Start Date End Date Niko Talley MD [address] [place] [address] PCP Resident Internal Medicine 02/16/23 Internet Researcher Relationship Specialty Start Date End Date Niko Talley MD [address] [place] [address] PCP Resident Internal Medicine 02/16/23 Internet Researcher Relationship Specialty Start Date End Date Niko Talley MD [address] [place] [address] PCP Resident Internal Medicine 02/16/23 Internet Researcher Relationship Specialty Start Date End Date Niko Talley MD [address] [place] [address] PCP Resident Internal Medicine 02/16/23 Internet Researcher Relationship Specialty Start Date End Date Niko Talley MD [address] [place] [address] PCP Resident Internal Medicine 02/16/23 Internet Researcher Relationship Specialty Start Date End Date Niko Talley MD [address] [place] [address] PCP Resident Internal Medicine 02/16/23 Internet Researcher Relationship Specialty Start Date End Date Niko Talley MD [address] [place] [address] PCP Resident Internal Medicine 02/16/23 Internet Researcher Relationship Specialty Start Date End Date Mary Appiah DO [address] [place] [address] PCP - General Internal Medicine 05/24/23 Niko Talley MD [address] [place] [address] PCP Resident Internal Medicine 02/16/23 Internet Researcher Relationship Specialty Start Date End Date Mary Appiah DO [address] [place], [place] [phone] PCP - General Internal Medicine 05/24/23 Niko Talley MD [address] [place] [address] PCP Resident Internal Medicine 02/16/23 Internet Researcher Relationship Specialty [place] [address] [place] [address] PCP - General Internal Medicine 05/24/23 Niko Talley MD [address] [place] [address] PCP Resident Internal Medicine 02/16/23 Internet Researcher Relationship Specialty Start Date End Date Mary Appiah DO [address] [place] [address] PCP - General Internal Medicine 05/24/23 Niko Talley MD [address] [place] [address] PCP Resident Internal Medicine 02/16/23 Internet Researcher Relationship Specialty Start Date End Date Mary Appiah DO [address] [place] [address] PCP - General Internal Medicine 05/24/23 Niko Talley MD [address] [place] [address] PCP Resident Internal Medicine 02/16/23 Internet Researcher Relationship Specialty Start Date End Date Mary Appiah DO [address] [place] [address] PCP - General Internal Medicine 05/24/23 Niko Talley MD [address] [place] [address] PCP Resident Internal Medicine 02/16/23 Internet Researcher Relationship Specialty Start Date End Date Mary Appiah DO [address] [place] [address] PCP - General Internal Medicine 05/24/23 [place] [address] [place] [address] PCP Resident Internal Medicine 02/16/23 Internet Researcher Relationship Specialty Start Date End Date Mary Appiah DO [address] [place] [address] PCP - General Internal Medicine 05/24/23 Niko Talley MD [address] [place] [address] PCP Resident Internal Medicine 02/16/23 Internet Researcher Relationship Specialty Start Date End Date Mary Appiah DO [address] [place] [address] PCP - General Internal Medicine 05/24/23 Niko Talley MD [address] [place] [address] PCP Resident Internal Medicine 02/16/23 Internet Researcher Relationship Specialty Start Date End Date Mary Appiah DO [address] [place] [address] PCP - General Internal Medicine 05/24/23 Niko Talley MD [address] [place] [address] PCP Resident Internal Medicine 02/16/23 Goals (unrecognized section and content) Goals may be documented in a n alternate sectionNo InformationNo InformationNo InformationNo InformationNo InformationNo InformationNo InformationNo InformationNo InformationNo InformationNo InformationNo InformationNo InformationNo InformationNo InformationNo InformationNo InformationNo Information INFORMATION SOURCE (unrecogn ized section and content) DATE CREATED AUTHOR 12/31/2021 [facility] DATE CREATED AUTHOR AUTHOR'S ORGANIZ ATION [facility]/10[facility]2022 [facility] DATE CREATED AUTHOR AUTHOR'S ORGANIZ ATION 11/10/2023 [facility] REASON FOR VISIT (unrecogniz ed section and content) Reason Comments New Patient Reason Comments Received Outside Medical Records Reason Comments Information Reason Comments Multiple Concerns Nausea ,sweats, no a ppetite , sharp intermittent chest pains, for about a year and starting to get worse . Been fatigue and sometimes cannot get out of bed Specialty Diagnoses / Procedures Referred By Contac t Referred To Contact Internal Medicine / INTERNAL MEDICINE Diagnoses Nausea Other fatigue Procedures CONSULT TO INTERNAL MEDICINE OFFICE/OUTPATIENT [facility] 60-74 MINUTES Florinda Glover MD [address] [place] [address] [place] [address] Referral ID Status Reason Start Date Expiration Date V isits Requested Visits Authorized [id number] Closed PCP Requested Referral 02/16/2023 02/16/2024 1 1 Reason Comments Consult Best Practice Reason Comments Recheck Reason Onset Date Comments Refill Request 06/16/2023 Reason Comments Established Patient Follow Up Reason Comments Radiology Review Specialty Diagnoses / Procedures Referred By Contac t Referred To Contact MR IMAGING Diagnoses Abnormal findings on diagnostic imaging of other parts of musculoskeletal system DDD (degenerative disc disease), thoracic Procedures MRI THORACIC SPINE WO IVCON MRI SPINAL CANAL THORACIC W/O CONTRAST MATRL Florinda Glover MD [address] [place] [address] Mr Imaging [place] [address] Referral ID Status Reason Start Date Expiration Date V isits Requested Visits Authorized [id number] Closed Auto-Generate d Referral 08/29/2023 09/27/2024 1 1 Reason Comments Results Reason Comments Back Pain Specialty Diagnoses / Procedures Referred By Contac t Referred To Contact [facility] Diagnoses Lumbosacral stenosis Procedures CONSULT TO PAIN MGT OFFICE/OUTPATIENT [facility] 60 MINUTES Florinda Glover MD [address] [facility] [place] [phone] Anesthesia [place] [address] [place] [address] Referral ID Status Reason Start Date Expiration Date V isits Requested Visits Authorized [id number] Closed PCP Requested Referral 08/29/2023 08/28/2024 1 1 Reason Comments Spirometry Specialty Diagnoses / Procedures Referred By Contac t Referred To Contact [facility] Diagnoses Lumbosacral stenosis NORTH (dyspnea on exertion) Procedures SIX MINUTE WALK CARDIOPULMONARY EXERCISE STRESS Kai Nascimento MD [facility] [place] [address] Respiratory [place] [address] [place] [address] Referral ID Status Reason Start Date Expiration Date V isits Requested Visits Authorized [id number] Closed Auto-Generate d Referral 09/14/2023 10/13/2024 1 1 Reason Comments Radiology MRI Specialty Diagnoses / Procedures Referred By Contac t Referred To Contact MR IMAGING Diagnoses Pancreatic cyst Procedures MRI PANC/CHAIM WO/W IVCON MRI ABDOMEN W/O & W/CONTRAST MATERIAL Rody Juarez APRN.[facility] [address] [place] [address] [place] [address] Referral ID Status Reason Start Date Expiration Date V isits Requested Visits Authorized [id number] Closed Auto-Generate d Referral 08/29/2023 09/27/2024 1 1 Reason Comments Actionable Findings Follow Up Source Comments (unrecognize d section and content) In the event this informatio n is protected by the Federal Confidentiality of Alcohol and Drug Abuse Patient Records regulations: The Federal rules restrict any use of the information to criminally investigate or prosecute any alcohol or drug abuse patient.[facility] the event this information is protected by the Federal Confidentiality of Alcohol and Drug Abuse Patient Records regulations: The Federal rules restrict any use of the information to criminally investigate or prosecute any alcohol or drug abuse patient.[facility] CenterIn the event this information is protected by the Federal Confidentiality of Alcohol and Drug Abuse Patient Records regulations: The Federal rules restrict any use of the information to criminally investigate or prosecute any alcohol or drug abuse patient.[facility] CenterIn the event this information is protected by the Federal Confidentiality of Alcohol and Drug Abuse Patient Records regulations: The Federal rules restrict any use of the information to criminally investigate or prosecute any alcohol or drug abuse patient.[facility] CenterIn the event this information is protected by the Federal Confidentiality of Alcohol and Drug Abuse Patient Records regulations: The Federal rules restrict any use of the information to criminally investigate or prosecute any alcohol or drug abuse patient.[facility] CenterIn the event this information is protected by the Federal Confidentiality of Alcohol and Drug Abuse Patient Records regulations: The Federal rules restrict any use of the information to criminally investigate or prosecute any alcohol or drug abuse patient.[facility] CenterIn the event this information is protected by the Federal Confidentiality of Alcohol and Drug Abuse Patient Records regulations: The Federal rules restrict any use of the information to criminally investigate or prosecute any alcohol or drug abuse patient.[facility] CenterIn the event this information is protected by the Federal Confidentiality of Alcohol and Drug Abuse Patient Records regulations: The Federal rules restrict any use of the information to criminally investigate or prosecute any alcohol or drug abuse patient.[facility] CenterIn the event this information is protected by the Federal Confidentiality of Alcohol and Drug Abuse Patient Records regulations: The Federal rules restrict any use of the information to criminally investigate or prosecute any alcohol or drug abuse patient.[facility] CenterIn the event this information is protected by the Federal Confidentiality of Alcohol and Drug Abuse Patient Records regulations: The Federal rules restrict any use of the information to criminally investigate or prosecute any alcohol or drug abuse patient.[facility] CenterIn the event this information is protected by the Federal Confidentiality of Alcohol and Drug Abuse Patient Records regulations: The Federal rules restrict any use of the information to criminally investigate or prosecute any alcohol or drug abuse patient.[facility] CenterIn the event this information is protected by the Federal Confidentiality of Alcohol and Drug Abuse Patient Records regulations: The Federal rules restrict any use of the information to criminally investigate or prosecute any alcohol or drug abuse patient.[facility] CenterIn the event this information is protected by the Federal Confidentiality of Alcohol and Drug Abuse Patient Records regulations: The Federal rules restrict any use of the information to criminally investigate or prosecute any alcohol or drug abuse patient.[facility] CenterIn the event this information is protected by the Federal Confidentiality of Alcohol and Drug Abuse Patient Records regulations: The Federal rules restrict any use of the information to criminally investigate or prosecute any alcohol or drug abuse patient.[facility] CenterIn the event this information is protected by the Federal Confidentiality of Alcohol and Drug Abuse Patient Records regulations: The Federal rules restrict any use of the information to criminally investigate or prosecute any alcohol or drug abuse patient.[facility] CenterIn the event this information is protected by the Federal Confidentiality of Alcohol and Drug Abuse Patient Records regulations: The Federal rules restrict any use of the information to criminally investigate or prosecute any alcohol or drug abuse patient.[facility] CenterIn the event this information is protected by the Federal Confidentiality of Alcohol and Drug Abuse Patient Records regulations: The Federal rules restrict any use of the information to criminally investigate or prosecute any alcohol or drug abuse patient.[facility] CenterIn the event this information is protected by the Federal Confidentiality of Alcohol and Drug Abuse Patient Records regulations: The Federal rules restrict any use of the information to criminally investigate or prosecute any alcohol or drug abuse patient.[facility] CenterIn the event this information is protected by the Federal Confidentiality of Alcohol and Drug Abuse Patient Records regulations: The Federal rules restrict any use of the information to criminally investigate or prosecute any alcohol or drug abuse patient.[facility] FOR RECORDS PERTAINING TO PATIENTS WHO ARE OR HAVE BEEN ENROLLED IN A CHEMICAL DEPENDENCY/SUBSTANCEABUSE PROGRAM, SOME INFORMATION MAY BE OMITTED. This clinical summary was aggregated from multiple sources. Caution should be exercised in using it in the provision of clinical care. This summary normalizes information from multiple sources, and as a consequence, information in this document may materially change the coding, format and clinical context of patient data. In addition, data may be omitted in some cases. CLINICAL DECISIONS SHOULD BE BASED ON THE PRIMARY CLINICAL RECORDS. [facility] provides no warranty or guarantee of the accuracy or completeness of information in this document.
== END 2024-02-05 13:02 | disposition home or self-care (01) ==
LOC: VC 13:02
PROVIDERS: PCP Family Medicine; Visit Provider Student in an Organized Health Care Education/Training Program
DX: I83.891 Varicose veins of right lower extremity with other complications (principal); I73.9 Peripheral vascular disease, unspecified
CPT/HCPCS: 93923; 93970

== ENCOUNTER 2024-02-07 10:35 | Outpatient (OUT) | payer MEDICARE, SELFPAY ==
--- NOTE | 2024-02-07 10:40 | MM_ITS ---
Patient Name: DIAN HILL MR#: [id number] : 1955 Exam Date: 02/07/2024 Ordering Doctor: DR Yesi Rajput M.D. RADIOLOGY REPORT PROCEDURE: MM TOMOSYNTHESIS DIAGNOSTIC BI, 02/07/2024, 10:40 US BREAST LT LIMITED, 02/07/2024, 10:53 COMPARISON: MG MAMM DX 3D RT CAD, 09/03/2021. MG MAMM SCREEN 3D CHAIM CAD, 05/07/2021. INDICATIONS: Pain/mass of left breast Calculator Name NCI Breast Cancer Risk Assessment Tool 5 Year Breast Cancer Risk 3.40% Lifetime Breast Cancer Risk 9.70% Personal Breast Cancer No Personal Ovarian Cancer No Treatments None Family Cancers Sister with breast cancer at age 40; Grandmother-maternal with breast cancer at age 89; Mother with colon cancer at age 82; Sister with colon cancer at age 54. LOCATION: [facility] BREAST COMPOSITION: There are scattered areas of fibroglandular density. FINDINGS: DIAGNOSTIC CATEGORY 1--NEGATIVE. RIGHT BREAST: No significant suspicious finding. No significant change has occurred. LEFT BREAST: No significant suspicious finding with particular attention to the upper outer quadrant area of tenderness. No significant change has occurred. Ultrasound evaluation of the upper outer quadrant demonstrates normal appearing fibroglandular tissue. No suspicious findings. RECOMMENDATIONS: ROUTINE MAMMOGRAM AND CLINICAL EVALUATION IN 12 MONTHS. PLEASE NOTE: A NORMAL MAMMOGRAM DOES NOT EXCLUDE THE POSSIBILITY OF BREAST CANCER. A CLINICALLY SUSPICIOUS PALPABLE LUMP SHOULD BE BIOPSIED. Dictated by: Gray Palomino M.D. on 02/07/2024 at 14:04 Approved by: Gray Palomino M.D. on 02/07/2024 at 14:07
--- OUTSIDE RECORDS SUMMARY | 2024-02-07 10:46 | XMS_ITS | CCD ---
Author Organization [facility], [facility] Care Team Providers Care Car Rental Agency Manager Name Role Phone NO FAMILY, PHYSICIAN Primary Care Provider Unava MD Lenny Judd Attending Provider [phone] Shalini Hargrove Unavailable BEENA, DR SHALINI Osborne [...] Osborne Attending Unavailable Niko Talley MD Unavailable [phone] Puzio DO, Mary Primary Care Provider [phone] Puzio DO, Mary Primary Care Provider KAI NASCIMENTO Attending Unavailable FLORINDA GLOVER Referring [...] ry agent Drug allergy 4 GI Upset [facility] (12 sources) Allergies Reconciled Propensity to adverse reactions Unknown Glarity Other (1 source) NSAIDs; Translations: [NSAIDS (NON-STEROIDAL ANTI-INFLAMMATO RY DRUG)] Propensity to adverse reactions to drug (disorder) 4 [facility] Repository Medications Current Medications Medication [...] Test Name Value Interpretation Reference Range Facility [facility] 11-08-2023 CNOV Office Visit (PAINCC ) DIAN HILL ([id number]) 1955 F Date Time Provider Department 11/08/23 12:00 PM MARISELA CLAUDIOCC During your visit today, we recorded the following information about you: Pulse Blood pressure Weight Height 86/minute 144/94 76.3 kg 1.651 m Marisela Claudio APRN.HR INTERN 11/08/2023 12:30 PM Signed Get blood work (crp, sed rate) We also need results of thyroid If you are fracturing we need a bone density scan ask your pcp so we can see how thin your bones are Recommend getting xray of your right hip Also recommend seeing neurologist for mild cognitive impairment Marisela Claudio APRN.HR INTERN 11/09/2023 8:58 AM Signed SUBJECTIVE: The patient presents to [facility] Pain Management Department for a follow-up appointment [...] swelling. Lumbar: (more content not included)... Normal [facility] MRI 3D POST PROCESSINGon MRI 3D POST PROCESSING * * *Final Report* * * DATE OF EXAM: Oct 05 2023 11:43AM [facility] - [facility] 3D POST PROCESSING [...] No worrisome features or main duct dilation. 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 Dashboard Developer: PSCBurt Transcribe Date/Time: Oct 05 2023 12:46P Dictated by : MARYANN NAPIER MD This examination was interpreted and the report reviewed and electronically signed by: MARYANN NAPIER MD on Oct 05 2023 1:41PM EST [id number] Normal [facility] MRI PANC/CHAIM WO/W IVCONon MRI PANC/CHAIM WO/W [...] No worrisome features or main duct dilation. Dashboard Developer: CHAD Transcribe Date/Time: Oct 05 2023 12:41P Dictated by : MARIELA ROBLERO, DO This examination was interpreted and the report reviewed and electronically signed by: RICK WHITEHEAD MD on Oct 05 2023 1:25PM EST [id number] Normal [facility] No Panel Informationon 10-04 [facility] CNOVon 09-14-2023 CNOV Office Visit (PAINCC ) DIAN HILL ([id number]) 1955 F Date Time Provider Department 09/14/23 3:00 PM KAI NASCIMENTO PAINCC During your visit today, we recorded the following information about you: Pulse Weight 85/minute 77.5 kg Kai Nascimento MD 09/14/2023 3:43 PM Signed Referring Or Consulting Physician: Florinda Glover [address] [facility] [address] CHIEF COMPLAINT: pain in my low back [...] and assume there are 5 lumbar-type vertebrae. Dashboard Developer: CHAD Transcribe Date/Time: Sep 07 2023 4:05P Dictated by : RAMESH DAVIS MD This examination was interpreted and the report reviewed and electronically signed by: RAMESH DAVIS MD on Sep 07 2023 4:15PM EST Results-Findings * * *Final Report* * * DATE OF EXAM: Sep 07 2023 3:50PM [facility]25 - MRI THORACIC SPINE WO [...] stenosis.. MRI LUMBAR SPINE WO IVCON Order: [id number] Impression 1. Moderate left neuroforaminal narrowing at L2-3 and L3-4. 2. Mild spinal canal narrowing at L3-4 and L4-5. 3. No abnormality of the visualized sacroiliac joints. 4. Incidental hepatic and bilateral renal cysts. ELECTRONICALLY SIGNED BY: Jose Kwok MD Narrative EXAM: MR LUMBAR SPINE WO CONTRAST [id number] CLINICAL INDICATION: Low back pain and right [...] spinal c (more content not included)... Normal [facility] CNPNon 09-11-2023 CNPN Telephone (SPNMMN) DIAN HILL ([id number]) 1955 F Date Time Provider Department 09/11/23 FLORINDA GLOVER [facility] During your visit today, we recorded the [...] Status:Closed by FLORINDA GLOVER on 09/11/23 Normal [facility] MR Thoracic spine WO contras ton 09-07-2023 [facility] MRI THORACIC SPINE WO IVCONo n 09-07-2023 MRI THORACIC SPINE WO IVCON * * *Final Report* * * DATE OF EXAM: Sep 07 2023 3:50PM [facility] - MRI THORACIC SPINE WO [...] and assume there are 5 lumbar-type vertebrae. Dashboard Developer: [facility] Transcribe Date/Time: Sep 07 2023 4:05P Dictated by : RAMESH DAVIS MD This examination was interpreted and the report reviewed and electronically signed by: RAMESH DAVIS MD on Sep 07 2023 4:15PM EST [id number] Normal [facility] CNOVon 08-29-2023 CNOV Office Visit (SPNMMN ) DIAN HILL ([id number]) 1955 F Date Time Provider Department 08/29/23 10:40 AM FLORINDA GLOVER SPNMMN During your visit today, we recorded the following information about you: Pulse Blood pressure Weight Height 104/minute 132/98 74.1 kg 1.651 m Florinda Glover MD 08/29/2023 11:11 AM Signed [facility] Established Visit Last [...] and I am a provider at the [facility]. As you are likely aware, you had [...] following up with somebody else in/outside the [facility], let us know. I look forward to hearing from you. Rody Juarez APRN.CNP Actionable Findings Diagnostic Halls . Patient notes the epigastric pain is [...] potential etiology. Will assist. Also reviewed the Publictivityt message with patient from the diagnostic radiology team, eliz (more content not included)... 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] Order(s):MRI PANC/CHAIM WO/W IVCON [8147961] Order #: [id number] FUTURE MRI 3D POST PROCESSING [[id number]] Order #: [id number] FUTURE iv contrast (will be provided with [...] Status:Closed by GEOVANY SHAIKH on 08/30/23 Normal [facility] Basic metabolic 2000 panelon 05-21-2023 Anion gap [Moles/Vol] 11 mmol/L Normal 9-18 [facility] Comment on above: Order Comment: Speci men Type: BLOOD SPECIMENOrdering Facility: [facility] Address: [address] [place] [address] Performed By: #### 2 4321-2 ####[facility] LABCLIA [id number] [place] [address] [place] Calcium [Mass/Vol] 8.8 mg/dL Normal 8.5-10.2 [facility] Comment on above: Order Comment: Speci men Type: BLOOD SPECIMENOrdering Facility: [facility] Address: [address] [place] [address] Performed By: #### 2 4321-2 ####[facility] LABCLIA [id number] [place] [address] [place] Chloride [Moles/Vol] 106 mmol/L High 97-105 [facility] Comment on above: Order Comment: Speci men Type: BLOOD SPECIMENOrdering Facility: [facility] Address: [address] [place] [address] Performed By: #### 2 4321-2 ####[facility] LABCLIA [id number] [place] [address] [place] CO2 [Moles/Vol] 24 mmol/L Normal 22-30 [facility] Comment on above: Order Comment: Speci men Type: BLOOD SPECIMENOrdering Facility: [facility] Address: [address] [place] [address] Performed By: #### 2 4321-2 ####[facility] LABCLIA [id number] [place] [address] [place] Creatinine [Mass/Vol] 0.89 mg/dL Normal 0.58-0.96 [facility] Comment on above: Order Comment: Eddy fowler Type: BLOOD SPECIMENOrdering Facility: [facility] Address: [address] [place] [address] Performed By: #### 2 4321-2 ####[facility] LABIA [id number] [place] [address] [place] Creatinine and Glomerular filtration rate.predicted panel (S/P/Bld) 70 mL/min/1.73m??? Normal >=60 [facility] Comment on above: Order Comment: Eddy fowler Type: BLOOD SPECIMENOrdering Facility: [facility] Address: [address] [place] [address] Result Comment: Aptrica mated Glomerular Filtration Rate (eGFR) is calculated [...] actual GFR. Performed By: #### 2 4321-2 ####[facility] LABIA [id number] [place] [address] [place] Glucose [Mass/Vol] 84 mg/dL Normal 74-99 [facility] Comment on above: Order Comment: Eddy fowler Type: BLOOD SPECIMENOrdering Facility: [facility] Address: [address] [place] [address] Result Comment: The [place] [employer] (ADA) provides guidance for cutoff [...] Standards of Medical Care in Diabetes 2016, [place] [employer]. Diabetes Care. 2016.39(Suppl 1). Performed By: #### 2 4321-2 ####[facility] LABCLIA [id number] [place] [address] [place] Potassium [Moles/Vol] 4.5 mmol/L Normal 3.7-5.1 [facility] Comment on above: Order Comment: Speci men Type: BLOOD SPECIMENOrdering Facility: [facility] Address: [address] [place] [address] Performed By: #### 2 4321-2 ####[facility] LABCLIA [id number] [place] [address] [place] Sodium [Moles/Vol] 141 mmol/L Normal 136-144 [facility] Comment on above: Order Comment: Speci men Type: BLOOD SPECIMENOrdering Facility: [facility] Address: [address] [place] [address] Performed By: #### 2 4321-2 ####[facility] LABIA [id number] [place] [address] [place] Urea nitrogen [Mass/Vol] 17 mg/dL Normal 7-21 [facility] Comment on above: Order Comment: Speci men Type: BLOOD SPECIMENOrdering Facility: [facility] Address: [address] [place] [address] Performed By: #### 2 4321-2 ####[facility] LABIA [id number] [place] [address] [place] CBC panel Auto (Bld)on 05-21 Erythrocyte distribution width (RBC) [Ratio] 13.3 % Normal 11.5-15.0 [facility] Comment on above: Order Comment: Speci men Type: BLOOD SPECIMENOrdering Facility: [facility] Address: [address] [place] [address] Performed By: #### 5 8410-2 ####[facility] LABIA [id number] [place] [address] [place] Hematocrit (Bld) [Volume fraction] 39.4 % Normal 36.0-46.0 [facility] Comment on above: Order Comment: Speci men Type: BLOOD SPECIMENOrdering Facility: [facility] Address: [address] [place] [address] Performed By: #### 5 8410-2 ####[facility] LABCLIA [id number] [place] [address] [place] Hemoglobin (Bld) [Mass/Vol] 13.0 g/dL Normal 11.5-15.5 [facility] Comment on above: Order Comment: Speci men Type: BLOOD SPECIMENOrdering Facility: [facility] Address: [address] [place] [address] Performed By: #### 5 8410-2 ####[facility] LABCLIA [id number] [place] [address] [place] MCH (RBC) [Entitic mass] 31.3 pg Normal 26.0-34.0 [facility] Comment on above: Order Comment: Speci men Type: BLOOD SPECIMENOrdering Facility: [facility] Address: [address] [place] [address] Performed By: #### 5 8410-2 ####[facility] LABIA [id number] [place] [address] [place] MCHC (RBC) [Mass/Vol] 33.0 g/dL Normal 30.5-36.0 [facility] Comment on above: Order Comment: Speci men Type: BLOOD SPECIMENOrdering Facility: [facility] Address: [address] [place] [address] Performed By: #### 5 8410-2 ####[facility] LABCLIA [id number] [place] [address] [place] MCV (RBC) [Entitic vol] 94.7 fL Normal 80.0-100.0 [facility] Comment on above: Order Comment: Speci men Type: BLOOD SPECIMENOrdering Facility: [facility] Address: [address] [place] [address] Performed By: #### 5 8410-2 ####[facility] LABCLIA [id number] [place] [address] [place] Nucleated RBC (Bld) [#/Vol] 10*3/uL Normal <0.01 [facility] Comment on above: Order Comment: Speci men Type: BLOOD SPECIMENOrdering Facility: [facility] Address: [address] [place] [address] Performed By: #### 5 8410-2 ####[facility] LABCLIA [id number] [place] [address] [place] Platelet mean volume (Bld) [Entitic vol] 10.3 fL Normal 9.0-12.7 [facility] Comment on above: Order Comment: Speci men Type: BLOOD SPECIMENOrdering Facility: [facility] Address: [address] [place] [address] Performed By: #### 5 8410-2 ####[facility] LABCLIA [id number] [place] [address] [place] Platelets (Bld) [#/Vol] 237 10*3/uL Normal 150-400 [facility] Comment on above: Order Comment: Speci men Type: BLOOD SPECIMENOrdering Facility: [facility] Address: [address] [place] [address] Performed By: #### 5 8410-2 ####[facility] LABCLIA [id number] [place] [address] [place] RBC (Bld) [#/Vol] 4.16 10*6/uL Normal 3.90-5.20 [facility] Comment on above: Order Comment: Speci men Type: BLOOD SPECIMENOrdering Facility: [facility] Address: [address] [place] [address] Performed By: #### 5 8410-2 ####[facility] LABCLIA [id number] [place] [id number] [place] WBC (Bld) [#/Vol] 4.79 10*3/uL Normal 3.70-11.00 [facility] Comment on above: Order Comment: Speci men Type: BLOOD SPECIMENOrdering Facility: [facility] Address: [address] [place] [address] Performed By: #### 5 8410-2 ####[facility] LABCLIA [id number] [place] [id number] [place] CNDSon 05-21-2023 CNDS HNO ID: [id number] Author: Gilbert Little MD Service: Hospital Medicine [...] with the medical spine team here in [facility] in 2 to 4 weeks time [...] with the medical spine team here in [facility]/gi doctor also in 2-4 weeks re: [...] nearest E (more content not included)... 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 Normal [facility] Basic metabolic 2000 panelon 05-20-2023 Anion gap [Moles/Vol] 11 mmol/L Normal - [facility] Comment on above: Order Comment: Speci men Type: BLOOD SPECIMENOrdering Facility: [facility] Address: [address] [place] [address] Performed By: #### 2 4321-2 ####[facility] LABIA [id number] [place] [address] [place] Calcium [Mass/Vol] 9.0 mg/dL Normal 8.5-10.2 [facility] Comment on above: Order Comment: Speci men Type: BLOOD SPECIMENOrdering Facility: [facility] Address: [address] [place] [address] Performed By: #### 2 4321-2 ####[facility] LABCLIA [id number] [place] [address] [place] Chloride [Moles/Vol] 107 mmol/L High 97-105 [facility] Comment on above: Order Comment: Speci men Type: BLOOD SPECIMENOrdering Facility: [facility] Address: [address] [place] [address] Performed By: #### 2 4321-2 ####[facility] LABCLIA [id number] [place] [address] [place] CO2 [Moles/Vol] 23 mmol/L Normal 22-30 [facility] Comment on above: Order Comment: Speci men Type: BLOOD SPECIMENOrdering Facility: [facility] Address: [address] [place] [address] Performed By: #### 2 4321-2 ####[facility] LABCLIA [id number] [place] [address] [place] Creatinine [Mass/Vol] 0.97 mg/dL High 0.58-0.96 [facility] Comment on above: Order Comment: Speci men Type: BLOOD SPECIMENOrdering Facility: [facility] Address: [address] [place] [address] Performed By: #### 2 4321-2 ####[facility] LABCLIA [id number] [place] [address] [place] [facility] Creatinine and Glomerular filtration rate.predicted panel (S/P/Bld) 63 mL/min/1.73m??? Normal >=60 [facility] Comment on above: Order Comment: Speci men Type: BLOOD SPECIMENOrdering Facility: [facility] Address: [address] [place] [address] Result Comment: Patrica mated Glomerular Filtration Rate [...] actual GFR. Performed By: #### 2 4321-2 ####[facility] LABCLIA [id number] [place] [address] [place] Glucose [Mass/Vol] 80 mg/dL Normal 74-99 [facility] Comment on above: Order Comment: Speci men Type: BLOOD SPECIMENOrdering Facility: [facility] Address: [address] [place] [address] Result Comment: The [place] [employer] (ADA) provides guidance for cutoff [...] Standards of Medical Care in Diabetes 2016, [place] [employer]. Diabetes Care. 2016.39(Suppl 1). Performed By: #### 2 4321-2 ####[facility] LABCLIA [id number] [place] [address] [place] Potassium [Moles/Vol] 4.3 mmol/L Normal 3.7-5.1 [facility] Comment on above: Order Comment: Speci men Type: BLOOD SPECIMENOrdering Facility: [facility] Address: [address] [place] [address] Performed By: #### 2 4321-2 ####[facility] LABCLIA [id number] [place] [address] [place] Sodium [Moles/Vol] 141 mmol/L Normal 136-144 [facility] Comment on above: Order Comment: Speci men Type: BLOOD SPECIMENOrdering Facility: [facility] Address: [address] [place] [address] Performed By: #### 2 1-2 ####[facility] LABCLIA [id number] [place] [address] [place] Urea nitrogen [Mass/Vol] 11 mg/dL Normal 7-21 [facility] Comment on above: Order Comment: Speci men Type: BLOOD SPECIMENOrdering Facility: [facility] Address: [address] [place] [address] Performed By: #### 2 4321-2 ####[facility] LABCLIA [id number] [place] [address] [place] CBC panel Auto (Bld)on 05-20 Erythrocyte distribution width (RBC) [Ratio] 13.4 % Normal 11.5-15.0 [facility] Comment on above: Order Comment: Speci men Type: BLOOD SPECIMENOrdering Facility: [facility] Address: [address] [place] [address] Performed By: #### 5 8410-2 ####[facility] LABIA [id number] [place] [address] [place] Hematocrit (Bld) [Volume fraction] 38.2 % Normal 36.0-46.0 [facility] Comment on above: Order Comment: Speci men Type: BLOOD SPECIMENOrdering Facility: [facility] Address: [address] [place] [address] Performed By: #### 5 8410-2 ####[facility] LABCLIA [id number] [address] [place] Hemoglobin (Bld) [Mass/Vol] 12.8 g/dL Normal 11.5-15.5 [facility] Comment on above: Order Comment: Speci men Type: BLOOD SPECIMENOrdering Facility: [facility] Address: [address] [place] [address] Performed By: #### 5 8410-2 ####[facility] LABIA [id number] [place] [address] [place] MCH (RBC) [Entitic mass] 31.1 pg Normal 26.0-34.0 [facility] Comment on above: Order Comment: Speci men Type: BLOOD SPECIMENOrdering Facility: [facility] Address: [address] [place] [address] Performed By: #### 5 8410-2 ####[facility] LABCLIA [id number] [place] [address] [place] MCHC (RBC) [Mass/Vol] 33.5 g/dL Normal 30.5-36.0 [facility] Comment on above: Order Comment: Speci men Type: BLOOD SPECIMENOrdering Facility: [facility] Address: [address] [place] [address] Performed By: #### 5 8410-2 ####[facility] LABIA [id number] [place] [address] [place] MCV (RBC) [Entitic vol] 92.9 fL Normal 80.0-100.0 [facility] Comment on above: Order Comment: Speci men Type: BLOOD SPECIMENOrdering Facility: [facility] Address: [address] [place] [address] Performed By: #### 5 8410-2 ####[facility] LABIA [id number] [place] [address] [place] Nucleated RBC (Bld) [#/Vol] 10*3/uL Normal <0.01 [facility] Comment on above: Order Comment: Speci men Type: BLOOD SPECIMENOrdering Facility: [facility] Address: [address] [place] [address] Performed By: #### 5 8410-2 ####[facility] LABIA [id number] [place] [address] [place] Platelet mean volume (Bld) [Entitic vol] 9.9 fL Normal 9.0-12.7 [facility] Comment on above: Order Comment: Speci men Type: BLOOD SPECIMENOrdering Facility: [facility] Address: [address] [place] [address] Performed By: #### 5 8410-2 ####[facility] LABIA [id number] [place] [address] [place] Platelets (Bld) [#/Vol] 249 10*3/uL Normal 150-400 [facility] Comment on above: Order Comment: Speci men Type: BLOOD SPECIMENOrdering Facility: [facility] Address: [address] [place] [address] Performed By: #### 5 8410-2 ####[facility] LABCLIA [id number] [place] [id number] [place] RBC (Bld) [#/Vol] 4.11 10*6/uL Normal 3.90-5.20 [facility] Comment on above: Order Comment: Speci men Type: BLOOD SPECIMENOrdering Facility: [facility] Address: [address] [place] [address] Performed By: #### 5 8410-2 ####[facility] LABCLIA [id number] [place] [id number] [place] WBC (Bld) [#/Vol] 3.96 10*3/uL Normal 3.70-11.00 [facility] Comment on above: Order Comment: Speci men Type: BLOOD SPECIMENOrdering Facility: [facility] Address: [address] [place] [address] Performed By: #### 5 8410-2 ####[facility] LABCLIA [id number] [place] [id number] [place] THERAPY NTon 05-20-2023 THERAPY NT HNO ID: [id number] Author: Tr Zelaya, PT Service: ? Author Type: Physical Therapist Type: Therapy (PT/OT/Speech/Resp) Filed: 05/20/2023 12:32 PM Note Text: Physical Therapy Evaluation SERVICE DATE: 05/20/2023 SERVICE TIME: 1047 to 1127 ROOM: [place] [address] Recommended Discharge Disposition: Home Anticipated Discharge Needs: [...] Weakness (generalized) Interventions Provided: Evaluation, Therapeutic Activity (91192), Gait Training (85861) $ Evaluation-Low (44244) Billed Units: 1 unit Therapeutic Activity (06339) Treatment Minutes: 12 $ Therapeutic Activity (82562) Billed Units: 1 unit Gait Training (70590) Treatment Minutes: 13 $ Gait Training (53592) Billed Units: 1 unit Training AND Education [...] Treatment (minut (more content not included)... Normal [facility] CBC W Auto Differential pane l (Bld)on 05-19-2023 Basophils (Bld) [#/Vol] 0.04 10*3/uL Normal <0.11 [facility] Comment on above: Order Comment: Speci men Type: BLOOD SPECIMENOrdering Facility: [facility] Address: [address] [place] [address] Performed By: #### 5 7021-8 ####[facility] LABCLIA [id number] [place] [address] [place] Basophils/100 WBC (Bld) 0.7 % Normal [facility] Comment on above: Order Comment: Speci men Type: BLOOD SPECIMENOrdering Facility: [facility] Address: [address] [place] [address] Performed By: #### 5 7021-8 ####[facility] LABCLIA [id number] [place] [address] [place] Differential cell count method Nom (Bld) Auto Normal [facility] Comment on above: Order Comment: Speci men Type: BLOOD SPECIMENOrdering Facility: [facility] Address: [address] [place] [address] Performed By: #### 5 7021-8 ####[facility] LABCLIA [id number] [place] [address] [place] Eosinophils (Bld) [#/Vol] 0.06 10*3/uL Normal <0.46 [facility] Comment on above: Order Comment: Speci men Type: BLOOD SPECIMENOrdering Facility: [facility] Address: [address] [place] [address] Performed By: #### 5 7021-8 ####[facility] LABCLIA [id number] [place] [address] [place] Eosinophils/100 WBC (Bld) 1.0 % Normal [facility] Comment on above: Order Comment: Speci men Type: BLOOD SPECIMENOrdering Facility: [facility] Address: [address] [place] [address] Performed By: #### 5 7021-8 ####[facility] LABCLIA [id number] [place] [address] [place] Erythrocyte distribution width (RBC) [Ratio] 13.3 % Normal 11.5-15.0 [facility] Comment on above: Order Comment: Speci men Type: BLOOD SPECIMENOrdering Facility: [facility] Address: [address] [place] [address] Performed By: #### 5 7021-8 ####[facility] LABCLIA [id number] [place] [address] [place] Hematocrit (Bld) [Volume fraction] 40.8 % Normal 36.0-46.0 [facility] Comment on above: Order Comment: Speci men Type: BLOOD SPECIMENOrdering Facility: [facility] Address: [address] [place] [address] Performed By: #### 5 7021-8 ####[facility] LABCLIA [id number] [place] [address] [place] Hemoglobin (Bld) [Mass/Vol] 13.8 g/dL Normal 11.5-15.5 [facility] Comment on above: Order Comment: Speci men Type: BLOOD SPECIMENOrdering Facility: [facility] Address: [address] [place] [address] Performed By: #### 5 7021-8 ####[facility] LABCLIA [id number] [place] [address] [place] Immature granulocytes (Bld) [#/Vol] 10*3/uL Normal <0.10 [facility] Comment on above: Order Comment: Speci men Type: BLOOD SPECIMENOrdering Facility: [facility] Address: [address] [place] [address] Performed By: #### 5 7021-8 ####[facility] LABCLIA [id number] [place] [address] [place] Immature granulocytes/100 WBC (Bld) 0.2 % Normal [facility] Comment on above: Order Comment: Speci men Type: BLOOD SPECIMENOrdering Facility: [facility] Address: [address] [place] [address] Performed By: #### 5 7021-8 ####[facility] LABCLIA [id number] [place] [address] [place] Lymphocytes (Bld) [#/Vol] 1.77 10*3/uL Normal 1.00-4.00 [facility] Comment on above: Order Comment: Speci men Type: BLOOD SPECIMENOrdering Facility: [facility] Address: [address] [place] [address] Performed By: #### 5 7021-8 ####[facility] LABCLIA [id number] [place] [address] [place] Lymphocytes/100 WBC (Bld) 30.1 % Normal [facility] Comment on above: Order Comment: Speci men Type: BLOOD SPECIMENOrdering Facility: [facility] Address: [address] [place] [address] Performed By: #### 5 7021-8 ####[facility] LABIA [id number] [place] [address] [place] MCH (RBC) [Entitic mass] 31.1 pg Normal 26.0-34.0 [facility] Comment on above: Order Comment: Speci men Type: BLOOD SPECIMENOrdering Facility: [facility] Address: [address] [place] [address] Performed By: #### 5 7021-8 ####[facility] LABIA [id number] [place] [address] [place] MCHC (RBC) [Mass/Vol] 33.8 g/dL Normal 30.5-36.0 [facility] Comment on above: Order Comment: Speci men Type: BLOOD SPECIMENOrdering Facility: [facility] Address: [address] [place] [address] Performed By: #### 5 7021-8 ####[facility] LABIA [id number] [place] [address] [place] MCV (RBC) [Entitic vol] 91.9 fL Normal 80.0-100.0 [facility] Comment on above: Order Comment: Speci men Type: BLOOD SPECIMENOrdering Facility: [facility] Address: [address] [place] [address] Performed By: #### 5 7021-8 ####[facility] LABIA [id number] [place] [address] [place] Monocytes (Bld) [#/Vol] 0.44 10*3/uL Normal <0.87 [facility] Comment on above: Order Comment: Speci men Type: BLOOD SPECIMENOrdering Facility: [facility] Address: [address] [place] [address] Performed By: #### 5 7021-8 ####[facility] LABIA [id number] [place] [address] [place] Monocytes/100 WBC (Bld) 7.5 % Normal [facility] Comment on above: Order Comment: Speci men Type: BLOOD SPECIMENOrdering Facility: [facility] Address: [address] [place] [address] Performed By: #### 5 7021-8 ####[facility] LABCLIA [id number] [place] [address] [place] Neutrophils (Bld) [#/Vol] 3.57 10*3/uL Normal 1.45-7.50 [facility] Comment on above: Order Comment: Speci men Type: BLOOD SPECIMENOrdering Facility: [facility] Address: [address] [place] [address] Performed By: #### 5 7021-8 ####[facility] LABCLIA [id number] [place] [address] [place] Neutrophils/100 WBC (Bld) 60.5 % Normal [facility] Comment on above: Order Comment: Speci men Type: BLOOD SPECIMENOrdering Facility: [facility] Address: [address] [place] [address] Performed By: #### 5 7021-8 ####[facility] LABCLIA [id number] [place] [address] [place] Nucleated RBC (Bld) [#/Vol] 10*3/uL Normal <0.01 [facility] Comment on above: Order Comment: Speci men Type: BLOOD SPECIMENOrdering Facility: [facility] Address: [address] [place] [address] Performed By: #### 5 7021-8 ####[facility] LABCLIA [id number] [place] [address] [place] Nucleated RBC/100 WBC (Bld) [Ratio] 0.0 /100 WBC Normal [facility] Comment on above: Order Comment: Speci men Type: BLOOD SPECIMENOrdering Facility: [facility] Address: [address] [place] [address] Performed By: #### 5 7021-8 ####[facility] LABCLIA [id number] [place] [id number] [place] Platelet mean volume (Bld) [Entitic vol] 9.7 fL Normal 9.0-12.7 [facility] Comment on above: Order Comment: Speci men Type: BLOOD SPECIMENOrdering Facility: [facility] Address: [address] [place] [address] Performed By: #### 5 7021-8 ####[facility] LABCLIA [id number] [place] [address] [place] Platelets (Bld) [#/Vol] 269 10*3/uL Normal 150-400 [facility] Comment on above: Order Comment: Speci men Type: BLOOD SPECIMENOrdering Facility: [facility] Address: [address] [place] [address] Performed By: #### 5 7021-8 ####[facility] LABCLIA [id number] [place] [address] [place] RBC (Bld) [#/Vol] 4.44 10*6/uL Normal 3.90-5.20 [facility] Comment on above: Order Comment: Speci men Type: BLOOD SPECIMENOrdering Facility: [facility] Address: [address] [place] [address] Performed By: #### 5 7021-8 ####[facility] LABCLIA [id number] [place] [id number] [place] WBC (Bld) [#/Vol] 5.89 10*3/uL Normal 3.70-11.00 [facility] Comment on above: Order Comment: Speci men Type: BLOOD SPECIMENOrdering Facility: [facility] Address: [address] [place] [address] Performed By: #### 5 7021-8 ####[facility] LABCLIA [id number] [address] [address] [place] CNOVon 05-19-2023 CNOV Office Visit (INTMMN ) DIAN HILL ([id number]) 1955 F Date Time Provider Department 05/19/23 [...] a PCP. She has a PCP in [place], however came to [facility] for a second [...] Total (mg/d (more content not included)... [facility] ([id number]) 1955 F Date Time Provider Department 05/19/23 YISEL BLEDSOE INTFRANCISCO During your visit today, we recorded the following information about you: Mellisa Jean 05/19/2023 1:49 PM Addendum Paged Consult to Dr. lBedsoe and Chadwick for Dian Hill Bed # [...] Status:Closed by MELLISA JEAN on 05/19/23 Normal [facility] CONSULTon 05-19-2023 CONSULT HNO ID: [id number] Author: Yisel Bledsoe MD Service: Geriatrics Author [...] BUN (m (more content not included)... Normal [facility] CT ABD/PEL W IVCONon 023 CT ABD/PEL W IVCON * * *Final Report* * * DATE OF EXAM: May 19 2023 3:47PM [facility] 0530 - CT ABD/PEL W IVCON [...] Lower thorax: No focal consolidation. Bibasilar atelectasis/scarring. Graduate Nurse (topogram) images: No additional findings. IMPRESSION: No [...] be communicated with the ordering provider via 2 Minutes staff message or phone message by [employer] within 2 business days of report finalization. --END OF FINDING-- Dashboard Developer: CHAD Transcribe Date/Time: May 19 2023 3:52P Dictated by : HARRY BARTH MD This examination was interpreted and the report reviewed and electronically signed by: BRYSON HERNANDEZ MD on May 19 2023 4:15PM EST [id number] [id number] Invalid Interpretation Code [facility] Comprehensive metabolic 2000 panelon 05-19-2023 Albumin [Mass/Vol] 4.3 g/dL Normal 3.9-4.9 [facility] Comment on above: Order Comment: Speci men Type: BLOOD SPECIMENOrdering Facility: [facility] Address: [address] [place] [address] Performed By: #### L [id number], 3040-3, 36163-2 ####[facility] LABCLIA [id number] [place] [address] [place] ALP [Catalytic activity/Vol] 75 U/L Normal 34-123 [facility] Comment on above: Order Comment: Speci men Type: BLOOD SPECIMENOrdering Facility: [facility] Address: [address] [place] [address] Performed By: #### L [id number], 3040-3, 45897-4 ####[facility] LABCLIA [id number] [place] [address] [place] ALT [Catalytic activity/Vol] 12 U/L Normal 7-38 [facility] Comment on above: Order Comment: Speci men Type: BLOOD SPECIMENOrdering Facility: [facility] Address: [address] [place] [address] Performed By: #### L [id number], 3040-3, 84465-6 ####[facility] LABCLIA [id number] [place] [address] [place] Anion gap [Moles/Vol] 12 mmol/L Normal 9-18 [facility] Comment on above: Order Comment: Speci men Type: BLOOD SPECIMENOrdering Facility: [facility] Address: [address] [place] [address] Performed By: #### L [id number], 3, ####[facility] LABCLIA [id number] [place] [address] [place] AST [Catalytic activity/Vol] 14 U/L Normal 13-35 [facility] Comment on above: Order Comment: Speci men Type: BLOOD SPECIMENOrdering Facility: [facility] Address: [address] [place] [address] Performed By: #### L [id number], 3039-09, ####[facility] LABCLIA [id number] [place] [address] [place] Bilirubin [Mass/Vol] 0.3 mg/dL Normal 0.2-1.3 [facility] Comment on above: Order Comment: Speci men Type: BLOOD SPECIMENOrdering Facility: [facility] Address: [address] [place] [address] Performed By: #### L [id number], 3039-09, ####[facility] LABCLIA [id number] [place] [address] [place] Calcium [Mass/Vol] 9.3 mg/dL Normal 8.5-10.2 [facility] Comment on above: Order Comment: Speci men Type: BLOOD SPECIMENOrdering Facility: [facility] Address: [address] [place] [address] Performed By: #### L [id number], 3, ####[facility] LABCLIA [id number] [place] [address] [place] Chloride [Moles/Vol] 106 mmol/L High 97-105 [facility] Comment on above: Order Comment: Speci men Type: BLOOD SPECIMENOrdering Facility: [facility] Address: [address] [place] [address] Performed By: #### L [id number], 3040-3, 96837-0 ####[facility] LABCLIA [id number] [place] [address] [place] CO2 [Moles/Vol] 22 mmol/L Normal 22-30 [facility] Comment on above: Order Comment: Speci men Type: BLOOD SPECIMENOrdering Facility: [facility] Address: [address] [place] [address] Performed By: #### L [id number], 3040-3, 51153-3 ####[facility] LABCLIA [id number] [place] [address] [place] Creatinine [Mass/Vol] 0.87 mg/dL Normal 0.58-0.96 [facility] Comment on above: Order Comment: Speci men Type: BLOOD SPECIMENOrdering Facility: [facility] Address: [address] [place] [address] Performed By: #### L [id number], 0-3, 03924-8 ####[facility] LABCLIA [id number] [address] OF [facility] Creatinine and Glomerular filtration rate.predicted panel (S/P/Bld) 72 mL/min/1.73m??? Normal >=60 [facility] Comment on above: Order Comment: Speci men Type: BLOOD SPECIMENOrdering Facility: [facility] Address: [address] [place] [address] Result Comment: Patrica mated Glomerular Filtration Rate [...] reflect actual GFR. Performed By: #### L [id number], 3040-3, 00508-9 ####[facility] LABCLIA [id number] [place] [address] [place] Glucose [Mass/Vol] 97 mg/dL Normal 74-99 [facility] Comment on above: Order Comment: Speci men Type: BLOOD SPECIMENOrdering Facility: [facility] Address: [address] [place] [address] Result Comment: The [place] [employer] (ADA) provides guidance for cutoff [...] Standards of Medical Care in Diabetes 2016, [place] [employer]. Diabetes Care. 2016.39(Suppl 1). Performed By: #### L [id number], 3040-3, 75714-5 ####[facility] LABCLIA [id number] [place] [address] [place] Potassium [Moles/Vol] 4.1 mmol/L Normal 3.7-5.1 [facility] Comment on above: Order Comment: Speci men Type: BLOOD SPECIMENOrdering Facility: [facility] Address: [address] [place] [address] Performed By: #### L [id number], 3040-3, 29011-9 ####[facility] LABCLIA [id number] [place] [id number] [place] Protein [Mass/Vol] 6.4 g/dL Normal 6.3-8.0 [facility] Comment on above: Order Comment: Speci men Type: BLOOD SPECIMENOrdering Facility: [facility] Address: [address] [place] [address] Performed By: #### L [id number], 3040-3, 69195-8 ####[facility] LABCLIA [id number] [place] [address] [place] Sodium [Moles/Vol] 140 mmol/L Normal 136-144 [facility] Comment on above: Order Comment: Speci men Type: BLOOD SPECIMENOrdering Facility: [facility] Address: [address] [place] [address] Performed By: #### L [id number], 3040-3, 32616-9 ####[facility] LABIA [id number] [place] [address] [place] Urea nitrogen [Mass/Vol] 12 mg/dL Normal 7-21 [facility] Comment on above: Order Comment: Speci men Type: BLOOD SPECIMENOrdering Facility: [facility] Address: [address] [place] [address] Performed By: #### L [id number], 3040-3, 76569-8 ####[facility] LABIA [id number] [address] [place] ED NOTEon 05-19-2023 ED NOTE HNO ID: [id number] Author: Lynda Daly RN Service: Emergency Medicine Author Type: Registered Nurse Type: ED Notes Filed: 05/19/2023 8:35 PM Note Text: Patient transferred to . Report given to JACINTO Ramirez. H80-17 Patient left in stable condition. VS stable WNL of patient baseline. Patient allergies and hx reviewed. No current needs at this time. Normal [facility] ED NOTE HNO ID: [id number] Author: Lynda Daly RN Service: Emergency Medicine Author Type: Registered Nurse Type: ED Notes Filed: 05/19/2023 7:50 PM Note Text: Attempted to give report x1, nurse will call ed back. Normal [facility] ED PROV NOTEon 05-19-2023 ED PROV NOTE HNO ID: [id number] Author: Sunil Longoria MD Service: Emergency Medicine [...] developed and its performance characteristics determined by [facility] (more content not included)... Normal [facility] HIGH SENSITIVITY TROPONIN T (INITIAL)on 05-19-2023 Troponin T.cardiac High sensitivity method [Mass/Vol] 13 ng/L High <12 [facility] Comment on above: Order Comment: Eddy fowler Type: BLOOD SPECIMENOrdering Facility: [facility] Address: [address] [place] [address] Result Comment: When assessing risk for acute [...] 30 day MACE. Performed By: #### L [id number], 3040-3, 95624-1 ####[facility] LABCLIA [id number] [place] [address] [place] HIGH SENSITIVITY TROPONIN T (SECOND)on 05-19-2023 Troponin T.cardiac High sensitivity method [Mass/Vol] 13 ng/L High <12 [facility] Comment on above: Order Comment: Eddy fowler Type: BLOOD SPECIMENOrdering Facility: [facility] Address: [address] [place] [address] Result Comment: When assessing risk for acute [...] 30 day MACE. Performed By: #### L [id number] ####[facility] LABCLIA [id number] [place] [address] [place] HIGH SENSITIVITY TROPONIN T (THIRD) 3 HRS AFTER INITIALon 05-19-2023 Troponin T.cardiac High sensitivity method [Mass/Vol] 15 ng/L High <12 [facility] Comment on above: Order Comment: Eddy fowler Type: BLOOD SPECIMENOrdering Facility: [facility] Address: [address] [place] [address] Result Comment: When assessing risk for acute [...] day MACE. Performed By: #### 3 016-3, [id number] ####[facility] LABCLIA [id number] [place] [address] [place] Lipase SerPl-cCncon 05-19-20 Lipase [Catalytic activity/Vol] 32 U/L Normal 16-61 [facility] Comment on above: Order Comment: Eddy janeth Type: BLOOD SPECIMENOrdering Facility: [facility] Address: [address] [place] [address] Performed By: #### L [id number], 3040-3, 13937-8 ####[facility] LABCLIA [id number] [address] [place] PT panel Coag (PPP)on 2022 INR Coag (PPP) [Relative time] 0.9 {INR} Normal 0.9-1.3 [facility] Comment on above: Order Comment: Eddy fowler Type: BLOOD SPECIMENOrdering Facility: [facility] Address: [address] [place] [address] Result Comment: Jenny min K Antagonist (VKA) Therapeutic Range: INR 2 to 3 (Target INR of 2.5) Note: For patients treated with VKA drugs, such as warfarin, the [place] [employer] 2012 Guideline recommends [...] 70: 252-289 Performed By: #### 3 4528-0, 35283-2 ####[facility] LABCLIA [id number] [place] [address] [place] PT Coag (PPP) [Time] 10.1 s Normal 9.7-13.0 [facility] Comment on above: Order Comment: Speci men Type: BLOOD SPECIMENOrdering Facility: [facility] Address: [address] [place] [address] Performed By: #### 3 4528-0, 20903-9 ####[facility] [facility] LABCLIA [id number] [place] [address] [place] TSH SerPl-aCncon 05-19-2023 TSH Qn 5.400 m[IU]/L High 0.270-4.200 [facility] Comment on above: Order Comment: Speci men Type: BLOOD SPECIMENOrdering Facility: [facility] Address: [address] [place] [address] Performed By: #### 3 016-3, [id number] ####[facility] LABIA [id number] [place] [address] [place] Urinalysis complete panel (U )on 05-19-2023 Bacteria LM.HPF (Urine sed) [#/Area] Negative Normal Negative [facility] Comment on above: Order Comment: Speci men Type: URINE SPECIMENOrdering Facility: [facility] Address: [address] [place] [address] Performed By: #### 2 4356-8 ####[facility] LABCLIA [id number] [place] [address] [place] Bilirubin Ql (U) Negative Normal Negative [facility] Comment on above: Order Comment: Speci men Type: URINE SPECIMENOrdering Facility: [facility] Address: [address] [place] [address] Performed By: #### 2 4356-8 ####[facility] LABCLIA [id number] [place] [address] [place] Clarity (Unsp spec) Cloudy Abnormal Clear [facility] Comment on above: Order Comment: Speci men Type: URINE SPECIMENOrdering Facility: [facility] Address: [address] [place] [address] Performed By: #### 2 4356-8 ####[facility] LABCLIA [id number] [place] [address] [place] Color (U) Yellow Normal Yellow [facility] Comment on above: Order Comment: Speci men Type: URINE SPECIMENOrdering Facility: [facility] Address: [address] [place] [address] Performed By: #### 2 4356-8 ####[facility] LABIA [id number] [place] [address] [place] Epithelial cells LM.HPF (Urine sed) [#/Area] Few Normal [facility] Comment on above: Order Comment: Speci men Type: URINE SPECIMENOrdering Facility: [facility] Address: [address] [place] [address] Performed By: #### 2 4356-8 ####[facility] LABIA [id number] [place] [address] [place] Glucose Test strip (U) [Mass/Vol] Negative Normal Negative [facility] Comment on above: Order Comment: Speci men Type: URINE SPECIMENOrdering Facility: [facility] Address: [address] [place] [address] Performed By: #### 2 4356-8 ####[facility] LABIA [id number] [place] [address] [place] Hemoglobin Ql (U) Negative Normal Negative [facility] Comment on above: Order Comment: Speci men Type: URINE SPECIMENOrdering Facility: [facility] Address: [address] [place] [address] Performed By: #### 2 4356-8 ####[facility] LABCLIA [id number] [place] [address] [place] Hyaline casts (Urine sed) [#/Area] 0 /[LPF] Normal 0 /LPF [facility] Comment on above: Order Comment: Speci men Type: URINE SPECIMENOrdering Facility: [facility] Address: [address] [place] [address] Performed By: #### 2 4356-8 ####[facility] LABCLIA [id number] [place] [address] [place] Ketones Ql (U) Trace Abnormal Negative [facility] Comment on above: Order Comment: Speci men Type: URINE SPECIMENOrdering Facility: [facility] Address: [address] [place] [address] Performed By: #### 2 4356-8 ####[facility] LABCLIA [id number] [place] [address] [place] Leukocyte esterase Test strip Ql (U) Negative Normal Negative [facility] Comment on above: Order Comment: Speci men Type: URINE SPECIMENOrdering Facility: [facility] Address: [address] [place] [address] Performed By: #### 2 4356-8 ####[facility] LABCLIA [id number] [place] [address] [place] Nitrite Ql (U) Negative Normal Negative [facility] Comment on above: Order Comment: Speci men Type: URINE SPECIMENOrdering Facility: [facility] Address: [address] [place] [address] Performed By: #### 2 4356-8 ####[facility] LABCLIA [id number] [place] [address] [place] pH (U) 8.0 [pH] Normal <8.5 [facility] Comment on above: Order Comment: Speci men Type: URINE SPECIMENOrdering Facility: [facility] Address: [address] [place] [address] Performed By: #### 2 4356-8 ####[facility] LABIA [id number] [place] [address] [place] Protein (U) [Mass/Vol] Trace Abnormal Negative [facility] Comment on above: Order Comment: Speci men Type: URINE SPECIMENOrdering Facility: [facility] Address: [address] [place] [address] Performed By: #### 2 4356-8 ####[facility] LABIA [id number] [place] [address] [place] RBC LM.HPF (Urine sed) [#/Area] 0-2 /HPF Normal 0-2 /HPF [facility] Comment on above: Order Comment: Speci men Type: URINE SPECIMENOrdering Facility: [facility] Address: [address] [place] [address] Performed By: #### 2 4356-8 ####[facility] LABIA [id number] [place] [address] [place] Specific gravity (U) [Rel density] 1.018 Normal 1.005-1.030 [facility] Comment on above: Order Comment: Speci men Type: URINE SPECIMENOrdering Facility: [facility] Address: [address] [place] [address] Performed By: #### 2 4356-8 ####[facility] LABIA [id number] [place] [address] [place] Urobilinogen Ql (U) 1.0 EU/dL Normal 0.2-1.0 EU/dL [facility] Comment on above: Order Comment: Speci men Type: URINE SPECIMENOrdering Facility: [facility] Address: [address] [place] [address] Performed By: #### 2 4356-8 ####[facility] LABIA [id number] [place] [address] [place] WBC LM.HPF (Urine sed) [#/Area] 0-5 /HPF Normal 0-5 /HPF [facility] Comment on above: Order Comment: Speci men Type: URINE SPECIMENOrdering Facility: [facility] Address: [address] [place] [address] Performed By: #### 2 4356-8 ####[facility] LABCLIA [id number] [place] [address] [place] XR CHEST 2V [...] normal limits. IMPRESSION: No acute cardiopulmonary process. Dashboard Developer: CHAD Transcribe Date/Time: May 19 2023 1:05P Dictated by : JOSSE VEGA MD This examination was interpreted and the report reviewed and electronically signed by: JOSSE VEGA MD on May 19 2023 1:05PM EST [id number] Normal [facility] aPTT PPPon 05-19-2023 aPTT Coag (PPP) [Time] 25.1 s Normal 23.0-32.4 [facility] Comment on above: Order Comment: Speci men Type: BLOOD SPECIMENOrdering Facility: [facility] Address: [address] [place] [address] Performed By: #### 3 4528-0, 40349-3 ####[facility] LABIA [id number] [place] [address] [place] 25(OH)D3 [facility] 25-hydroxyvitamin D3 [Mass/Vol] 20.9 ng/mL Low 31.0-80.0 [facility] Comment on above: Order Comment: Speci men Type: BLOOD SPECIMENOrdering Facility: [facility] Address: [address] [place] [address] Result Comment: Clas sification of 25 OH Vitamin D status: Deficiency/Insufficiency: < or = 30 ng/ml. Sufficiency/Optimal Levels: 31-80 ng/mL Toxicity: > 100 ng/mL. Test performed by chemiluminescent immunoassay. Performed By: #### 1 989-3 ####[facility] LABCLIA [id number] [place] [address] [place] AMYLASE BLDon 04-11-2023 Amylase [Catalytic activity/Vol] 74 U/L 30 - 104 U/L [facility] 023 Amylase [Catalytic activity/Vol] 74 U/L Normal 30-104 [facility] Comment on above: Order Comment: Speci men Type: BLOOD SPECIMENOrdering Facility: [facility] Address: [address] [place] [address] Performed By: #### 3 016-3, 76017-7, 1798-8, 3040-3 ####[facility] LABCLIA [id number] [place] [address] [place] CBC panel Auto (Bld)on 04-11 Erythrocyte distribution width (RBC) [Ratio] 13.9 % Normal 11.5-15.0 [facility] Comment on above: Order Comment: Speci men Type: BLOOD SPECIMENOrdering Facility: [facility] Address: [address] [place] [address] Performed By: #### 5 8410-2, 4537-7 ####[facility] LABCLIA [id number] [place] [address] [place] Hematocrit (Bld) [Volume fraction] 43.8 % Normal 36.0-46.0 [facility] Comment on above: Order Comment: Speci men Type: BLOOD SPECIMENOrdering Facility: [facility] Address: [address] [place] [address] Performed By: #### 5 8410-2, 4537-7 ####[facility] LABCLIA [id number] [place] [address] [place] Hemoglobin (Bld) [Mass/Vol] 14.5 g/dL Normal 11.5-15.5 [facility] Comment on above: Order Comment: Speci men Type: BLOOD SPECIMENOrdering Facility: [facility] Address: [address] [place] [address] Performed By: #### 5 8410-2, 4537-7 ####[facility] LABCLIA [id number] [place] [address] [place] MCH (RBC) [Entitic mass] 31.3 pg Normal 26.0-34.0 [facility] Comment on above: Order Comment: Speci men Type: BLOOD SPECIMENOrdering Facility: [facility] Address: [address] [place] [address] Performed By: #### 5 8410-2, 4536-7 ####[facility] LABIA [id number] [place] [address] [place] MCHC (RBC) [Mass/Vol] 33.1 g/dL Normal 30.5-36.0 [facility] Comment on above: Order Comment: Speci men Type: BLOOD SPECIMENOrdering Facility: [facility] Address: [address] [place] [address] Performed By: #### 5 8410-2, 4537-7 ####[facility] LABCLIA [id number] [place] [address] [place] MCV (RBC) [Entitic vol] 94.4 fL Normal 80.0-100.0 [facility] Comment on above: Order Comment: Speci men Type: BLOOD SPECIMENOrdering Facility: [facility] Address: [address] [place] [address] Performed By: #### 5 8410-2, 4536-7 ####[facility] LABCLIA [id number] [place] [address] [place] Nucleated RBC (Bld) [#/Vol] 10*3/uL Normal <0.01 [facility] Comment on above: Order Comment: Speci men Type: BLOOD SPECIMENOrdering Facility: [facility] Address: [address] [place] [address] Performed By: #### 5 8410-2, 4536-7 ####[facility] LABIA [id number] [place] [address] [place] Platelet mean volume (Bld) [Entitic vol] 9.8 fL Normal 9.0-12.7 [facility] Comment on above: Order Comment: Speci men Type: BLOOD SPECIMENOrdering Facility: [facility] Address: [address] [place] [address] Performed By: #### 5 8410-2, 4536-7 ####[facility] LABIA [id number] [place] [address] [place] Platelets (Bld) [#/Vol] 337 10*3/uL Normal 150-400 [facility] Comment on above: Order Comment: Speci men Type: BLOOD SPECIMENOrdering Facility: [facility] Address: [address] [place] [address] Performed By: #### 5 8410-2, 4536-7 ####[facility] LABIA [id number] [place] [address] [place] RBC (Bld) [#/Vol] 4.64 10*6/uL Normal 3.90-5.20 [facility] Comment on above: Order Comment: Speci men Type: BLOOD SPECIMENOrdering Facility: [facility] Address: [address] [place] [address] Performed By: #### 5 8410-2, 4537-7 ####[facility] LABCLIA [id number] [address] [place] WBC (Bld) [#/Vol] 6.36 10*3/uL Normal 3.70-11.00 [facility] Comment on above: Order Comment: Speci men Type: BLOOD SPECIMENOrdering Facility: [facility] Address: [address] [place] [address] Performed By: #### 5 8410-2, 4537-7 ####[facility] LABCLIA [id number] [address] [place] Erythrocyte distribution width (RBC) [Ratio] 13.9 % 11.5 - 15.0 % [facility] Hematocrit (Bld) [Volume fraction] 43.8 % 36.0 - 46.0 % [facility] Hemoglobin (Bld) [Mass/Vol] 14.5 g/dL 11.5 - 15.5 g/dL [facility] MCH (RBC) [Entitic mass] 31.3 pg 26.0 - 34.0 pg [facility] MCHC (RBC) [Mass/Vol] 33.1 g/dL 30.5 - 36.0 g/dL [facility] MCV (RBC) [Entitic vol] 94.4 fL 80.0 - 100.0 fL [facility] Nucleated RBC (Bld) [#/Vol] <0.01 k/uL [facility] Platelet mean volume (Bld) [Entitic vol] 9.8 fL 9.0 - 12.7 fL [facility] Platelets (Bld) [#/Vol] 337 10*3/uL 150 - 400 k/uL [facility] RBC (Bld) [#/Vol] 4.64 10*6/uL 3.90 - 5.2 0 m/uL [facility] WBC (Bld) [#/Vol] 6.36 10*3/uL 3.70 - 11. 00 k/uL [facility] CNOVon 04-11-2023 CNOV Office Visit (INTMMN ) DIAN HILL ([id number]) 1955 F Date Time Provider Department 04/11/23 [...] a PCP. She has a PCP in [place], however came to [facility] for a second opinion. Review of Systems [...] Eliz Silva (more content not included)... Normal [facility] Comprehensive metabolic 2000 panelon 04-11-2023 Albumin [Mass/Vol] 4.4 g/dL 3.9 - 4.9 g/dL [facility] ALP [Catalytic activity/Vol] 70 U/L 34 - 123 U/L [facility] ALT [Catalytic activity/Vol] 13 U/L 7 - 38 U/L [facility] Anion gap [Moles/Vol] 12 mmol/L 9 - 18 mmol/L [facility] AST [Catalytic activity/Vol] 18 U/L 13 - 35 U/L [facility] Bilirubin [Mass/Vol] 0.3 mg/dL 0.2 - 1.3 mg/dL [facility] Calcium [Mass/Vol] 9.4 mg/dL 8.5 - 10.2 mg/dL [facility] Chloride [Moles/Vol] 104 mmol/L 97 - 105 mmol/L [facility] CO2 [Moles/Vol] 24 mmol/L 22 - 30 mmol/L [facility] Creatinine [Mass/Vol] 0.90 mg/dL 0.58 - 0.96 mg/dL [facility] Estimated Glomerular Filtration Rate 69 mL/min/1.73m >=60 mL/min/1.73m [facility] Glucose [Mass/Vol] 93 mg/dL 74 - 99 mg/dL [facility] Potassium [Moles/Vol] 4.6 mmol/L 3.7 - 5.1 mmol/L [facility] Protein [Mass/Vol] 6.8 g/dL 6.3 - 8.0 g/dL [facility] Sodium [Moles/Vol] 140 mmol/L 136 - 144 mmol/L [facility] Urea nitrogen [Mass/Vol] 10 mg/dL 7 - 21 mg/dL [facility] Albumin [Mass/Vol] 4.4 g/dL Normal 3.9-4.9 [facility] Comment on above: Order Comment: Speci men Type: BLOOD SPECIMENOrdering Facility: [facility] Address: [address] [place] [address] Performed By: #### 3 016-3, 07679-1, 1798-01, 3 ####[facility] LABCLIA [id number] [place] [address] [place] ALP [Catalytic activity/Vol] 70 U/L Normal 34-123 [facility] Comment on above: Order Comment: Speci men Type: BLOOD SPECIMENOrdering Facility: [facility] Address: [address] [place] [address] Performed By: #### 3 016-3, 10212-0, 1798-01, 3039-09 ####[facility] LABCLIA [id number] [place] [address] [place] ALT [Catalytic activity/Vol] 13 U/L Normal 7-38 [facility] Comment on above: Order Comment: Speci men Type: BLOOD SPECIMENOrdering Facility: [facility] Address: [address] [place] [address] Performed By: #### 3 016-3, 61111-9, 1798-01, 3039-09 ####[facility] LABCLIA [id number] [place] [address] [place] Anion gap [Moles/Vol] 12 mmol/L Normal 9-18 [facility] Comment on above: Order Comment: Speci men Type: BLOOD SPECIMENOrdering Facility: [facility] Address: [address] [place] [address] Performed By: #### 3 016-3, 66746-2, 1798-01, 3039-09 ####[facility] LABCLIA [id number] [place] [address] [place] AST [Catalytic activity/Vol] 18 U/L Normal 13-35 [facility] Comment on above: Order Comment: Speci men Type: BLOOD SPECIMENOrdering Facility: [facility] Address: [address] [place] [address] Performed By: #### 3 016-3, 26085-3, 8, 3039-3 ####[facility] LABCLIA [id number] [place] [address] [place] Bilirubin [Mass/Vol] 0.3 mg/dL Normal 0.2-1.3 [facility] Comment on above: Order Comment: Speci men Type: BLOOD SPECIMENOrdering Facility: [facility] Address: [address] [place] [address] Performed By: #### 3 016-3, 42089-6, 8, 3039-3 ####[facility] LABCLIA [id number] [place] [address] [place] Calcium [Mass/Vol] 9.4 mg/dL Normal 8.5-10.2 [facility] Comment on above: Order Comment: Speci men Type: BLOOD SPECIMENOrdering Facility: [facility] Address: [address] [place] [address] Performed By: #### 3 016-3, 23870-8, 1798-01, 3 ####[facility] LABCLIA [id number] [place] [address] [place] Chloride [Moles/Vol] 104 mmol/L Normal 97-105 [facility] Comment on above: Order Comment: Speci men Type: BLOOD SPECIMENOrdering Facility: [facility] Address: [address] [place] [address] Performed By: #### 3 016-3, 61751-1, 8, 3039-3 ####[facility] LABCLIA [id number] [place] [address] [place] CO2 [Moles/Vol] 24 mmol/L Normal 22-30 [facility] Comment on above: Order Comment: Speci men Type: BLOOD SPECIMENOrdering Facility: [facility] Address: [address] [place] [id number] Performed By: #### 3 016-3, 55498-3, 1797-8, 0-3 ####[facility] LABIA [id number] [place] [address] [place] Creatinine [Mass/Vol] 0.90 mg/dL Normal 0.58-0.96 [facility] Comment on above: Order Comment: Eddy men Type: BLOOD SPECIMENOrdering Facility: [facility] Address: [address] [place] [address] Performed By: #### 3 016-3, 02273-3, 1797-8, 0-3 ####[facility] [id number] [place] [address] [place] Creatinine and Glomerular filtration rate.predicted panel (S/P/Bld) 69 mL/min/1.73m??? Normal >=60 [facility] Comment on above: Order Comment: Eddy fowler Type: BLOOD SPECIMENOrdering Facility: [facility] Address: [address] [place] [address] Result Comment: Patrica mated Glomerular Filtration Rate [...] actual GFR. Performed By: #### 3 016-3, 06029-2, 1797-8, 3039-3 ####[facility] LABIA [id number] [place] [id number] [place] Glucose [Mass/Vol] 93 mg/dL Normal 74-99 [facility] Comment on above: Order Comment: Eddy men Type: BLOOD SPECIMENOrdering Facility: [facility] Address: [address] [place] [address] Result Comment: The [place] [employer] (ADA) provides guidance for cutoff [...] Standards of Medical Care in Diabetes 2016, [place] [employer]. Diabetes Care. 2016.39(Suppl 1). Performed By: #### 3 016-3, 04774-0, 1797-8, 0-3 ####[facility] LABCLIA [id number] [place] [address] [place] Potassium [Moles/Vol] 4.6 mmol/L Normal 3.7-5.1 [facility] Comment on above: Order Comment: Speci men Type: BLOOD SPECIMENOrdering Facility: [facility] Address: [address] [place] [address] Performed By: #### 3 016-3, 92104-4, 8, 0-3 ####[facility] LABIA [id number] [place] [address] [place] Protein [Mass/Vol] 6.8 g/dL Normal 6.3-8.0 [facility] Comment on above: Order Comment: Speci men Type: BLOOD SPECIMENOrdering Facility: [facility] Address: [address] [place] [address] Performed By: #### 3 016-3, 56915-4, 1798, 0-3 ####[facility] LABIA [id number] [place] [address] [place] Sodium [Moles/Vol] 140 mmol/L Normal 136-144 [facility] Comment on above: Order Comment: Speci men Type: BLOOD SPECIMENOrdering Facility: [facility] Address: [address] [place] [address] Performed By: #### 3 016-3, 52799-9, 1798-8, 3040-3 ####[facility] [id number] [address] [address] [place] Urea nitrogen [Mass/Vol] 10 mg/dL Normal 7-21 [facility] Comment on above: Order Comment: Speci men Type: BLOOD SPECIMENOrdering Facility: [facility] Address: [address] [place] [address] Performed By: #### 3 016-3, 61130-2, 1798-8, 3040-3 ####[facility] [id number] [address] [address] [place] [id number] 04-11-2023 ECG01 Ventricular Rate : 6 7 BPM Atrial Rate : 67 BPM P-R Interval : 116 ms QRS Duration : 68 ms Q-T Interval : 422 ms QTC Calculation(Bazett) : 445 ms Calculated P [place] : 63 degrees Calculated R [place] : 0 degrees Calculated T [place] : 55 degrees NORMAL SINUS RHYTHM NORMAL ECG Confirmed by GRAY OBRIEN MD ([id number]) on 04/13/2023 7:04:50 AM NAME : DIAN HILL PID : [id number] : 1955 Gender : Female Race : [...] FLORINDA GLOVER Acquired by : LB, Normal [facility] ESR Westergren method (Bld) [Velocity]on 04-11-2023 ESR (Bld) [Velocity] 11 mm/h Normal 0-20 [facility] Comment on above: Order Comment: Speci men Type: BLOOD SPECIMENOrdering Facility: [facility] Address: [address] [place], [place] [address] Performed By: #### 5 8410-2, 4537-7 ####[facility] LABIA [id number] [place] [address] [place] ESR (Bld) [Velocity] 11 mm/h 0 - 20 mm/hr [facility] LIPASE BLDon 04-11-2023 Lipase [Catalytic activity/Vol] 46 U/L 16 - 61 U/L [facility] Lipase SerPl-cCncon 04-11-20 23 Lipase [Catalytic activity/Vol] 46 U/L Normal 16-61 [facility] Comment on above: Order Comment: Speci men Type: BLOOD SPECIMENOrdering Facility: [facility] Address: [address] [place] [address] Performed By: #### 3 016-3, 74213-3, 1797-8, 3039-3 ####[facility] LABIA [id number] [place] [address] [place] TSH BLDon 04-11-2023 TSH Qn 3.340 m[IU]/L 0.270 - 4.200 mIU/L [facility] TSH SerPl-aCncon 04-11-2023 TSH Qn 3.340 m[IU]/L Normal 0.270-4.200 [facility] Comment on above: Order Comment: Speci men Type: BLOOD SPECIMENOrdering Facility: [facility] Address: [address] [place] [address] Performed By: #### 3 016-3, 42458-8, 1797-8, 3039-3 ####[facility] LABIA [id number] [place] [address] [place] VITAMIN D 25 HYDROXYon 04-11 25-hydroxyvitamin D3 [Mass/Vol] 20.9 ng/mL Low 31.0 - 80.0 ng/mL [facility] CNPKassi 03-29-2023 KATRINA Telephone (NI) LIZDIAN Willow ([id number]) 1955 F Date Time Provider Department 03/29/23 [...] 11:48 AM Signed Spoke to [facility] and that is the soonest they have [...] Encounter Status:Closed by NIKO TALLEY on 04/23/23 [facility] Josué 03-13-[address] [facility] Telephone (NIQ) DIAN HILL ([id number]) 1955 F Date Time Provider Department 03/13/23 FLORINDA GLOVER During your visit today, we recorded the following information about you: Sujata Moralez 03/13/2023 11:18 AM Signed Patient is calling In stating patient uploaded images through the link Ph. [phone] Lindsey Ruth RN 03/15/2023 8:54 AM Signed In looking in [facility] no images yet. Lindsey Ruth RN 03/16/2023 10:09 AM Signed Imaging in [facility]. Per note on 02/16. Advised to forward images for review. Florinda Glover MD 03/16/2023 1:57 PM Signed Reviewed lumbar MRI-multilevel degenerative (wear and tear) changes with multilevel stenosis-likely contributing to the low back and R LE pain. Does have alignment changes-recommend lumbar flexion/extension w-mrly-urakw placed-not completed prior-can get locally and mail [...] Signed Send PT and Xray orders to [facility] fax no [phone]. Lindsey Mckinley, JACINTO 03/17/2023 4:25 PM Signed Faxed to [facility] . Allergies As of Date: 03/13/2023 Noted Allergy Reaction NSAIDS (NON-STEROIDAL ANTI-INFLAM*02/24/2014 8 - GI Upset Comments: Kidney failure Date Reviewed: 02/16/2023 Reviewed by: Yessenia Doyle OCCA - Fully Assessed Reason for Visit: Information [1328] Primary Visit Diagnosis:Spinal stenosis, lumbar region with neurogenic claudication [M48.062] Order(s):XR LUMBAR LIMITED 2V FLEX/EXT [9374729] Order #: [id number] FUTURE CONSULT TO PHYSICAL THERAPY [9032] Order #: [id number]: 1 FUTURE Prescriptions as of 03/17/2023 - [...] Encounter Status:Closed by LINDSEY RUTH on 03/17/23 [facility] CNOVon 02-16-2023 CNOV Office Visit (SPNMMN ) DIAN HILL ([id number]) 1955 F Date Time Provider Department 02/16/23 8:40 AM [facility] During your visit today, we recorded the [...] re inciden (more content not included)... Normal [facility] DI[facility] HILL ([id number]) 1955 F Date Time Provider Department 02/15/23 FLORINDA GLOVER NIQ During your visit today, we recorded the following information about you: Sujata Moralez 02/15/2023 11:27 AM Signed Received the following record(s) via fxa. -REFERRAL Date Record(s) scanned into pt's chart. Sujata Moralez Allergies As of Date: 02/15/2023 (Not on File) Date Reviewed: 01/07/2003 Reviewed by: Reason for Visit: Received Outside Medical Records [0650] Prescriptions as of 02/17/2023 - DULoxetine (CYMBALTA) [...] Status:Closed by LINDSEY RUTH on 02/17/23 Normal [facility] CBC AUTO DIFFon 11-02-2022 BASO # 0.0 103/ul Normal 0.0-0.1 [facility] Comment on above: Performed By: #### C BC #### [facility] [address] [place] [address] Dr. Gladys Larsen Basophils/100 WBC (Bld) 0.5 % Normal 0.2-2.0 [facility] Comment on above: Performed By: #### C BC #### [facility] [address] [place] [address] Dr. Gladys Larsen EO # 0.1 103/ul Normal 0.0-0.7 [facility] Comment on above: Performed By: #### C BC #### [facility] [address] [place] [address] Dr. Gladys Larsen Eosinophils/100 WBC (Bld) 1.5 % Normal 0.9-7.0 [facility] Comment on above: Performed By: #### C BC #### [facility] [address] [place] [address] Dr. Gladys Larsen Erythrocyte distribution width (RBC) [Ratio] 13.0 % Normal 11.0-15.0 [facility] Comment on above: Performed By: #### C BC #### [facility] [address] [place] [address] Dr. Gladys Larsen Hematocrit (Bld) [Volume fraction] 45.7 % Normal 36.0-48.0 [facility] Comment on above: Performed By: #### C BC #### [facility] [address] [place] [address] Dr. Gladys Larsen Hemoglobin (Bld) [Mass/Vol] 15.3 g/dL Normal 12.0-16.0 [facility] Comment on above: Performed By: #### C BC #### [facility] [address] [place] [address] Dr. Gladys Larsen IG # 0.02 10e3/ul Normal 0.00-0.03 [facility] Comment on above: Performed By: #### C BC #### [facility] [address] [place] [address] Dr. Gladys Larsen IG % 0.3 % Normal 0.0-0.5 [facility] Comment on above: Performed By: #### C BC #### [facility] [address] [place] [address] Dr. Gladys Larsen LYMPH # 1.9 103/ul Normal 1.2-3.8 [facility] Comment on above: Performed By: #### C BC #### [facility] [address] [place] [address] Dr. Gladys Larsen Lymphocytes/100 WBC (Bld) 28.9 % Normal 20.5-60.0 [facility] Comment on above: Performed By: #### C BC #### [facility] [address] [place] [address] Dr. Gladys Larsen MANUAL DIFF REQ NO Normal [facility] Comment on above: Performed By: #### C BC #### [facility] [address] [place] [address] Dr. Gladys Larsen MCH (RBC) [Entitic mass] 30.9 pg Normal 26.7-34.0 [facility] Comment on above: Performed By: #### C BC #### [facility] [address] [place] [address] Dr. Gladys Larsen MCHC (RBC) [Mass/Vol] 33.5 g/dL Normal 29.9-35.2 [facility] Comment on above: Performed By: #### C BC #### [facility] [address] [place] [address] Dr. Gladys Larsen MCV (RBC) [Entitic vol] 92.3 fL Normal 81.0-99.0 [facility] Comment on above: Performed By: #### C BC #### [facility] [address] [address] [address] Gladys Larsen MONO # 0.5 103/ul Normal 0.3-0.8 [facility] Comment on above: Performed By: #### C BC #### [facility] [address] [address] [address] Gladys Larsen Monocytes/100 WBC (Bld) 8.0 % Normal 1.7-12.0 [facility] Comment on above: Performed By: #### C BC #### [facility] [address] [address] [address] Gladys Larsen NEUT # 3.9 103/ul Normal 1.4-6.5 [facility] Comment on above: Performed By: #### C BC #### [facility] [address] [address] [address] Gladys Larsen Neutrophils/100 WBC (Bld) 60.8 % Normal 43.0-75.0 [facility] Comment on above: Performed By: #### C BC #### [facility] [address] [address] [address] Gladys Larsen Platelet mean volume (Bld) [Entitic vol] 9.3 fL Critically low 9.5-13.5 [facility] Comment on above: Performed By: #### C BC #### [facility] [address] [address] [address] Gladys Larsen PLT 321 103/ul Normal 150-450 [facility] Comment on above: Performed By: #### C BC #### [facility] [address] [address] [address] Gladys Larsen RBC 4.95 106/ul Normal 4.20-5.40 [facility] Comment on above: Performed By: #### C BC #### [facility] [address] [address] [address] Gladys Larsen WBC 6.5 103/ul Normal 4.0-11.0 [facility] Comment on above: Performed By: #### C BC #### [facility] [address] [place] [address] Dr. Gladys Larsen FREE T4on 11-02-2022 Free T4 [Mass/Vol] 1.01 ng/dL Normal 0.76-1.46 [facility] Comment on above: Performed By: #### C BC #### [facility] [address] [place] [address] Dr. Gladys Larsen PROF 14(COMP METB)on 023 Albumin [Mass/Vol] 4.1 g/dL Normal 3.4-5.0 [facility] Comment on above: Performed By: #### C MP, TSH #### [facility] [address] [place] [address] Dr. Gladys Larsen Albumin/Globulin [Mass ratio] 1.1 {ratio} Normal [facility] Comment on above: Performed By: #### C MP, TSH #### [facility] [address] [place] [address] Dr. Gladys Larsen ALP [Catalytic activity/Vol] 62 U/L Normal 46-116 [facility] Comment on above: Performed By: #### C MP, TSH #### [facility] [address] [place] [address] Dr. Gladys Larsen ALT [Catalytic activity/Vol] 30 U/L Normal 14-59 [facility] Comment on above: Performed By: #### C MP, TSH #### [facility] [address] [place] [address] Dr. Gladys Larsen Anion gap [Moles/Vol] 12.0 mmol/L Normal [facility] Comment on above: Performed By: #### C MP, TSH #### [facility] [address] [place] [address] Dr. Gladys Larsen AST [Catalytic activity/Vol] 18 U/L Normal 15-37 [facility] Comment on above: Performed By: #### C MP, TSH #### [facility] [address] [place] [address] Dr. Gladys Larsen Bilirubin [Mass/Vol] 0.4 mg/dL Normal 0.2-1.0 [facility] Comment on above: Performed By: #### C MP, TSH #### [facility] [address] [address] [address] Gladys Larsen Calcium [Mass/Vol] 8.9 mg/dL Normal 8.5-10.1 [facility] Comment on above: Performed By: #### C MP, TSH #### [facility] [address] [address] [address] Gladys Larsen Chloride [Moles/Vol] 97 mmol/L Critically low 98-107 [facility] Comment on above: Performed By: #### C MP, TSH #### [facility] [address] [address] [address] Gladys Larsen CO2 [Moles/Vol] 30.5 mmol/L Normal 21.0-32.0 [facility] Comment on above: Performed By: #### C MP, TSH #### [facility] [address] [address] [address] Gladys Larsen Creatinine [Mass/Vol] 1.01 mg/dL Normal 0.55-1.02 [facility] Comment on above: Performed By: #### C MP, TSH #### [facility] [address] [address] [address] Gladys Larsen EGFR-AF MONTSERRATIAN >60 Normal >=60 [facility] Comment on above: Performed By: #### C MP, TSH #### [facility] [address] [address] [address] Gladys Larsen EGFR-NON AF MONTSERRATIAN 54 mL/min/1.73m2 Critically low >=60 [facility] Comment on above: Performed By: #### C MP, TSH #### [facility] [address] [address] [address] Gladys Larsen Globulin (S) [Mass/Vol] 3.8 g/dL Normal [facility] Comment on above: Performed By: #### C MP, TSH #### [facility] [address] [address] [address] Gladys Larsen Glucose [Mass/Vol] 106 mg/dL Normal 74-106 [facility] Comment on above: Performed By: #### C MP, TSH #### [facility] [address] [address] [address] Gladys Larsen Potassium [Moles/Vol] 4.5 mmol/L Normal 3.5-5.1 [facility] Comment on above: Performed By: #### C MP, TSH #### [facility] [address] [place] [address] Dr. Gladys Larsen Protein [Mass/Vol] 7.9 g/dL Normal 6.4-8.2 [facility] Comment on above: Performed By: #### C MP, TSH #### [facility] [address] [place] [address] Dr. Gladys Larsen Sodium [Moles/Vol] 135 mmol/L Critically low 136-145 [facility] Comment on above: Performed By: #### C MP, TSH #### [facility] [address] [place] [address] Dr. Gladys Larsen Urea nitrogen [Mass/Vol] 17.0 mg/dL Normal 7.0-18.0 [facility] Comment on above: Performed By: #### C MP, TSH #### [facility] [address] [place] [address] Dr. Gladys Larsen Urea nitrogen/Creatini ne [Mass ratio] 16.8 mg/mg Normal [facility] Comment on above: Performed By: #### C MP, TSH #### [facility] [address] [place] [address] Dr. Gladys Larsen TSHon 11-02-2022 TSH 0.954 uIU/mL Normal 0.358-3.740 [facility] Comment on above: Performed By: #### C MP, TSH #### [facility] [address] [place] [address] Dr. Gladys Larsen UA RANDOMon 11-02-2022 Bilirubin Ql (U) Negative Normal NEGATIVE [facility] Comment on above: Performed By: #### U A #### [facility] [address] [place] [address] Dr. Gladys Larsen Clarity (U) CLEAR Normal CLEAR [facility] Comment on above: Performed By: #### U A #### [facility] [address] [place] [address] Dr. Gladys Larsen Color (U) YELLOW Normal YELLOW [facility] Comment on above: Performed By: #### U A #### [facility] [address] [place] [address] Dr. Gladys Larsen Glucose Ql (U) Negative Normal NEGATIVE [facility] Comment on above: Performed By: #### U A #### [facility] [address] [place] [address] Dr. Gladys Larsen Hemoglobin Ql (U) Negative Normal NEGATIVE [facility] Comment on above: Performed By: #### U A #### [facility] [address] [place] [address] Dr. Glayds Larsen Ketones Ql (U) Negative Normal NEGATIVE [facility] Comment on above: Performed By: #### U A #### [facility] [address] [place] [address] Dr. Gladys Larsen LEUKOCYTES Negative Normal NEGATIVE [facility] Comment on above: Performed By: #### U A #### [facility] [address] [place] [address] Dr. Gladys Larsen Nitrite Ql (U) Negative Normal NEGATIVE [facility] Comment on above: Performed By: #### U A #### [facility] [address] [place] [address] Dr. Gladys Larsen pH (U) 7.5 [pH] Normal 5-9 [facility] Comment on above: Performed By: #### U A #### [facility] [address] [place] [address] Dr. Gladys Larsen SPEC GRAVITY 1.010 Normal 1.005-<=1.02 5 [facility] Comment on above: Performed By: #### U A #### [facility] [address] [place] [address] Dr. Gladys Larsen UA PROTEIN Negative Normal NEGATIVE/ TRACE [facility] Comment on above: Performed By: #### U A #### [facility] [address] [place] [address] Dr. Gladys Larsen Urobilinogen Qn (U) 0.2 {Chel'U}/dL Normal 0.2 - 1.0 [facility] Comment on above: Performed By: #### U A #### [facility] [address] [address] [address] Gladys Larsen ECHOCARDIO M/2D COMPLETEon 0 07-15-2022 ECHOCARDIO M/2D COMPLETE Patient: DIAN HILL Exam Date: 07/15/2022 : 1955 Gender:F Ordering : DR SHALINI HARGROVE M.D. Admission #: [id number] Family : Order #: [id number] CLICK HERE TO VIEW EXAM ECHOCARDIOGRAM REPORT [...] Estes M.D. on 07/15/2022 at 14:21 Normal [facility] XR CHEST 2 Von 07-15-2022 XR CHEST [...] DANIELITO IRAHETAER Date: 2022-07-15 08:41 Normal [facility] CBC AUTO DIFFon 02-09-2022 BASO # 0.0 103/ul Normal 0.0-0.1 [facility] Comment on above: Performed By: #### C BC #### [facility] [address] [place] [address] Dr. Gladys Larsen Basophils/100 WBC (Bld) 0.6 % Normal 0.2-2.0 [facility] Comment on above: Performed By: #### C BC #### [facility] [address] [place] [address] Dr. Gladys Larsen EO # 0.1 103/ul Normal 0.0-0.7 [facility] Comment on above: Performed By: #### C BC #### [facility] [address] [place] [address] Dr. Gladys Larsen Eosinophils/100 WBC (Bld) 0.9 % Normal 0.9-7.0 [facility] Comment on above: Performed By: #### C BC #### [facility] [address] [place] [address] Dr. Gladys Larsen Erythrocyte distribution width (RBC) [Ratio] 13.1 % Normal 11.0-15.0 [facility] Comment on above: Performed By: #### C BC #### [facility] [address] [place] [address] Dr. Gladys Larsen Hematocrit (Bld) [Volume fraction] 37.1 % Normal 36.0-48.0 [facility] Comment on above: Performed By: #### C BC #### [facility] [address] [place] [address] Dr. Gladys Larsen Hemoglobin (Bld) [Mass/Vol] 12.4 g/dL Normal 12.0-16.0 [facility] Comment on above: Performed By: #### C BC #### [facility] [address] [place] [address] Dr. Gladys Larsen IG # 0.01 10e3/ul Normal 0.00-0.03 [facility] Comment on above: Performed By: #### C BC #### [facility] [address] [place] [address] Dr. Gladys Larsen IG % 0.2 % Normal 0.0-0.5 [facility] Comment on above: Performed By: #### C BC #### [facility] [address] [place] [address] Dr. Gladys Larsen LYMPH # 1.6 103/ul Normal 1.2-3.8 [facility] Comment on above: Performed By: #### C BC #### [facility] [address] [place] [address] Dr. Gladys Larsen Lymphocytes/100 WBC (Bld) 30.1 % Normal 20.5-60.0 [facility] Comment on above: Performed By: #### C BC #### [facility] [address] [place] [address] Dr. Gladys Larsen MANUAL DIFF REQ NO Normal [facility] Comment on above: Performed By: #### C BC #### [facility] [address] [place] [address] Dr. Gladys Larsen MCH (RBC) [Entitic mass] 30.1 pg Normal 26.7-34.0 [facility] Comment on above: Performed By: #### C BC #### [facility] [address] [place] [address] Dr. Gladys Larsen MCHC (RBC) [Mass/Vol] 33.4 g/dL Normal 29.9-35.2 [facility] Comment on above: Performed By: #### C BC #### [facility] [address] [place] [address] Dr. Gladys Larsen MCV (RBC) [Entitic vol] 90.0 fL Normal 81.0-99.0 [facility] Comment on above: Performed By: #### C BC #### [facility] [address] [place] [address] Dr. Gladys Larsen MONO # 0.4 103/ul Normal 0.3-0.8 [facility] Comment on above: Performed By: #### C BC #### [facility] [address] [place] [address] Dr. Gladys Larsen Monocytes/100 WBC (Bld) 7.5 % Normal 1.7-12.0 [facility] Comment on above: Performed By: #### C BC #### [facility] [address] [place] [address] Dr. Gladys Larsen NEUT # 3.3 103/ul Normal 1.4-6.5 [facility] Comment on above: Performed By: #### C BC #### [facility] [address] [place] [address] Dr. Gladys Larsen Neutrophils/100 WBC (Bld) 60.7 % Normal 43.0-75.0 [facility] Comment on above: Performed By: #### C BC #### [facility] [address] [place] [address] Dr. Gladys Larsen Platelet mean volume (Bld) [Entitic vol] 9.8 fL Normal 9.5-13.5 [facility] Comment on above: Performed By: #### C BC #### [facility] [address] [place] [address] Dr. Gladys Larsen PLT 269 103/ul Normal 150-450 [facility] Comment on above: Performed By: #### C BC #### [facility] [address] [place] [address] Dr. Gladys Larsen RBC 4.12 106/ul Critically low 4.20-5.40 [facility] Comment on above: Performed By: #### C BC #### [facility] [address] [place] [address] Dr. Gladys Larsen WBC 5.4 103/ul Normal 4.0-11.0 [facility] Comment on above: Performed By: #### C BC #### [facility] [address] [place] [address] Dr. Gladys Larsen FREE T4on 02-09-2022 Free T4 [Mass/Vol] 1.31 ng/dL Normal 0.76-1.46 [facility] Comment on above: Performed By: #### F T4 #### [facility] [address] [place] [address] Dr. Gladys Larsen LIPASEon 02-09-2022 Lipase [Catalytic activity/Vol] 118.0 U/L Normal 73.0-393.0 [facility] Comment on above: Performed By: #### C BC #### [facility] [address] [place] [address] Dr. Gladys Larsen PROF 14(COMP METB)on 022 Albumin [Mass/Vol] 3.8 g/dL Normal 3.4-5.0 [facility] Comment on above: Performed By: #### C BC #### [facility] [address] [place] [address] Dr. Gladys Larsen Albumin/Globulin [Mass ratio] 1.2 {ratio} Normal [facility] Comment on above: Performed By: #### C BC #### [facility] [address] [place] [address] Dr. Gladys Larsen ALP [Catalytic activity/Vol] 51 U/L Normal 46-116 [facility] Comment on above: Performed By: #### C BC #### [facility] [address] [place] [address] Dr. Gladys Larsen ALT [Catalytic activity/Vol] 13 U/L Critically low 14-59 [facility] Comment on above: Performed By: #### C BC #### [facility] [address] [place] [address] Dr. Gladys Larsen Anion gap [Moles/Vol] 12.2 mmol/L Normal [facility] Comment on above: Performed By: #### C BC #### [facility] [address] [place] [address] Dr. Gladys Larsen AST [Catalytic activity/Vol] 15 U/L Normal 15-37 [facility] Comment on above: Performed By: #### C BC #### [facility] [address] [place] [address] Dr. Gladys Larsen Bilirubin [Mass/Vol] 0.6 mg/dL Normal 0.2-1.0 [facility] Comment on above: Performed By: #### C BC #### [facility] [address] [place] [address] Dr. Gladys Larsen Calcium [Mass/Vol] 8.5 mg/dL Normal 8.5-10.1 [facility] Comment on above: Performed By: #### C BC #### [facility] [address] [place] [address] Dr. Gladys Larsen Chloride [Moles/Vol] 105 mmol/L Normal 98-107 [facility] Comment on above: Performed By: #### C BC #### [facility] [address] [place] [address] Dr. Gladys Larsen CO2 [Moles/Vol] 27.1 mmol/L Normal 21.0-32.0 [facility] Comment on above: Performed By: #### C BC #### [facility] [address] [place] [address] Dr. Gladys Larsen Creatinine [Mass/Vol] 0.95 mg/dL Normal 0.55-1.02 [facility] Comment on above: Performed By: #### C BC #### [facility] [address] [place] [address] Dr. Gladys Larsen EGFR-AF MONTSERRATIAN >60 Normal >=60 [facility] Comment on above: Performed By: #### C BC #### [facility] [address] [place] [address] Dr. Gladys Larsen EGFR-NON AF MONTSERRATIAN 58 mL/min/1.73m2 Critically low >=60 [facility] Comment on above: Performed By: #### C BC #### [facility] [address] [place] [address] Dr. Gladys Larsen Globulin (S) [Mass/Vol] 3.1 g/dL Normal [facility] Comment on above: Performed By: #### C BC #### [facility] [address] [place] [address] Dr. Gladys Larsen Glucose [Mass/Vol] 108 mg/dL Critically high 74-106 [facility] Comment on above: Performed By: #### C BC #### [facility] [address] [place] [address] Dr. Gladys Larsen Potassium [Moles/Vol] 3.3 mmol/L Critically low 3.5-5.1 [facility] Comment on above: Performed By: #### C BC #### [facility] [address] [place] [address] Dr. Gladys Larsen Protein [Mass/Vol] 6.9 g/dL Normal 6.4-8.2 [facility] Comment on above: Performed By: #### C BC #### [facility] [address] [place] [address] Dr. Gladys Larsen Sodium [Moles/Vol] 141 mmol/L Normal 136-145 [facility] Comment on above: Performed By: #### C BC #### [facility] Laboratory [address] [place] [address] Dr. Gladys Larsen Urea nitrogen [Mass/Vol] 15.0 mg/dL Normal 7.0-18.0 [facility] Comment on above: Performed By: #### C BC #### [facility] [address] [place] [address] Dr. Gladys Larsen Urea nitrogen/Creatini ne [Mass ratio] 15.8 mg/mg Normal [facility] Comment on above: Performed By: #### C BC #### [facility] [address] [place] [address] Dr. Gladys Larsen TSHon 02-09-2022 TSH 1.344 uIU/mL Normal 0.358-3.740 [facility] Comment on above: Performed By: #### C BC #### [facility] [address] [place] [address] Dr. Gladys Larsen CBC AUTO DIFFon 12-29-2021 BASO # 0.0 103/ul Normal 0.0-0.1 [facility] Comment on above: Performed By: #### C BC #### [facility] [address] [place] [address] Dr. Gladys Larsen Basophils/100 WBC (Bld) 0.7 % Normal 0.2-2.0 [facility] Comment on above: Performed By: #### C BC #### [facility] [address] [place] [address] Dr. Gladys Larsen EO # 0.1 103/ul Normal 0.0-0.7 [facility] Comment on above: Performed By: #### C BC #### [facility] [address] [place] [address] Dr. Gladys Larsen Eosinophils/100 WBC (Bld) 1.8 % Normal 0.9-7.0 [facility] Comment on above: Performed By: #### C BC #### [facility] [address] [place] [address] Dr. Gladys Larsen Erythrocyte distribution width (RBC) [Ratio] 13.2 % Normal 11.0-15.0 [facility] Comment on above: Performed By: #### C BC #### [facility] [address] [place] [address] Dr. Gladys Larsen Hematocrit (Bld) [Volume fraction] 41.8 % Normal 36.0-48.0 [facility] Comment on above: Performed By: #### C BC #### [facility] [address] [place] [address] Dr. Gladys Larsen Hemoglobin (Bld) [Mass/Vol] 13.9 g/dL Normal 12.0-16.0 [facility] Comment on above: Performed By: #### C BC #### [facility] [address] [place] [address] Dr. Gladys Larsen IG # 0.01 10e3/ul Normal 0.00-0.03 [facility] Comment on above: Performed By: #### C BC #### [facility] [address] [place] [address] Dr. Gladys Larsen IG % 0.2 % Normal 0.0-0.5 [facility] Comment on above: Performed By: #### C BC #### [facility] [address] [place] [address] Dr. Gladys Larsen LYMPH # 1.6 103/ul Normal 1.2-3.8 [facility] Comment on above: Performed By: #### C BC #### [facility] [address] [place] [address] Dr. Gladys Larsen Lymphocytes/100 WBC (Bld) 28.8 % Normal 20.5-60.0 [facility] Comment on above: Performed By: #### C BC #### [facility] [address] [place] [address] Dr. Gladys Larsen MANUAL DIFF REQ NO Normal [facility] Comment on above: Performed By: #### C BC #### [facility] [address] [place] [address] Dr. Gladys Larsen MCH (RBC) [Entitic mass] 30.4 pg Normal 26.7-34.0 [facility] Comment on above: Performed By: #### C BC #### [facility] [address] [place] [address] Dr. Gladys Larsen MCHC (RBC) [Mass/Vol] 33.3 g/dL Normal 29.9-35.2 [facility] Comment on above: Performed By: #### C BC #### [facility] [address] [place] [address] Dr. Gladys Larsen MCV (RBC) [Entitic vol] 91.5 fL Normal 81.0-99.0 [facility] Comment on above: Performed By: #### C BC #### [facility] [address] [place] [address] Dr. Gladys Larsen MONO # 0.5 103/ul Normal 0.3-0.8 [facility] Comment on above: Performed By: #### C BC #### [facility] [address] [place] [address] Dr. Gladys Larsen Monocytes/100 WBC (Bld) 8.5 % Normal 1.7-12.0 [facility] Comment on above: Performed By: #### C BC #### [facility] [address] [place] [address] Dr. Gladys Larsen NEUT # 3.3 103/ul Normal 1.4-6.5 [facility] Comment on above: Performed By: #### C BC #### [facility] [address] [place] [address] Dr. Gladys Larsen Neutrophils/100 WBC (Bld) 60.0 % Normal 43.0-75.0 [facility] Comment on above: Performed By: #### C BC #### [facility] [address] [place] [address] Dr. Gladys Larsen Platelet mean volume (Bld) [Entitic vol] 9.6 fL Normal 9.5-13.5 [facility] Comment on above: Performed By: #### C BC #### [facility] [address] [place] [address] Dr. Gladys Larsen PLT 234 103/ul Normal 150-450 [facility] Comment on above: Performed By: #### C BC #### [facility] [address] [place] [address] Dr. Gladys Larsen RBC 4.57 106/ul Normal 4.20-5.40 [facility] Comment on above: Performed By: #### C BC #### [facility] [address] [place] [address] Dr. Gladys Larsen WBC 5.4 103/ul Normal 4.0-11.0 [facility] Comment on above: Performed By: #### C BC #### [facility] [address] [place] [address] Dr. Gladys Larsen FREE T4on 12-29-2021 Free T4 [Mass/Vol] 1.29 ng/dL Normal 0.76-1.46 [facility] Comment on above: Performed By: #### F T4 #### [facility] [address] [place] [address] Dr. Gladys Larsen LIPASEon 12-29-2021 Lipase [Catalytic activity/Vol] 119.0 U/L Normal 73.0-393.0 [facility] Comment on above: Performed By: #### C BC #### [facility] [address] [place] [address] Dr. Gladys Larsen PROF 14(COMP METB)on 022 Albumin [Mass/Vol] 4.2 g/dL Normal 3.4-5.0 [facility] Comment on above: Performed By: #### C BC #### [facility] [address] [place] [address] Dr. Gladys Larsen Albumin/Globulin [Mass ratio] 1.4 {ratio} Normal [facility] Comment on above: Performed By: #### C BC #### [facility] [address] [place] [address] Dr. Gladys Larsen ALP [Catalytic activity/Vol] 49 U/L Normal 46-116 [facility] Comment on above: Performed By: #### C BC #### [facility] [address] [place] [address] Dr. Gladys Larsen ALT [Catalytic activity/Vol] 23 U/L Normal 14-59 [facility] Comment on above: Performed By: #### C BC #### [facility] [address] [place] [address] Dr. Gladys Larsen Anion gap [Moles/Vol] 11.5 mmol/L Normal [facility] Comment on above: Performed By: #### C BC #### [facility] [address] [place] [address] Dr. Gladys Larsen AST [Catalytic activity/Vol] 16 U/L Normal 15-37 [facility] Comment on above: Performed By: #### C BC #### [facility] [address] [place] [address] Dr. Gladys Larsen Bilirubin [Mass/Vol] 0.6 mg/dL Normal 0.2-1.0 [facility] Comment on above: Performed By: #### C BC #### [facility] [address] [place] [address] Dr. Gladys Larsen Calcium [Mass/Vol] 8.8 mg/dL Normal 8.5-10.1 [facility] Comment on above: Performed By: #### C BC #### [facility] [address] [place] [address] Dr. Gladys Larsen Chloride [Moles/Vol] 106 mmol/L Normal 98-107 [facility] Comment on above: Performed By: #### C BC #### [facility] [address] [place] [address] Dr. Gladys Larsen CO2 [Moles/Vol] 24.4 mmol/L Normal 21.0-32.0 [facility] Comment on above: Performed By: #### C BC #### [facility] [address] [address] [address] Gladys Larsen Creatinine [Mass/Vol] 0.95 mg/dL Normal 0.55-1.02 [facility] Comment on above: Performed By: #### C BC #### [facility] [address] [address] [address] Gladys Larsen EGFR-AF MONTSERRATIAN >60 Normal >=60 [facility] Comment on above: Performed By: #### C BC #### [facility] [address] [address] [address] Gladys Larsen EGFR-NON AF MONTSERRATIAN 58 mL/min/1.73m2 Critically low >=60 [facility] Comment on above: Performed By: #### C BC #### [facility] [address] [place] [address] Dr. Gladys Larsen Globulin (S) [Mass/Vol] 3.1 g/dL Normal [facility] Comment on above: Performed By: #### C BC #### [facility] [address] [address] [address] Gladys Larsen Glucose [Mass/Vol] 108 mg/dL Critically high 74-106 [facility] Comment on above: Performed By: #### C BC #### [facility] [address] [place] [address] Dr. Gladys Larsen Potassium [Moles/Vol] 3.9 mmol/L Normal 3.5-5.1 [facility] Comment on above: Performed By: #### C BC #### [facility] [address] [address] [address] Gladys Larsen Protein [Mass/Vol] 7.3 g/dL Normal 6.4-8.2 [facility] Comment on above: Performed By: #### C BC #### [facility] [address] [address] [address] Gladys Larsen Sodium [Moles/Vol] 138 mmol/L Normal 136-145 [facility] Comment on above: Performed By: #### C BC #### [facility] [address] [place], [place] [address] Dr. Gladys Larsen Urea nitrogen [Mass/Vol] 14.0 mg/dL Normal 7.0-18.0 [facility] Comment on above: Performed By: #### C BC #### [facility] [address] [address] [address] Gladys Larsen Urea nitrogen/Creatini ne [Mass ratio] 14.7 mg/mg Normal [facility] Comment on above: Performed By: #### C BC #### [facility] [address] [address] [address] Gladys Larsen TSHon 12-29-2021 TSH 3.238 uIU/mL Normal 0.358-3.740 [facility] Comment on above: Performed By: #### C BC #### [facility] [address] [address] [address] Gladys Larsen MATI Antinuclear Antibodieson 12-21-2021 Antinuclear Abs, IFA Negative Normal . [facility] Comment on above: Result Comment: Nega tive <1:80 Borderline 1:80 Positive >1:80 ICAP nomenclature: AC-0 For more information about Hep-2 cell patterns use ANApatterns.org, the official website for the International Consensus on Antinuclear Antibody (MATI) Patterns (ICAP). Performed at: - [facility] [id number] Enamel Dipper: Dayday Christina PhD, Phone: [phone] PERFORMED BY: [place] [address] PATHOLOGIST [employer] ASSEMBLER NAY FRENCH M.D. Performed By: #### A NA #### [facility] , #### ESR, CRP #### [place] [address] [place] C-Reactive Proteinon 022 C-Reactive Protein 0.6 mg/dL Normal 0.0-1.0 [facility] Comment on above: Result Comment: PERF ORMED BY: [place] [address] PATHOLOGIST [employer]SEMBLER NAY FRENCH M.D. Performed By: #### A NA #### [facility] , #### ESR, CRP #### [place] [id number] [facility] Erythrocyte Sedimentation Ra yobani 12-21-2021 ESR (Bld) [Velocity] 6 mm/h Normal 0-29 [facility] Comment on above: Result Comment: PERF ORMED BY: [place] [address] PATHOLOGIST [employer] ASSEMBLER NAY FRENCH M.D. Performed By: #### A NA #### [facility] , #### ESR, CRP #### [address] Erythrocyte sedimentation ra te by Photometric methodOrdered By: Lenny Zhao on 12-21-2021 ESR Photometric method (Bld) [Velocity] 6 mm/hr 0-29 [facility] Serum or plasma C reactive p rotein measurement (mass/volume)Ordered By: Lenny Zhao on 12-21-2021 CRP [Mass/Vol] 0.6 mg/dL 0.0-1.0 [facility] XR knee BI 2Von 12-21-2021 XR knee BI 2V [facility] [place] [address] XRay Report Signed Patient: Dian Hill MR#: [id number] 2 : 1955 Acct:[id number] Age/Sex: 66 / F ADM Date: 12/21/21 Loc: ICXD Room: Type: [facility] Attending Dr: Lenny Zhao MD Copies to: [...] Oskar Evans M.D.12/21/2021 2:30 PM Dictation Location: [place] [address] Transcribed By: [facility] 12/21/21 1430 Dictated By: Oskar Evans DO 12/21/21 1425 Signed By: 12/21/21 1430 [facility] Vital Signs Date Time Vital Sign Value Performing Clinician Facility 11-08-2023 11:57-0400 Body height 165.1 cm Marisela Shanon [employer] Work Phone: [facility] 11-08-2023 11:57-0400 Body mass index (BMI) [Ratio] 27.99 kg/m2 Marisela Shanon [employer] Work Phone: [facility] 11-08-2023 11:57-0400 Body weight 76.3 kg Marisela Shanon [employer] Work Phone: [facility] 11-08-2023 11:57-0400 Diastolic blood pressure 94 mm[Hg] Marisela Shanon [employer] Work Phone: [facility] 11-08-2023 11:57-0400 Heart rate 86 /min Marisela Shanon [employer] Work Phone: [facility] 11-08-2023 11:57-0400 Systolic blood pressure 144 mm[Hg] Marisela Shanon [employer] Work Phone: [facility] 09-20-2023 14:00-0400 Body height 166.4 cm Bela Frost Work Phone: [facility] 09-20-2023 14:00-0400 Body weight 75.5 kg Pulm Vicky Work Phone: [facility] 09-14-2023 14:45-0400 Body weight 77.5 kg Kai Nascimento MD Work Phone: [facility] 09-14-2023 14:45-0400 Heart rate 85 /min Kai Nascimento MD Work Phone: [facility] 09-14-2023 14:45-0400 SaO2% (BldA) [Mass fraction] 95 % Kai Nascimento MD Work Phone: [facility] 08-29-2023 10:16-0500 Body height 165.1 cm Florinda Glover MD Work Phone: [facility] 08-29-2023 10:16-0500 Body weight 74.1 kg Florinda Glover MD Work Phone: [facility] 08-29-2023 10:16-0500 Diastolic blood pressure 98 mm[Hg] Florinda Glover MD Work Phone: [facility] 08-29-2023 10:16-0500 Heart rate 104 /min Florinda Glover MD Work Phone: [facility] 08-29-2023 10:16-0500 Systolic blood pressure 132 mm[Hg] Florinda Glover MD Work Phone: [facility] 05-19-2023 09:38-0500 Body weight 74.98 kg Niko Talley MD Work Phone: [facility] 05-19-2023 09:38-0500 Diastolic blood pressure 87 mm[Hg] Niko Tlaley MD Work Phone: [facility] 05-19-2023 09:38-0500 Heart rate 93 /min Niko Talley MD Work Phone: [facility] 05-19-2023 09:38-0500 Systolic blood pressure 127 mm[Hg] Niko Talley MD Work Phone: [facility] 04-11-2023 08:09-0400 Diastolic blood pressure 87 mm[Hg] Niko Talley MD Work Phone: [facility] 04-11-2023 08:09-0400 Heart rate 76 /min Niko Talley MD Work Phone: [facility] 04-11-2023 08:09-0400 Systolic blood pressure 125 mm[Hg] Niko Talley MD Work Phone: [facility] 04-11-2023 08:05-0400 Body weight 74.03 kg Niko Talley MD Work Phone: [facility] 02-16-2023 08:38-0400 Body height 167.6 cm Florinda Glover MD Work Phone: [facility] 02-16-2023 08:38-0400 Body weight 75.89 kg Florinda Glover MD Work Phone: [facility] 02-16-2023 08:38-0400 Diastolic blood pressure 90 mm[Hg] Florinda Glover MD Work Phone: [facility] 02-16-2023 08:38-0400 Heart rate 81 /min Florinda Glover MD Work Phone: [facility] 02-16-2023 08:38-0400 Respiratory rate 16 /min Florinda Glover MD Work Phone: [facility] 02-16-2023 08:38-0400 SaO2% (BldA) [Mass fraction] 98 % Florinda Glover MD Work Phone: [facility] 02-16-2023 08:38-0400 Systolic blood pressure 129 mm[Hg] Florinda Glover MD Work Phone: [facility] 10-27-2022 14:30-0400 Body height 167.64 cm Shalini Hargrove Other [facility] Other 10-27-2022 14:30-0400 Body mass index (BMI) [Ratio] 26.79 kg/m2 Shalini Hargrove Other [facility] Other 10-27-2022 14:30-0400 Body weight 75.3 kg Shalini Hargrove Other [facility] Other 10-27-2022 14:30-0400 Diastolic blood pressure 72 mm[Hg] Shalini Hargrove Other [facility] Other 10-27-2022 14:30-0400 SaO2% (BldA) [Mass fraction] 97 % Shalini Hargrove Other [facility] Other 10-27-2022 14:30-0400 Systolic blood pressure 108 mm[Hg] Shalini Hargrove Other [facility] Other 07-05-2022 11:30-0500 Body height 167.64 cm Shalini Hargrove Other [facility] Other 07-05-2022 11:30-0500 Body mass index (BMI) [Ratio] 26.79 kg/m2 Shalini Hargrove Other [facility] Other 07-05-2022 11:30-0500 Body weight 75.3 kg Shalini Hargrove Other [facility] Other 07-05-2022 11:30-0500 Diastolic blood pressure 60 mm[Hg] Shalini Hargrove Other [facility] Other 07-05-2022 11:30-0500 SaO2% (BldA) [Mass fraction] 97 % Shalini Hargrove Other [facility] Other 07-05-2022 11:30-0500 Systolic blood pressure 100 mm[Hg] Shalini Hargrove Other [facility] Other Encounters Encounter Date Encounter Type Care Provider Facility Start: 11-08-2023 End: 11-08-2023 ambulatory [facility] Facility:[facility] Start: 11-08-2023 End: 11-08-2023 Patient encounter procedure Marisela Claudio [employer] Work Phone: Pain Management Comment on above: Pain in right hip (P rimary Dx); Myalgia; Mild cognitive impairment Start: 10-12-2023 End: 10-12-2023 [facility] encounter [facility] Work Phone: Radiology Comment on above: [facility] Follow Up Start: 10-12-2023 End: 10-12-2023 Patient encounter procedure [facility] Work Phone: [facility] Start: 10-05-2023 End: 10-05-2023 ambulatory RODY JUAREZ Facility:[facility] Start: 10-05-2023 End: 10-05-2023 Subsequent hospital visit by physician Mri [facility] [place] (Lg Bore/1.5t) Radiology MRI Comment on above: Pancreatic cyst [K86 .2] Start: 09-20-2023 End: 09-20-2023 ambulatory MARY PUZIO Facility:[facility] Start: 09-20-2023 End: 09-20-2023 ambulatory Pulm Childress Work Phone: Pulmonary Lab Comment on above: Spirometry Start: 09-20-2023 End: 09-20-2023 Patient encounter procedure Pulm [facility] Work Phone: [facility] Start: 09-14-2023 End: 09-14-2023 ambulatory KAI NASCIMENTO Facility:[facility] Start: 09-14-2023 End: 09-14-2023 Patient encounter procedure Kai Nascimento MD Work Phone: Pain Management Comment on above: NORTH (dyspnea on exer tion) (Primary Dx); Lumbosacral stenosis; Vasculitis, 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) Start: 09-11-2023 Telephone encounter Florinda Glover MD Work Phone: [facility] Comment on above: Results Start: 09-07-2023 End: 09-07-2023 ambulatory FLORINDA GLOVER Facility:[facility] Start: 09-07-2023 End: 09-07-2023 Subsequent hospital visit by physician Mri [facility] [place] (Lg Bore/1.5t) Radiology MRI Comment on above: DDD (degenerative di sc disease), thoracic [M51.34] Start: 08-29-2023 Telephone encounter Rody Juarez APRN.CNP Work Phone: Radiology Comment on above: Radiology Review Start: 08-29-2023 End: 08-29-2023 ambulatory SELF Facility:[facility] Start: 08-29-2023 End: 08-29-2023 Patient encounter procedure Florinda Glover MD Work Phone: [facility] Comment on above: Lumbosacral stenosis (Primary Dx); DDD (degenerative disc disease), thoracic Start: 08-18-2023 E-mail encounter lee platt caregiver Rody Juarez APRN.CNP Work Phone: [facility] Start: 08-18-2023 Follow-up encounter Rody Juarez APRN.CNP Work Phone: Radiology Comment on above: Actionable Finding F ollow up Start: 08-02-2023 End: 08-02-2023 ambulatory Shalini Hargrove Other [facility] Other Start: 08-02-2023 Telephone encounter Shalini Hargrove [facility] Start: 06-16-2023 Refill Niko osborne MD Work Phone: Internal [facility] Comment on above: Refill Request Start: 06-12-2023 End: 06-12-2023 ambulatory Shalini Hargrove Other [facility] Other Start: 06-12-2023 Telephone encounter Shalini Hargrove [facility] Start: 05-31-2023 ambulatory Mary Doll Work Phone: Internal [facility] [place] Start: 05-19-2023 Telephone encounter Yisel talbert MD Work Phone: Internal [facility] Comment on above: Consult (Best Practi ce) Start: 05-19-2023 End: 05-21-2023 Evaluation and management of inpatient GILBERT LITTLE Facility:[facility] Start: 05-19-2023 End: 05-19-2023 ambulatory NIKO TALLEY Facility:[facility] Start: 05-19-2023 End: 05-19-2023 Patient encounter procedure Niko Talley MD Work Phone: Internal Medicine [place] Comment on above: Acute left flank susan n (Primary Dx); Intractable back pain; Urinary incontinence, mixed; Spinal stenosis of lumbar region without neurogenic claudication Start: 04-11-2023 End: 04-12-2023 ambulatory AJVON FAJARDOJOANNADYLLAN Facility:[facility] Start: 04-11-2023 End: 04-11-2023 Patient encounter procedure Niko Talley MD Work Phone: Internal Medicine [place] Comment on above: Epigastric pain (Estefani mariela Dx); Nausea; Other fatigue Start: 03-29-2023 Telephone encounter Florinda Glover MD Work Phone: Neurology Comment on above: Received Outside [facility] Records Start: 03-24-2023 End: 03-24-2023 ambulatory Shalini Hargrove Other [facility] Other Start: 03-24-2023 Telephone encounter Shalini Hargrove [facility] Start: 03-13-2023 Telephone encounter Florinda Glover MD Work Phone: Neurology Comment on above: Information Start: 02-27-2023 End: 02-27-2023 ambulatory Shalini Hargrove Other [facility] Other Start: 02-27-2023 Telephone encounter Shalini Hargrove [facility] Start: 02-16-2023 End: 02-17-2023 ambulatory FLORINDA GLOVER Facility:[facility] Start: 02-16-2023 End: 02-16-2023 Patient encounter procedure Florinda Glover MD Work Phone: [facility] Comment on above: Lumbosacral stenosis (Primary Dx); Nausea; Other fatigue Start: 02-15-2023 End: 02-15-2023 ambulatory Shalini Hargrove Other [facility] Other Start: 02-15-2023 Telephone encounter Shalini Beena [facility] Comment on above: Received Outside Med ical Records Start: 02-03-2023 End: 02-03-2023 ambulatory Shalini Beena Other [facility] Other Start: 02-03-2023 Telephone encounter Shalini Beena [facility] Start: 01-30-2023 End: 01-30-2023 ambulatory Shalini Hargrove Other [facility] Other Start: 01-30-2023 Telephone encounter Shalini Beena [facility] Start: 01-12-2023 End: 01-12-2023 ambulatory Shalini Hargrove Other [facility] Other Start: 01-12-2023 Telephone encounter Shalini Hargrove [facility] Start: 11-08-2022 End: 11-08-2022 ambulatory Shalini Hargrove Other [facility] Other Start: 11-08-2022 Telephone encounter Shalini Beena [facility] Start: 11-04-2022 End: 11-04-2022 ambulatory Shalini Hargrove Other [facility] Other Start: 11-04-2022 Telephone encounter Shalini Hargrove [facility] Start: 11-02-2022 End: 11-03-[address] SHALINI HARGROVE Facility: Start: 10-27-2022 End: 10-27-2022 ambulatory Shalini Hargrove Other [facility] Other Start: 10-27-2022 Office outpatient vi sit 25 minutes Shalini Hargrove [facility] Start: 09-07-2022 End: 09-07-2022 ambulatory Shalini Hargrove Other [facility] Other Start: 09-07-2022 Telephone encounter Shalini Hargrove [facility] Start: 07-15-2022 End: 07-16-[address] SHALINI HARGROVE Facility:[facility] Start: 07-05-2022 End: 07-05-2022 ambulatory Shalini Hargrove Other [facility] Other Start: 07-05-2022 Office outpatient vi sit 25 minutes Shalini Hargrove [facility] Start: 03-14-2022 Adult health examination Shalini Hargrove Other [facility] Other Start: 03-14-2022 Encounter for genera l adult medical examination without abnormal findings Shalini Hargrove Other [facility] Other Start: 02-09-2022 End: 02-10-[address] SHALINI HARGROVE Facility:[facility] Start: 12-29-2021 End: 12-30-[address] SHALINI HARGROVE Facility:[facility] Start: 12-28-[address] SHALINI HARGROVE Facil ity:[facility] Start: 12-21-2021 End: 12-21-2021 Patient encounter procedure PHYSICIAN NO FAMILY [facility] [facility] [address] Procedures Date Procedure Procedure Detail Performing Clinician Start: 10-05-2023 3d rendering w/interp&postproc diff work station Rody Juarez APRN.CNP Work Phone: Start: 10-05-2023 Mri abdomen w/o & w/contrast material Rody Juarez APRN.HR INTERN Work Phone: Start: 09-20-2023 Pulmonary stress testing [...] Start: 05-21-2026 Diabetes Screening Diabetes Screenin g [facility] Start: 05-19-2026 Diabetes Screening Diabetes Screenin g [facility] Start: 04-11-2026 Diabetes Screening Diabetes Screenin g [facility] Start: 10-07-2024 End: 10-07-2024 Patient encounter procedure 10/07/2024 1:00 PM EDT [facility] Radiology [address] [address] [facility]INIC - VIRTUAL VISIT Radiology Comment on above: [facility]ABLE CLINIC - VIRTUAL VISIT Start: 09-30-2024 End: 09-30-2024 Patient encounter procedure 09/30/2024 1:20 PM EDT Appointment Radiology MRI [address] [place], [place] [id number] ACTIONABLE CLINIC - FOLLOW UP Radiology MRI Comment on above: ACTIONABLE CLINIC - FOLLOW UP Start: 06-02-2024 Screening for malign ant neoplasm of colon [facility] Start: 05-19-2024 Annual PCP Team Inventory Control Clerk cady Disease Visit Annual PCP Team Chronic Disease Visit [facility] Start: 04-11-2024 Covid-19 Vaccine (#1) Covid-19 Vacci ne (#1) [facility] Comment on above: Postponed from 04/04 (Declined at this time) Start: 04-11-2024 Covid-19 Vaccine () Covid-19 Vaccine () [facility] Comment on above: Postponed from 03/03 (Declined at this time) Start: 04-11-2024 Pneumococcal Vaccine : 65+ (2 - PCV) Pneumococcal Vaccine: 65+ (2 - PCV) [facility] Comment on above: Postponed from 10/03 (Declined at this time) Start: 04-11-2024 Pneumococcal Vaccine : 65+ (2 of 2 - PCV) Pneumococcal Vaccine: 65+ (2 of 2 - PCV) [facility] Comment on above: Postponed from 10/03 (Declined at this time) Start: 04-11-2024 Shingrix Vaccine (1 of 2) Scales grix Vaccine (1 of 2) [facility] Comment on above: Postponed from 10/03 (Declined at this time) Start: 04-11-2024 Urine microalbumin profile DTa P,Tdap,Td Vaccine (1 - Tdap) [facility] Comment on above: Postponed from 10/03 (Declined at this time) Start: 03-03-2024 Influenza vaccination Influenz a Vaccine (Season Ended) [facility] Start: 12-31-2023 Influenza vaccination Influenza Vacc ine (#1) [facility] Comment on above: Postponed from 03/03 (Declined at this time) Start: 11-08-2023 End: 02-07-2024 C reactive protein [Mass/volume] in Serum or Plasma C-REACTIVE PROTEIN Lab Routine Myalgia Expected: 11/08/2023, Expires: 02/07/2024 [facility] Comment on above: Expected: 11/08/2023 , Expires: 02/07/2024 Start: 11-08-2023 End: 02-07-2024 Erythrocyte sedimentation rate SEDIMENTATION RATE, WESTERGREN Lab Routine Myalgia Expected: 11/08/2023, Expires: 02/07/2024 [facility] Comment on above: Expected: 11/08/2023 , Expires: 02/07/2024 Start: 11-08-2023 End: 02-07-2024 Urate [Mass/volume] in Serum or Plasma URIC ACID Lab Routine Myalgia Expected: 11/08/2023, Expires: 02/07/2024 [facility] Comment on above: Expected: 11/08/2023 , Expires: 02/07/2024 Start: 09-14-2023 End: 12-14-2023 Thyrotropin [Units/volume] in Serum or Plasma TSH BLD Lab Routine Lumbosacral stenosis NORTH (dyspnea on exertion) 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, 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) Expected: 09/14/2023, Expires: 12/14/2023 [facility] Work Phone: Comment on above: Expected: 09/14/2023 , Expires: 12/14/2023 Start: 09-14-2023 End: 12-14-2023 Thyroxine (T4) free [Mass/volume] in Serum or Plasma T4 FREE/FREE THYROX Lab Routine Lumbosacral stenosis NORTH (dyspnea on exertion) 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, 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) Expected: 09/14/2023, Expires: 12/14/2023 [facility] Work Phone: Comment on above: Expected: 09/14/2023 , Expires: 12/14/2023 Start: 09-14-2023 End: 12-14-2023 Triiodothyronine (T3) Free [Mass/volume] in Serum or Plasma T3 FREE BLD Lab Routine Lumbosacral stenosis NORTH (dyspnea on exertion) 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, 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) Expected: 09/14/2023, Expires: 12/14/2023 [facility] Work Phone: Comment on above: Expected: 09/14/2023 , Expires: 12/14/2023 Start: 07-03-2023 Advance Directive Discussion Advance Directive Discussion [facility] Start: 07-03-2023 Behavioral Health Screening Behavioral Health Screening [facility] Start: 07-03-2023 Depression Assessment Depression Ass [facility] Start: 05-19-2023 End: 08-18-2023 Urinalysis complete panel - Urine URINALYSIS WITH MICROSCOPIC, REFLEX CULTURE Lab Routine Acute left flank pain Expected: 05/19/2023, Expires: 08/18/2023 [facility] Work Phone: Comment on above: Expected: 05/19/2023 , Expires: 08/18/2023 Start: 04-11-2023 End: 06-11-2023 Helicobacter pylori Ag [Presence] in Stool by Immunoassay H PYLORI AG BY EIA,STOOL Microbiology Routine Epigastric pain Expected: 04/11/2023, Expires: 06/11/2023 [facility] Work Phone: Comment on above: Expected: 04/11/2023 , Expires: 06/11/2023 Start: 03-03-2023 Influenza vaccination C [facility] Start: 07-03-2022 ADVANCE DIRECTIVE DISCUSSION ADVANCE DIRECTIVE DISCUSSION [facility] Start: 07-03-2022 DEPRESSION ASSESSMENT DEPRESSION ASS ESSMENT [facility] Start: 2018 BONE DENSITY BONE DENSITY [facility] Start: 2018 Bone Density Screening Bone Density Screening [facility] Start: 2018 Pneumococcal Vaccine : 65+ (1 - PCV) Pneumococcal Vaccine: 65+ (1 - PCV) [facility] Start: 2018 PNEUMOCOCCAL: 65+ (1 - PCV) PNEUMOCOCCAL: 65+ (1 - PCV) [facility] Start: 2018 Screening for osteoporosis Bone Dens ity Screening [facility] Start: 2013 RSV Vaccine (1 - 1-d ose 60+ series) RSV Vaccine (1 - 1-dose 60+ series) [facility] Start: 09-17-2008 Lipid 1996 panel - S beto or Plasma Lipid Screening [facility] Start: 09-17-2008 Lipid panel Lipid Screening [facility] Start: 09-17-2008 LIPID SCREEN LIPID SCREEN [facility] Start: 09-17-2006 DIABETES SCREEN DIABETES SCREEN [facility] Start: 09-17-2006 Diabetes Screening Diabetes Screenin g [facility] Start: 10-04-2003 SHINGRIX VACCINE (1 of 2) SCALES GRIX VACCINE (1 of 2) [facility] Start: 1998 COLOGUARD (FIT-DNA) COLOGUARD (FIT-D NA) [facility] Start: 1998 Colonoscopy COLONOSCOPY [facility] Start: 1998 COLORECTAL CANCER SCREENING COLORECTAL CANCER SCREENING [facility] Start: [address] COLONOGRAPHY [facility] Start: 1998 FECAL OCCULT BLOOD FECAL OCCULT BLOO D [facility] Start: 1998 Screening for malign ant neoplasm of colon [facility] Start: 1998 SIGMOIDOSCOPY SIGMOIDOSCOPY [facility] Start: 1993 Mammography [facility] Start: 1993 Screening for malign ant neoplasm of breast Mammogram Screening [facility] Start: 1972 Urine microalbumin profile [facility] Start: 04-04-1956 COVID-19 VACCINE (#1) COVID-19 VACCI NE (#1) [facility] End: 06-17-2024 Ct abdomen & pelvis w/o contrast material CT ABD/PEL WO IVCON Radiology Routine Acute left flank pain 1 Occurrences starting 05/19/2023 until 06/17/2024 [facility] Work Phone: Comment on above: 1 Occurrences starti ng 05/19/2023 until 06/17/2024 End: 04-11-2024 ECG COMPLETE ECG COMPLETE ECG Routine Epigastric pain 1 Occurrences starting 04/11/2023 until 04/11/2024 [facility] Work Phone: Comment on above: 1 Occurrences starti ng 04/11/2023 until 04/11/2024 ECG COMPLETE ECG COMPLETE ECG 04/11/2023 12:24 PM EDT [facility] End: 04-11-2024 EGD DIAGNOSTIC EGD DIAGNOSTIC Endoscopy Routine Epigastric pain 1 Occurrences starting 04/11/2023 until 04/11/2024 [facility] Work Phone: Comment on above: 1 Occurrences starti ng 04/11/2023 until 04/11/2024 Homogenous nuclear A b pattern [Titer] in [facility] Work Phone: End: 06-29-2024 PRINCESS SCREENING PRINCESS SCREENING Radiology Routine Encounter for screening mammogram for breast cancer 1 Occurrences starting 05/31/2023 until 06/29/2024 [facility] Work Phone: Comment on above: 1 Occurrences starti ng 05/31/2023 until 06/29/2024 End: 09-27-2024 MR Biliary ducts and Pancreatic duct WO and W contrast IV MRI PANC/CHAIM WO/W IVCON Radiology Routine Pancreatic cyst 1 Occurrences starting 08/29/2023 until 09/27/2024 [facility] Work Phone: Comment on above: 1 Occurrences starti ng 08/29/2023 until 09/27/2024 End: 11-10-2024 MR Biliary ducts and Pancreatic duct WO and W contrast IV MRI PANC/CHAIM WO/W IVCON Radiology Routine Abnormal findings on imaging test Pancreas cyst 1 Occurrences starting 10/12/2023 until 11/10/2024 [facility] Work Phone: Comment on above: 1 Occurrences starti ng 10/12/2023 until 11/10/2024 End: 10-13-2024 MR Brain WO and W contrast IV MRI BRAIN WO/W IVCON Radiology Routine 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, 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) 1 Occurrences starting 09/14/2023 until 10/13/2024 [facility] Work Phone: Comment on above: 1 Occurrences starti ng 09/14/2023 until 10/13/2024 End: 09-27-2024 MR Thoracic spine WO contrast MRI THORACIC SPINE WO IVCON Radiology Routine DDD (degenerative disc disease), thoracic 1 Occurrences starting 08/29/2023 until 09/27/2024 [facility] Work Phone: Comment on above: 1 Occurrences starti ng 08/29/2023 until 09/27/2024 End: 09-27-2024 MR Unspecified body region 3D post processing MRI 3D POST PROCESSING Radiology Routine Pancreatic cyst 1 Occurrences starting 08/29/2023 until 09/27/2024 [facility] Work Phone: Comment on above: 1 Occurrences starti ng 08/29/2023 until 09/27/2024 End: 11-10-2024 MR Unspecified body region 3D post processing MRI 3D POST PROCESSING Radiology Routine Abnormal findings on imaging test Pancreas cyst 1 Occurrences starting 10/12/2023 until 11/10/2024 [facility] Work Phone: Comment on above: 1 Occurrences starti ng 10/12/2023 until 11/10/2024 Nuclear Ab [Titer] i n [facility] Work Phone: End: 04-14-2024 Radex spine lumbosacral 2/3 views XR LUMBAR LIMITED 2V FLEX/EXT Radiology Routine Spinal stenosis, lumbar region with neurogenic claudication 1 Occurrences starting 03/16/2023 until 04/14/2024 [facility] Work Phone: Comment on above: 1 Occurrences starti ng 03/16/2023 until 04/14/2024 End: 10-13-2024 SIX MINUTE WALK SIX MINUTE WALK PFT Routine Lumbosacral stenosis NORTH (dyspnea on exertion) 1 Occurrences starting 09/14/2023 until 10/13/2024 [facility] Work Phone: Comment on above: 1 Occurrences starti ng 09/14/2023 until 10/13/2024 SIX MINUTE WALK SIX MINUTE WALK PFT Routine Lumbosacral stenosis NORTH (dyspnea on exertion) 09/20/2023 3:17 PM EDT [facility] Work Phone: End: 05-10-2024 US ABD RIGHT UPPER QUADRANT US ABD RIGHT UPPER QUADRANT Radiology Routine Epigastric pain 1 Occurrences starting 04/11/2023 until 05/10/2024 [facility] Work Phone: Comment on above: 1 Occurrences starti ng 04/11/2023 until 05/10/2024 End: 12-07-2024 XR Pelvis and Hip - right AP and Lateral frog XR HIP GENERAL 3V PELV/AP/LAT RIGHT Radiology Routine Pain in right hip 1 Occurrences starting 11/08/2023 until 12/07/2024 [facility] Work Phone: Comment on above: 1 Occurrences starti ng 11/08/2023 until 12/07/2024 [facility] Immunizations Immunization Date Immunization Notes Care Provider [facility] 06-01-2017 seasonal influenza, intradermal, preservative free Niko Talley MD Work Phone: [facility] 06-01-2017 influenza virus vacc ine, unspecified formulation Florinda Glover MD Work Phone: [facility] 08-22-2015 influenza, seasonal, injectable Niko Talley MD Work Phone: [facility] 08-22-2015 pneumococcal polysaccharide vaccine, 23 valent Niko Talley MD Work Phone: [facility] Payers Date Payer Category Payer Medicare [employer] MEDICARE A ETNA MEDICARE PPO [id number] 2021-Present [phone] [address] [place] [address] PPO [id number] 1961 Medicare [id number] 1955 Unknown [id number] 1955 Unknown [id number] 1955 Unknown [id number] 1955 Unknown [id number] 1955 Unknown [id number] Medicaid [facility] [id number] Self-pay Self Pay [id number] Social History Date Type Detail Facility Tobacco smoking status WIIS Unknown if ever smoked [facility] Work Phone: Start: 1955 Sex Assigned At Female [facility] Start: 02-16-2023 End: 05-19-2023 Sex Assigned At [facility] Work Phone: Start: 02-16-2023 Tobacco smoking status WIIS Never smoked tobacco [facility] Start: 02-16-2023 Tobacco use and exposure Smokeless tobacco non-user [facility] Start: 02-16-2023 End: 11-08-2023 Alcohol intake Current non-drinker of alcohol (finding) [facility] Start: 02-16-2023 End: 05-19-2023 History of Social function [facility] Work Phone: Start: 1955 Sex Assigned At Not on file [facility] National Score (1-100), lower number is lower risk 61 [facility] Work Phone: How hard is it for you to pay for the very basics like food, housing, medical care, and heating Not very hard [facility] Work Phone: (I/We) worried whether (my/our) food would run out before (I/we) got money to buy more. Never true [facility] Work Phone: In the past 12 months, was there a time when you were not able to pay the mortgage or rent on time? No [facility] Work Phone: NEGATED: Highlighted rowStart: NINF History of tobacco use Passive smoker [facility] Clinical Notes 07-05-2022 to 11-09-2023 Marisela Claudio APRN.HR INTERN - 11/09/2023 8:47 AM EDTPatient InstructionsPatient InstructionsDaphne Gonsalez PA-C - 10/12/2023 10:00 AM Mariela Randle RN - 10/05/2023 10:00 AM EDT Note Date & Type Note Facility 11-09-2023 Note HNO ID: [id number] Author: MARISELA CLAUDIO APRN.HR INTERN Service: ? Author Type: Nurse Practitioner Type: Progress Notes Filed: 11/09/2023 08:58 Note Text: SUBJECTIVE: The patient presents to [facility] Pain Management Department for a follow-up appointment [...] and had similar (more content not included)... [facility] 11-09-2023 History of Presen t illness Narrative Images from the original note were not included. SUBJECTIVE: The patient presents to [facility] Pain Management Department for a follow-up appointment [...] which included: *preparing to see the patient *[id number] patient care *completing clinical documentation *obtaining and/or [...] November 09, 2023 documented in this encounter [facility] 11-08-2023 Instructions Marisela Claudio APRN.CNP - 11/08/2023 12:30 PM EDT Get blood work (crp, sed rate) We also need results of thyroid If you are fracturing we need a bone density scan ask your pcp so we can see how thin your bones are Recommend getting xray of your right hip Also recommend seeing neurologist for mild cognitive impairment documented in this encounter [facility] 10-12-2023 Note HNO ID: [id number] Author: DAPHNE GONSALEZ PA-C Service: ? 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 Yes If Yes, MRI of lanza /bili in one year Imaging: None Consults requested: Yes; Service: GI If No, patient referred back to PCP's care? Does patient have a PCP? Yes If Yes, PCP copied and referred back? Outside of [facility] If no, patient assisted in setting up care with primary care? N/A If no, patient declined? N/A [facility] 10-12-2023 Instructions Daphne Gonsalez PA-C - 10/12/2023 10:44 AM EDT Dian, Thank you for following up with me today. I appreciate your confidence in choosing the [facility] at the [facility] for your medical needs. I have placed an order for Imaging: MRI of you pancrease to be done 10/2024 and follow-up with the [facility]. Please call [phone] to schedule your imaging and follow-up appointment with a provider on our team. I have placed an order for Consult to Gastroenterology . You can call the [facility] appointment line at [phone] to schedule at your convenience. If you have any additional questions or concerns, please do not hesitate to send a MyChart message and someone from our team will get back to you as soon as possible. Daphne Gosnalez PA-C [facility] documented in this encounter [facility] 10-12-2023 History of Presen t illness Narrative [facility] PATIENT NAME: Dian [...] . Last colonoscopy was years ago . [facility] of colon ca . Did have a [...] Bldg 11/08/2023 12:00 PM Marisela Claudio APRN.CNP [facility] Follow-up Plan Additional exams needed for this actionable finding? Yes If Yes, MRI of lanza /bili in one year Imaging: None Consults requested: Yes; Service: GI If No, patient referred back to PCP's care? Does patient have a PCP? Yes If Yes, PCP copied and referred back? Outside of [facility] If no, patient assisted in setting up care with primary care? N/A If no, patient declined? N/A documented in this encounter [facility] 10-05-2023 Note HNO ID: [id number] Author: JUAN SANCHEZ RT(R) Service: Radiology Author [...] PATIENT PRESENTS WITH AN IMPLANTABLE OR ATTACHED CHIEF COMMUNICATIONS OFFICER: No RADIOLOGY DEPARTMENT: MR; Exam(s) Completed: Body: Pancreas/Biliary Head: Routine Brain PERIPHERAL IV DATA: Site assessment: Clean,Dry and Intact, Site disposition Discontinued SIGNED BY: RT Ez(R) October 05, 2023 11:07 AM [facility] 10-05-2023 Note HNO ID: [id number] Author: MARIELA WILKINSON RN Service: Nursing Author [...] DATE: October 05, 2023 TIME: 10:01 AM [facility] 10-05-2023 History of Presen t illness Narrative [...] PATIENT PRESENTS WITH AN IMPLANTABLE OR ATTACHED CHIEF COMMUNICATIONS OFFICER: No RADIOLOGY DEPARTMENT: MR; Exam(s) Completed: Body: Pancreas/Biliary Head: Routine Brain PERIPHERAL IV DATA: Site assessment: Clean,Dry and Intact, Site disposition Discontinued SIGNED BY: RT Ez(R) October 05, 2023 11:07 AM documented in this encounter [facility] 09-20-2023 Note HNO ID: [id number] Author: BARBIE ENCARNACION RRT Service: ? Author Type: Registered Resp Therapist Type: Progress Notes Filed: 09/20/2023 15:18 Note Text: PULM FUNCTION SMARTBLOCK: Provider: Kai Nascimento MD 6 MW: 1 [facility] 09-20-2023 Note HNO ID: [id number] Author: ANDREW BURTON MD Service: ? Author [...] DATE: September 20, 2023 TIME: 3:17 PM [facility] 09-20-2023 History of Presen t illness Narrative PULM FUNCTION SMARTBLOCK: Provider: Kai Nascimento MD 6 MW: 1 documented in this encounter [facility] 09-14-2023 Note HNO ID: [id number] Author: KAI NASCIMENTO MD Service: ? Author Type: Anesthesiologist Type: Progress Notes Filed: 09/14/2023 15:43 Note Text: Referring Or Consulting Physician: Florinda Glover [address] [facility] [address] CHIEF COMPLAINT: pain in my low back [...] and assume there are 5 lumbar-type vertebrae. Dashboard Developer: CHAD Transcribe Date/Time: Sep 07 2023 4:05P Dictated by : RAMESH DAVIS MD This examination was interpreted and the report reviewed and electronically signed by: RAMESH DAVIS MD on Sep 07 2023 4:15PM EST Results-Findings * * *Final Report* * * DATE OF EXAM: Sep 07 2023 3:50PM [facility] - MRI THORACIC SPINE WO [...] stenosis.. MRI LUMBAR SPINE WO IVCON Order: [id number] Impression 1. Moderate left neuroforaminal narrowing at L2-3 and L3-4. 2. Mild spinal canal narrowing at L3-4 and L4-5. 3. No abnormality of the visualized sacroiliac joints. 4. Incidental hepatic and bilateral renal cysts. ELECTRONICALLY SIGNED BY: Jose Kwok MD Narrative EXAM: MR LUMBAR SPINE WO CONTRAST [id number] CLINICAL INDICATION: Low back pain and right [...] Mild disc b (more content not included)... [facility] 09-14-2023 History of Presen t illness Narrative Images from the original note were not included. Referring Or Consulting Physician: Florinda Glover [address] [facility] [address] CHIEF COMPLAINT: pain in my low back [...] and assume there are 5 lumbar-type vertebrae. Dashboard Developer: [facility] Transcribe Date/Time: Sep 07 2023 4:05P Dictated by : RAMESH DAVIS MD This examination was interpreted and the report reviewed and electronically signed by: RAMESH DAVIS MD on Sep 07 2023 4:15PM EST Results-Findings * * *Final Report* * * DATE OF EXAM: Sep 07 2023 3:50PM [facility] - MRI THORACIC SPINE WO [...] stenosis.. MRI LUMBAR SPINE WO IVCON Order: [id number] Impression 1. Moderate left neuroforaminal narrowing at L2-3 and L3-4. 2. Mild spinal canal narrowing at L3-4 and L4-5. 3. No abnormality of the visualized sacroiliac joints. 4. Incidental hepatic and bilateral renal cysts. ELECTRONICALLY SIGNED BY: Jose Kwok MD Narrative EXAM: MR LUMBAR SPINE WO CONTRAST [id number] CLINICAL INDICATION: Low back pain and right [...] Last Resulted: 01/25/23 11:23 AM Received From: 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[facility]) PLAN: MRI BRAIN WO/W IVCON query vasculitis [...] which included: *preparing to see the patient *[id number] patient care *completing clinical documentation *obtaining and/or [...] September 14, 2023 documented in this encounter [facility] 09-11-2023 Miscellaneous Notes Neuro SPINE CARE COORDINATION [...] Florinda Glover MD documented in this encounter [facility] 09-07-2023 Note HNO ID: [id number] Author: JUAN SANCHEZ RT(R) Service: Radiology Author [...] PATIENT PRESENTS WITH AN IMPLANTABLE OR ATTACHED CHIEF COMMUNICATIONS OFFICER: No RADIOLOGY DEPARTMENT: MR; Exam(s) Completed: Spine: Thoracic spine PERIPHERAL IV DATA: Not applicable SIGNED BY: RT Ez(R) September 07, 2023 3:41 PM [facility] 09-07-2023 History of Presen t illness Narrative [...] PATIENT PRESENTS WITH AN IMPLANTABLE OR ATTACHED CHIEF COMMUNICATIONS OFFICER: No RADIOLOGY DEPARTMENT: MR; Exam(s) Completed: Spine: Thoracic spine PERIPHERAL IV DATA: Not applicable SIGNED BY: RT Ez(Shay) September 07, 2023 3:41 PM documented in this encounter [facility] 09-05-2023 Note HNO ID: [id number] Author: ?, ?, ? Service: ? Author [...] Natalia Harman September 05, 2023 12:04 PM [facility] 09-05-2023 Note Patient Outreach (ARLEEN NORRIS) LIZDIAN M ([id number]) 1955 F Date Time Provider Department 09/05/23 [...] Encounter Status:Closed by NATALIA HARMAN on 09/05/23 [facility] 08-29-2023 Note HNO ID: [id number] Author: FLORINDA GLOVER MD Service: ? Author Type: Physician Type: Progress Notes Filed: 08/29/2023 11:11 Note Text: [facility] Established Visit Last [...] and I am a provider at the [facility]. As you are likely aware, you had [...] following up with somebody else in/outside the [facility], let us know. I look forward to hearing from you. Rody Juarez APRN.CNP Actionable Findings [facility] . Patient notes the epigastric pain is [...] potential etiology. Will assist. Also reviewed the NCRhart message with patient from the diagnostic radiology team, patient had not viewed, a copy of it was provided. Will assist with visit with Ms. Juarez to best address the incidentals and better clarify. Appears MRI pancrease/biliary is being recommended and I will defer to both GI and radiology to best address this, patient is (more content not included)... [facility] 08-29-2023 History of Presen t illness Narrative [facility] Established Visit Last [...] Dian Hill My name is Rody Juarez APRN.HR INTERN, and I am a provider at the [facility]. As you are likely aware, you had [...] following up with somebody else in/outside the [facility], let us know. I look forward to hearing from you. Rody Juarez APRN.[facility] Actionable Findings Diagnostic [facility]s . Patient notes the epigastric pain is [...] potential etiology. Will assist. Also reviewed the [employer] pte message with patient from the diagnostic radiology [...] Florinda Glover MD documented in this encounter [facility] 06-16-2023 Miscellaneous Notes 05/19/2023 Visit date not found Patient is currently out of medications Patient calls in requesting the following refill(s): Requested Prescriptions Pending Prescriptions Disp Refills gabapentin (NEURONTIN) 300 mg capsule 240 capsule 3 Sig: Take 1 capsule by mouth three times a day for 320 days. documented in this encounter [facility] 05-31-2023 Note Patient Outreach (IN TMMN) DIAN HILL ([id number]) 1955 F Date Time Provider Department 05/31/23 MARY APPIAH During your visit today, we recorded the following information about you: Allergies As of Date: 05/31/2023 Noted Allergy Reaction NSAIDS (NON-STEROIDAL ANTI-INFLAM*02/24/2014 8 - GI Upset Comments: Kidney failure Date Reviewed: 05/21/2023 Reviewed by: Edna Travis RN - Fully Assessed Visit Diagnosis:Encounter for screening mammogram for breast cancer [Z12.31] Order(s):[facility] SCREENING [1907842] Order #: [id number] FUTURE Prescriptions as of 06/05/2023 - gabapentin [...] Encounter Status:Closed by EPIC, PRODUSER on 06/05/23 [facility] 05-20-2023 Note HNO ID: [id number] Author: Gilbert Little MD Service: Hospital Medicine Author Type: Physician Type: Progress Notes Filed: 05/20/2023 4:54 PM Note Text: HOSPITAL MEDICINE PROGRESS NOTE SERVICE DATE: 05/20/2023 SERVICE TIME: 12:02 PM Hospital Medicine/Primary Attending: Gilbert Little* DAY AND NIGHT/WEEKEND COVERAGE: Between 8AM to 5PM, page [phone] After hours 5PM to 8AM, page [phone] if patient on G80/81 H80/81, page [phone] if on other floors. Subjective INTERVAL HPI: [...] and Airways Line Duration Peripheral 05/19/23 1239 [facility] Short Right Antecubital 20 Gauge <1 [...] Lumbar spine 01/25/20 (more content not included)... [facility] 05-19-2023 Note HNO ID: [id number] Author: Mary Bush RN Service: Care Management [...] by: Per Department Practice Potential Transition Plans Waiver;Detention Facility/Intermediate Care Facility;Home OT/PT;To Be Determined Advance Directives Current Advance Directive: None Clinical Appeals Reviewer Attempted to Assist with AD Completion: Yes [...] go home, General wellness, Help at home Iron of Choice Explained: Iron of Choice Given: Yes Level of Care Discussed: Detention Facility Are you interested in bedside delivery [...] 19, 2023 TIME: 6:45 PM CONTACT #: [phone] [facility] 05-19-2023 Note HNO ID: [id number] Author: Diane Miner, DARYL Service: Respiratory Therapy [...] 2023 TIME: 6:39 PM PAGER/CONTACT #: vitor [facility] 05-19-2023 Note HNO ID: [id number] Author: Suman Doyle Jr., CT Service: Radiology Author Type: Mat Sewer Type: Progress Notes Filed: 05/19/2023 3:48 PM [...] DATE: May 19, 2023 TIME: 3:41 PM [facility] 05-19-2023 History of Past i llness Narrative Problem Noted Date Diagnosed Date Resolved Date Chronic 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 05/19/2023 05/21/2023 Acute exacerbation of chronic low back pain 05/19/2023 05/21/2023 Gait abnormality 05/19/2023 05/21/2023 documented as of this encounter (statuses as of 05/24/2023) [facility]11-17-2023 History of Past illness Narrative* Problem Noted Date Diagnosed Date Resolved Date Chronic 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 05/19/2023 05/21/2023 Acute exacerbation of chronic low back pain 05/19/2023 05/21/2023 Gait abnormality 05/19/2023 05/21/2023 documented as of this encounter (statuses as of 06/05/2023) [facility] History of Past illness Narrative* Problem Noted Date Diagnosed Date Resolved Date Chronic 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 05/19/2023 05/21/2023 Acute exacerbation of chronic low back pain 05/19/2023 05/21/2023 Gait abnormality 05/19/2023 05/21/2023 documented as of this encounter (statuses as of 06/17/2023) [facility] History of Past illness Narrative* Problem Noted Date Diagnosed Date Resolved Date Chronic 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 05/19/2023 05/21/2023 Acute exacerbation of chronic low back pain 05/19/2023 05/21/2023 Gait abnormality 05/19/2023 05/21/2023 documented as of this encounter (statuses as of 08/18/2023) [facility] History of Past illness Narrative* Problem Noted Date Diagnosed Date Resolved Date Chronic 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 05/19/2023 05/21/2023 Acute exacerbation of chronic low back pain 05/19/2023 05/21/2023 Gait abnormality 05/19/2023 05/21/2023 documented as of this encounter (statuses as of 08/29/2023) [address]17-2023 History of Past illness Narrative* Problem Noted Date Diagnosed Date Resolved Date Chronic 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 05/19/2023 05/21/2023 Acute exacerbation of chronic low back pain 05/19/2023 05/21/2023 Gait abnormality 05/19/2023 05/21/2023 documented as of this encounter (statuses as of 08/31/2023) [address]17-2023 History of Past illness Narrative* Problem Noted Date Diagnosed Date Resolved Date Chronic 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 05/19/2023 05/21/2023 Acute exacerbation of chronic low back pain 05/19/2023 05/21/2023 Gait abnormality 05/19/2023 05/21/2023 documented as of this encounter (statuses as of 09/08/2023) [facility] History of Past illness Narrative* Problem Noted Date Diagnosed Date Resolved Date Chronic 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 05/19/2023 05/21/2023 Acute exacerbation of chronic low back pain 05/19/2023 05/21/2023 Gait abnormality 05/19/2023 05/21/2023 documented as of this encounter (statuses as of 09/11/2023) [facility] History of Past illness Narrative* Problem Noted Date Diagnosed Date Resolved Date Chronic 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 05/19/2023 05/21/2023 Acute exacerbation of chronic low back pain 05/19/2023 05/21/2023 Gait abnormality 05/19/2023 05/21/2023 documented as of this encounter (statuses as of 09/14/2023) [facility] History of Past illness Narrative* Problem Noted Date Diagnosed Date Resolved Date Chronic 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 05/19/2023 05/21/2023 Acute exacerbation of chronic low back pain 05/19/2023 05/21/2023 Gait abnormality 05/19/2023 05/21/2023 documented as of this encounter (statuses as of 09/20/2023) [address]17-2023 History of Past illness Narrative* Problem Noted Date Diagnosed Date Resolved Date Chronic 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 05/19/2023 05/21/2023 Acute exacerbation of chronic low back pain 05/19/2023 05/21/2023 Gait abnormality 05/19/2023 05/21/2023 documented as of this encounter (statuses as of 10/06/2023) [facility] History of Past illness Narrative* Problem Noted Date Diagnosed Date Resolved Date Chronic 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 05/19/2023 05/21/2023 Acute exacerbation of chronic low back pain 05/19/2023 05/21/2023 Gait abnormality 05/19/2023 05/21/2023 documented as of this encounter (statuses as of 10/12/2023) [facility]11-17-2023 Miscellaneous Notes* Telephone Encounter - Mellisa Jean - 05/19/2023 1:34 PM EST Paged Consult to Dr. Bledsoe and Chadwick for Dian Hill Bed # E15-07 documented in [facility] encounter[facility]23 NoteHNO ID: [id number] Author: Mayr Appiah, DO Service: ? Author Type: Physician [...] a PCP. She has a PCP in [place], however came to [facility] for a second [...] Imaging: Patient says she (more content not included)...[facility] 05-19-2023 Nurse Note* Adri Burdick, JACINTO - [...] arrival. Conchita Glass Ma documented in [facility] Instructions* Patient Instructions* Niko Talley MD - 05/19/2023 10:24 AM EST documented in this encounterBarn[facility] History of Present illness Narrative* Mary Appiah [...] a PCP. She has a PCP in [place], however came to [facility] for a second [...] Niko Talley MD Internal Medicine Resident, PGY-1 [facility] 05/19/2023 9:43 AM Attending Note I fully [...] italics. Mary Appiah DO documented in this encounterBarn[facility]10-10-2023 NoteHNO ID: [id number] Author: Javon Velásquez MD Service: ? Author [...] a PCP. She has a PCP in [place], however came to [facility] for a second opinion. Review of Systems [...] Niko Talley MD Internal Medicine Resident, PGY-1 [facility] 04/11/2023 8:04 AM Chart reviewed, (more content not included)...[facility] 04-11-2023 Instructions* Patient Instructions* Niko Talley MD - 04/11/2023 9:20 AM EDT - We ordered blood work, a liver ultrasound, stool studies and an EGD (upper endoscopy) - Please schedule a follow-up appointment with me in 5 weeks documented in this encounterBarn[facility]10-[facility]23 History of Present illness Narrative* Javon Velásquez [...] a PCP. She has a PCP in [place], however came to [facility] for a second opinion. Review of Systems [...] Niko Talley MD Internal Medicine Resident, PGY-1 [facility] 04/11/2023 8:04 AM Chart reviewed, patient examined, [...] Level: 4 - Moderate documented in this encounterBarn[facility]09-29-2023 Miscellaneous Notes* Telephone Encounter - Lindsey Ruth RN - 03/31/2023 11:42 AM EDT Spoke to [facility] and that is the soonest they have [...] pt's chart. Sujata Moralez documented in this encounterBarn[facility]09-15-2023 Miscellaneous Notes* Telephone Encounter - Lindsey Ruth RN - 03/17/2023 4:25 PM EDT Faxed to [facility] . * Telephone Encounter - Teresa Daniel - 03/17/2023 1:26 PM EDT Send PT and Xray orders to [facility] fax no [phone]. done * Telephone Encounter - Lindsey Ruth [...] pain. Does have alignment changes-recommend lumbar flexion/extension [id number] placed-not completed prior-can get locally and mail [...] patient uploaded images through the link . [phone] documented in this encounterBarn[facility] Hospital08-17-2023 NoteHNO ID: [id number] Author: Florinda Glover MD Service: ? Author [...] with worsening of sympt (more content not included)...[facility]08-[facility] Instructions* Patient Instructions* Florinda Glover MD - [...] you can upload it to this website: [email or web address] Follow directions to upload. For more detailed step by step instructions go to: [email or web address] Please contact office 3-5 days after uploading to ensure receipt and for image findings SIGNATURE: Florinda Glover MD PATIENT NAME: Dian Hill DATE: February 16, 2023 TIME: 9:10 AM documented in this encounterBarnesville Hospital08-17-[facility]23 History of Present illness Narrative* Florinda Glover [...] 2023 TIME: 8:43 AM documented in this encounterBarnesville Hospital08-16-2023 Miscellaneous Notes* Telephone Encounter - Sujata Moralez - 02/15/2023 11:26 AM EDT Received the following record(s) via fxa. -REFERRAL Date Record(s) scanned into pt's chart. Sujata Fruithurst documented in this encounterBarnesville Hospital07-13-2023 Evaluation note* Encounter Date Diagnosis Assessment Notes Treatment Notes Treatment Clinical Notes Dec, Nausea and vomiting, unspecified vomiting type (ICD-10 - R11.2) [facility] Other 04-27-2023 Evaluation note* Encounter Date Diagnosis [...] - R53.82) eval labs as listed above. [facility] Other 01-03-2023 Evaluation note* Encounter Date Diagnosis [...] echo Clinical impressions discussed, all questions answered. [place] [employer] Other Evaluation noteNo assessment information available [facility] Work Phone: Evaluation noteNo InformationNortThe Good [facility] [employer] Other Evaluation note* Diagnosis Lumbosacral stenosis- Primary Spinal stenosis, lumbar region, without neurogenic claudication Nausea Nausea alone Other fatigue [facility] encounter [facility]* Diagnosis Spinal stenosis, lumbar region with neurogenic claudication- Primary [facility] encounter [facility]* Diagnosis Epigastric pain- Primary Abdominal pain, epigastric Nausea Nausea alone Other fatigue [facility]* Diagnosis Vitamin D deficiency- Primary Unspecified vitamin D deficiency [facility] Acute left flank pain- Primary Abdominal pain, unspecified site Intractable back pain Backache, unspecified Urinary incontinence, mixed Mixed incontinence urge and stress (male)(female) Spinal stenosis of lumbar region without neurogenic claudication Spinal stenosis, lumbar region, without neurogenic claudication [facility] Encounter for screening mammogram for breast cancer [facility]* Diagnosis Abnormal finding of diagnostic imaging- Primary Other nonspecific (abnormal) findings on radiological and other examinations of body structure [facility]* Diagnosis Lumbosacral stenosis- Primary Spinal stenosis, lumbar region, without neurogenic claudication DDD (degenerative disc disease), thoracic Degeneration of thoracic or thoracolumbar intervertebral disc [facility] Diagnosis Pancreatic cyst- Primary Cyst and pseudocyst of pancreas [facility]* Diagnosis DDD (degenerative disc disease), thoracic Degeneration of thoracic or thoracolumbar intervertebral disc [facility] [place] [facility]* Diagnosis NORTH (dyspnea on exertion)- Primary Other dyspnea and respiratory abnormality Lumbosacral stenosis Spinal stenosis, lumbar region, without neurogenic claudication Vasculitis, 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) Arteritis, unspecified [facility] [place] [facility]* Diagnosis Lumbosacral stenosis- Primary Spinal stenosis, lumbar region, without neurogenic claudication NORTH (dyspnea on exertion) Other dyspnea and respiratory abnormality documented in this encounter [facility] note* Diagnosis Pancreatic cyst Cyst and pseudocyst of pancreas Vasculitis, 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) Arteritis, unspecified documented [facility] this encounter [facility] [place] [facility]* Diagnosis Abnormal findings on imaging test- Primary Other nonspecific (abnormal) findings on radiological and other examinations of body structure Nausea Nausea alone Pancreas cyst Cyst and pseudocyst of pancreas documented in this encounter [facility] note* Diagnosis Pain in right hip- Primary Pain in joint, pelvic region and thigh Myalgia Mylagia and myositis, unspecified Mild cognitive impairment Mild cognitive impairment, so stated documented in this encounter [facility] general Narrative - Reported* Type Description Date Medical History Fibromyalgia Medical History Chronic pruritus Medical History Arthritis Medical History Hypothyroidism Medical History HTN (hypertension) Medical History H/O Graves' disease Surgical History carpal tunnel 2008 Surgical History subtotal thyroidectomy 1985 [facility] Other Reason for referral (narrative)* Diagnostic Procedure Only (Routine) - Pending Review Specialty Diagnoses / Procedures Referred By Tamar perez Referred To Contact US IMAG[facility] Diagnoses Epigastric pain Procedures US ABD RIGHT UPPER QUADRANT US ABDOMINAL REAL TIME W/IMAGE LIMITED Javon Velásquez MD [address] [place] [address] [facility] [place] [address] Referral ID Status Reason Start Date Expiration Date Visits Requested Visits Authorized [id number] Pending Review Auto-Generat ed Referral 3 05/10/2024 1 1 * Outpatient Procedure (Routine) - Pending Review Specialty Diagnoses / Procedures Referred By Tamar perez Referred To Contact [facility] Diagnoses Epigastric pain Procedures EGD DIAGNOSTIC ESOPHAGOGASTRODUODENOSC OPY TRANSORAL DIAGNOSTIC Javon Velásquez MD [address] [place] [address] [facility] [address] [place] [address] Referral ID Status Reason Start Date Expiration Date Visits Requested Visits Authorized [id number] Pending Review Auto-Generat ed Referral 3 04/11/2024 1 1 * Outpatient Procedure (Routine) - Pending Review Specialty Diagnoses / Procedures Referred By Tamar t Referred To Contact [facility] Diagnoses Epigastric pain Procedures ECG COMPLETE ECG ROUTINE ECG W/LEAST 12 LDS W/I&R Javon Velásquez MD [address] [place] [address] [address] Referral ID Status Reason Start Date Expiration Date Visits Requested Visits Authorized [id number] Pending Review Auto-Generat ed Referral 3 04/10/2024 1 1 [facility] for referral (narrative)* Diagnostic Procedure Only (Routine) - Pending Review Specialty Diagnoses / Procedures Referred By Tamar t Referred To Contact [facility] Diagnoses Encounter for screening mammogram for breast cancer Procedures PRINCESS SCREENING SCREENING MAMMOGRAPHY BI 2-VIEW BREAST INC Mary Rosario DO [address] [place] [address] [facility] [address] [place] [phone] Referral ID Status Reason Start Date Expiration Date Visits Requested Visits Authorized [id number] Pending Review Auto-Generat ed Referral 3 06/29/2024 1 1 [facility] for referral (narrative)* Diagnostic Procedure Only (Routine) - Pending Review Specialty Diagnoses / Procedures Referred By Contac t Referred To Contact XR IMAGING Diagnoses Pain in right hip Procedures XR HIP GENERAL 3V PELV/AP/LAT RIGHT RADEX HIP UNILATERAL WITH PELVIS 2-3 VIEWS Marisela Claudio APRN.CNP [id number] [place] [address] [place] [address] Referral ID Status Reason Start Date Expiration Date Visits Requested Visits Authorized [id number] Pending Review Auto-Generat ed Referral 11/08/2023 12/07/2024 1 1 * Consult, Test, Treat (Routine) - Authorized Specialty Diagnoses / Procedures Referred By Contac t Referred To Contact Neurology Diagnoses Mild cognitive impairment Procedures CONSULT TO NEUROLOGY OFFICE/OUTPATIENT [facility] 60 MINUTES Marisela Claudio APRN.CNP [id number] [place] [address] Referral ID Status Reason Start Date Expiration Date Visits Requested Visits Authorized [id number] Authorized PCP Requested Referral 11/08/2023 11/07/2024 1 1 [facility] Summary Purpose Family History No Family History [...] 1 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) Referral Organization [facility] smitha Referring Provider First Name Shalini Referring Provider Last Name Beena Referring Provider Specialty [facility] ozuke Referred Organization Dermat[facility] Shannan rs Referred Provider Ghada Hurst Referred Address [address],[place], [place],[address] Referred Provider Specialty Dermatology Referral Priority Routine [...] of righ t hip (M25.551) Referral Organization [facility] [employer] [facility] Referring Provider First Name Shalini Referring Provider Last Name Beena Referring Provider [facility] ozuke Referred Organization [facility] Referred Provider Justin Verdugo Referred Address ,[place], [place],[address] Referred Provider Specialty Orthopedic S urgery Referral Priority Routine General Notes Geeta Manzanares 02:00:42 PM >received today, waiting for ntoes to be locked to fax Specialty Diagnoses / Procedures Referred By Tamar perez Referred To Contact Internal Medicine / INTERNAL MEDICINE Diagnoses Nausea Other fatigue Procedures CONSULT TO INTERNAL MEDICINE OFFICE/OUTPATIENT [facility] 60-74 MINUTES Florinda Glover MD [address] [place] [address] [address] Referral ID Status Reason Start Date Expiration Date V isits Requested Visits Authorized [id number] Closed PCP Requested Referral 02/16/2023 02/16/2024 1 1 Specialty Diagnoses / Procedures Referred By Contac t Referred To Contact Gastroenterology Diagnoses Nausea Other fatigue Procedures CONSULT TO GASTROENTEROLOGY OFFICE/OUTPATIENT [facility] MDM 60-74 MINUTES Florinda Glover MD [address] [place] [address] Referral ID Status Reason Start Date Expiration Date Visits Requested Visits Authorized [id number] Pending Review PCP Requested Referral 02/16/2023 02/16/2024 1 1 Specialty Diagnoses / Procedures Referred By Contac t Referred To Contact [facility] Diagnoses Spinal stenosis, lumbar region with neurogenic claudication Procedures CONSULT TO PHYSICAL THERAPY PHYSICAL THERAPY EVALUATION [facility] COMPLEX 45 MINS Florinda Glover MD [address] [place] [address] [facility] [place] [address] Referral ID Status Reason Start Date Expiration Date Visits Requested Visits Authorized [id number] Pending Review Auto-Generat ed Referral 03/16/2023 03/15/2024 1 1 Specialty Diagnoses / Procedures Referred By Contac t Referred To Contact XR IMAGING Diagnoses Spinal stenosis, lumbar region with neurogenic claudication Procedures XR LUMBAR LIMITED 2V FLEX/EXT RADEX SPINE LUMBOSACRAL 2/3 VIEWS Florinda Glover MD [address] [place] [phone] [facility] [place] [address] Referral ID Status Reason Start Date Expiration Date Visits Requested Visits Authorized [id number] Pending Review Auto-Generat ed Referral 03/16/2023 04/14/2024 1 1 Specialty Diagnoses / Procedures Referred By Contac t Referred To Contact CT IMAGING Diagnoses Acute left flank pain Procedures CT ABD/PEL WO IVCON CT ABD & PELVIS W/O CONTRAST Mary Appiah DO [address] [place] [id number] [address] [facility] Referral ID Status Reason Start Date Expiration Date Visits Requested Visits Authorized [id number] Pending Review Auto-Generat ed Referral 06/17/2024 1 1 Specialty Diagnoses / Procedures Referred By Contac t Referred To Contact Pain Management Diagnoses Lumbosacral stenosis Procedures CONSULT TO PAIN MGT OFFICE/OUTPATIENT [facility] 60 MINUTES Florinda Glover MD [address] [facility] [place] [phone] Referral ID Status Reason Start Date Expiration Date Visits Requested Visits Authorized [id number] Authorized PCP Requested Referral 08/29/2023 08/28/2024 1 1 Specialty Diagnoses / Procedures Referred By Contac t Referred To Contact MR IMAGING Diagnoses Abnormal findings on diagnostic imaging of other parts of musculoskeletal system DDD (degenerative disc disease), thoracic Procedures MRI THORACIC SPINE WO IVCON MRI SPINAL CANAL THORACIC W/O CONTRAST MATRL Florinda Glover MD [address] [facility] [address] [place] [address] [facility] [place] [address] Referral ID Status Reason Start Date Expiration Date Visits Requested Visits Authorized [id number] Authorized Auto-Generat ed Referral 08/29/2023 09/27/2024 1 1 Specialty Diagnoses / Procedures Referred By Contac t Referred To Contact MR IMAGING Diagnoses Pancreatic cyst Procedures MRI 3D POST PROCESSING 3D RENDERING W/INTERP&POSTPROC DIFF WORK STATION Rody Juarez APRN.HR INTERN [address] [place] [address] Mr Imaging [place] [address] Referral ID Status Reason Start Date Expiration Date Visits Requested Visits Authorized [id number] Authorized Auto-Generat ed Referral 08/29/2023 09/27/2024 1 1 Specialty Diagnoses / Procedures Referred By Contac t Referred To Contact MR IMAGING Diagnoses Pancreatic cyst Procedures MRI PANC/CHAIM WO/W IVCON MRI ABDOMEN W/O & W/CONTRAST MATERIAL Rody Juarez APRN.CNP [address] [place] [id number] Mr Imaging [facility] Referral ID Status Reason Start Date Expiration Date Visits Requested Visits Authorized [id number] Authorized Auto-Generat ed Referral 08/29/2023 09/27/2024 1 1 Referral ID Status Reason Start Date Expiration Date V isits Requested Visits Authorized [id number] Closed Auto-Generate d Referral 08/29/2023 09/27/2024 1 1 Specialty Diagnoses / Procedures Referred By Contac t Referred To Contact MR IMAGING Diagnoses Vasculitis, 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) Procedures MRI BRAIN WO/W IVCON MRI BRAIN BRAIN STEM W/O W/CONTRAST MATERIAL Kai Nascimento MD [facility] [place] [address] [place] [address] Referral ID Status Reason Start Date Expiration Date Visits Requested Visits Authorized [id number] Authorized Auto-Generat ed Referral 09/14/2023 10/13/2024 1 1 Specialty Diagnoses / Procedures Referred By Contac t Referred To Contact [facility] Diagnoses Lumbosacral stenosis NORTH (dyspnea on exertion) Procedures SIX MINUTE WALK CARDIOPULMONARY EXERCISE STRESS Kai Nascimento MD [address] [place] [address] [facility] [address] [place] [address] Referral ID Status Reason Start Date Expiration Date Visits Requested Visits Authorized [id number] Authorized Auto-Generat ed Referral 09/14/2023 10/13/2024 1 1 Referral ID Status Reason Start Date Expiration Date V isits Requested Visits Authorized [id number] Closed Auto-Generate d Referral 09/14/2023 10/13/2024 1 1 Referral ID Status Reason Start Date Expiration Date V isits Requested Visits Authorized [id number] Closed Auto-Generate d Referral 08/29/2023 09/27/2024 1 1 Referral ID Status Reason Start Date Expiration Date V isits Requested Visits Authorized [id number] Closed Auto-Generate d Referral 08/29/2023 09/27/2024 1 1 Specialty Diagnoses / Procedures Referred By Contac t Referred To Contact MR IMAGING Diagnoses Abnormal findings on imaging test Pancreas cyst Procedures MRI 3D POST PROCESSING 3D RENDERING W/INTERP&POSTPROC DIFF WORK STATION Daphne Gonsalez PA-C [address] [facility] [address] [facility] [place] [address] [place] [address] Referral ID Status Reason Start Date Expiration Date Visits Requested Visits Authorized [id number] Pending Review Auto-Generat ed Referral 10/12/2023 11/10/2024 1 1 Specialty Diagnoses / Procedures Referred By Contac t Referred To Contact MR IMAGING Diagnoses Abnormal findings on imaging test Pancreas cyst Procedures MRI PANC/CHAIM WO/W IVCON MRI ABDOMEN W/O & W/CONTRAST MATERIAL Daphne Gonsalez PA-C [address] [place] [address] [place] [address] Referral ID Status Reason Start Date Expiration Date Visits Requested Visits Authorized [id number] Pending Review Auto-Generat ed Referral 10/12/2023 11/10/2024 1 1 Specialty Diagnoses / Procedures Referred By Contac t Referred To Contact Gastroenterology Diagnoses Abnormal findings on imaging test Nausea Procedures CONSULT TO GASTROENTEROLOGY OFFICE/OUTPATIENT [facility] 60 MINUTES Daphne Gonsalez PA-C [address] [place] [address] Referral ID Status Reason Start Date Expiration Date Visits Requested Visits Authorized [id number] Authorized PCP Requested Referral 10/12/2023 10/11/2024 1 1 Additional Source Comments Care Teams (unrecognized sec tion and content) Team Status: Inactive Member Role Status Dates PHYSICIAN NO FAMILY Primary Care Provider Active Lenny Zhao MD Attending Provider Active Team Status: Active Member Role Status Dates PHYSICIAN NO FAMILY Primary Care Provider Active 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 Start Date End Date Niko Talley MD [address] [place] [address] PCP Resident Internal Medicine 02/16/23 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 Start Date End Date Niko Talley MD [address] [place] [address] PCP Resident Internal Medicine 02/16/23 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 Start Date End Date Niko Talley MD [address] [place] [address] PCP Resident Internal Medicine 02/16/23 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 Start Date End Date Niko Talley MD [address] [place] [address] PCP Resident Internal Medicine 02/16/23 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 Start Date End Date Niko Talley MD [address] [place] [address] PCP Resident Internal Medicine 02/16/23 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 Start Date End Date Niko Talley MD [address] [place] [address] PCP Resident Internal Medicine 02/16/23 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 Start Date End Date Niko Talley MD [address] [place] [address] PCP Resident Internal Medicine 02/16/23 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 Start Date End Date Mary Appiah DO [address] [place] [address] PCP - General Internal Medicine 05/24/23 Niko Talley MD [address] [place] [address] PCP Resident Internal Medicine 02/16/23 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 Start Date End Date Mary Appiah DO [address] [place], [place] [id number] PCP - General Internal Medicine 05/24/23 Niko Talley MD [address] [place] [address] PCP Resident Internal Medicine 02/16/23 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 [place] [address] [place] [address] PCP - General Internal Medicine 05/24/23 Niko Talley MD [address] [place] [address] PCP Resident Internal Medicine 02/16/23 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 Start Date End Date Mary Appiah DO [address] [place] [address] PCP - General Internal Medicine 05/24/23 Niko Talley MD [address] [place] [address] PCP Resident Internal Medicine 02/16/23 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 Start Date End Date Mary Appiah DO [address] [place] [address] PCP - General Internal Medicine 05/24/23 Niko Talley MD [address] [place] [address] PCP Resident Internal Medicine 02/16/23 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 Start Date End Date Mary Appiah DO [address] [place] [address] PCP - General Internal Medicine 05/24/23 Niko Talley MD [address] [place] [address] PCP Resident Internal Medicine 02/16/23 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 Start Date End Date Mary Appiah DO [address] [place] [address] PCP - General Internal Medicine 05/24/23 [place] [address] [place] [address] PCP Resident Internal Medicine 02/16/23 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 Start Date End Date Mary Appiah DO [address] [place] [address] PCP - General Internal Medicine 05/24/23 Niko Talley MD [address] [place] [address] PCP Resident Internal Medicine 02/16/23 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 Start Date End Date Mary Appiah DO [address] [place] [address] PCP - General Internal Medicine 05/24/23 Niko Talley MD [address] [place] [address] PCP Resident Internal Medicine 02/16/23 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 Start Date End Date Mary Appiah DO [address] [place] [address] PCP - General Internal Medicine 05/24/23 Niko Talley MD [address] [place] [address] PCP Resident Internal Medicine 02/16/23 Goals (unrecognized section and content) Goals may be documented in a n alternate sectionNo InformationNo InformationNo InformationNo InformationNo InformationNo InformationNo InformationNo InformationNo InformationNo InformationNo InformationNo InformationNo InformationNo InformationNo InformationNo InformationNo InformationNo Information INFORMATION SOURCE (unrecogn ized section and content) DATE CREATED AUTHOR 12/31/2021 [facility] DATE CREATED AUTHOR AUTHOR'S ORGANIZ ATION 11/10/2022 [facility] DATE CREATED AUTHOR AUTHOR'S ORGANIZ ATION 11/10/2023 [facility] REASON FOR VISIT (unrecogniz ed section and [...] fatigue Procedures CONSULT TO INTERNAL MEDICINE OFFICE/OUTPATIENT [facility] 60-74 MINUTES Florinda Glover MD [address] [place] [address] [place] [address] Referral ID Status Reason Start Date Expiration Date V isits Requested Visits Authorized [id number] Closed PCP Requested Referral 02/16/2023 02/16/2024 1 [...] THORACIC W/O CONTRAST MATRL Florinda Glover MD [address] [place] [address] Mr Imaging [place] [address] Referral ID Status Reason Start Date Expiration Date V isits Requested Visits Authorized [id number] Closed Auto-Generate d Referral 08/29/2023 09/27/2024 1 1 Reason Comments Results Reason Comments Back Pain Specialty Diagnoses / Procedures Referred By Contac t Referred To Contact [facility] Diagnoses Lumbosacral stenosis Procedures CONSULT TO PAIN MGT OFFICE/OUTPATIENT [facility] 60 MINUTES Florinda Glover MD [address] [facility] [place] [phone] [facility] [address] [place] [address] Referral ID Status Reason Start Date Expiration Date V isits Requested Visits Authorized [id number] Closed PCP Requested Referral 08/29/2023 08/28/2024 1 1 Reason Comments Spirometry Specialty Diagnoses / Procedures Referred By Contac t Referred To Contact [facility] Diagnoses Lumbosacral stenosis NORTH (dyspnea on exertion) Procedures SIX MINUTE WALK CARDIOPULMONARY EXERCISE STRESS Kai Nascimento MD [facility] [place] [address] [facility] [address] [place] [id number] Referral ID Status Reason Start Date Expiration Date V isits Requested Visits Authorized [id number] Closed Auto-Generate d Referral 09/14/2023 10/13/2024 1 1 Reason Comments Radiology MRI Specialty Diagnoses / Procedures Referred By Contac t Referred To Contact MR IMAGING Diagnoses Pancreatic cyst Procedures MRI PANC/CHAIM WO/W IVCON MRI ABDOMEN W/O & W/CONTRAST MATERIAL Rody Juarez APRN.[facility] [address] [place] [address] [place] [address] Referral ID Status Reason Start Date Expiration Date V isits Requested Visits Authorized [id number] Closed Auto-Generate d Referral 08/29/2023 09/27/2024 1 1 Reason Comments Actionable Findings Follow Up Source Comments (unrecognize d section and content) In the event this informatio n is protected by the Federal Confidentiality of Alcohol and Drug Abuse Patient Records regulations: The Federal rules restrict any use of the information to criminally investigate or prosecute any alcohol or drug abuse patient.[facility] the event this information is protected by the Federal Confidentiality of Alcohol and Drug Abuse Patient Records regulations: The Federal rules restrict any use of the information to criminally investigate or prosecute any alcohol or drug abuse patient.[facility] HospitalIn the event this information is protected by the Federal Confidentiality of Alcohol and Drug Abuse Patient Records regulations: The Federal rules restrict any use of the information to criminally investigate or prosecute any alcohol or drug abuse patient.[facility] HospitalIn the event this information is protected by the Federal Confidentiality of Alcohol and Drug Abuse Patient Records regulations: The Federal rules restrict any use of the information to criminally investigate or prosecute any alcohol or drug abuse patient.[facility] HospitalIn the event this information is protected by the Federal Confidentiality of Alcohol and Drug Abuse Patient Records regulations: The Federal rules restrict any use of the information to criminally investigate or prosecute any alcohol or drug abuse patient.[facility] HospitalIn the event this information is protected by the Federal Confidentiality of Alcohol and Drug Abuse Patient Records regulations: The Federal rules restrict any use of the information to criminally investigate or prosecute any alcohol or drug abuse patient.[facility] HospitalIn the event this information is protected by the Federal Confidentiality of Alcohol and Drug Abuse Patient Records regulations: The Federal rules restrict any use of the information to criminally investigate or prosecute any alcohol or drug abuse patient.[facility] HospitalIn the event this information is protected by the Federal Confidentiality of Alcohol and Drug Abuse Patient Records regulations: The Federal rules restrict any use of the information to criminally investigate or prosecute any alcohol or drug abuse patient.[facility] HospitalIn the event this information is protected by the Federal Confidentiality of Alcohol and Drug Abuse Patient Records regulations: The Federal rules restrict any use of the information to criminally investigate or prosecute any alcohol or drug abuse patient.[facility] HospitalIn the event this information is protected by the Federal Confidentiality of Alcohol and Drug Abuse Patient Records regulations: The Federal rules restrict any use of the information to criminally investigate or prosecute any alcohol or drug abuse patient.[facility] HospitalIn the event this information is protected by the Federal Confidentiality of Alcohol and Drug Abuse Patient Records regulations: The Federal rules restrict any use of the information to criminally investigate or prosecute any alcohol or drug abuse patient.[facility] HospitalIn the event this information is protected by the Federal Confidentiality of Alcohol and Drug Abuse Patient Records regulations: The Federal rules restrict any use of the information to criminally investigate or prosecute any alcohol or drug abuse patient.[facility] HospitalIn the event this information is protected by the Federal Confidentiality of Alcohol and Drug Abuse Patient Records regulations: The Federal rules restrict any use of the information to criminally investigate or prosecute any alcohol or drug abuse patient.[facility] HospitalIn the event this information is protected by the Federal Confidentiality of Alcohol and Drug Abuse Patient Records regulations: The Federal rules restrict any use of the information to criminally investigate or prosecute any alcohol or drug abuse patient.[facility] HospitalIn the event this information is protected by the Federal Confidentiality of Alcohol and Drug Abuse Patient Records regulations: The Federal rules restrict any use of the information to criminally investigate or prosecute any alcohol or drug abuse patient.[facility] HospitalIn the event this information is protected by the Federal Confidentiality of Alcohol and Drug Abuse Patient Records regulations: The Federal rules restrict any use of the information to criminally investigate or prosecute any alcohol or drug abuse patient.[facility] HospitalIn the event this information is protected by the Federal Confidentiality of Alcohol and Drug Abuse Patient Records regulations: The Federal rules restrict any use of the information to criminally investigate or prosecute any alcohol or drug abuse patient.[facility] HospitalIn the event this information is protected by the Federal Confidentiality of Alcohol and Drug Abuse Patient Records regulations: The Federal rules restrict any use of the information to criminally investigate or prosecute any alcohol or drug abuse patient.[facility] HospitalIn the event this information is protected by the Federal Confidentiality of Alcohol and Drug Abuse Patient Records regulations: The Federal rules restrict any use of the information to criminally investigate or prosecute any alcohol or drug abuse patient.[facility] FOR RECORDS PERTAINING TO PATIENTS WHO ARE [...] BE BASED ON THE PRIMARY CLINICAL RECORDS. [facility] in Practice [facility]. provides no warranty or guarantee of the accuracy or completeness of information in this document.
== END 2024-02-07 10:36 | disposition home or self-care (01) ==
LOC: MAMMO 10:35
PROVIDERS: PCP Family Medicine; Visit Provider Family Medicine
DX: N64.4 Mastodynia (principal); N63.20 Unspecified lump in the left breast, unspecified quadrant; N63.23 Unspecified lump in the left breast, lower outer quadrant; Z80.3 Family history of malignant neoplasm of breast; Z80.0 Family history of malignant neoplasm of digestive organs
CPT/HCPCS: 76642; 77066; G0279

== ENCOUNTER 2024-03-19 11:53 | Outpatient (OUT) | payer MEDICARE, SELFPAY ==
--- NOTE | 2024-03-19 12:34 | ECG_ITS ---
[facility] Test Date: 2024-03-19 Pat Name: DIAN HILL Department: Room: - Gender: Female [employer]: : [id number] Requested By: SHALINI HARGROVE Order Number: [id number] Reading MD: CHERYL COLORADO Measurements Intervals [place] Rate: 57 P: 68 SD: 125 QRS: 14 QRSD: 84 T: 28 QT: 431 QTc: 420 Interpretive Statements SINUS BRADYCARDIA Compared to ECG 02/14/2023 11:22:23 Sinus rhythm no longer present Short SD interval no longer present Electronically Signed On 03-19-2024 22:31:35 EDT by CHERYL COLORADO
[2024-03-19 13:30] LABS: BUN Creatinine Ratio 21.8; Basophils Percent Auto 0.6 % (0.2-2.0); Calcium 8.6 mg/dL (8.5-10.1); Carbon Dioxide 30.3 mmol/L (21.0-32.0); Chloride 104 mmol/L (98-107); Eosinophils Absolute Auto 0.1 10^3/uL (0.0-0.7); Eosinophils Percent Auto 1.4 % (0.9-7.0); Estimated GFR (African America >60 (>=60); Estimated GFR (Non-African Ame >60 (>=60); Glucose 90 mg/dL (74-106); Hematocrit 37.4 % (36.0-48.0); Hemoglobin 12.7 g/dL (12.0-16.0); Immature Granulocytes Abs Auto 0.01 10^3/uL (0.00-0.03); Immature Granulocytes Pct Auto 0.2 % (0.0-0.5); Lymphocytes Absolute Auto 1.4 10^3/uL (1.2-3.8); Mean Corpuscular Hemoglobin 31.4 pg (26.7-34.0); Mean Corpuscular Volume 92.6 fL (81.0-99.0); Mean Platelet Volume 10.1 fL (9.5-13.5); Monocytes Absolute Auto 0.4 10^3/uL (0.3-0.8); Monocytes Percent Auto 8.2 % (1.7-12.0); Neutrophils Absolute Auto 3.1 10^3/uL (1.4-6.5); Neutrophils Percent Auto 61.6 % (43.0-75.0); Platelet Count 262 10^3/uL (150-450); Potassium 3.3 mmol/L (3.5-5.1); Red Blood Count 4.04 10^6/uL (4.20-5.40); Red Cell Distribution Width 13.9 % (11.0-15.0); Sodium 139 mmol/L (136-145); White Blood Count 5.1 10^3/uL (4.0-11.0)
== END 2024-03-19 11:54 | disposition home or self-care (01) ==
LOC: PST 11:55
PROVIDERS: PCP Family Medicine; Visit Provider Student in an Organized Health Care Education/Training Program
DX: Z01.810 Encounter for preprocedural cardiovascular examination (principal); Z01.812 Encounter for preprocedural laboratory examination; I83.813 Varicose veins of bilateral lower extremities with pain
CPT/HCPCS: 80048; 85025; 93005